=== PATIENT | female | born 1940 | race African-American/Black ===

== ENCOUNTER → 2016-08-20 | Outpatient (CLI) | payer MEDICARE, OTHER ==
--- NOTE | 2016-08-20 14:45 | BD ---
EXAMINATION TYPE: MG DEXA axial skeleton. DATE OF EXAM: 08/20/2016 2:41 PM CLINICAL HISTORY: Comparison: DEXA bone scan March 08, 2014. Height: 62 Weight: 225 FRAX RISK QUESTIONS: Alcohol (3 or more units per day): no Family History (Parent hip fracture): no Glucocorticoids (More than 3mos): no (Ex: prednisone, prednisolone, methylprednisolone, dexamethasone, and hydrocortisone). History of Fracture in Adulthood: no Secondary Osteoporosis: 1. Type 1 Diabetes: no 2. Hyperthyroidism: no 3. Menopause before 45: 46 4. Malnutrition: no 5. Chronic liver disease: no Rheumatoid Arthritis: no Current Tobacco Use: yes RISK FACTORS HISTORY OF: Family History of Osteoporosis: no Smoke tobacco: yes Drink Alcohol: no Active: somewhat Diet low in dairy products/other sources of calcium: at least one serving a day Postmenopausal woman: yes Take estrogen and/or progesterone medications: not now How long: over 5 years...unsure Lost more than 2 inches in height since high school: no Frequent falls: no Poor Health: slightly Hyperparathyroidism: no Adrenal Insufficiency: no MEDICATIONS: Prednisone or other steroids: no Thyroid Medications: no Osteoporosis Medications: no Additional Medications: O2 , metformin, blood pressure meds Additional History: borderline fibromyalgia, diabetes (non insulin dependant), bilateral knee replac ements EXAM MEASUREMENTS: Bone mineral densitometry was performed using the [employer] System. Bone mineral density as measured about the Lumbar spine is: ----- L1-L4(G/cm2): 1.137 T Score Values are as follows: ----- L2: -0.5 ----- L3: -0.3 ----- L4: 0.3 ----- L1-L4: -0.4 Bone mineral density has: Decreased -3.0% since study of: 03/08/2014 Bone mineral density about the R hip (g/cm2): 0.858 Bone mineral density about the L hip (g/cm2): 0.887 T Score values are as follows: -----R Neck: -1.3 -----L Neck: -1.1 -----R Intertrochanter: -0.7 -----L Intertrochanter: -1.6 Bone mineral density has: Decreased -4.8% since study of: 03/08/2014 IMPRESSION: Osteopenia (T Score between -2.5 and -1 as noted by T score values in the bilateral hips is now prese nt new from prior exam as the bone density is decreased from prior. There is slightly increased risk of fracture and the patient may be considered for treatment. Re-Screen 1-2 years. NOTE: T-SCORE=SD OF THE YOUNG ADULT MEAN.
--- NOTE | 2016-08-21 08:07 | MM ---
Reason for exam: screening (asymptomatic). Last mammogram was performed 2 years and 5 months ago. History: Patient is postmenopausal. Family history of breast cancer in sister at age 53. Took estrogen for 11 years beginning at age 58. Took progesterone for 11 years beginning at age 58. Physical Findings: A clinical breast exam by your physician is recommended on an annual basis and results should be correlated with mammographic findings. MG Screening Mammo w CAD Bilateral CC and MLO view(s) were taken. Prior study comparison: March 08, 2014, bilateral MG screening mammo w CAD. July 16, 2010, bilateral digital screening mammo w/CAD. The breast tissue is almost entirely fat. There is chronic nodularity in the left breast. No significant changes when compared with prior studies. ASSESSMENT: Benign, BI-RAD 2 RECOMMENDATION: Routine screening mammogram of both breasts in 1 year.
== END | disposition home or self-care (01) ==
LOC: RADMAMWWP 13:09
PROVIDERS: ATTEND Family Medicine
DX: Z12.31 Encounter for screening mammogram for malignant neoplasm of breast (principal); M85.851 Other specified disorders of bone density and structure, right thigh; M85.852 Other specified disorders of bone density and structure, left thigh
CPT/HCPCS: 77080; G0202

== ENCOUNTER → 2017-10-12 | Outpatient (CLI) | payer MEDICARE, OTHER ==
--- NOTE | 2017-10-13 13:44 | MM ---
Reason for exam: screening (asymptomatic). Last mammogram was performed 1 year and 2 months ago. History: Patient is postmenopausal. Family history of breast cancer in sister at age 53. Took estrogen for 11 years beginning at age 58. Took progesterone for 11 years beginning at age 58. Physical Findings: A clinical breast exam by your physician is recommended on an annual basis and results should be correlated with mammographic findings. MG Screening Mammo w CAD Bilateral CC and MLO view(s) were taken. Prior study comparison: August 20, 2016, bilateral MG screening mammo w CAD. March 08, 2014, bilateral MG screening mammo w CAD. The breast tissue is heterogeneously dense. This may lower the sensitivity of mammography. No suspicious abnormality. No significant changes when compared with prior studies. ASSESSMENT: Negative, BI-RAD 1 RECOMMENDATION: Routine screening mammogram of both breasts in 1 year.
== END | disposition home or self-care (01) ==
LOC: RADMAMWWP 09-10 15:24
PROVIDERS: ATTEND Internal Medicine
DX: Z12.31 Encounter for screening mammogram for malignant neoplasm of breast (principal)
CPT/HCPCS: 77067

== ENCOUNTER → 2019-06-01 | Outpatient (CLI) | payer MEDICARE, OTHER ==
[2019-06-01 16:43] LABS: African American GFR (CKD) >90 (>60 ml/min/1.73 sqM); Blood Urea Nitrogen 12 mg/dL (7-17); Non-African American GFR(CKD) 89 (>60 ml/min/1.73 sqM)
--- NOTE | 2019-06-01 21:52 | CT ---
EXAMINATION TYPE: CT chest w con DATE OF EXAM: 06/01/2019 COMPARISON: CTA chest March 03, 2015. Chest x-ray May 16, 2019 and older studies. HISTORY: COPD, recent abnormal x-ray. CT DLP: 408.7 mGycm. Automated Exposure Control for Dose Reduction was Utilized. TECHNIQUE: CT scan of the thorax is performed following with IV Contrast, patient injected with 100 mL of Isovue 300. FINDINGS: LUNGS: Background mild underlying emphysematous change is redemonstrated. No suspicious nodules or ma sses with particular attention to the right hilum and area of x-ray concern. No pleural effusion or p neumothorax. No suspicious focal consolidation. Tracheobronchial tree is patent. MEDIASTINUM: There are no greater than 1 cm hilar or mediastinal lymph nodes. No pericardial effusi on is seen. Heart size upper limits of normal. Enlarged main pulmonary artery is seen, CT finding co nsistent with underlying pulmonary artery hypertension. Prominent right pulmonary artery at hilum lik sima corresponds to the area of x-ray suspicion. OTHER: Numerous surgical clips at gastroesophageal junction are redemonstrated. Spine is straightened . IMPRESSION: No suspicious mass or adenopathy. Mild emphysematous change without suspicious acute pulm onary process.
== END | disposition home or self-care (01) ==
LOC: RADCTMAIN 16:06
PROVIDERS: ATTEND Internal Medicine
DX: J43.9 Emphysema, unspecified (principal); Z88.8 Allergy status to other drugs, medicaments and biological substances
CPT/HCPCS: 82565; 84520; 71260; 36415; Q9967

== ENCOUNTER → 2019-06-02 | Outpatient (CLI) | payer MEDICARE, OTHER ==
--- NOTE | 2019-06-03 14:17 | MM ---
Reason for exam: screening (asymptomatic). Last mammogram was performed 1 year and 8 months ago. History: Patient is postmenopausal. Family history of breast cancer in sister at age 53. Took estrogen for 11 years beginning at age 58. Took progesterone for 11 years beginning at age 58. Physical Findings: A clinical breast exam by your physician is recommended on an annual basis and results should be correlated with mammographic findings. MG 3D Screening Mammo W/Cad Bilateral CC and MLO view(s) were taken. Prior study comparison: October 12, 2017, bilateral MG screening mammo w CAD. August 20, 2016, bilateral MG screening mammo w CAD. There are scattered fibroglandular densities. There is chronic nodularity bilaterally. There is no discrete abnormality. ASSESSMENT: Benign, BI-RAD 2 RECOMMENDATION: Routine screening mammogram of both breasts in 1 year.
== END | disposition home or self-care (01) ==
LOC: RADMAMWWP 13:34
PROVIDERS: ATTEND Internal Medicine
DX: Z12.31 Encounter for screening mammogram for malignant neoplasm of breast (principal)
CPT/HCPCS: 77063; 77067

== ENCOUNTER 2019-07-06 05:12 | Inpatient (IN) | payer MEDICARE, OTHER ==
[2019-07-06] MEDS ORDERED: methylPREDNISolone SOD SUCCI 125 MG/2 ML VIAL IV STA (06:10)
[2019-07-06] MEDS ORDERED: IPRATROPIUM-ALBUTEROL 3 ML NEB INHALATION STA (06:10)
[2019-07-06] MEDS ORDERED: SODIUM CHLORIDE 0.9% 500 ML 500 ML IV STA (06:10)
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
[2019-07-06 06:46] LABS: HCT 41.9 % (34.0-46.0); HGB 12.6 gm/dL (11.4-16.0); Hypochromasia Moderate; MCH 22.9 pg (25.0-35.0); MCHC 30.1 g/dL (31.0-37.0); Mean Platelet Volume 7.4; Microcytosis Slight; Platelet Count 221 k/uL (150-450); RBC 5.51 m/uL (3.80-5.40); RDW 15.8 % (11.5-15.5); WBC 4.8 k/uL (3.8-10.6)
[2019-07-06 06:56] LABS: ALT 44 U/L (4-34); AST 83 U/L (14-36); African American GFR (CKD) >90 (>60 ml/min/1.73 sqM); Albumin 3.8 g/dL (3.5-5.0); Alkaline Phosphatase 91 U/L (38-126); Anion Gap 4 mmol/L; Blood Urea Nitrogen 12 mg/dL (7-17); Calcium 8.7 mg/dL (8.4-10.2); Carbon Dioxide 31 mmol/L (22-30); Chloride 104 mmol/L (98-107); Glucose 90 mg/dL (74-99); Non-African American GFR(CKD) 88 (>60 ml/min/1.73 sqM); Potassium 4.1 mmol/L (3.5-5.1); Sodium 139 mmol/L (137-145); Total Bilirubin 0.4 mg/dL (0.2-1.3); Total Protein 7.3 g/dL (6.3-8.2)
--- NOTE | 2019-07-06 06:57 | XR ---
EXAMINATION TYPE: XR chest 2V DATE OF EXAM: 07/06/2019 COMPARISON: Chest x-ray April 01, 2015. CT chest June 01, 2019 HISTORY: Difficulty in breathing. TECHNIQUE: Frontal and lateral views of the chest are obtained. FINDINGS: Improved inspiration on current study. There is no new suspicious focal airspace opacity, pleural effusion, or pneumothorax seen bilaterally. Cardiac silhouette size is stable and enlarged wi th atherosclerotic and ectatic thoracic aorta. Numerous surgical clips epigastric region along with c holecystectomy clips are redemonstrated. Spine is straightened on lateral view. IMPRESSION: Cardiomegaly without new acute pulmonary process.
[2019-07-06 07:16] LABS: Partial Thromboplastin Time 22.9 sec (22.0-30.0); Prothrombin Time 10.5 sec (9.0-12.0)
[2019-07-06 08:25] LABS: Band Neutrophils % 1 %; Eosinophils # (M) 0.05 k/uL (0-0.7); Lymphocytes # (M) 0.67 k/uL (1.0-4.8); Monocytes # (M) 0.43 k/uL (0-1.0); Neutrophils % (M) 75 %; Nucleated Red Blood Cells 0 /100 WBC (0-0); Total Cells Counted 100
[2019-07-06 08:27] LABS: Target Cells Present
[2019-07-06] MEDS ORDERED: AZITHROMYCIN 500 MG in SODIUM CHLORIDE 0.9% 250 ML IVPB STA (08:50)
[2019-07-06] MEDS: IPRATROPIUM-ALBUTEROL 3 ML NEB INHALATION SCH ×4 (11:59→20:18)
[2019-07-06] MEDS ORDERED: methylPREDNISolone SOD SUCCI 125 MG/2 ML VIAL IV SCH (12:00)
[2019-07-06] MEDS: INSULIN ASPART (NovoLOG) 100 UNIT/ML VIAL SQ SCH ×3 (13:16→22:32)
[2019-07-06 13:18] LABS: Glucose,Whole Blood 189 mg/dL (75-99)
[2019-07-06] MEDS ORDERED: AZITHROMYCIN 500 MG TAB PO SCH (14:00)
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
[2019-07-06] MEDS: LOSARTAN 50 MG TAB PO SCH ×2 (14:16→22:32)
[2019-07-06] MEDS: FERROUS SULFATE 325 MG TAB PO SCH (14:16)
[2019-07-06] MEDS: GABAPENTIN 300 MG CAP PO SCH ×2 (14:17→22:32)
[2019-07-06] MEDS: FUROSEMIDE 40 MG TAB PO SCH ×2 (14:17→22:32)
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
[2019-07-06] MEDS: COLCHICINE 0.6 MG EACH PO SCH (15:51)
[2019-07-06] MEDS: DULoxetine HCL 20 MG CAPSULE.DR PO SCH ×2 (15:52→22:22)
[2019-07-06] MEDS: oxyCODONE-APAP 10-325MG 1 EACH TAB PO PRN (16:02)
[2019-07-06] MEDS: HEPARIN SODIUM,PORCINE 5,000 UNIT/ML 1 ML VIAL SQ SCH ×2 (19:02→23:21)
[2019-07-06 19:03] LABS: Glucose,Whole Blood 313 mg/dL (75-99)
[2019-07-06] MEDS ORDERED: IPRATROPIUM-ALBUTEROL 3 ML NEB INHALATION PRN (20:23)
[2019-07-06] MEDS ORDERED: HEPARIN SODIUM,PORCINE 5,000 UNIT/ML 1 ML VIAL SQ SCH (21:00)
[2019-07-06] MEDS: FAMOTIDINE 20 MG TAB PO SCH (21:22)
[2019-07-06] MEDS: methylPREDNISolone SOD SUCCI 40 MG/ML 1 ML VIAL IV SCH (21:23)
[2019-07-06 22:26] LABS: Glucose,Whole Blood 191 mg/dL (75-99)
[2019-07-06] MEDS: POTASSIUM CHLORIDE ER 10 MEQ TAB.ER.PRT PO SCH (22:32)
[2019-07-07] MEDS: oxyCODONE-APAP 10-325MG 1 EACH TAB PO PRN ×3 (02:00→19:07)
[2019-07-07 06:58] LABS: Glucose,Whole Blood 130 mg/dL (75-99)
[2019-07-07] MEDS: IPRATROPIUM-ALBUTEROL 3 ML NEB INHALATION SCH ×4 (07:24→20:14)
[2019-07-07] MEDS: INSULIN ASPART (NovoLOG) 100 UNIT/ML VIAL SQ SCH ×4 (08:29→21:02)
[2019-07-07] MEDS: ASPIRIN 81 MG PO SCH (08:30)
[2019-07-07] MEDS: LOSARTAN 50 MG TAB PO SCH ×2 (08:30→21:01)
[2019-07-07] MEDS: POTASSIUM CHLORIDE ER 10 MEQ TAB.ER.PRT PO SCH ×2 (08:30→21:01)
[2019-07-07] MEDS: MONTELUKAST 10 MG TAB PO SCH (08:30)
[2019-07-07] MEDS: AZITHROMYCIN 500 MG TAB PO SCH (08:30)
[2019-07-07] MEDS: FERROUS SULFATE 325 MG TAB PO SCH (08:30)
[2019-07-07] MEDS: FAMOTIDINE 20 MG TAB PO SCH (08:30)
[2019-07-07] MEDS: GABAPENTIN 300 MG CAP PO SCH ×2 (08:30→21:01)
[2019-07-07] MEDS: metFORMIN 500 MG TAB PO SCH (08:30)
[2019-07-07] MEDS: FUROSEMIDE 40 MG TAB PO SCH ×2 (08:30→21:01)
[2019-07-07] MEDS: PANTOPRAZOLE 40 MG TABLET PO SCH (08:30)
[2019-07-07] MEDS: methylPREDNISolone SOD SUCCI 40 MG/ML 1 ML VIAL IV SCH ×2 (08:30→21:33)
[2019-07-07] MEDS: COLCHICINE 0.6 MG EACH PO SCH (08:31)
[2019-07-07] MEDS: MELOXICAM 7.5 MG TAB PO SCH (08:31)
[2019-07-07] MEDS: DULoxetine HCL 20 MG CAPSULE.DR PO SCH ×2 (08:31→08:43)
[2019-07-07] MEDS: HEPARIN SODIUM,PORCINE 5,000 UNIT/ML 1 ML VIAL SQ SCH ×3 (08:32→23:29)
[2019-07-07] MEDS: guaiFENesin SYRUP 100MG/5ML 200 MG/10 ML CUP PO PRN ×2 (09:36→23:32)
[2019-07-07 11:44] LABS: Glucose,Whole Blood 127 mg/dL (75-99)
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
--- NOTE | 2019-07-07 14:58 | P.PN ---
Subjective Patient is admitted for COPD exacerbation patient wheezing did improve significantly. Probably will be discharged tomorrow. Patient chest pain is s econdary to bronchospasm which resolved at this time. Constitutional: Denied any fatigue denied any fever. Cardio vascular: denied any chest pain, palpitations Gastrointestinal denied any nausea vomiting Pulmonary: Short of breath improved significantly Neurologic denied any new focal deficits All inpatient medications were reviewed and appropriate changes in these medications as dictated in the interval history and assessment and plan. Objective - Vital Signs Vital signs: Vital Signs Temp 97.5 F L 07/07/19 11:49 Pulse 86 07/07/19 11:49 Resp 16 07/07/19 11:49 BP 134/79 07/07/19 11:49 Pulse Ox 98 07/07/19 11:49 Intake & Output 07/06/19 07/07/19 07/07/19 18:59 06:59 18:59 Intake Total 800 590 Balance 800 590 Weight 102.512 kg Intake: Intake, IV Titration 800 Amount Azithromycin 500 mg In 250 Sodium Chloride 0.9% 250 ml @ 250 mls/hr IVPB ONCE STA Rx#:[id number] Sodium Chloride 0.9% 500 500 ml 500 ml @ 999 mls/hr IV .Q31M STA Rx#:[id number] cefTRIAXone 1 gm In 50 Sodium Chloride 0.9% 50 ml @ 100 mls/hr IVPB ONCE STA Rx#:[id number] Oral 590 Other: Voiding Method Toilet Toilet # Voids 3 1 - Exam PHYSICAL EXAMINATION: GENERAL: The patient is alert and oriented x3, not in any acute distress. Well developed, well nourished. HEENT: Pupils are round and equally reacting to light. EOMI. No scleral icterus. No conjunctival pallor. Normocephalic, atraumatic. No pharyngeal erythema. No thyromegaly. CARDIOVASCULAR: S1 and S2 present. No murmurs, rubs, or gallops. PULMONARY: Mildly diminished air entry into bilateral lung maurice and the wheezing improved significantly ABDOMEN: Soft, nontender, nondistended, normoactive bowel sounds. No palpable organomegaly. MUSCULOSKELETAL: No joint swelling or deformity. EXTREMITIES: No cyanosis, clubbing, or pedal edema. NEUROLOGICAL: Gross neurological examination did not reveal any focal deficits. SKIN: No rashes. - Labs CBC & Chem 7: 07/06/19 06:31 07/06/19 06:31 Labs: Abnormal Lab Results - Last 24 Hours (Table) 07/06/19 07/06/19 07/07/19 Range/Units 19:01 22:14 06:53 POC Glucose (mg/dL) 313 H 191 H 130 H (75-99) mg/dL 07/07/19 Range/Units 11:41 POC Glucose (mg/dL) 127 H (75-99) mg/dL Assessment and Plan Plan: Acute on chronic hypercapnic respiratory failure secondary to COPD exacerbation: Nicotine cessation counseling was provided patient was started on systemic steroids inhalational treatments and patient was started on azithromycin by pulmonary which will be continued -Type 2 diabetes mellitus: Blood sugars fairly well-controlled in spite of systemic steroids patient will continue on present regimen -Fibromyalgia -Osteoarthritis with chronic neck and back pain. 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 -DVT prophylaxis with subcutaneous heparin and GI prophylaxis with Pepcid
[2019-07-07 17:12] LABS: Glucose,Whole Blood 193 mg/dL (75-99)
[2019-07-07 19:00] LABS: Hemoglobin A1C 6.7 % (4.0-6.0)
[2019-07-07 20:36] LABS: Glucose,Whole Blood 259 mg/dL (75-99)
[2019-07-08 05:13] VITALS: BP 128/72; RESP 16; TEMP 97.7
[2019-07-08 07:13] LABS: Glucose,Whole Blood 136 mg/dL (75-99)
[2019-07-08] MEDS: IPRATROPIUM-ALBUTEROL 3 ML NEB INHALATION SCH (07:56)
[2019-07-08] MEDS: FUROSEMIDE 40 MG TAB PO SCH (08:02)
[2019-07-08] MEDS: metFORMIN 500 MG TAB PO SCH (08:02)
[2019-07-08] MEDS: POTASSIUM CHLORIDE ER 10 MEQ TAB.ER.PRT PO SCH (08:02)
[2019-07-08] MEDS: MONTELUKAST 10 MG TAB PO SCH (08:02)
[2019-07-08] MEDS: HEPARIN SODIUM,PORCINE 5,000 UNIT/ML 1 ML VIAL SQ SCH (08:03)
[2019-07-08] MEDS: PANTOPRAZOLE 40 MG TABLET PO SCH (08:03)
[2019-07-08] MEDS: DULoxetine HCL 20 MG CAPSULE.DR PO SCH ×2 (08:03→08:19)
[2019-07-08] MEDS: LOSARTAN 50 MG TAB PO SCH (08:03)
[2019-07-08] MEDS: COLCHICINE 0.6 MG EACH PO SCH (08:03)
[2019-07-08] MEDS: GABAPENTIN 300 MG CAP PO SCH (08:03)
[2019-07-08] MEDS: FERROUS SULFATE 325 MG TAB PO SCH (08:03)
[2019-07-08] MEDS: ASPIRIN 81 MG PO SCH (08:03)
[2019-07-08] MEDS: AZITHROMYCIN 500 MG TAB PO SCH (08:03)
[2019-07-08] MEDS: MELOXICAM 7.5 MG TAB PO SCH (08:04)
[2019-07-08] MEDS: methylPREDNISolone SOD SUCCI 40 MG/ML 1 ML VIAL IV SCH (08:04)
[2019-07-08] MEDS: INSULIN ASPART (NovoLOG) 100 UNIT/ML VIAL SQ SCH (08:13)
[2019-07-08] MEDS: oxyCODONE-APAP 10-325MG 1 EACH TAB PO PRN (08:38)
[2019-07-08 10:27] VITALS: PULSE 63
--- NOTE | 2019-07-08 14:35 | P.DS ---
Providers Date of admission: 07/08/19 08:12 Attending physician: Elle Sanchez Consults: 07/06/19 08:49 Consult Physician Routine Consulting Provider: Elvia Holman Consult Reason/Comments: COPD Do you want consulting provider notified?: Yes Primary care physician: Kiki García Hospital Course: Patient is admitted for COPD exacerbation patient wheezing did improve significantly. Probably will be discharged tomorrow. Patient chest pain is secondary to bronchospasm which resolved at this time. 07/08/2019 Patient is clinically doing well is will be discharged today on weaning dose of prednisone and GI prophylaxis.. PHYSICAL EXAMINATION: GENERAL: The patient is alert and oriented x3, not in any acute distress. Well developed, well nourished. HEENT: Pupils are round and equally reacting to light. EOMI. No scleral icterus. No conjunctival pallor. Normocephalic, atraumatic. No pharyngeal erythema. No thyromegaly. CARDIOVASCULAR: S1 and S2 present. No murmurs, rubs, or gallops. PULMONARY: Mildly diminished air entry into bilateral lung maurice and the wheezing improved significantly ABDOMEN: Soft, nontender, nondistended, normoactive bowel sounds. No palpable organomegaly. MUSCULOSKELETAL: No joint swelling or deformity. EXTREMITIES: No cyanosis, clubbing, or pedal edema. NEUROLOGICAL: Gross neurological examination did not reveal any focal deficits. SKIN: No rashes. Assessment and Plan Plan: Acute on chronic hypercapnic respiratory failure secondary to COPD exacerbation: Nicotine cessation counseling was provided patient is being discharged on oral any dose of steroids -Type 2 diabetes mellitus: -Fibromyalgia -Osteoarthritis with chronic neck and back pain. 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 -Hypertension Patient Condition at Discharge: Fair Plan - Discharge Summary Discharge Rx Participant: No New Discharge Prescriptions: New predniSONE 10 mg PO DAILY #30 tab Fluticasone/Salmeterol [Advair 100-50 Diskus] 1 inhalation PO BID #1 inhaler Continue Fluticasone Nasal [place] [Flonase Nasal [place]] 2 spray EA NOSTRIL DAILY Omeprazole [PriLOSEC] 20 mg PO AC-BRKFST Potassium Chloride [Klor-Con 10] 10 meq PO BID #1 tablet.er Ferrous Sulfate [Feosol] 325 mg PO DAILY rOPINIRole HCL [Requip] 1 mg PO HS Umeclidinium [place] [Incruse Ellipta] 1 puff INHALATION RT-DAILY Gabapentin [Neurontin] 300 mg PO BID DULoxetine HCL [Cymbalta] 20 mg PO DAILY Montelukast [Singulair] 10 mg PO DAILY Colchicine 0.6 mg PO DAILY Aspirin EC [Ecotrin Low Dose] 81 mg PO DAILY Albuterol Nebulized [Ventolin Nebulized] 2.5 mg INHALATION RT-QID PRN PRN Reason: Shortness Of Breath oxyCODONE-APAP 10-325MG [Percocet 10-325 mg] 1 tab PO Q8H PRN PRN Reason: Pain Losartan Potassium 50 mg PO BID metFORMIN HCL 1,000 mg PO DIRECTED Meloxicam [Mobic] 15 mg PO DAILY Furosemide [Lasix] 40 mg PO BID Discontinued Azithromycin [Zithromax Z-pack] See Taper PO DAILY Discharge Medication List Fluticasone Nasal [place] [Flonase Nasal [place]] 2 spray EA NOSTRIL DAILY 03/04/15 [History] Omeprazole [PriLOSEC] 20 mg PO AC-BRKFST 03/04/15 [History] Potassium Chloride [Klor-Con 10] 10 meq PO BID #1 tablet.er 04/09/15 [Rx] Albuterol Nebulized [Ventolin Nebulized] 2.5 mg INHALATION RT-QID PRN 07/06/19 [History] Aspirin EC [Ecotrin Low Dose] 81 mg PO DAILY 07/06/19 [History] Colchicine 0.6 mg PO DAILY 07/06/19 [History] DULoxetine HCL [Cymbalta] 20 mg PO DAILY 07/06/19 [History] Ferrous Sulfate [Feosol] 325 mg PO DAILY 07/06/19 [History] Furosemide [Lasix] 40 mg PO BID 07/06/19 [History] Gabapentin [Neurontin] 300 mg PO BID 07/06/19 [History] Losartan Potassium 50 mg PO BID 07/06/19 [History] Meloxicam [Mobic] 15 mg PO DAILY 07/06/19 [History] Montelukast [Singulair] 10 mg PO DAILY 07/06/19 [History] Umeclidinium [place] [Incruse Ellipta] 1 puff INHALATION RT-DAILY 07/06/19 [History] metFORMIN HCL 1,000 mg PO DIRECTED 07/06/19 [History] oxyCODONE-APAP 10-325MG [Percocet 10-325 mg] 1 tab PO Q8H PRN 07/06/19 [History] rOPINIRole HCL [Requip] 1 mg PO HS 07/06/19 [History] Fluticasone/Salmeterol [Advair 100-50 Diskus] 1 inhalation PO BID #1 inhaler 07/07/19 [Rx] predniSONE 10 mg PO DAILY #30 tab 07/07/19 [Rx] Follow up Appointment(s)/Referral(s): Ricky Swanson MD [Primary Care Provider] - 07/14/19 1:40 pm Charlie Arriola DO [Doctor of Osteopathic Medicine] - 07/26/19 2:30 pm Patient Instructions/Handouts: Prednisone (By mouth), Fluticasone/Salmeterol (By breathing), COPD (Chronic Obstructive Pulmonary Disease) (DC), Dyspnea (DC), Hypoxia (ED) Discharge Disposition: HOME SELF-CARE
== END 2019-07-08 12:00 | disposition home or self-care (01) | DRG 190 ==
LOC: EC 05:12 → 5NMEDONC 09:14 → OBSVTOIN 07-08 08:12
PROVIDERS: ADMIT Hospitalist; ATTEND Hospitalist
DX: J44.1 Chronic obstructive pulmonary disease with (acute) exacerbation (principal); J96.21 Acute and chronic respiratory failure with hypoxia; J96.22 Acute and chronic respiratory failure with hypercapnia; F32.9 Major depressive disorder, single episode, unspecified; G89.29 Other chronic pain; F17.200 Nicotine dependence, unspecified, uncomplicated; E11.21 Type 2 diabetes mellitus with diabetic nephropathy; I11.9 Hypertensive heart disease without heart failure; M79.7 Fibromyalgia; Z79.1 Long term (current) use of non-steroidal anti-inflammatories (NSAID); Z79.4 Long term (current) use of insulin; Z79.51 Long term (current) use of inhaled steroids; Z79.82 Long term (current) use of aspirin; Z79.899 Other long term (current) drug therapy; Z82.49 Family history of ischemic heart disease and other diseases of the circulatory system; Z88.8 Allergy status to other drugs, medicaments and biological substances; Z90.49 Acquired absence of other specified parts of digestive tract; Z90.89 Acquired absence of other organs; Z98.890 Other specified postprocedural states
CPT/HCPCS: 36415; 71046; 80053; 83036; 83735; 83880; 84484; 85025; 85610; 85730; 93005; 94640; 94760; 96361; 96365; 96372; 96375; 96376; 99285

== ENCOUNTER 2019-07-22 01:26 | Emergency (ER) | payer MEDICARE, OTHER ==
[2019-07-22] MEDS ORDERED: DIAZEPAM 5 MG/ML 2 ML INJ IM ONE (01:55)
--- NOTE | 2019-07-22 02:00 | ED ---
Back Pain HPI - General Chief Complaint: Back Pain/Injury Stated Complaint: Back Pain Time Seen by Provider: 07/22/19 01:40 Source: patient Limitations: no limitations - History of Present Illness Initial Comments: Patient is a 78-year-old female presenting to emergency Department with complaints of muscle spasms as going from her toes up her back for most of tonight. Patient states she had a spinal device called vertiflex implanted in her lumbar region for chronic back pain, and Michael by physician in [place] (name unknown). She has had regular follow-up with him and has had recent lumbar x-rays which show no acute abnormalities. Patient does take Percocets at home for her chronic back pain. Patient states this is more of a cramping feeling and spasms running up and down the backside of her. She is not able to get comfortable. She denies fever, chills, bowel or bladder incontinence, numbness into her lower upper extremities. She has no other complaints at this time. Upon arrival to the ER, her vital signs are stable. - Related Data Home Medications Medication Instructions Recorded Confirmed Fluticasone Nasal [place] [Flonase 2 spray EA NOSTRIL DAILY 03/04/15 07/06/19 Nasal [place]] Omeprazole [PriLOSEC] 20 mg PO AC-BRKFST 03/04/15 07/06/19 Albuterol Nebulized [Ventolin 2.5 mg INHALATION RT-QID PRN 07/06/19 07/06/19 Nebulized] Aspirin EC [Ecotrin Low Dose] 81 mg PO DAILY 07/06/19 07/06/19 Colchicine 0.6 mg PO DAILY 07/06/19 07/06/19 DULoxetine HCL [Cymbalta] 20 mg PO DAILY 07/06/19 07/06/19 Ferrous Sulfate [Feosol] 325 mg PO DAILY 07/06/19 07/06/19 Furosemide [Lasix] 40 mg PO BID 07/06/19 07/06/19 Gabapentin [Neurontin] 300 mg PO BID 07/06/19 07/06/19 Losartan Potassium 50 mg PO BID 07/06/19 07/06/19 Meloxicam [Mobic] 15 mg PO DAILY 07/06/19 07/06/19 Montelukast [Singulair] 10 mg PO DAILY 07/06/19 07/06/19 Umeclidinium [place] [Incruse 1 puff INHALATION RT-DAILY 07/06/19 07/06/19 Ellipta] metFORMIN HCL 1,000 mg PO DIRECTED 07/06/19 07/06/19 oxyCODONE-APAP 10-325MG [Percocet 1 tab PO Q8H PRN 07/06/19 07/06/19 10-325 mg] rOPINIRole HCL [Requip] 1 mg PO HS 07/06/19 07/06/19 Previous Rx's Medication Instructions Recorded Potassium Chloride [Klor-Con 10] 10 meq PO BID #1 tablet.er 04/09/15 Fluticasone/Salmeterol [Advair 1 inhalation PO BID #1 inhaler 07/07/19 100-50 Diskus] predniSONE 10 mg PO DAILY #30 tab 07/07/19 Allergies Allergy/AdvReac Type Severity Reaction Status Date / Time Corticosteroids Allergy Itching Verified 07/22/19 01:37 (Glucocorticoids) propoxyphene napsylate Allergy Itching Verified 07/22/19 01:37 [From Darvocet-N 100] Review of Systems ROS Statement: Those systems with pertinent positive or pertinent negative responses have been documented in the HPI. ROS Other: All systems not noted in ROS Statement are negative. Past Medical History Past Medical History: COPD, Diabetes Mellitus, Fibromyalgia Additional Past Medical History / Comment(s): chronic neck and back pain 1996 affected rt knee & rt ankle, hypotension History of Any Multi-Drug Resistant Organisms: None Reported Past Surgical History: Appendectomy, Cholecystectomy, Orthopedic Surgery, Tonsillectomy Additional Past Surgical History / Comment(s): Total Bilateral Knee, Right Ankle. Lt Shoulder surgery. Egd/Colonoscopy 12/10/13. verticalflex in back, Past Anesthesia/Blood Transfusion Reactions: No Reported Reaction Additional Past Anesthesia/Blood Transfusion Reaction / Comment(s): pt states received 5-6 units blood @ [facility] recently Past Psychological History: No Psychological Hx Reported Smoking Status: Current every day smoker Past Alcohol Use History: None Reported Past Drug Use History: None Reported - Past Family History Mother History Unknown: Yes Family Medical History: Coronary Artery Disease (CAD) General Exam - General Exam Comments Initial Comments: GENERAL: Well-appearing, well-nourished and in no acute distress. HEAD: Atraumatic, normocephalic. EYES: Pupils equal round and reactive to light, extraocular movements intact, sclera anicteric, conjunctiva are normal. ENT: TMs normal, nares patent, oropharynx clear without exudates. Moist mucous membranes. NECK: Normal range of motion, supple without lymphadenopathy or JVD. LUNGS: Breath sounds clear to auscultation bilaterally and equal. No wheezes rales or rhonchi. HEART: Regular rate and rhythm without murmurs, rubs or gallops. ABDOMEN: Soft, nontender, normoactive bowel sounds. No guarding, no rebound. No masses appreciated. : Deferred EXTREMITIES: Patient does have some mild increased edema to her left lower extremity compared to right. She states this has been ongoing issue. She is 5 out of 5 strength in her lower extremities. Neurovascular intact. Patient is able to go from and will supine position to sitting position without much difficulty. NEUROLOGICAL: Normal speech, normal gait. PSYCH: Normal mood, normal affect. SKIN: Warm, Dry, normal turgor, no rashes or lesions noted. Limitations: no limitations Course Vital Signs 07/22/19 01:30 Temperature 98.1 F Pulse Rate 105 H Respiratory 23 Rate Blood Pressure 122/72 O2 Sat by Pulse 96 Oximetry Medical Decision Making - Medical Decision Making Patient is a 78-year-old female presenting with back spasms for the past few hours. She has chronic back pain and does see a specialist in [place]. She's had recent lumbar x-rays there that showed no acute abnormalities. Patien t's exam is unremarkable. She is able to go from a supine to sitting position without difficulty. She takes Percocets at home. Patient was given 5 mg of Valium. Upon recheck, patient is lying on her side resting comfortably. She reports improvement in her symptoms. She is stable for discharge at this time. She will follow-up with her surgeon in a couple weeks. Return parameters were discussed with the patient she verbalized understanding. Case discussed with Dr. Casarez. Disposition Clinical Impression: Chronic back pain, Back muscle spasm Disposition: HOME SELF-CARE Condition: Stable Instructions (If sedation given, give patient instructions): Chronic Back Pain (DC) Additional Instructions: Please return to the Emergency Department if symptoms worsen or any other concerns. Follow up with surgeon as discussed. Continue with heat to the area as needed. Is patient prescribed a controlled substance at d/c from ED?: No Referrals: Ricky Swanson MD [Primary Care Provider] - 1-2 days
[2019-07-22 03:46] VITALS: BP 120/70; PULSE 98; RESP 18; TEMP 98
== END 2019-07-22 03:46 | disposition home or self-care (01) ==
LOC: EC 01:26
DX: G89.29 Other chronic pain (principal); M54.9 Dorsalgia, unspecified; M62.830 Muscle spasm of back; J44.9 Chronic obstructive pulmonary disease, unspecified; E11.9 Type 2 diabetes mellitus without complications; M79.7 Fibromyalgia; F17.200 Nicotine dependence, unspecified, uncomplicated; Z79.51 Long term (current) use of inhaled steroids; Z79.82 Long term (current) use of aspirin; Z79.899 Other long term (current) drug therapy; Z79.1 Long term (current) use of non-steroidal anti-inflammatories (NSAID); Z88.5 Allergy status to narcotic agent; Z88.8 Allergy status to other drugs, medicaments and biological substances
CPT/HCPCS: 99283; 96372; J3360

== ENCOUNTER 2019-07-23 23:20 | Emergency (ER) | payer MEDICARE, OTHER ==
[2019-07-24] MEDS ORDERED: IPRATROPIUM-ALBUTEROL 3 ML NEB INHALATION STA (00:03)
[2019-07-24] MEDS ORDERED: DIAZEPAM 5 MG/ML 2 ML INJ IVP STA (00:03)
[2019-07-24 00:26] LABS: Anisocytosis Slight; Basophils # (A) 0.2 k/uL (0-0.2); Basophils % (A) 2 %; Eosinophils # (A) 0.2 k/uL (0-0.7); Eosinophils % (A) 2 %; HCT 40.4 % (34.0-46.0); HGB 12.1 gm/dL (11.4-16.0); Hypochromasia Moderate; Lymphocytes # (A) 1.8 k/uL (1.0-4.8); Lymphocytes % (A) 18 %; MCH 22.8 pg (25.0-35.0); MCV 75.8 fL (80.0-100.0); Mean Platelet Volume 6.8; Microcytosis Slight; Monocytes # (A) 0.4 k/uL (0-1.0); Monocytes % (A) 4 %; Neutrophils # (A) 6.9 k/uL (1.3-7.7); Neutrophils % (A) 71 %; Platelet Count 217 k/uL (150-450); RBC 5.33 m/uL (3.80-5.40); RDW 16.4 % (11.5-15.5); WBC 9.7 k/uL (3.8-10.6)
[2019-07-24 00:36] LABS: ALT 19 U/L (4-34); AST 21 U/L (14-36); African American GFR (CKD) >90 (>60 ml/min/1.73 sqM); Albumin 3.7 g/dL (3.5-5.0); Alkaline Phosphatase 93 U/L (38-126); Anion Gap 7 mmol/L; Blood Urea Nitrogen 17 mg/dL (7-17); Calcium 8.3 mg/dL (8.4-10.2); Carbon Dioxide 30 mmol/L (22-30); Chloride 104 mmol/L (98-107); Glucose 112 mg/dL (74-99); Magnesium 1.8 mg/dL (1.6-2.3); Non-African American GFR(CKD) 83 (>60 ml/min/1.73 sqM); Potassium 4.1 mmol/L (3.5-5.1); Sodium 141 mmol/L (137-145); Total Bilirubin 0.3 mg/dL (0.2-1.3)
--- NOTE | 2019-07-24 01:11 | ED ---
General Adult HPI - General Chief complaint: Back Pain/Injury Stated complaint: muscle spasm Time Seen by Provider: 07/23/19 23:37 Source: patient, family Mode of arrival: ambulatory Limitations: no limitations - History of Present Illness Initial comments: 78-year-old female patient presents to the emergency department today for evaluation of spasms. Patient states that for the last few days she has been having spasms ranging from her neck all the way down to her feet on her back. Patient states that this spasms started about an hour prior to arrival today. Patient states that on was made her fall to the ground. She denies any known injury. States she does have a Vertiflex implant in her back for spinal stenosis placed in May. Patient denies any problems after the procedure. She denies any loss of bowel or bladder control. Denies any saddle anesthesia. She denies fever or chills. Patient states she is currently taking Levaquin for respiratory infection. Patient denies any recent rash, shortness breath, chest pain, abdominal pain, nausea, vomiting, diarrhea, constipation, dizziness, weakness, hematuria, dysuria, urinary urgency, urinary frequency, headache, visual changes, or any other complaints. - Related Data Home Medications Medication Instructions Recorded Confirmed Fluticasone Nasal [place] [Flonase 2 spray EA NOSTRIL DAILY 03/04/15 07/06/19 Nasal [place]] Omeprazole [PriLOSEC] 20 mg PO AC-BRKFST 03/04/15 07/06/19 Albuterol Nebulized [Ventolin 2.5 mg INHALATION RT-QID PRN 07/06/19 07/06/19 Nebulized] Aspirin EC [Ecotrin Low Dose] 81 mg PO DAILY 07/06/19 07/06/19 Colchicine 0.6 mg PO DAILY 07/06/19 07/06/19 DULoxetine HCL [Cymbalta] 20 mg PO DAILY 07/06/19 07/06/19 Ferrous Sulfate [Feosol] 325 mg PO DAILY 07/06/19 07/06/19 Furosemide [Lasix] 40 mg PO BID 07/06/19 07/06/19 Gabapentin [Neurontin] 300 mg PO BID 07/06/19 07/06/19 Losartan Potassium 50 mg PO BID 07/06/19 07/06/19 Meloxicam [Mobic] 15 mg PO DAILY 07/06/19 07/06/19 Montelukast [Singulair] 10 mg PO DAILY 07/06/19 07/06/19 Umeclidinium [place] [Incruse 1 puff INHALATION RT-DAILY 07/06/19 07/06/19 Ellipta] metFORMIN HCL 1,000 mg PO DIRECTED 07/06/19 07/06/19 oxyCODONE-APAP 10-325MG [Percocet 1 tab PO Q8H PRN 07/06/19 07/06/19 10-325 mg] rOPINIRole HCL [Requip] 1 mg PO HS 07/06/19 07/06/19 Previous Rx's Medication Instructions Recorded Potassium Chloride [Klor-Con 10] 10 meq PO BID #1 tablet.er 04/09/15 Fluticasone/Salmeterol [Advair 1 inhalation PO BID #1 inhaler 07/07/19 100-50 Diskus] predniSONE 10 mg PO DAILY #30 tab 07/07/19 Diazepam [Valium] 5 mg PO TID PRN 3 Days #9 tab 07/24/19 Allergies Allergy/AdvReac Type Severity Reaction Status Date / Time Corticosteroids Allergy Itching Verified 07/23/19 23:21 (Glucocorticoids) propoxyphene napsylate Allergy Itching Verified 07/23/19 23:21 [From Darvocet-N 100] Review of Systems ROS Statement: Those systems with pertinent positive or pertinent negative responses have been documented in the HPI. ROS Other: All systems not noted in ROS Statement are negative. Past Medical History Past Medical History: COPD, Diabetes Mellitus, Fibromyalgia Additional Past Medical History / Comment(s): chronic neck and back pain 1996 affected rt knee & rt ankle, hypotension History of Any Multi-Drug Resistant Organisms: None Reported Past Surgical History: Appendectomy, Cholecystectomy, Orthopedic Surgery, Tonsillectomy Additional Past Surgical History / Comment(s): Total Bilateral Knee, Right Ankle. Lt Shoulder surgery. Egd/Colonoscopy 12/10/13. verticalflex in back, Past Anesthesia/Blood Transfusion Reactions: No Reported Reaction Additional Past Anesthesia/Blood Transfusion Reaction / Comment(s): pt states received 5-6 units blood @ [facility] recently Past Psychological History: No Psychological Hx Reported Smoking Status: Current every day smoker Past Alcohol Use History: None Reported Past Drug Use History: None Reported - Past Family History Mother History Unknown: Yes Family Medical History: Coronary Artery Disease (CAD) General Exam Limitations: no limitations General appearance: alert, in no apparent distress, other (Physical well- developed, well-nourished elderly female patient in no acute distress. Vital signs upon presentation are temperature 99.0F, pulse 125, respirations 20, blood pressure 115/63, pulse ox 94% on room air.) Eye exam: Present: normal appearance, PERRL, EOMI. Absent: scleral icterus, conjunctival injection, periorbital swelling ENT exam: Present: normal exam, normal oropharynx Respiratory exam: Present: wheezes (Faint expiratory wheezing in the posterior lung maurice). Absent: respiratory distress, rales, rhonchi, stridor Cardiovascular Exam: Present: regular rate, normal rhythm, normal heart sounds. Absent: systolic murmur, diastolic murmur, rubs, gallop, clicks GI/Abdominal exam: Present: soft, normal bowel sounds. Absent: distended, tenderness, guarding, rebound, rigid Extremities exam: Present: normal inspection, full ROM, normal capillary refill, other (Skin to the lower extremities is warm and dry. Cap refills less than 3 seconds. Post tibial pulses 2+.). Absent: tenderness, pedal edema, joint swelling, calf tenderness Back exam: Present: normal inspection. Absent: vertebral tenderness Neurological exam: Present: alert, oriented X3, CN II-XII intact, other (Strength in all 4 extremities is 5/5) Psychiatric exam: Present: normal affect, normal mood Skin exam: Present: warm, dry, intact, normal color. Absent: rash Course Vital Signs 07/23/19 07/24/19 07/24/19 23:21 00:33 00:34 Temperature 99 F Pulse Rate 125 H 100 103 H Respiratory 20 16 Rate Blood Pressure 115/63 129/78 O2 Sat by Pulse 94 L 94 L Oximetry 07/24/19 07/24/19 07/24/19 00:44 00:46 02:04 Temperature 98.3 F Pulse Rate 101 H 101 H 96 Respiratory 17 18 Rate Blood Pressure 119/75 113/74 O2 Sat by Pulse 97 97 Oximetry Medical Decision Making - Medical Decision Making 78-year-old female patient presents to the emergency department today for evaluation of back spasms. Physical examination is unremarkable. She does have some wheezing. She is currently being treated with Levaquin for respiratory infection. Labs reviewed and are unremarkable. She was given a dose of Valium here in the department. Did discuss signs or results with the patient. Upon reevaluation she is reporting improve symptoms. She'll be discharged home with a prescription for Valium by mouth she is instructed to follow-up with her primary care physician for recheck in 1-2 days. Return parameters were discussed in detail. She verbalizes understanding and agrees with this plan. - Lab Data Result diagrams: 07/24/19 00:17 07/24/19 00:17 Lab Results 07/24/19 07/24/19 Range/Units 00:17 00:17 WBC 9.7 (3.8-10.6) k/uL RBC 5.33 (3.80-5.40) m/uL Hgb 12.1 (11.4-16.0) gm/dL Hct 40.4 (34.0-46.0) % MCV 75.8 L (80.0-100.0) fL MCH 22.8 L (25.0-35.0) pg MCHC 30.0 L (31.0-37.0) g/dL RDW 16.4 H (11.5-15.5) % Plt Count 217 (150-450) k/uL Neutrophils % 71 % Lymphocytes % 18 % Monocytes % 4 % Eosinophils % 2 % Basophils % 2 % Neutrophils # 6.9 (1.3-7.7) k/uL Lymphocytes # 1.8 (1.0-4.8) k/uL Monocytes # 0.4 (0-1.0) k/uL Eosinophils # 0.2 (0-0.7) k/uL Basophils # 0.2 (0-0.2) k/uL Hypochromasia Moderate Anisocytosis Slight Microcytosis Slight Sodium 141 (137-145) mmol/L Potassium 4.1 (3.5-5.1) mmol/L Chloride 104 (98-107) mmol/L Carbon Dioxide 30 (22-30) mmol/L Anion Gap 7 mmol/L BUN 17 (7-17) mg/dL Creatinine 0.71 (0.52-1.04) mg/dL Est GFR (CKD-EPI)AfAm >90 (>60 ml/min/1.73 sqM) Est GFR (CKD-EPI)NonAf 83 (>60 ml/min/1.73 sqM) Glucose 112 H (74-99) mg/dL Calcium 8.3 L (8.4-10.2) mg/dL Magnesium 1.8 (1.6-2.3) mg/dL Total Bilirubin 0.3 (0.2-1.3) mg/dL AST 21 (14-36) U/L ALT 19 (4-34) U/L Alkaline Phosphatase 93 (38-126) U/L Total Protein 7.0 (6.3-8.2) g/dL Albumin 3.7 (3.5-5.0) g/dL Disposition Clinical Impression: Spasm of back muscles Disposition: HOME SELF-CARE Condition: Good Instructions (If sedation given, give patient instructions): Muscle Spasm (ED) Additional Instructions: Increase fluids. Rest. Take medication as directed. Follow up with your primary care physician for recheck in 1-2 days. Return to the emergency department immediately for any new, worsening, or concerning symptoms. Prescriptions: Diazepam [Valium] 5 mg PO TID PRN 3 Days #9 tab PRN Reason: Muscle Spasm Is patient prescribed a controlled substance at d/c from ED?: No Referrals: Ricky Swanson MD [Primary Care Provider] - 1-2 days Time of Disposition: 01:11
[2019-07-24 02:06] VITALS: BP 113/74; PULSE 96; RESP 18; TEMP 98.3
== END 2019-07-24 02:05 | disposition home or self-care (01) ==
LOC: EC 23:20
DX: M62.830 Muscle spasm of back (principal); J44.9 Chronic obstructive pulmonary disease, unspecified; E11.9 Type 2 diabetes mellitus without complications; F17.200 Nicotine dependence, unspecified, uncomplicated; Z79.82 Long term (current) use of aspirin; Z79.1 Long term (current) use of non-steroidal anti-inflammatories (NSAID); Z79.84 Long term (current) use of oral hypoglycemic drugs; Z79.51 Long term (current) use of inhaled steroids; Z79.899 Other long term (current) drug therapy; Z88.5 Allergy status to narcotic agent; Z88.8 Allergy status to other drugs, medicaments and biological substances
CPT/HCPCS: 36415; 94640; 80053; 83735; 85025; 99283; 96374; J3360

== ENCOUNTER 2019-11-30 14:01 | Emergency (ER) | payer MEDICARE, OTHER ==
[2019-11-30] MEDS ORDERED: SODIUM CHLORIDE 0.9% 1,000 ML IV STA ×2 (14:32)
[2019-11-30] MEDS ORDERED: MORPHINE SULFATE 4 MG/ML SYRINGE IVP STA (14:33)
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
[2019-11-30 15:30] LABS: Albumin 4.5 g/dL (3.5-5.0); Calcium 9.1 mg/dL (8.4-10.2); Magnesium 1.8 mg/dL (1.6-2.3); Potassium 3.3 mmol/L (3.5-5.1); Total Bilirubin 0.3 mg/dL (0.2-1.3); Total Protein 8.4 g/dL (6.3-8.2)
[2019-11-30 15:31] LABS: Anisocytosis Slight; Basophils % (A) 0 %; Eosinophils # (A) 0.1 k/uL (0-0.7); Eosinophils % (A) 1 %; HCT 43.8 % (34.0-46.0); Hypochromasia Marked; Lymphocytes # (A) 1.2 k/uL (1.0-4.8); Lymphocytes % (A) 20 %; MCH 21.6 pg (25.0-35.0); MCHC 29.7 g/dL (31.0-37.0); Mean Platelet Volume 7.5; Microcytosis Moderate; Monocytes # (A) 0.5 k/uL (0-1.0); Monocytes % (A) 8 %; Neutrophils # (A) 3.9 k/uL (1.3-7.7); Neutrophils % (A) 68 %; Platelet Count 259 k/uL (150-450); Poikilocytosis Slight; RDW 16.9 % (11.5-15.5); WBC 5.8 k/uL (3.8-10.6)
--- NOTE | 2019-11-30 15:40 | XR ---
EXAMINATION TYPE: XR KUB DATE OF EXAM: 11/30/2019 3:35 PM CLINICAL HISTORY: Diarrhea for 3 days. TECHNIQUE: Two Upright KUB images of the abdomen are obtained. COMPARISON: Acute abdominal series April 20, 2013. FINDINGS: Gas is seen in nondistended stomach. Gas is noted in prominent small and large bowel loops with multiple air-fluid levels throughout the abdomen and pelvis. Cholecystectomy clips are redemonst rated. Lung bases are clear. Osseous structures are intact. IMPRESSION: Gaseous prominent small and large bowel loops with several air-fluid levels overall nonsp ecific bowel gas pattern favoring ileus.
--- NOTE | 2019-11-30 16:44 | CT ---
EXAMINATION TYPE: CT abdomen pelvis w con DATE OF EXAM: 11/30/2019 COMPARISON: NONE HISTORY: 79 year old Ileus, nausea, vomiting, diarrhea. TECHNIQUE: Contiguous axial scanning of the abdomen and pelvis following administration of 100 ml Iso dulce 300 IV contrast. Delayed images through the kidneys and coronal/sagittal reconstructions perform ed. CT DLP: 1626.8 mGycm Automated exposure control for dose reduction was used. FINDINGS: Heart upper limits of normal in size without pericardial effusion. Breathing motion artifact in the l ower lungs without pleural effusion. Surgical clips at and just below the GE junction and additional cholecystectomy clips. No focal liver lesion or biliary ductal dilatation. 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 Portal venous system is patent. Adrenal glands, spleen, and pancreas appear within normal limits. Right kidney shows no gross abnormal body. 1.7 cm cortical cyst posterior lower pole left kidney There is liquid stool seen throughout the colon. No abnormal colonic wall thickening or pericolonic i nflammation. No dilated small bowel loops. Some prominent fluid filled small bowel loops are present in the lower abdomen and pelvis but the small bowel is largely collapsed. No mesenteric or retroperitoneal lymphadenopathy. Moderate atherosclerotic calcifications infrarenal abdominal aorta and iliac arteries with borderline ectasia up to 2.5 cm. Bladder incompletely distended. Uterus anteverted. Pelvic phlebolith. Small ovaries are visualized. No abnormal fluid collection in t he pelvis or pelvic lymphadenopathy. Bones: Facet arthropathy lower lumbar spine. Moderate degenerative disc disease L2-L3. Trace grade 1 retrolisthesis at this level as well. IMPRESSION: 1. LIQUID STOOL THROUGHOUT THE COLON AND SOME PROMINENT FLUID-FILLED SMALL BOWEL LOOPS IN THE LOWER A BDOMEN AND PELVIS. FINDINGS SUGGEST GENERALIZED ILEUS OR ENTERITIS. 2. NO EVIDENCE FOR BOWEL OBSTRUCTION.
[2019-11-30] MEDS ORDERED: DIPHENOX-ATROP STARTER PACK 8 TAB BTL PO STA (17:07)
[2019-11-30] MEDS ORDERED: ACETAMINOPHEN TAB 500 MG TAB PO STA (17:37)
[2019-11-30 18:19] LABS: Appearance,Urine Clear (Clear); Bilirubin,Urine Negative (Negative); Blood,Urine Small (Negative); Color,Urine Yellow; Glucose,Urine (UA) Negative (Negative); Hyaline Casts,Urine 1 /lpf (0-2); Ketones,Urine Negative (Negative); Leukocyte Esterase,Urine Trace (Negative); Mucus,Urine Rare /hpf; Nitrite,Urine Negative (Negative); Protein,Urine Trace (Negative); RBC,Urine 15 /hpf (0-5); Squamous Epithelial Cell,Urine 9 /hpf (0-4); Urobilinogen,Urine <2.0 mg/dL (<2.0); WBC,Urine 6 /hpf (0-5)
[2019-11-30 20:17] VITALS: BP 127/73; PULSE 81; RESP 16; TEMP 98
== END 2019-11-30 20:24 | disposition home or self-care (01) ==
LOC: EC 14:01
DX: R19.7 Diarrhea, unspecified (principal); R19.5 Other fecal abnormalities; R11.2 Nausea with vomiting, unspecified; R10.84 Generalized abdominal pain; R14.0 Abdominal distension (gaseous); J98.8 Other specified respiratory disorders; J44.9 Chronic obstructive pulmonary disease, unspecified; E11.9 Type 2 diabetes mellitus without complications; M79.7 Fibromyalgia; F17.200 Nicotine dependence, unspecified, uncomplicated; Z90.49 Acquired absence of other specified parts of digestive tract; Z79.82 Long term (current) use of aspirin; Z79.1 Long term (current) use of non-steroidal anti-inflammatories (NSAID); Z79.84 Long term (current) use of oral hypoglycemic drugs; Z79.899 Other long term (current) drug therapy; Z88.8 Allergy status to other drugs, medicaments and biological substances; Z88.5 Allergy status to narcotic agent
CPT/HCPCS: 36415; 80053; 82150; 83690; 83735; 85025; 82272; 81001; 87324; 87045; 87046; 74018; 74177; 99285; 96374; 96361 ×3; J2270; Q9967; 87077; 87186

== ENCOUNTER 2020-01-08 10:40 | Observation (INO) | payer MEDICARE, OTHER ==
[2020-01-08] MEDS ORDERED: IPRATROPIUM 0.5 MG/2.5 ML NEBU INHALATION STA (10:56)
[2020-01-08] MEDS ORDERED: ALBUTEROL NEBULIZED 2.5 MG/3 ML INHALATION STA (10:56)
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
[2020-01-08 11:17] LABS: Anisocytosis Slight; Basophils % (A) 0 %; Eosinophils # (A) 0.3 k/uL (0-0.7); Eosinophils % (A) 5 %; HCT 38.1 % (34.0-46.0); HGB 11.2 gm/dL (11.4-16.0); Hypochromasia Marked; Lymphocytes # (A) 2.5 k/uL (1.0-4.8); Lymphocytes % (A) 39 %; MCHC 29.4 g/dL (31.0-37.0); MCV 71.4 fL (80.0-100.0); Mean Platelet Volume 7.3; Microcytosis Moderate; Monocytes # (A) 0.5 k/uL (0-1.0); Monocytes % (A) 8 %; Neutrophils # (A) 2.8 k/uL (1.3-7.7); Neutrophils % (A) 45 %; Platelet Count 313 k/uL (150-450); Poikilocytosis Slight; RBC 5.33 m/uL (3.80-5.40); RDW 17.8 % (11.5-15.5); WBC 6.3 k/uL (3.8-10.6)
[2020-01-08 11:19] LABS: ALT 20 U/L (4-34); AST 36 U/L (14-36); African American GFR (CKD) >90 (>60 ml/min/1.73 sqM); Albumin 4.1 g/dL (3.5-5.0); Alkaline Phosphatase 61 U/L (38-126); Anion Gap 10 mmol/L; Blood Urea Nitrogen 5 mg/dL (7-17); Calcium 8.8 mg/dL (8.4-10.2); Carbon Dioxide 24 mmol/L (22-30); Chloride 106 mmol/L (98-107); Glucose 117 mg/dL (74-99); Magnesium 1.9 mg/dL (1.6-2.3); Non-African American GFR(CKD) >90 (>60 ml/min/1.73 sqM); Potassium 4.5 mmol/L (3.5-5.1); Sodium 140 mmol/L (137-145); Total Bilirubin 0.4 mg/dL (0.2-1.3); Total Protein 7.5 g/dL (6.3-8.2)
[2020-01-08 11:27] LABS: Partial Thromboplastin Time 23.2 sec (22.0-30.0); Prothrombin Time 10.2 sec (9.0-12.0)
[2020-01-08] MEDS ORDERED: SODIUM CHLORIDE 0.9% 500 ML 500 ML IV ONE (12:17)
--- NOTE | 2020-01-08 12:21 | XR ---
EXAMINATION TYPE: XR chest 2V DATE OF EXAM: 01/08/2020 COMPARISON: Prior chest x-ray 07/06/2019, CT 06/01/2019 HISTORY: Difficulty breathing, shortness of breath TECHNIQUE: Frontal and lateral views of the chest are obtained. FINDINGS: Patient is rotated. There are overlying cardiac leads, artifacts. There is no focal air spa ce opacity, pleural effusion, or pneumothorax seen. The cardiac silhouette size is stable, aorta is dense. Prominent pulmonary artery consistent with underlying pulmonary hypertension. Surgical clips present in the upper. The osseous structures are intact. IMPRESSION: No acute cardiopulmonary process. Additional findings above.
[2020-01-08] MEDS ORDERED: predniSONE 50 MG TAB PO STA (12:24)
[2020-01-08] MEDS ORDERED: IPRATROPIUM-ALBUTEROL 3 ML NEB INHALATION PRN (12:27)
[2020-01-08] MEDS ORDERED: AZITHROMYCIN 500 MG in SODIUM CHLORIDE 0.9% 250 ML IVPB STA (12:28)
[2020-01-08] MEDS ORDERED: cefTRIAXone IN SWFI 1,000 MG/10 ML SYRINGE IVP STA (12:28)
[2020-01-08] MEDS ORDERED: tiZANidine 4 MG TAB PO PRN (13:40)
[2020-01-08] MEDS ORDERED: COLCHICINE 0.6 MG EACH PO PRN (13:40)
[2020-01-08] MEDS ORDERED: DIPHENOX-ATROP 2.5-0.025 MG 1 EACH TAB PO PRN (13:40)
[2020-01-08] MEDS: oxyCODONE-APAP 10-325MG 1 EACH TAB PO PRN ×2 (14:49→21:38)
[2020-01-08] MEDS: HEPARIN SODIUM,PORCINE 5,000 UNIT/ML 1 ML VIAL SQ SCH (15:14)
[2020-01-08] MEDS: IPRATROPIUM-ALBUTEROL 3 ML NEB INHALATION SCH ×2 (15:35→19:24)
[2020-01-08 16:46] LABS: Glucose,Whole Blood 156 mg/dL (75-99)
[2020-01-08] MEDS: SYMBICORT 80-4.5 MCG INHALER INHALATION SCH (19:24)
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
[2020-01-08] MEDS ORDERED: MELOXICAM 7.5 MG TAB PO SCH (21:00)
[2020-01-08 21:31] LABS: Glucose,Whole Blood 212 mg/dL (75-99)
[2020-01-08] MEDS: FUROSEMIDE 40 MG TAB PO SCH (21:31)
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
[2020-01-09] MEDS: HEPARIN SODIUM,PORCINE 5,000 UNIT/ML 1 ML VIAL SQ SCH ×2 (02:55→10:07)
[2020-01-09 03:01] VITALS: RESP 20; TEMP 98.2
[2020-01-09] MEDS: oxyCODONE-APAP 10-325MG 1 EACH TAB PO PRN (06:19)
[2020-01-09 06:22] LABS: Glucose,Whole Blood 133 mg/dL (75-99)
[2020-01-09] MEDS ORDERED: PANTOPRAZOLE 40 MG TABLET PO SCH (07:30)
[2020-01-09] MEDS: IPRATROPIUM-ALBUTEROL 3 ML NEB INHALATION SCH ×2 (07:45→12:11)
[2020-01-09] MEDS: SYMBICORT 80-4.5 MCG INHALER INHALATION SCH (07:45)
[2020-01-09] MEDS ORDERED: metFORMIN 500 MG TAB PO SCH (09:00)
[2020-01-09] MEDS ORDERED: MEMANTINE 5 MG TAB PO SCH (09:00)
[2020-01-09] MEDS ORDERED: FLUTICASONE 50MCG/SPRAY NASAL 16GM EA NOSTRIL SCH (09:00)
[2020-01-09] MEDS ORDERED: ASPIRIN 81 MG PO SCH (09:00)
[2020-01-09] MEDS ORDERED: AZITHROMYCIN 500 MG TAB PO SCH (09:00)
[2020-01-09] MEDS ORDERED: LORATADINE 10 MG TAB PO SCH (09:00)
[2020-01-09] MEDS ORDERED: VALSARTAN 80 MG TAB PO SCH (09:00)
[2020-01-09] MEDS ORDERED: predniSONE 20 MG TAB PO SCH (09:00)
[2020-01-09] MEDS: FUROSEMIDE 40 MG TAB PO SCH (10:06)
[2020-01-09 10:38] VITALS: BP 167/75
--- NOTE | 2020-01-09 12:00 | P.PN ---
Subjective Progress Note Date: 01/09/20 On today's evaluation the patient is being seen for a follow-up. The patient was Hospital for an acute COPD exacerbation purulent tracheal bronchitis. There was no evidence of any pneumonia. The patient is known to have COPD and she is a chronic smoker. She has also various comorbidities including diabetes mellitus, fibromyalgia and hypertension. She has a component of dementia. She has gout and acid reflux. Overall, feeling better and she feels that she is back to her baseline. Sputum is clear. No hemoptysis. No pleurisy. No chest pain. She is on room air oxygen for now. No other significant events overnight. She has missed a smoke cigarettes and she is not interested in smoking cessation for now. Objective - Vital Signs Vital signs: Vital Signs Temp 98.2 F 01/09/20 08:00 Pulse 99 01/09/20 08:00 Resp 20 01/09/20 08:00 BP 167/75 01/09/20 08:00 Pulse Ox 93 L 01/09/20 08:00 Intake & Output 01/08/20 01/09/20 01/09/20 18:59 06:59 18:59 Intake Total 400 Balance 400 Weight 103.419 kg Intake: Oral 400 Other: Voiding Method Toilet Toilet Toilet Diaper Diaper # Voids 2 1 - Exam The patient appeared well nourished and normally developed. Vital signs as documented. Head exam is unremarkable. No scleral icterus or corneal arcus noted. Neck is without jugular venous distension, thyromegaly, or carotid bruits. Carotid upstrokes are brisk bilaterally. Lungs are diminished breath sounds bilaterally along with some few scattered expiratory wheezes without the lung maurice. Cardiac exam reveals the PMI to be normally sized and situated. Rhythm is regular. First and second heart sounds normal. No murmurs, rubs or gallops. Abdominal exam reveals normal bowel sounds, no masses, no organomegaly and no aortic enlargement. Extremities are nonedematous and both femoral and pedal pulses are normal.Examination of the skin revealed no evidence of significant rashes, suspicious appearing nevi or other concerning lesions. Neurologically is awake and alert and is no focal neurological deficit. - Labs CBC & Chem 7: 01/08/20 10:57 01/08/20 10:57 Labs: Abnormal Lab Results - Last 24 Hours (Table) 01/08/20 01/08/20 01/09/20 Range/Units 16:44 21:29 06:21 POC Glucose (mg/dL) 156 H 212 H 133 H (75-99) mg/dL Assessment and Plan Plan: 1 COPD exacerbation, improving 2 chronic smoker 3 diabetes mellitus 4 fibromyalgia 5 chronic back and neck pain 5 hypertension 6 dementia 7 gout 8. Acid Reflux Plan Clinically improved The patient is unable to take IV steroids and the patient was given oral steroids with prednisone 40 mg of any part of a burst taper May discharge home this patient today on a course of Zithromax and a prednisone burst taper The patient has Symbicort or Wixela Inhub regarding her COPD May need to add an anticholinergic agent specially she continues to have recurrent exacerbations such as Spiriva or Incruse Outpatient follow-up with pulmonary regarding further adjustments of her respiratory medications. She has a home nebulizer. She also has Ventolin that she continues on an as-needed basis. Resume rest of the medications. May possibly go home today.
[2020-01-09 12:25] VITALS: PULSE 80
[2020-01-09 12:25] LABS: % Iron Saturation 2.87 (12.00-45.00)
== END 2020-01-09 12:47 | disposition home or self-care (01) ==
LOC: EC 10:40 → 1SOBS 12:27
PROVIDERS: ADMIT Internal Medicine; ATTEND Internal Medicine
DX: J44.0 Chronic obstructive pulmonary disease with (acute) lower respiratory infection (principal); J44.1 Chronic obstructive pulmonary disease with (acute) exacerbation; J20.9 Acute bronchitis, unspecified; E11.9 Type 2 diabetes mellitus without complications; E66.01 Morbid (severe) obesity due to excess calories; Z68.41 Body mass index [BMI] 40.0-44.9, adult; F03.90 Unspecified dementia, unspecified severity, without behavioral disturbance, psychotic disturbance, mood disturbance, and anxiety; F17.210 Nicotine dependence, cigarettes, uncomplicated; G89.29 Other chronic pain; I10 Essential (primary) hypertension; J30.9 Allergic rhinitis, unspecified; I27.20 Pulmonary hypertension, unspecified; K21.9 Gastro-esophageal reflux disease without esophagitis; K52.9 Noninfective gastroenteritis and colitis, unspecified; M1A.9XX0 Chronic gout, unspecified, without tophus (tophi); M79.7 Fibromyalgia; Z79.82 Long term (current) use of aspirin; Z79.84 Long term (current) use of oral hypoglycemic drugs; Z79.899 Other long term (current) drug therapy; Z82.49 Family history of ischemic heart disease and other diseases of the circulatory system; Z90.49 Acquired absence of other specified parts of digestive tract; Z96.653 Presence of artificial knee joint, bilateral; Z03.818 Encounter for observation for suspected exposure to other biological agents ruled out; Z79.891 Long term (current) use of opiate analgesic; Z88.5 Allergy status to narcotic agent; Z88.8 Allergy status to other drugs, medicaments and biological substances
CPT/HCPCS: 96372; 96365; 96375; 99285; 36415; 94640 ×4; 93005; 83880; 80053; 83540; 83550; 83605; 83735; 84484; 85025; 85610; 85730; 71046; G0378 ×2; U0003; J1644; J0456; J0696; J7512 ×2

== ENCOUNTER → 2020-01-10 | Outpatient (CLI) | payer MEDICARE, OTHER ==
--- NOTE | 2020-01-10 15:24 | XR ---
EXAMINATION TYPE: XR lumbar spine with bend/flex DATE OF EXAM: 01/10/2020 COMPARISON: 01/09/2011 HISTORY: Spinal stenosis, spondylosis TECHNIQUE: Five-view lumbar spine supplemented with flexion and FINDINGS: There 5 lumbar-type vertebral bodies. Facet degenerative changes are at the L3-4 through L5 -S1 level. The pacer L5-S1 level. Degenerative changes present L5-S1. No significant orientation dania nge between flexion and extension views. IMPRESSION: 1. Degenerative changes L5-S1
== END | disposition home or self-care (01) ==
LOC: RADXRMAIN 12:42
PROVIDERS: ATTEND Nurse Practitioner Gerontology
DX: M51.37 Other intervertebral disc degeneration, lumbosacral region (principal)
CPT/HCPCS: 72114

== ENCOUNTER 2020-02-18 08:34 | Emergency (ER) | payer MEDICARE, OTHER ==
[2020-02-18 08:40] VITALS: RESP 18
[2020-02-18] MEDS ORDERED: ORPHENADRINE 30 MG/ML 2 ML VIAL IM STA (08:54)
[2020-02-18] MEDS ORDERED: MORPHINE SULFATE 4 MG/ML SYRINGE IM STA (08:54)
[2020-02-18] MEDS ORDERED: IPRATROPIUM-ALBUTEROL 3 ML NEB INHALATION STA (08:54)
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
--- NOTE | 2020-02-18 09:37 | XR ---
EXAMINATION TYPE: XR chest 2V DATE OF EXAM: 02/18/2020 COMPARISON: 01/08/2020 HISTORY: Shortness of breath TECHNIQUE: Frontal and lateral views of the chest are obtained. FINDINGS: Scattered senescent parenchymal changes noted. Hyperinflation compatible with COPD. No evidence for infiltrate. No evidence for atelectasis. Heart size is stable. Mediastinal structures are stable and grossly unremarkable. No evidence for hilar prominence. Degenerative changes dorsal spine. IMPRESSION: 1. No evidence for acute pulmonary disease.
--- NOTE | 2020-02-18 09:41 | XR ---
EXAMINATION TYPE: XR shoulder complete RT DATE OF EXAM: 02/18/2020 CLINICAL HISTORY: pain TECHNIQUE: Three views of the right shoulder are obtained. COMPARISON: None FINDINGS: There is no acute fracture/dislocation evident. Severe narrowing glenohumeral joint spaces with subchondral sclerosis. Moderate Spur formation noted. The visualized ribs are intact and unrema rkable. IMPRESSION: 1. Severe degenerative change right glenohumeral joint space. No definite acute fracture appreciated. ICD 10 NO FRACTURE, INITIAL EVALUATION
[2020-02-18 09:51] VITALS: BP 138/71; PULSE 77; TEMP 98
== END 2020-02-18 10:24 | disposition home or self-care (01) ==
LOC: EC 08:34
DX: M19.011 Primary osteoarthritis, right shoulder (principal); J40 Bronchitis, not specified as acute or chronic; J32.9 Chronic sinusitis, unspecified; F17.200 Nicotine dependence, unspecified, uncomplicated; J44.9 Chronic obstructive pulmonary disease, unspecified; E11.9 Type 2 diabetes mellitus without complications; M79.7 Fibromyalgia; G89.29 Other chronic pain; M54.2 Cervicalgia; Z79.51 Long term (current) use of inhaled steroids; Z79.1 Long term (current) use of non-steroidal anti-inflammatories (NSAID); Z79.899 Other long term (current) drug therapy; Z79.82 Long term (current) use of aspirin; Z79.84 Long term (current) use of oral hypoglycemic drugs; Z88.8 Allergy status to other drugs, medicaments and biological substances
CPT/HCPCS: 94640; 73030; 71046; 99284; 96372 ×2; J2270; J2360

== ENCOUNTER → 2020-07-06 | Outpatient (CLI) | payer MEDICARE, OTHER ==
--- NOTE | 2020-07-06 19:00 | XR ---
EXAM TYPE: LUMBAR SPINE X RAY SERIES COMPARISON: 01/10/2020 HISTORY: Pain TECHNIQUE: 7 views are submitted. FINDINGS: There is a vacuum disc and severe degenerative disc disease with anterior spurring L2-3. There appear s to be slight anterolisthesis of L5 on S1 with postsurgical changes noted at this level which appear similar to the prior exam in appearance. Marked facet arthropathy involving levels L3-S1. Slight retrolisthesis of L2 on L3. Upon flexion and extension the degree of anterolisthesis slightly increases at L5-S1 on the flexion i mage. The degree of retrolisthesis at L2-L3 appears stable. Surgical clips in the right upper quadrant noted. Slight curvature of the spine. Atherosclerotic vaz ge of the aorta. Maximal AP dimension is 2.7 cm compatible with ectasia. IMPRESSION: 1. There are stable postsurgical change at the L5 level noted posteriorly. There remains a grade 1 an terolisthesis of L5 on S1 with degenerative disc disease. There is slight increase in the degree of a nterolisthesis on flexion views. 2. Severe degenerative disc disease with vacuum disc L2-L3 and slight retrolisthesis measuring approx imately 2 mm. Stable on flexion and extension..
== END | disposition home or self-care (01) ==
LOC: RAD 15:56
PROVIDERS: ATTEND Nurse Practitioner Gerontology
DX: M43.17 Spondylolisthesis, lumbosacral region (principal); M43.16 Spondylolisthesis, lumbar region; M51.36 Other intervertebral disc degeneration, lumbar region; Z98.890 Other specified postprocedural states
CPT/HCPCS: 72114

== ENCOUNTER 2020-07-30 18:50 | Emergency (ER) | payer MEDICARE, OTHER ==
[2020-07-30 18:55] VITALS: BP 171/87; PULSE 85; RESP 17; TEMP 97.8
--- NOTE | 2020-07-30 19:39 | XR ---
EXAMINATION TYPE: XR shoulder complete LT DATE OF EXAM: 07/30/2020 COMPARISON: NONE HISTORY: Shoulder pain TECHNIQUE: 3 views FINDINGS: There is severe narrowing of the shoulder joint space. There is extensive spurring and scle rosis on both sides of the shoulder joint. The AC joint is intact. There is no evidence of a fracture . 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 No fracture seen.
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
== END 2020-07-30 20:20 | disposition home or self-care (01) ==
LOC: EC 18:50
DX: M25.512 Pain in left shoulder (principal); M62.838 Other muscle spasm; J44.9 Chronic obstructive pulmonary disease, unspecified; E11.9 Type 2 diabetes mellitus without complications; F17.200 Nicotine dependence, unspecified, uncomplicated; Z79.51 Long term (current) use of inhaled steroids; Z79.899 Other long term (current) drug therapy; Z79.82 Long term (current) use of aspirin; Z79.84 Long term (current) use of oral hypoglycemic drugs; Z88.8 Allergy status to other drugs, medicaments and biological substances
CPT/HCPCS: 99283

== ENCOUNTER 2020-08-13 13:33 | Emergency (ER) | payer MEDICARE, OTHER ==
[2020-08-13 13:39] VITALS: TEMP 98.3
[2020-08-13] MEDS ORDERED: MORPHINE SULFATE 4 MG/ML SYRINGE IM PRN (14:12)
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
[2020-08-13 15:02] VITALS: BP 158/89; PULSE 78; RESP 18
== END 2020-08-13 15:02 | disposition home or self-care (01) ==
LOC: EC 13:33
DX: M54.2 Cervicalgia (principal); J44.9 Chronic obstructive pulmonary disease, unspecified; E11.9 Type 2 diabetes mellitus without complications; M79.7 Fibromyalgia; F17.200 Nicotine dependence, unspecified, uncomplicated; Z79.51 Long term (current) use of inhaled steroids; Z79.82 Long term (current) use of aspirin; Z79.84 Long term (current) use of oral hypoglycemic drugs; Z88.8 Allergy status to other drugs, medicaments and biological substances; Z90.49 Acquired absence of other specified parts of digestive tract
CPT/HCPCS: 99283; 96372; J2270

== ENCOUNTER → 2020-10-01 | Outpatient (CLI) | payer MEDICARE ==
[2020-10-01 23:10] LABS: Hemoglobin A1C 6.4 % (4.0-6.0)
[2020-10-02 01:24] LABS: African American GFR (CKD) 95.5 (60.0-200.0); Anion Gap 10.5 mmol/L (4.00-12.00); BUN/Creat Ratio 12.86 Ratio (12.00-20.00); Calcium 8.7 mg/dL (8.7-10.3); Carbon Dioxide 24.5 mmol/L (21.6-31.8); Non-African American GFR(CKD) 82.4 (60.0-200.0); Potassium 4.3 mmol/L (3.5-5.5)
== END | disposition home or self-care (01) ==
LOC: LABWHC1 13:21
PROVIDERS: ATTEND Internal Medicine
DX: I10 Essential (primary) hypertension (principal)
CPT/HCPCS: 36415; 80048; 83036

== ENCOUNTER 2020-11-13 22:58 | Emergency (ER) | payer MEDICARE, OTHER ==
[2020-11-13 23:18] VITALS: BP 120/61; PULSE 55; RESP 20; TEMP 98.6
[2020-11-13] MEDS ORDERED: KETOROLAC 15 MG/ML 1 ML VIAL IM STA (23:58)
[2020-11-13] MEDS ORDERED: ACET/COD 300 MG/30 MG STARTER PACK 6 TAB BTL PO STA (23:58)
[2020-11-13] MEDS ORDERED: CYCLOBENZAPRINE 10MG STARTER 3 TAB BTL PO STA (23:58)
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
== END 2020-11-14 00:15 | disposition home or self-care (01) ==
LOC: EC 22:58
DX: M62.838 Other muscle spasm (principal); F17.200 Nicotine dependence, unspecified, uncomplicated; E11.9 Type 2 diabetes mellitus without complications; J44.9 Chronic obstructive pulmonary disease, unspecified; M79.7 Fibromyalgia; Z79.1 Long term (current) use of non-steroidal anti-inflammatories (NSAID); Z79.51 Long term (current) use of inhaled steroids; Z79.82 Long term (current) use of aspirin; Z79.84 Long term (current) use of oral hypoglycemic drugs; Z79.899 Other long term (current) drug therapy; Z82.49 Family history of ischemic heart disease and other diseases of the circulatory system
CPT/HCPCS: 99282; 96372; J1885

== ENCOUNTER → 2021-01-21 | Outpatient (CLI) | payer MEDICARE, OTHER | END | disposition home or self-care (01) | LOC: RADMRIMAIN 19:14 | PROVIDERS: ATTEND Neurological Surgery | DX: Z53.9 Procedure and treatment not carried out, unspecified reason (principal) ==

== ENCOUNTER 2021-01-24 17:51 | Emergency (ER) | payer MEDICARE, OTHER ==
[2021-01-24 18:16] VITALS: BP 117/67; PULSE 99; RESP 17; TEMP 98.9
--- NOTE | 2021-01-24 19:18 | XR ---
EXAMINATION TYPE: XR chest 2V DATE OF EXAM: 01/24/2021 COMPARISON: 02/18/2020 HISTORY: Cough TECHNIQUE: Frontal and lateral views of the chest are obtained. FINDINGS: There are bilateral diffuse mild to moderate opacities. No pleural effusion, or pneumothor ax seen. The cardiac silhouette size is within normal limits. The osseous structures are intact. U pper abdominal postsurgical changes again seen. IMPRESSION: Bilateral infiltrates in the appropriate clinical setting.
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
== END 2021-01-24 19:55 | disposition home or self-care (01) ==
LOC: EC 17:51
DX: J44.1 Chronic obstructive pulmonary disease with (acute) exacerbation (principal); J06.9 Acute upper respiratory infection, unspecified; E11.9 Type 2 diabetes mellitus without complications; M79.7 Fibromyalgia; F17.200 Nicotine dependence, unspecified, uncomplicated; Z79.84 Long term (current) use of oral hypoglycemic drugs; Z79.82 Long term (current) use of aspirin; Z79.51 Long term (current) use of inhaled steroids; Z79.52 Long term (current) use of systemic steroids; Z79.1 Long term (current) use of non-steroidal anti-inflammatories (NSAID); Z79.899 Other long term (current) drug therapy
CPT/HCPCS: 71046; 99283

== ENCOUNTER 2021-02-05 17:18 | Emergency (ER) | payer MEDICARE, OTHER ==
[2021-02-05 17:42] VITALS: BP 96/64; PULSE 80; RESP 19; TEMP 98.2
[2021-02-05] MEDS ORDERED: KETOROLAC 15 MG/ML 1 ML VIAL IM STA (17:57)
--- NOTE | 2021-02-05 18:47 | XR ---
Result: History: Chronic neck pain. Comparison: None available. Technique: 4 views of the cervical spine. Findings: The bone mineralization is age appropriate. The cervical spine is visualized from the craniocervical junction to the cervicothoracic junction. There is no evidence of an acute fracture or subluxation. The vertebral body heights are preserved t hroughout the imaged cervical spine. The vertebral elements are in anatomic alignment. There is nor mal alignment of C1 on C2 as seen on the open mouth odontoid view. There is moderate disc space narr owing at C3-C4 and mild to moderate at C4-C6. Associated uncovertebral degenerative changes. The pre vertebral soft tissues are within normal limits. Impression: Degenerative changes most notable at C3-C4. No acute osseous abnormality.
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
== END 2021-02-05 19:40 | disposition home or self-care (01) ==
LOC: EC 17:18
DX: G89.29 Other chronic pain (principal); M54.2 Cervicalgia; E66.9 Obesity, unspecified; E11.9 Type 2 diabetes mellitus without complications; J44.9 Chronic obstructive pulmonary disease, unspecified; M79.7 Fibromyalgia; F17.200 Nicotine dependence, unspecified, uncomplicated; Z79.1 Long term (current) use of non-steroidal anti-inflammatories (NSAID); Z79.51 Long term (current) use of inhaled steroids; Z79.52 Long term (current) use of systemic steroids; Z79.82 Long term (current) use of aspirin; Z79.84 Long term (current) use of oral hypoglycemic drugs; Z79.899 Other long term (current) drug therapy; Z68.42 Body mass index [BMI] 45.0-49.9, adult
CPT/HCPCS: 72040; 96372; 99283; J1885

== ENCOUNTER 2021-04-12 12:03 | Emergency (ER) | payer MEDICARE, OTHER ==
[2021-04-12 12:10] VITALS: RESP 18
[2021-04-12] MEDS ORDERED: KETOROLAC 15 MG/ML 1 ML VIAL IM STA (13:49)
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
[2021-04-12 15:02] VITALS: BP 128/78; PULSE 99; TEMP 98.3
== END 2021-04-12 14:20 | disposition home or self-care (01) ==
LOC: EC 12:03
DX: S16.1XXA Strain of muscle, fascia and tendon at neck level, initial encounter (principal); J44.9 Chronic obstructive pulmonary disease, unspecified; E11.9 Type 2 diabetes mellitus without complications; F17.200 Nicotine dependence, unspecified, uncomplicated; Z79.51 Long term (current) use of inhaled steroids; Z79.84 Long term (current) use of oral hypoglycemic drugs
CPT/HCPCS: 99283 ×2; 96372 ×2; J1885

== ENCOUNTER 2021-04-17 15:14 | Emergency (ER) | payer MEDICARE, OTHER ==
[2021-04-17 15:30] VITALS: TEMP 98.2
[2021-04-17] MEDS ORDERED: KETOROLAC 15 MG/ML 1 ML VIAL IVP STA (16:08)
[2021-04-17] MEDS ORDERED: GABAPENTIN 300 MG CAP PO STA (16:08)
[2021-04-17] MEDS ORDERED: KETOROLAC 15 MG/ML 1 ML VIAL IM STA (16:24)
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
[2021-04-17 16:39] VITALS: BP 94/70; PULSE 92; RESP 16
== END 2021-04-17 16:39 | disposition home or self-care (01) ==
LOC: EC 15:14
DX: G89.29 Other chronic pain (principal); M25.512 Pain in left shoulder; M54.2 Cervicalgia; M54.10 Radiculopathy, site unspecified; E11.9 Type 2 diabetes mellitus without complications; J44.9 Chronic obstructive pulmonary disease, unspecified; M79.7 Fibromyalgia; F17.200 Nicotine dependence, unspecified, uncomplicated; Z79.1 Long term (current) use of non-steroidal anti-inflammatories (NSAID); Z79.51 Long term (current) use of inhaled steroids; Z79.52 Long term (current) use of systemic steroids; Z79.82 Long term (current) use of aspirin; Z79.84 Long term (current) use of oral hypoglycemic drugs; Z79.899 Other long term (current) drug therapy; Z90.49 Acquired absence of other specified parts of digestive tract; Z82.49 Family history of ischemic heart disease and other diseases of the circulatory system
CPT/HCPCS: 96372; 99283; J1885

== ENCOUNTER 2021-04-30 22:23 | Emergency (ER) | payer MEDICARE, OTHER ==
[2021-04-30 22:40] VITALS: BP 126/77; PULSE 93; RESP 20; TEMP 98.7
[2021-05-01] MEDS ORDERED: HYDROmorphone 1 MG/ML 1 ML SYRINGE IM STA (00:09)
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
== END 2021-05-01 00:34 | disposition home or self-care (01) ==
LOC: EC 22:23
DX: M25.512 Pain in left shoulder (principal); E11.9 Type 2 diabetes mellitus without complications; J44.9 Chronic obstructive pulmonary disease, unspecified; M79.7 Fibromyalgia; F17.200 Nicotine dependence, unspecified, uncomplicated; Z79.1 Long term (current) use of non-steroidal anti-inflammatories (NSAID); Z79.51 Long term (current) use of inhaled steroids; Z79.52 Long term (current) use of systemic steroids; Z79.82 Long term (current) use of aspirin; Z79.84 Long term (current) use of oral hypoglycemic drugs; Z79.899 Other long term (current) drug therapy; Z90.49 Acquired absence of other specified parts of digestive tract; Z82.49 Family history of ischemic heart disease and other diseases of the circulatory system
CPT/HCPCS: 99283; 96372; J1170

== ENCOUNTER 2021-06-09 02:52 | Emergency (ER) | payer MEDICARE, OTHER ==
[2021-06-09 04:11] LABS: Anisocytosis Slight; Basophils # (A) 0.1 k/uL (0-0.2); Basophils % (A) 1 %; Eosinophils # (A) 0.2 k/uL (0-0.7); Eosinophils % (A) 2 %; HGB 12.9 gm/dL (11.4-16.0); Hypochromasia Slight; Lymphocytes # (A) 2.8 k/uL (1.0-4.8); Lymphocytes % (A) 33 %; MCH 23.4 pg (25.0-35.0); MCHC 30.8 g/dL (31.0-37.0); MCV 75.9 fL (80.0-100.0); Mean Platelet Volume 6.9; Microcytosis Slight; Monocytes # (A) 0.6 k/uL (0-1.0); Monocytes % (A) 7 %; Neutrophils # (A) 4.7 k/uL (1.3-7.7); Neutrophils % (A) 55 %; Platelet Count 363 k/uL (150-450); RBC 5.53 m/uL (3.80-5.40); WBC 8.4 k/uL (3.8-10.6)
[2021-06-09 04:15] VITALS: RESP 18
[2021-06-09 04:22] LABS: African American GFR (CKD) >90 (>60 ml/min/1.73 sqM); Anion Gap 5 mmol/L; Blood Urea Nitrogen 18 mg/dL (7-17); Calcium 8.7 mg/dL (8.4-10.2); Carbon Dioxide 36 mmol/L (22-30); Chloride 94 mmol/L (98-107); Glucose 100 mg/dL (74-99); Non-African American GFR(CKD) 84 (>60 ml/min/1.73 sqM); Sodium 135 mmol/L (137-145)
[2021-06-09 04:31] LABS: Potassium 3.3 mmol/L (3.5-5.1)
--- NOTE | 2021-06-09 05:05 | CT ---
EXAMINATION TYPE: CT soft tissue neck w con DATE OF EXAM: 06/09/2021 COMPARISON: None HISTORY: R submandibular tenderness CT DLP: 184.9 mGycm Automated exposure control for dose reduction was used. CONTRAST: Performed with IV Contrast, patient injected with 100 mL of Isovue 300. Images obtained from the aortic arch to the orbits with IV contrast. There is normal branching pattern of the great vessels on the aortic arch. Thyroid gland is symmetric . There is arterial flow in the common internal and external carotid arteries. There is arterial flow in both vertebral arteries. There is opacification of both jugular veins. Submandibular salivary gla nds are symmetric. The parotid glands are symmetric. Subglottic trachea appears normal. Epiglottis is normal. The tonsils and adenoids appear normal. There is no evidence of pharyngeal mass. Tongue appe ars normal. Mandibular ring is intact. Maxilla is intact. Zygomatic arches appear normal. The temporo mandibular joints appear intact. IMPRESSION: Negative CT scan of the soft tissues of the neck. I do not see a cause for submandibular pain.
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
[2021-06-09] MEDS ORDERED: HYDROcodone/APAP 5-325MG 1 EACH TAB PO STA (05:34)
[2021-06-09 05:56] VITALS: BP 139/89; PULSE 84; TEMP 98.7
== END 2021-06-09 06:00 | disposition home or self-care (01) ==
LOC: EC 02:52
DX: K11.20 Sialoadenitis, unspecified (principal); J44.9 Chronic obstructive pulmonary disease, unspecified; E11.9 Type 2 diabetes mellitus without complications; F17.200 Nicotine dependence, unspecified, uncomplicated; Z79.84 Long term (current) use of oral hypoglycemic drugs; Z79.51 Long term (current) use of inhaled steroids
CPT/HCPCS: 36415; 80048; 85025; 87635; 70491; 99283; Q9967

== ENCOUNTER 2021-06-28 23:28 | Emergency (ER) | payer MEDICARE, OTHER ==
--- NOTE | 2021-06-28 23:48 | ED ---
General Adult HPI - General Stated complaint: ear pain, swollen throat Time Seen by Provider: 06/28/21 23:47 Source: patient, RN notes reviewed Mode of arrival: ambulatory Limitations: no limitations - History of Present Illness Initial comments: This a 80-year-old female presents emergency Department chief complaint of ongoing jaw mandibular issues. Patient states that she was seen here did have full workup including lab CT. Patient was placed on Augmentin at that time she did follow-up was placed on clindamycin. Patient states she continues to have some intermittent discomfort. She never followed up with ENT. No shortness of breath no fevers chills no other complaints. - Related Data Home Medications Medication Instructions Recorded Confirmed Omeprazole [PriLOSEC] 20 mg PO AC-BRKFST 03/04/15 07/30/20 Aspirin EC [Ecotrin Low Dose] 81 mg PO DAILY 07/06/19 07/30/20 Colchicine 0.6 mg PO DAILY PRN 07/06/19 07/30/20 metFORMIN HCL [Glucophage] 1,000 mg PO DAILY 07/06/19 07/30/20 oxyCODONE-APAP 10-325MG [Percocet 1 tab PO Q6H PRN 07/06/19 07/30/20 10-325 mg] Memantine HCl [Memantine HCl ER] 7 mg PO DAILY 11/30/19 07/30/20 Albuterol Inhaler [Ventolin Hfa 2 puff INHALATION RT-QID PRN 01/08/20 07/30/20 Inhaler] Albuterol Nebulized [Ventolin 2.5 mg INHALATION RT-QID 01/08/20 07/30/20 Nebulized] Fluticasone Propion/Salmeterol 1 puff INHALATION RT-BID 01/08/20 07/30/20 [Wixela 100-50 Inhub] Chlorhexidine Gluconate [Peridex] 15 ml PO BID 07/30/20 07/30/20 Ferrous Sulfate [Feosol] 325 mg PO DAILY 07/30/20 07/30/20 Ibuprofen [Motrin] 800 mg PO BID 07/30/20 07/30/20 Losartan-Hctz 50-12.5 mg [Hyzaar 1 tab PO DAILY 07/30/20 07/30/20 50-12.5] Methocarbamol [Robaxin-750] 750 mg PO BID 07/30/20 07/30/20 Montelukast [Singulair] 10 mg PO DAILY 07/30/20 07/30/20 Promethazine 6.25MG/5Ml [Phenergan 5 - 10 ml PO QID PRN 07/30/20 07/30/20 Syrup] Tiotropium [place] [Spiriva 1 spray INHALATION RT-DAILY 07/30/20 07/30/20 Respimat] Valsartan [Diovan] 160 mg PO DAILY 07/30/20 07/30/20 tiZANidine [Zanaflex] 4 mg PO TID PRN 07/30/20 07/30/20 Previous Rx's Medication Instructions Recorded Potassium Chloride [Klor-Con 10 ER] 10 meq PO BID #1 tablet.er 04/09/15 Ibuprofen [Motrin] 600 mg PO Q8HR PRN #30 tab 11/13/20 Azithromycin [Zithromax Z-pack (6 0 mg PO DIRECTED #1 pack 01/24/21 tabs)] methylPREDNISolone [Medrol Dose 4 mg PO DIRECTED #1 pack 01/24/21 Pack] Ibuprofen [Motrin] 800 mg PO Q6HR #30 tab 02/05/21 Cyclobenzaprine [Flexeril] 10 mg PO TID #15 tab 04/12/21 Ibuprofen [Motrin] 600 mg PO Q8HR PRN 7 Days #21 tab 04/17/21 Amoxicillin/Potassium Clav 1 tab PO Q12HR 1 Days #14 tab 06/09/21 [Augmentin 875-125 Tablet] Allergies Allergy/AdvReac Type Severity Reaction Status Date / Time Corticosteroids Allergy Itching Verified 06/09/21 02:58 (Glucocorticoids) propoxyphene napsylate Allergy Itching Verified 06/09/21 02:58 [From Darvocet-N 100] Review of Systems ROS Statement: Those systems with pertinent positive or pertinent negative responses have been documented in the HPI. ROS Other: All systems not noted in ROS Statement are negative. Past Medical History Past Medical History: COPD, Diabetes Mellitus, Fibromyalgia Additional Past Medical History / Comment(s): chronic neck and back pain 1996 affected rt knee & rt ankle, hypotension History of Any Multi-Drug Resistant Organisms: None Reported Past Surgical History: Appendectomy, Cholecystectomy, Orthopedic Surgery, Tonsillectomy Additional Past Surgical History / Comment(s): Total Bilateral Knee, Right Ankle. Lt Shoulder surgery. Egd/Colonoscopy 12/10/13. verticalflex in back, Past Anesthesia/Blood Transfusion Reactions: No Reported Reaction Additional Past Anesthesia/Blood Transfusion Reaction / Comment(s): pt states received 5-6 units blood @ [facility] recently Past Psychological History: No Psychological Hx Reported Smoking Status: Current every day smoker Past Alcohol Use History: None Reported Past Drug Use History: None Reported - Past Family History Mother History Unknown: Yes Family Medical History: Coronary Artery Disease (CAD) General Exam General appearance: alert, in no apparent distress Head exam: Present: atraumatic, normocephalic, normal inspection Eye exam: Present: normal appearance, PERRL, EOMI. Absent: scleral icterus, conjunctival injection, periorbital swelling ENT exam: Present: normal exam, normal oropharynx, mucous membranes moist Neck exam: Present: normal inspection, full ROM. Absent: tenderness, meningismus, lymphadenopathy Respiratory exam: Present: normal lung sounds bilaterally. Absent: respiratory distress, wheezes, rales, rhonchi, stridor Cardiovascular Exam: Present: regular rate, normal rhythm, normal heart sounds. Absent: systolic murmur, diastolic murmur, rubs, gallop, clicks Course Vital Signs 06/28/21 23:44 Temperature 98.7 F Pulse Rate 55 L Respiratory 18 Rate Blood Pressure 107/62 O2 Sat by Pulse 95 Oximetry Medical Decision Making - Medical Decision Making prior records were evaluated there is no significant findings on CT. Patient will continue antibiotics she will follow-up with ENT as directed and return for any worsening change in symptoms. Disposition Clinical Impression: Jaw pain Disposition: HOME SELF-CARE Condition: Stable Instructions (If sedation given, give patient instructions): Sialoadenitis (ED) Additional Instructions: Please return to the Emergency Department if symptoms worsen or any other concerns. Is patient prescribed a controlled substance at d/c from ED?: No Referrals: Ricky Swanson MD [Primary Care Provider] - 1-2 days Dereck Contreras MD [STAFF PHYSICIAN] - 1-2 days Time of Disposition: 23:48
[2021-06-28 23:49] VITALS: BP 107/62; PULSE 55; RESP 18; TEMP 98.7
== END 2021-06-28 23:53 | disposition home or self-care (01) ==
LOC: EC 23:28
DX: R68.84 Jaw pain (principal); E11.9 Type 2 diabetes mellitus without complications; J44.9 Chronic obstructive pulmonary disease, unspecified; M79.7 Fibromyalgia; F17.200 Nicotine dependence, unspecified, uncomplicated; Z79.82 Long term (current) use of aspirin; Z79.84 Long term (current) use of oral hypoglycemic drugs; Z79.51 Long term (current) use of inhaled steroids; Z79.1 Long term (current) use of non-steroidal anti-inflammatories (NSAID); Z79.899 Other long term (current) drug therapy
CPT/HCPCS: 99283

== ENCOUNTER → 2021-08-02 | Outpatient (CLI) | payer MEDICARE, OTHER ==
--- NOTE | 2021-08-03 03:09 | MR ---
EXAMINATION TYPE: MR tmj wo con DATE OF EXAM: 08/02/2021 COMPARISON: None HISTORY: Right side facial weakness and numbess that travels down her face into her chin area x1 to 2 years Multiplanar multiecho imaging of the temporomandibular joints without contrast in the open and closed mouth position. Mandibular condyles appear intact. I see no focal bone destruction. The menisci appear in normal posi tion on the closed mouth views. On the open-mouth views the left side meniscus is in normal position. Right-sided meniscus also appea rs in normal position. There is no pathologic anterior subluxation of the menisci. There is normal mo vement of the mandibular condyles on the open-mouth views. IMPRESSION: Normal exam. No evidence of meniscal tear of the temporomandibular joints. Normal joint spaces. No fr acture.
== END | disposition home or self-care (01) ==
LOC: RADMRIMAIN 12:29
PROVIDERS: ATTEND Otolaryngology
DX: H92.01 Otalgia, right ear (principal); M26.621 Arthralgia of right temporomandibular joint
CPT/HCPCS: 70336

== ENCOUNTER 2021-10-27 23:49 | Emergency (ER) | payer MEDICARE, OTHER ==
[2021-10-28 01:23] VITALS: TEMP 98.1
[2021-10-28] MEDS ORDERED: DIAZEPAM 5 MG/ML 2 ML INJ IM ONE (02:15)
--- NOTE | 2021-10-28 02:23 | ED ---
Neck Injury/Pain HPI - General Chief Complaint: Neck Pain/Injury Stated Complaint: Neck/Shoulder Pain Time Seen by Provider: 10/28/21 01:59 Source: RN notes reviewed Mode of arrival: wheelchair - History of Present Illness Initial Comments: This is a pleasant 81-year-old female who is on pain management for chronic neck pain. Patient states that whenever it rains or gets damp outside she gets exacerbation of her neck and shoulder pain. Patient states that pain is sharp, exacerbated by any movement of the shoulders and neck. Exacerbated by palpation. She denies any chest pain or shortness of breath. She denies any fall or injury. No paresthesias. No fever or chills. No headache, no fever or chills, no changes in vision or hearing, no sore throat or difficulty with speech, no neck pain, no chest pain or shortness of breath, no abdominal pain, no nausea or vomiting, no changes in urination or bowel movements, no numbness or tingling, no skin rashes or lesions. MD Complaint: neck pain - Related Data Home Medications Medication Instructions Recorded Confirmed Omeprazole [PriLOSEC] 20 mg PO AC-BRKFST 03/04/15 07/30/20 Aspirin EC [Ecotrin Low Dose] 81 mg PO DAILY 07/06/19 07/30/20 Colchicine 0.6 mg PO DAILY PRN 07/06/19 07/30/20 metFORMIN HCL [Glucophage] 1,000 mg PO DAILY 07/06/19 07/30/20 oxyCODONE-APAP 10-325MG [Percocet 1 tab PO Q6H PRN 07/06/19 07/30/20 10-325 mg] Memantine HCl [Memantine HCl ER] 7 mg PO DAILY 11/30/19 07/30/20 Albuterol Inhaler [Ventolin Hfa 2 puff INHALATION RT-QID PRN 01/08/20 07/30/20 Inhaler] Albuterol Nebulized [Ventolin 2.5 mg INHALATION RT-QID 01/08/20 07/30/20 Nebulized] Fluticasone Propion/Salmeterol 1 puff INHALATION RT-BID 01/08/20 07/30/20 [Wixela 100-50 Inhub] Chlorhexidine Gluconate [Peridex] 15 ml PO BID 07/30/20 07/30/20 Ferrous Sulfate [Feosol] 325 mg PO DAILY 07/30/20 07/30/20 Ibuprofen [Motrin] 800 mg PO BID 07/30/20 07/30/20 Losartan-Hctz 50-12.5 mg [Hyzaar 1 tab PO DAILY 07/30/20 07/30/20 50-12.5] Methocarbamol [Robaxin-750] 750 mg PO BID 07/30/20 07/30/20 Montelukast [Singulair] 10 mg PO DAILY 07/30/20 07/30/20 Promethazine 6.25MG/5Ml [Phenergan 5 - 10 ml PO QID PRN 07/30/20 07/30/20 Syrup] Tiotropium [place] [Spiriva 1 spray INHALATION RT-DAILY 07/30/20 07/30/20 Respimat] Valsartan [Diovan] 160 mg PO DAILY 07/30/20 07/30/20 tiZANidine [Zanaflex] 4 mg PO TID PRN 07/30/20 07/30/20 Previous Rx's Medication Instructions Recorded Potassium Chloride [Klor-Con 10 ER] 10 meq PO BID #1 tablet.er 04/09/15 Ibuprofen [Motrin] 600 mg PO Q8HR PRN #30 tab 11/13/20 Azithromycin [Zithromax Z-pack (6 0 mg PO DIRECTED #1 pack 01/24/21 tabs)] methylPREDNISolone [Medrol Dose 4 mg PO DIRECTED #1 pack 01/24/21 Pack] Ibuprofen [Motrin] 800 mg PO Q6HR #30 tab 02/05/21 Cyclobenzaprine [Flexeril] 10 mg PO TID #15 tab 04/12/21 Ibuprofen [Motrin] 600 mg PO Q8HR PRN 7 Days #21 tab 04/17/21 Amoxicillin/Potassium Clav 1 tab PO Q12HR 1 Days #14 tab 06/09/21 [Augmentin 875-125 Tablet] Cyclobenzaprine [Flexeril] 5 mg PO TID PRN #15 tablet 09/15/21 Allergies Allergy/AdvReac Type Severity Reaction Status Date / Time Corticosteroids Allergy Itching Verified 10/28/21 01:23 (Glucocorticoids) propoxyphene napsylate Allergy Itching Verified 10/28/21 01:23 [From Darvocet-N 100] Review of Systems ROS Statement: Those systems with pertinent positive or pertinent negative responses have been documented in the HPI. ROS Other: All systems not noted in ROS Statement are negative. Past Medical History Past Medical History: COPD, Diabetes Mellitus, Fibromyalgia Additional Past Medical History / Comment(s): chronic neck and back pain 1996 affected rt knee & rt ankle, hypotension History of Any Multi-Drug Resistant Organisms: None Reported Past Surgical History: Appendectomy, Cholecystectomy, Orthopedic Surgery, Tonsillectomy Additional Past Surgical History / Comment(s): Total Bilateral Knee, Right Ankle. Lt Shoulder surgery. Egd/Colonoscopy 12/10/13. verticalflex in back, Past Anesthesia/Blood Transfusion Reactions: No Reported Reaction Additional Past Anesthesia/Blood Transfusion Reaction / Comment(s): pt states received 5-6 units blood @ [facility] recently Past Psychological History: No Psychological Hx Reported Smoking Status: Current every day smoker Past Alcohol Use History: None Reported Past Drug Use History: None Reported - Past Family History Mother History Unknown: Yes Family Medical History: Coronary Artery Disease (CAD) General Exam - General Exam Comments Initial Comments: Mild distress, patient does not appear to be ill or toxic General appearance: alert, in distress Head exam: Present: atraumatic, normocephalic, normal inspection Eye exam: Present: normal appearance, PERRL, EOMI. Absent: scleral icterus, conjunctival injection, periorbital swelling ENT exam: Present: normal exam, mucous membranes moist Neck exam: Present: normal inspection, tenderness, other (Tender to the bilateral cervical paraspinals.). Absent: meningismus, full ROM, lymphadenopathy Respiratory exam: Present: normal lung sounds bilaterally. Absent: respiratory distress, wheezes, rales, rhonchi, stridor Cardiovascular Exam: Present: regular rate, normal rhythm, normal heart sounds. Absent: systolic murmur, diastolic murmur, rubs, gallop, clicks GI/Abdominal exam: Present: soft, normal bowel sounds. Absent: distended, tenderness, guarding, rebound, rigid Extremities exam: Present: normal inspection, tenderness, normal capillary refill, other (patient has exquisite tenderness to the cervical paraspinals, bilateral trapezius area. Exacerbated by any movement.). Absent: full ROM, pedal edema, joint swelling, calf tenderness Back exam: Present: normal inspection Neurological exam: Present: alert, oriented X3, CN II-XII intact Psychiatric exam: Present: normal affect, normal mood Skin exam: Present: warm, dry, intact, normal color. Absent: rash Course Vital Signs 10/28/21 01:17 Temperature 98.1 F Pulse Rate 93 Respiratory 19 Rate Blood Pressure 144/78 O2 Sat by Pulse 98 Oximetry Medical Decision Making - Medical Decision Making Reproducible neck and shoulder pain. His aspirin by palpation and movement. Patient has no chest pain or shortness of breath. Patient states this is been a recurrent. Patient is on Percocet for pain management through a physician, Dr. Hayes in [facility]. Patient does have an orthopedic physician here in [facility], Dr. Calvo. Patient was told to return to the ER for any signs or symptoms worsen. Told to return immediately if any other problems arise. All questions answered. Treatment plan discussed. Patient in agreement Every effort has been made to ensure accuracy of this dictation. However, due to the limitations of electronic medical records and dictation devices, errors in charting still occur. The case was discussed in detail with ED attending physician. Presentation, findings, treatment plan discussed in detail. Present physician is Dr. Casarez Patient is to follow-up with her pain management physician. Disposition Clinical Impression: Chronic neck pain with normal neurological examination, Chronic pain of both shoulders Disposition: HOME SELF-CARE Condition: Stable Instructions (If sedation given, give patient instructions): Chronic Pain (ED) Additional Instructions: Call in the morning to schedule a recheck with your pain management physician. Follow-up with your regular physician as directed. Return to the ER immediately if any symptoms worsen, new symptoms arise, or any other problems develop. Is patient prescribed a controlled substance at d/c from ED?: No Referrals: Ricky Swanson MD [Primary Care Provider] - 1-2 days Time of Disposition: 03:11
[2021-10-28 03:38] VITALS: BP 141/84; PULSE 91; RESP 18
== END 2021-10-28 03:37 | disposition home or self-care (01) ==
LOC: EC 23:49
DX: M54.2 Cervicalgia (principal); G89.29 Other chronic pain; M25.511 Pain in right shoulder; M25.512 Pain in left shoulder; J44.9 Chronic obstructive pulmonary disease, unspecified; E11.9 Type 2 diabetes mellitus without complications; F17.200 Nicotine dependence, unspecified, uncomplicated; Z88.8 Allergy status to other drugs, medicaments and biological substances; Z88.5 Allergy status to narcotic agent
CPT/HCPCS: 99283; 96372; J3360

== ENCOUNTER 2022-01-08 17:15 | Emergency (ER) | payer MEDICARE, OTHER ==
[2022-01-08 17:32] VITALS: BP 99/63; PULSE 89; RESP 18; TEMP 98.3
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
[2022-01-08 19:26] LABS: Anisocytosis Slight; Basophils # (A) 0.1 k/uL (0-0.2); Basophils % (A) 1 %; Eosinophils # (A) 0.2 k/uL (0-0.7); Eosinophils % (A) 2 %; HCT 41.9 % (34.0-46.0); HGB 12.4 gm/dL (11.4-16.0); Hypochromasia Marked; Lymphocytes # (A) 2.9 k/uL (1.0-4.8); Lymphocytes % (A) 34 %; MCH 22.6 pg (25.0-35.0); MCHC 29.7 g/dL (31.0-37.0); MCV 75.9 fL (80.0-100.0); Mean Platelet Volume 7.5; Microcytosis Slight; Monocytes # (A) 0.6 k/uL (0-1.0); Monocytes % (A) 7 %; Neutrophils # (A) 4.6 k/uL (1.3-7.7); Neutrophils % (A) 54 %; Platelet Count 336 k/uL (150-450); RBC 5.52 m/uL (3.80-5.40); RDW 16.9 % (11.5-15.5); WBC 8.5 k/uL (3.8-10.6)
[2022-01-08 19:35] LABS: Albumin 4.1 g/dL (3.5-5.0); Calcium 9.2 mg/dL (8.4-10.2); Potassium 3.8 mmol/L (3.5-5.1); Total Bilirubin 0.2 mg/dL (0.2-1.3); Total Protein 7.5 g/dL (6.3-8.2)
[2022-01-08 19:36] LABS: Appearance,Urine Clear (Clear); Bilirubin,Urine Negative (Negative); Blood,Urine Negative (Negative); Color,Urine Light Yellow; Glucose,Urine (UA) Negative (Negative); Hyaline Casts,Urine 8 /lpf (0-2); Ketones,Urine Negative (Negative); Leukocyte Esterase,Urine Small (Negative); Mucus,Urine Rare /hpf; Nitrite,Urine Negative (Negative); PH, Urine 5.5 (5.0-8.0); Protein,Urine Negative (Negative); RBC,Urine 9 /hpf (0-5); Specific Gravity,Urine 1.011 (1.001-1.035); Squamous Epithelial Cell,Urine 1 /hpf (0-4); Urobilinogen,Urine <2.0 mg/dL (<2.0); WBC,Urine 10 /hpf (0-5)
--- NOTE | 2022-01-08 20:22 | XR ---
EXAMINATION TYPE: XR chest 2V DATE OF EXAM: 01/08/2022 7:50 PM COMPARISON: Chest radiographs from 01/24/2021 TECHNIQUE: XR chest 2V Frontal and lateral views of the chest. CLINICAL INDICATION:Female, 81 years old with history of Edema; FINDINGS: Lungs/Pleura: There is no evidence of pleural effusion, focal consolidation, or pneumothorax. Pulmonary vascularity: Unremarkable. Heart/mediastinum: Cardiomediastinal silhouette is enlarged and stable. Atherosclerotic calcificatio ns are seen in the aorta. Musculoskeletal: No acute osseous pathology. Other: Surgical clips in the gastroesophageal junction. IMPRESSION: No acute cardiopulmonary disease/process.
== END 2022-01-08 20:49 | disposition home or self-care (01) ==
LOC: EC 17:15
DX: R60.0 Localized edema (principal); M54.2 Cervicalgia; F17.200 Nicotine dependence, unspecified, uncomplicated; J44.9 Chronic obstructive pulmonary disease, unspecified; E11.9 Type 2 diabetes mellitus without complications; M79.7 Fibromyalgia; Z88.8 Allergy status to other drugs, medicaments and biological substances; Z79.899 Other long term (current) drug therapy; Z79.51 Long term (current) use of inhaled steroids; Z79.84 Long term (current) use of oral hypoglycemic drugs; Z79.82 Long term (current) use of aspirin
CPT/HCPCS: 36415; 71046; 80053; 81001; 83735; 83880; 84484; 85025; 93005; 99285

== ENCOUNTER 2022-01-26 00:49 | Inpatient (IN) | payer MEDICARE, OTHER ==
[2022-01-26] MEDS ORDERED: SODIUM CHLORIDE 0.9% 1,000 ML IV STA (01:07)
[2022-01-26] MEDS ORDERED: ONDANSETRON 4 MG/2 ML VIAL IVP STA (01:07)
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
--- NOTE | 2022-01-26 01:22 | XR ---
EXAMINATION TYPE: XR chest 1V portable DATE OF EXAM: 01/26/2022 COMPARISON: 01/08/2022 HISTORY: Nausea and vomiting TECHNIQUE: FINDINGS: There is no heart failure nor confluent pneumonic infiltrate. Costophrenic angles are clear . There are no hilar masses. There are surgical clips in the upper abdomen. Thoracic aorta is atherom atous. Moderate arthritic change in the shoulder joints. IMPRESSION: No active cardiopulmonary disease. No change.
--- NOTE | 2022-01-26 01:27 | XR ---
EXAMINATION TYPE: XR KUB portable DATE OF EXAM: 01/26/2022 COMPARISON: NONE HISTORY: 11/30/2019 TECHNIQUE: 2 views upright FINDINGS: There is no evidence of intestinal obstruction or pneumoperitoneum. There are few intestina l fluid levels which are improved compared to old exam. Large bowel fluid levels seen down to the sig moid colon. IMPRESSION: There is evidence for some large bowel fluid levels that could relate to diarrhea and are improved compared to old exam
[2022-01-26 01:40] LABS: Anisocytosis Slight; Basophils # (A) 0.1 k/uL (0-0.2); Basophils % (A) 1 %; Eosinophils # (A) 0.1 k/uL (0-0.7); Eosinophils % (A) 1 %; HCT 41.7 % (34.0-46.0); HGB 12.9 gm/dL (11.4-16.0); Hypochromasia Moderate; Lymphocytes # (A) 3.1 k/uL (1.0-4.8); Lymphocytes % (A) 42 %; MCH 22.6 pg (25.0-35.0); MCHC 30.8 g/dL (31.0-37.0); MCV 73.4 fL (80.0-100.0); Mean Platelet Volume 7.8; Microcytosis Moderate; Monocytes # (A) 0.5 k/uL (0-1.0); Monocytes % (A) 7 %; Neutrophils # (A) 3.4 k/uL (1.3-7.7); Neutrophils % (A) 46 %; Platelet Count 358 k/uL (150-450); RBC 5.69 m/uL (3.80-5.40); RDW 16.8 % (11.5-15.5); WBC 7.4 k/uL (3.8-10.6)
[2022-01-26 01:45] LABS: Albumin 4.4 g/dL (3.5-5.0); Calcium 9.4 mg/dL (8.4-10.2); Magnesium 1.5 mg/dL (1.6-2.3); Potassium 3.7 mmol/L (3.5-5.1); Total Bilirubin 0.3 mg/dL (0.2-1.3); Total Protein 7.8 g/dL (6.3-8.2)
[2022-01-26 01:53] LABS: Partial Thromboplastin Time 24.2 sec (22.0-30.0); Prothrombin Time 10.7 sec (9.0-12.0)
[2022-01-26 02:40] LABS: Appearance,Urine Cloudy (Clear); Bacteria,Urine Rare /hpf; Bilirubin,Urine Negative (Negative); Blood,Urine Negative (Negative); Color,Urine Light Yellow; Glucose,Urine (UA) Negative (Negative); Hyaline Casts,Urine 22 /lpf (0-2); Ketones,Urine Negative (Negative); Leukocyte Esterase,Urine Moderate (Negative); Mucus,Urine Rare /hpf; Nitrite,Urine Negative (Negative); PH, Urine 5.5 (5.0-8.0); Protein,Urine Negative (Negative); RBC,Urine 2 /hpf (0-5); Specific Gravity,Urine 1.013 (1.001-1.035); Squamous Epithelial Cell,Urine 12 /hpf (0-4); Urobilinogen,Urine <2.0 mg/dL (<2.0); WBC,Urine 39 /hpf (0-5)
[2022-01-26] MEDS ORDERED: NALOXONE 0.4 MG/ML 1 ML VIAL IV PRN (02:46)
[2022-01-26] MEDS ORDERED: ONDANSETRON 4 MG/2 ML VIAL IVP PRN (02:46)
[2022-01-26] MEDS ORDERED: MORPHINE SULFATE 4 MG/ML SYRINGE IV PRN (02:46)
[2022-01-26] MEDS ORDERED: IPRATROPIUM-ALBUTEROL 3 ML NEB INHALATION PRN (02:46)
[2022-01-26] MEDS ORDERED: MAGNESIUM OXIDE 400 MG TAB PO STA (02:48)
[2022-01-26] MEDS: SODIUM CHLORIDE 0.9% 1,000 ML IV SCH ×3 (04:15→22:58)
[2022-01-26] MEDS: MAGNESIUM OXIDE 400 MG TAB PO SCH ×2 (08:26→20:01)
[2022-01-26] MEDS ORDERED: PANTOPRAZOLE 40 MG/10 ML VIAL IV SCH (09:00)
[2022-01-26] MEDS ORDERED: BACLOFEN 10 MG TAB PO PRN (13:29)
[2022-01-26] MEDS ORDERED: MECLIZINE 12.5 MG TAB PO PRN (13:29)
[2022-01-26] MEDS ORDERED: ALBUTEROL NEBULIZED 2.5 MG/3 ML INHALATION PRN (13:29)
[2022-01-26] MEDS ORDERED: [UNRECOGNIZED DRUG - OTHER] INHALATION SCH (13:30)
[2022-01-26] MEDS ORDERED: DULoxetine HCL 20 MG CAPSULE.DR PO SCH (14:00)
[2022-01-26] MEDS ORDERED: VENLAFAXINE HCL ER 37.5 MG CAP PO SCH (14:00)
--- NOTE | 2022-01-26 14:58 | HP ---
HISTORY AND PHYSICAL DATE OF SERVICE: 01/26/2022 CHIEF COMPLAINTS: Nausea and vomiting. HISTORY OF PRESENT ILLNESS: This 81-year-old woman with a past medical history of diabetes mellitus, fibromyalgia, COPD, being followed by Dr. Swanson in the outpatient setting, was complaining of nausea, vomiting, abdominal discomfort. The patient came to [facility] and was found to have UTI. Patient was started on IV antibiotics. There is no history of any fever, rigor or chills at this time. PAST MEDICAL HISTORY: COPD, diabetes mellitus. Reviewed. HOME MEDICATIONS: Home medications are also reviewed and include Antivert. Doses and the rest of the medications are reviewed. ALLERGIES: GLUCOCORTICOIDS. FAMILY HISTORY: History of CAD. SOCIAL HISTORY: History of smoking. REVIEW OF SYSTEMS: Fourteen-point review of systems negative except as mentioned earlier. PHYSICAL EXAMINATION: Pulse is 89, blood pressure 107/72, respirations 16. HEENT: Conjunctivae normal. NECK: No jugular venous distention. CARDIOVASCULAR: S1, S2 muffled. RESPIRATION: Breath sounds diminished at the bases. No rhonchi. No crackles. ABDOMEN: Soft. Mild diffuse discomfort. No guarding. No rigidity. No mass palpable. LEGS: No edema. No swelling. NERVOUS SYSTEM: No focal deficit. SKIN: No ulcer, rash, bleeding. JOINTS: No active deforming arthropathy. LABS: WBC 7., hemoglobin 12.9. Other labs are noted. ASSESSMENT: 1. Nausea and vomiting; possible acute gastritis. 2. Acute urinary tract infection, present on admission. 3. Diabetes mellitus, type 2. 4. Chronic obstructive pulmonary disease. RECOMMENDATIONS AND DISCUSSION: In this 81-year-old woman who presented with multiple complex medical issues, we will monitor the patient closely. Symptomatic treatment will be provided. Otherwise I would recommend empiric antibiotics and cut down the IV fluids. Repeat labs in the morning. Dr. Christiansen will follow. MMODL / IJN: [id number] / MTDD
[2022-01-26] MEDS: MONTELUKAST 10 MG TAB PO SCH (16:12)
[2022-01-26] MEDS: oxyCODONE-APAP 10-325MG 1 EACH TAB PO PRN ×2 (16:13→22:57)
[2022-01-26] MEDS: metFORMIN 500 MG TAB PO SCH (17:17)
[2022-01-26] MEDS: CYCLOBENZAPRINE 10 MG TAB PO PRN (19:41)
[2022-01-26] MEDS: POTASSIUM CHLORIDE ER 10 MEQ TAB.ER.PRT PO SCH (20:01)
[2022-01-26] MEDS ORDERED: CHLORHEXIDINE GLUCONATE 15 ML CUP MUCOUS MEM SCH (21:00)
[2022-01-26] MEDS ORDERED: NON FORMULARY DRUG (Milnacipran Hcl [Savella] 50 MG Tablet) PO SCH (21:00)
[2022-01-27] MEDS: COLCHICINE 0.6 MG EACH PO SCH (07:24)
[2022-01-27] MEDS: MEMANTINE 5 MG TAB PO SCH (07:25)
[2022-01-27] MEDS: POTASSIUM CHLORIDE ER 10 MEQ TAB.ER.PRT PO SCH ×2 (07:25→20:38)
[2022-01-27] MEDS: LOSARTAN-HCTZ 50-12.5 MG 1 EACH TAB PO SCH (07:25)
[2022-01-27] MEDS: amLODIPine 5 MG TAB PO SCH (07:25)
[2022-01-27] MEDS: metFORMIN 500 MG TAB PO SCH ×2 (07:25→17:48)
[2022-01-27] MEDS: MAGNESIUM OXIDE 400 MG TAB PO SCH ×2 (07:26→20:37)
[2022-01-27] MEDS: oxyCODONE-APAP 10-325MG 1 EACH TAB PO PRN ×3 (07:26→20:37)
[2022-01-27] MEDS: MELOXICAM 7.5 MG TAB PO SCH (07:26)
[2022-01-27] MEDS: MONTELUKAST 10 MG TAB PO SCH (07:27)
[2022-01-27] MEDS: PANTOPRAZOLE 40 MG TABLET PO SCH (07:33)
[2022-01-27 09:16] LABS: HCT 35.9 % (37.2-46.3); HGB 10.6 g/dL (12.0-15.0); MCH 21.4 pg (27.0-32.0); MCHC 29.5 g/dL (32.0-37.0); MCV 72.5 fL (80.0-97.0); Mean Platelet Volume 10.8 fL (9.5-12.2); NRBC Per 100 WBC 0 /100 WBCS (0.0-0.0); Platelet Count 292 X 10*3/uL (140-440); RBC 4.95 X 10*6/uL (4.10-5.20); RDW 18.3 % (11.5-14.5); WBC 5.37 X 10*3/uL (4.50-10.00)
[2022-01-27 10:13] LABS: ALT 15 U/L (8-44); AST 26 U/L (13-35); African American GFR (CKD) 99.8 (60.0-200.0); Albumin 3.4 g/dL (3.8-4.9); Albumin/Globulin Ratio 1.31 (1.60-3.17); Alkaline Phosphatase 44 U/L (41-126); Blood Urea Nitrogen 4.5 mg/dL (9.0-27.0); Calcium 8.1 mg/dL (8.7-10.3); Carbon Dioxide 23.5 mmol/L (20.0-27.5); Chloride 102 mmol/L (96-109); Globulin 2.6 g/dL (1.6-3.3); Glucose 78 mg/dL (70-110); Magnesium 1.7 mg/dL (1.5-2.4); Non-African American GFR(CKD) 86.1 (60.0-200.0); Phosphorus 2.7 mg/dL (2.4-5.1); Potassium 3.7 mmol/L (3.5-5.5); Sodium 137 mmol/L (135-145); Total Bilirubin <0.15 mg/dL (0.30-1.20)
[2022-01-27 11:41] LABS: Basophils # (A) 0.03 X 10*3/uL (0.00-0.10); Basophils % (A) 0.6 %; Eosinophils # (A) 0.17 X 10*3/uL (0.04-0.35); Eosinophils % (A) 3.2 %; Immature Grans, Automated 0.2 %; Lymphocytes # (A) 2.18 X 10*3/uL (0.90-5.00); Lymphocytes % (A) 40.6 %; Microcytosis (M) 2+; Monocytes % (A) 11.2 %; Neutrophils # (A) 2.38 X 10*3/uL (1.80-7.70); Neutrophils % (A) 44.2 %
[2022-01-27] MEDS: CYCLOBENZAPRINE 10 MG TAB PO PRN (17:48)
[2022-01-27] MEDS: SODIUM CHLORIDE 0.9% 1,000 ML IV SCH ×2 (18:02→20:41)
--- NOTE | 2022-01-28 05:50 | PN ---
PROGRESS NOTE HISTORY OF PRESENT ILLNESS: This is an 81-year-old woman who is admitted with nausea, vomiting, also had features of UTI. The patient is on IV antibiotics. No chest pain. No palpitations. No fever. PHYSICAL EXAMINATION: Pulse 82, blood pressure ntd, respirations 16. HEENT: Conjunctivae normal. CARDIOVASCULAR: S1, S2 muffled. RESPIRATION: Breath sounds diminished at the bases. No rhonchi. No crackles. ABDOMEN: Soft. No guarding. No rigidity. No mass palpable. LABS: Reviewed. WBC 5.37. Cultures are negative so far. ASSESSMENT: 1. Nausea, vomiting, possible acute gastritis. 2. Acute urinary tract infection, present on admission. 3. Diabetes mellitus, type 2. 4. Chronic obstructive pulmonary disease. RECOMMENDATIONS AND DISCUSSION: Recommend to continue current medications, symptomatic treatment. Advance diet. Otherwise, continue the IV antibiotics. Follow the cultures. Guarded prognosis. Further recommendation to follow. JAYDON / ANAN: [id number] / MTDD
[2022-01-28] MEDS: MONTELUKAST 10 MG TAB PO SCH (08:37)
[2022-01-28] MEDS: MEMANTINE 5 MG TAB PO SCH (08:37)
[2022-01-28] MEDS: LOSARTAN-HCTZ 50-12.5 MG 1 EACH TAB PO SCH (08:37)
[2022-01-28] MEDS: POTASSIUM CHLORIDE ER 10 MEQ TAB.ER.PRT PO SCH ×2 (08:37→20:12)
[2022-01-28] MEDS: MAGNESIUM OXIDE 400 MG TAB PO SCH ×2 (08:37→20:12)
[2022-01-28] MEDS: metFORMIN 500 MG TAB PO SCH ×2 (08:38→18:05)
[2022-01-28] MEDS: COLCHICINE 0.6 MG EACH PO SCH (08:38)
[2022-01-28] MEDS: MELOXICAM 7.5 MG TAB PO SCH (08:38)
[2022-01-28] MEDS: amLODIPine 5 MG TAB PO SCH (08:38)
[2022-01-28] MEDS: PANTOPRAZOLE 40 MG TABLET PO SCH (08:38)
[2022-01-28] MEDS: oxyCODONE-APAP 10-325MG 1 EACH TAB PO PRN (20:11)
[2022-01-28] MEDS: SODIUM CHLORIDE 0.9% 1,000 ML IV SCH (21:49)
[2022-01-29] MEDS: oxyCODONE-APAP 10-325MG 1 EACH TAB PO PRN ×4 (01:44→22:27)
--- NOTE | 2022-01-29 05:49 | PN ---
PROGRESS NOTE This 81-year-old woman was admitted with acute UTI. She is on IV antibiotics. Urine culture is growing gram-negative bacilli. No chest pain. No palpitations. PHYSICAL EXAMINATION: VITAL SIGNS: pulse 80, blood pressure ntd respirations 16. CHEST: Clear to auscultation. ABDOMEN: Soft. Minimal discomfort in the lower part. NERVOUS SYSTEM: No focal deficits. LABS: Hemoglobin 10.6. ASSESSMENT: 1. Nausea, vomiting, possible acute gastritis. 2. Acute urinary tract infection, present on admission with gram-negative bacilli. 3. Diabetes mellitus, type 2. 4. Chronic obstructive pulmonary disease. RECOMMENDATIONS AND DISCUSSION: Recommend to continue current medications, symptomatic treatment. Otherwise continue with IV antibiotics. Repeat labs in the morning and await final ID. Discussed with the patient's family. Further recommendations to follow. MMODL / IJN: [id number] / MTDD
[2022-01-29] MEDS: SODIUM CHLORIDE 0.9% 1,000 ML IV SCH ×2 (07:57→17:57)
[2022-01-29] MEDS: metFORMIN 500 MG TAB PO SCH ×2 (08:44→16:38)
[2022-01-29] MEDS: MEMANTINE 5 MG TAB PO SCH (08:44)
[2022-01-29] MEDS: PANTOPRAZOLE 40 MG TABLET PO SCH (08:44)
[2022-01-29] MEDS: MELOXICAM 7.5 MG TAB PO SCH (08:44)
[2022-01-29] MEDS: LOSARTAN-HCTZ 50-12.5 MG 1 EACH TAB PO SCH (08:44)
[2022-01-29] MEDS: COLCHICINE 0.6 MG EACH PO SCH (08:44)
[2022-01-29] MEDS: POTASSIUM CHLORIDE ER 10 MEQ TAB.ER.PRT PO SCH ×2 (08:44→21:38)
[2022-01-29] MEDS: MONTELUKAST 10 MG TAB PO SCH (08:44)
[2022-01-29] MEDS: MAGNESIUM OXIDE 400 MG TAB PO SCH ×2 (08:44→21:39)
[2022-01-29] MEDS: amLODIPine 5 MG TAB PO SCH (08:45)
[2022-01-29 09:15] LABS: Basophils # (A) 0.03 X 10*3/uL (0.00-0.10); Basophils % (A) 0.5 %; Eosinophils # (A) 0.21 X 10*3/uL (0.04-0.35); Eosinophils % (A) 3.3 %; HCT 35.9 % (37.2-46.3); HGB 10.8 g/dL (12.0-15.0); Immature Grans, Automated 0.3 %; Lymphocytes # (A) 2.77 X 10*3/uL (0.90-5.00); Lymphocytes % (A) 44.1 %; MCH 21.5 pg (27.0-32.0); MCHC 30.1 g/dL (32.0-37.0); MCV 71.4 fL (80.0-97.0); Mean Platelet Volume 10.4 fL (9.5-12.2); Monocytes # (A) 0.68 X 10*3/uL (0.20-1.00); Monocytes % (A) 10.8 %; NRBC Per 100 WBC 0 /100 WBCS (0.0-0.0); Neutrophils # (A) 2.57 X 10*3/uL (1.80-7.70); Platelet Count 327 X 10*3/uL (140-440); RBC 5.03 X 10*6/uL (4.10-5.20); RDW 18.6 % (11.5-14.5); WBC 6.28 X 10*3/uL (4.50-10.00)
[2022-01-29 12:28] LABS: African American GFR (CKD) 100.7 (60.0-200.0); Anion Gap 11.9 mmol/L (10.00-18.00); BUN/Creat Ratio 8.87 Ratio (12.00-20.00); Blood Urea Nitrogen 5.2 mg/dL (9.0-27.0); Calcium 8.2 mg/dL (8.7-10.3); Carbon Dioxide 23.9 mmol/L (20.0-27.5); Non-African American GFR(CKD) 86.9 (60.0-200.0); Potassium 3.6 mmol/L (3.5-5.5)
[2022-01-30] MEDS: metFORMIN 500 MG TAB PO SCH (07:49)
[2022-01-30] MEDS: LOSARTAN-HCTZ 50-12.5 MG 1 EACH TAB PO SCH (07:49)
[2022-01-30] MEDS: MAGNESIUM OXIDE 400 MG TAB PO SCH (07:49)
[2022-01-30] MEDS: PANTOPRAZOLE 40 MG TABLET PO SCH (07:49)
[2022-01-30] MEDS: POTASSIUM CHLORIDE ER 10 MEQ TAB.ER.PRT PO SCH (07:49)
[2022-01-30] MEDS: MONTELUKAST 10 MG TAB PO SCH (07:49)
[2022-01-30] MEDS: MEMANTINE 5 MG TAB PO SCH (07:49)
[2022-01-30] MEDS: amLODIPine 5 MG TAB PO SCH (07:49)
[2022-01-30] MEDS: COLCHICINE 0.6 MG EACH PO SCH (07:50)
[2022-01-30] MEDS: MELOXICAM 7.5 MG TAB PO SCH (07:50)
[2022-01-30] MEDS: SODIUM CHLORIDE 0.9% 1,000 ML IV SCH (07:53)
--- NOTE | 2022-01-30 08:12 | PN ---
PROGRESS NOTE SUBJECTIVE: This 81-year-old woman was admitted with UTI, is being closely IV antibiotics. Final ID is pending. No chest pain, no palpitation. PHYSICAL EXAMINATION: VITAL SIGNS: Pulse is 83, blood pressure NTD, respirations 18. HEENT: Conjunctivae normal. CARDIOVASCULAR: S1, S2. RESPIRATIONS: Clear to auscultation. ABDOMEN: Soft, nontender. NERVOUS SYSTEM: No focal deficits. LABS: Reviewed. ASSESSMENT: 1. Acute urinary tract infection, present on admission with gram-negative bacilli, final ID pending. 2. Nausea, vomiting, possible acute gastritis, present on admission. 3. Diabetes mellitus, type 2. 4. Chronic obstructive pulmonary disease. 5. I recommend to continue current medications and continue the antibiotics. Await final ID of the organism. Prognosis guarded. Further recommendations to follow. MMODL / IJN: [id number] / MTDD
[2022-01-30] MEDS: oxyCODONE-APAP 10-325MG 1 EACH TAB PO PRN (08:34)
[2022-01-30 13:02] VITALS: BP 135/86; PULSE 94; RESP 18; TEMP 98
--- NOTE | 2022-01-31 02:45 | DS ---
DISCHARGE SUMMARY FINAL DIAGNOSES: 1. Acute urinary tract infection, present on admission with Escherichia coli. 2. Nausea, vomiting, possible acute gastritis. 3. Diabetes mellitus, type 2. 4. Chronic obstructive pulmonary disease. 5. Multiple medical issues. DISCHARGE DISPOSITION: The patient will be discharged in stable condition. Guarded prognosis. HISTORY OF PRESENT ILLNESS: This 81-year-old woman with a past medical history of multiple problems was admitted with UTI and gastritis, treated symptomatically. The patient improved significantly. PHYSICAL EXAMINATION: VITAL SIGNS: Stable. CARDIOVASCULAR: S1 and S2 muffled. ABDOMEN: Soft. NERVOUS SYSTEM: No focal deficits. DISCHARGE RECOMMENDATIONS: I recommend the patient to do a course of Ceftin and Diflucan, outpatient followup, and to continue the rest of the medications. Follow up with Dr. Swanson. Please refer to the medication reconciliation for list of medications. MMODL / IJN: [id number] /
== END 2022-01-30 13:05 | disposition home or self-care (01) | DRG 690 ==
LOC: EC 00:49 → 5NMEDONC 02:46
PROVIDERS: ADMIT Hospitalist; ATTEND Hospitalist
DX: N39.0 Urinary tract infection, site not specified (principal); B96.20 Unspecified Escherichia coli [E. coli] as the cause of diseases classified elsewhere; E11.9 Type 2 diabetes mellitus without complications; F17.210 Nicotine dependence, cigarettes, uncomplicated; K29.00 Acute gastritis without bleeding; J44.9 Chronic obstructive pulmonary disease, unspecified; M79.7 Fibromyalgia; Z79.82 Long term (current) use of aspirin; Z82.49 Family history of ischemic heart disease and other diseases of the circulatory system; Z20.822 Contact with and (suspected) exposure to COVID-19; Z28.21 Immunization not carried out because of patient refusal; Z79.84 Long term (current) use of oral hypoglycemic drugs; Z79.899 Other long term (current) drug therapy
CPT/HCPCS: 36415; 71045; 74018; 80048; 80053; 81001; 83605; 83690; 83735; 83880; 84100; 84484; 85025; 85610; 85730; 87040; 87077; 87086; 87186; 87635; 93005; 96361; 96365; 96375; 99285

== ENCOUNTER 2022-02-24 14:48 | Emergency (ER) | payer MEDICARE, OTHER ==
[2022-02-24 14:56] VITALS: BP 101/62; PULSE 78; RESP 18; TEMP 98.2
[2022-02-24] MEDS ORDERED: KETOROLAC 15 MG/ML 1 ML VIAL IM STA (15:11)
--- NOTE | 2022-02-24 15:12 | ED ---
Extremity Problem HPI - General Chief complaint: Extremity Problem,Nontraumatic Stated complaint: right shoulder lump Time Seen by Provider: 02/24/22 15:04 Source: patient, RN notes reviewed Mode of arrival: ambulatory Limitations: no limitations - History of Present Illness Initial comments: Patient is a 81-year-old -Gabones[place] female presents the emergency room with complaints of pain in her right shoulder and limited range of motion secondary to pain ongoing for approximately 2 days. She denies any trauma to the joint. She does ambulate with a walker and is pushing her walker often. She denies any swelling, redness or warmth to the joint. She does complain of a "bump over the anterior AC joint. She is taking [id number] Tylenol and i buprofen to help with pain without any response. She denies any convincing finding of the pain however she is not improving either. She has a past medical history significant for COPD, diabetes, fibromyalgia and chronic pain to her back and neck. She denies any other complaints or concerns at this time. - Related Data Home Medications Medication Instructions Recorded Confirmed Omeprazole [PriLOSEC] 20 mg PO AC-BRKFST 03/04/15 01/26/22 oxyCODONE-APAP 10-325MG [Percocet 1 tab PO Q6H PRN 07/06/19 01/26/22 10-325 mg] Memantine HCl [Memantine HCl ER] 7 mg PO DAILY 11/30/19 01/26/22 Albuterol Inhaler [Ventolin Hfa 2 puff INHALATION RT-QID PRN 01/08/20 01/26/22 Inhaler] Losartan-Hctz 50-12.5 mg [Hyzaar 1 tab PO DAILY 07/30/20 01/26/22 50-12.5] Montelukast [Singulair] 10 mg PO DAILY 07/30/20 01/26/22 Colchicine [Mitigare] 0.6 mg PO DAILY 01/26/22 01/26/22 Ferrous Sulfate [Feosol] 325 mg PO DAILY 01/26/22 01/26/22 Furosemide [Lasix] 40 mg PO DAILY 01/26/22 01/26/22 Milnacipran HCl [Savella] 50 mg PO BID 01/26/22 01/26/22 Yuperli 175mcg/3ml Solution 1 dose INHALATION Q7D 01/26/22 01/26/22 amLODIPine [Norvasc] 5 mg PO DAILY 01/26/22 01/26/22 metFORMIN HCL [Glucophage] 500 mg PO BID-W/MEALS 01/26/22 01/26/22 Previous Rx's Medication Instructions Recorded Potassium Chloride [Klor-Con 10 ER] 10 meq PO BID #1 tablet.er 04/09/15 Fluconazole [Diflucan] 100 mg PO DAILY #7 tab 01/30/22 cefUROXime axetiL [Ceftin] 500 mg PO BID 3 Days #6 tab 01/30/22 Allergies Allergy/AdvReac Type Severity Reaction Status Date / Time Corticosteroids Allergy Itching Verified 02/24/22 14:56 (Glucocorticoids) propoxyphene napsylate Allergy Itching Verified 02/24/22 14:56 [From Darcet-N 100] Review of Systems ROS Statement: Those systems with pertinent positive or pertinent negative responses have been documented in the HPI. ROS Other: All systems not noted in ROS Statement are negative. Past Medical History Past Medical History: COPD, Diabetes Mellitus, Fibromyalgia Additional Past Medical History / Comment(s): chronic neck and back pain 1996 affected rt knee & rt ankle, hypotension History of Any Multi-Drug Resistant Organisms: None Reported Past Surgical History: Appendectomy, Cholecystectomy, Orthopedic Surgery, Tonsillectomy Additional Past Surgical History / Comment(s): Total Bilateral Knee, Right Ankle. Lt Shoulder surgery. Egd/Colonoscopy 12/10/13. verticalflex in back, Past Anesthesia/Blood Transfusion Reactions: No Reported Reaction Additional Past Anesthesia/Blood Transfusion Reaction / Comment(s): pt states received 5-6 units blood @ [facility] recently Past Psychological History: No Psychological Hx Reported Smoking Status: Current every day smoker Past Alcohol Use History: None Reported Past Drug Use History: None Reported - Past Family History Mother History Unknown: Yes Family Medical History: Coronary Artery Disease (CAD) General Exam Limitations: no limitations General appearance: alert, in no apparent distress Head exam: Present: atraumatic, normocephalic, normal inspection Eye exam: Present: normal appearance, PERRL, EOMI. Absent: scleral icterus, conjunctival injection, periorbital swelling ENT exam: Present: normal exam, mucous membranes moist Neck exam: Present: normal inspection. Absent: tenderness, meningismus, lymphadenopathy Respiratory exam: Absent: respiratory distress, accessory muscle use Cardiovascular Exam: Absent: clicks Right Shoulder Exam: Present: normal inspection, tenderness, tenderness over AC joint. Absent: full ROM, swelling, laceration, ecchymosis, deformity, crepitus, di slocation Vascular: Absent: vascular compromise Back exam: Present: normal inspection Neurological exam: Present: alert, oriented X3, CN II-XII intact Psychiatric exam: Present: normal affect, normal mood Skin exam: Present: warm, dry, intact, normal color. Absent: rash Course Vital Signs 02/24/22 14:53 Temperature 98.2 F Pulse Rate 78 Respiratory 18 Rate Blood Pressure 101/62 O2 Sat by Pulse 98 Oximetry Medical Decision Making - Medical Decision Making 81-year-old -[place]ones[place] female presents to the emergency room with right shoulder pain and limited range of motion ongoing for 2 days without trauma. Will check x-ray of the right shoulder. Will give Toradol IM for pain and monitor response. No indication for laboratory studies. Continues to have mild pain after Toradol with pain medication already prescribed to her at home. Discussed x-ray findings with patient and treatment for arthritis. Encouraged range of motion and activity as tolerated. Will discharge home with follow-up with her PCP. Case discussed with Dr. Musa. - Radiology Data Radiology results: report reviewed, image reviewed X-ray right shoulder shows severe osteoarthrosis; no significant change since 02/16/2020. Disposition Clinical Impression: Right shoulder pain, Polyarthritis Disposition: HOME SELF-CARE Condition: Stable Instructions (If sedation given, give patient instructions): Shoulder Pain (ED ), Osteoarthritis (ED) Additional Instructions: Utilize your pain medication as prescribed by her primary care provider for your arthritic pain. Range of motion as tolerated encouraged. Please follow-up with your primary care provider. Please return to the Emergency Department if symptoms worsen or any other concerns. Is patient prescribed a controlled substance at d/c from ED?: No Referrals: Ricky Swanson MD [Primary Care Provider] - 1-2 days Time of Disposition: 16:01
--- NOTE | 2022-02-24 15:35 | XR ---
EXAMINATION TYPE: XR shoulder complete RT DATE OF EXAM: 02/24/2022 3:27 PM INDICATION: Patient age:Female; 81 years old; Reason for study: pain; COMPARISON: 02/18/2020 TECHNIQUE: The right shoulder was examined in AP, internally rotated and scapular Y projections. . FINDINGS: Is [id number] articulation of the glenoid and humerus with deformity of the adjoining structures. N o evidence of acute fracture. The visualized portions of the chest are unremarkable. 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 No significantly changed from 02/15.
[2022-02-24] MEDS ORDERED: ONDANSETRON ODT 8 MG TAB.RAPDIS PO STA (16:06)
== END 2022-02-24 16:00 | disposition home or self-care (01) ==
LOC: EC 14:48
DX: M25.511 Pain in right shoulder (principal); M13.0 Polyarthritis, unspecified; J44.9 Chronic obstructive pulmonary disease, unspecified; E78.5 Hyperlipidemia, unspecified; F17.200 Nicotine dependence, unspecified, uncomplicated; Z88.8 Allergy status to other drugs, medicaments and biological substances; Z88.6 Allergy status to analgesic agent
CPT/HCPCS: 73030; 99283; 96372; J1885

== ENCOUNTER 2022-03-02 14:27 | Emergency (ER) | payer MEDICARE, OTHER ==
[2022-03-02 15:17] VITALS: BP 127/53; PULSE 90; RESP 18; TEMP 98
--- NOTE | 2022-03-02 15:56 | XR ---
EXAMINATION TYPE: XR knee complete RT DATE OF EXAM: 03/02/2022 COMPARISON: NONE HISTORY: Pain TECHNIQUE: 3 views FINDINGS: There is right knee prosthesis. There is soft tissue swelling anteriorly. I see no fracture nor dislocation. No sign of a joint effusion. IMPRESSION: Anterior mild soft tissue swelling. No fracture seen.
--- NOTE | 2022-03-02 16:25 | XR ---
EXAMINATION TYPE: XR shoulder complete BILAT DATE OF EXAM: 03/02/2022 COMPARISON: NONE HISTORY: Pain TECHNIQUE: 6 views FINDINGS: There is severe narrowing of the shoulder joint spaces. There is spurring osteosclerosis. N o fracture seen. The AC joint spaces are normal. IMPRESSION: Advanced osteoarthritis in the shoulder joints. No fracture seen.
--- NOTE | 2022-03-02 18:25 | CT ---
EXAMINATION TYPE: CT brain maame garrett con DATE OF EXAM: 03/02/2022 COMPARISON: 04/03/2015 CT brain HISTORY: fall CT DLP: 1446.1 mGycm Automated exposure control for dose reduction was used. There is mild cerebral atrophy. There is no mass effect normal Shift. No sign of intracranial hemorrhage. The calvarium is intact. There is normal aeration of the m astoid sinuses. Skull base is intact. Cervical vertebra show some mild straightening. There is disc space narrowing at C3-4. There is mild spurring of the endplates in the mid and lower cervical spine. No compression fracture. Facet joints are intact. There is multilevel mild cervical facet arthropathy. IMPRESSION: Mild cerebral atrophy. No acute intracranial abnormality. No change compared to old exam. Minor cervical spondylotic changes. No fracture.
--- NOTE | 2022-03-02 18:39 | ED ---
Fall HPI - General Chief Complaint: Fall Stated Complaint: Fall-R knee injury,R sided pain Time Seen by Provider: 03/02/22 17:32 Source: patient Mode of arrival: wheelchair - History of Present Illness Initial Comments: Patient is an 81-year-old female presenting with chief complaint of right-sided knee and shoulder pain. Patient states that she fell yesterday, denies any loss of consciousness or use of blood thinners. Patient states she does not clearly remember how she fell, she suspects that she tripped on a rug at home and landed on her knee and outstretched hand. She does not think that she hit her head. She denies any chest pain, shortness of breath, fever, chills, nausea, vomiting, headache, neck pain, dizziness, vision or hearing changes, abdominal pain, numb ness, tingling, weakness, palpitations. - Related Data Home Medications Medication Instructions Recorded Confirmed Omeprazole [PriLOSEC] 20 mg PO AC-BRKFST 03/04/15 01/26/22 oxyCODONE-APAP 10-325MG [Percocet 1 tab PO Q6H PRN 07/06/19 01/26/22 10-325 mg] Memantine HCl [Memantine HCl ER] 7 mg PO DAILY 11/30/19 01/26/22 Albuterol Inhaler [Ventolin Hfa 2 puff INHALATION RT-QID PRN 01/08/20 01/26/22 Inhaler] Losartan-Hctz 50-12.5 mg [Hyzaar 1 tab PO DAILY 07/30/20 01/26/22 50-12.5] Montelukast [Singulair] 10 mg PO DAILY 07/30/20 01/26/22 Colchicine [Mitigare] 0.6 mg PO DAILY 01/26/22 01/26/22 Ferrous Sulfate [Feosol] 325 mg PO DAILY 01/26/22 01/26/22 Furosemide [Lasix] 40 mg PO DAILY 01/26/22 01/26/22 Milnacipran HCl [Savella] 50 mg PO BID 01/26/22 01/26/22 Yuperli 175mcg/3ml Solution 1 dose INHALATION Q7D 01/26/22 01/26/22 amLODIPine [Norvasc] 5 mg PO DAILY 01/26/22 01/26/22 metFORMIN HCL [Glucophage] 500 mg PO BID-W/MEALS 01/26/22 01/26/22 Previous Rx's Medication Instructions Recorded Potassium Chloride [Klor-Con 10 ER] 10 meq PO BID #1 tablet.er 04/09/15 Fluconazole [Diflucan] 100 mg PO DAILY #7 tab 01/30/22 cefUROXime axetiL [Ceftin] 500 mg PO BID 3 Days #6 tab 01/30/22 Allergies Allergy/AdvReac Type Severity Reaction Status Date / Time Corticosteroids Allergy Itching Verified 03/02/22 15:17 (Glucocorticoids) propoxyphene napsylate Allergy Itching Verified 03/02/22 15:17 [From Darvocet-N 100] Review of Systems ROS Statement: Those systems with pertinent positive or pertinent negative responses have been documented in the HPI. ROS Other: All systems not noted in ROS Statement are negative. Past Medical History Past Medical History: COPD, Diabetes Mellitus, Fibromyalgia Additional Past Medical History / Comment(s): chronic neck and back pain 1996 affected rt knee & rt ankle, hypotension History of Any Multi-Drug Resistant Organisms: None Reported Past Surgical History: Appendectomy, Cholecystectomy, Orthopedic Surgery, Tonsillectomy Additional Past Surgical History / Comment(s): Total Bilateral Knee, Right Ankle. Lt Shoulder surgery. Egd/Colonoscopy 12/10/13. verticalflex in back, Past Anesthesia/Blood Transfusion Reactions: No Reported Reaction Additional Past Anesthesia/Blood Transfusion Reaction / Comment(s): pt states received 5-6 units blood @ [facility] recently Past Psychological History: No Psychological Hx Reported Smoking Status: Current every day smoker Past Alcohol Use History: None Reported Past Drug Use History: None Reported - Past Family History Mother History Unknown: Yes Family Medical History: Coronary Artery Disease (CAD) General Exam Limitations: no limitations General appearance: alert, in no apparent distress Head exam: Present: atraumatic, normocephalic, normal inspection Eye exam: Present: normal appearance, EOMI. Absent: scleral icterus, periorbital swelling, periorbital tenderness Neck exam: Present: normal inspection, full ROM. Absent: tenderness Respiratory exam: Present: normal lung sounds bilaterally. Absent: respiratory distress, wheezes, rales, rhonchi, stridor Cardiovascular Exam: Present: regular rate, normal rhythm, normal heart sounds. Absent: systolic murmur, diastolic murmur, rubs, gallop, clicks Extremities exam: Present: normal inspection, full ROM Neurological exam: Present: alert, oriented X3, CN II-XII intact Expanded Patient oriented to: Present: person, place, time Speech: Present: fluid speech Cranial nerves: EOM's Intact: Normal Eye Response: (4) open spontaneously Motor Response: (6) obeys commands Verbal Response: (5) oriented [place] Total: 15 Psychiatric exam: Present: normal affect, normal mood Skin exam: Present: warm, dry, intact, normal color. Absent: rash Course Vital Signs 03/02/22 15:15 Temperature 98 F Pulse Rate 90 Respiratory 18 Rate Blood Pressure 127/53 O2 Sat by Pulse 95 Oximetry Medical Decision Making - Medical Decision Making Patient is an 81-year-old female presenting with chief complaint of right-sided knee and shoulder pain after a fall that occurred yesterday. She denies any loss of consciousness or use of blood thinners. On examination there are no focal neurological deficits, GCS 15. Patient has some pain on palpation of the knee and shoulder, she has full range of motion. X-rays showed no acute fracture or dislocation. CT of the brain and cervical spine without contrast shows no fracture of the cervical spine are acute intracranial process. Educated on supportive treatment. Follow-up with PCP. Report back to ER with any new or worsening symptoms. Discussed return parameters and answered all questions. Patient conveyed verbal understanding and agreed to the plan. I discussed this case in detail with my attending Dr. Dejesus Disposition Clinical Impression: Knee pain, Shoulder pain, Fall Disposition: HOME SELF-CARE Condition: Good Instructions (If sedation given, give patient instructions): Fall Prevention for Older Adults (ED), Knee Pain (ED), Shoulder Pain (ED) Additional Instructions: Follow-up with PCP. Report back to ER with any new or worsening symptoms. Take Motrin and Tylenol as needed for pain control. Rest, ice, compress, elevate the affected joints as needed. Is patient prescribed a controlled substance at d/c from ED?: No Referrals: Ricky Swanson MD [Primary Care Provider] - 1-2 days Time of Disposition: 18:39
[2022-03-02] MEDS ORDERED: Acetaminophen-Codeine 300-30mg TAB PO STA (18:40)
== END 2022-03-02 20:10 | disposition home or self-care (01) ==
LOC: EC 14:27
DX: M25.561 Pain in right knee (principal); M25.511 Pain in right shoulder; F17.200 Nicotine dependence, unspecified, uncomplicated; J44.9 Chronic obstructive pulmonary disease, unspecified; E11.9 Type 2 diabetes mellitus without complications; M79.7 Fibromyalgia; Z88.8 Allergy status to other drugs, medicaments and biological substances; Z79.899 Other long term (current) drug therapy; Z79.84 Long term (current) use of oral hypoglycemic drugs; W19.XXXA Unspecified fall, initial encounter
CPT/HCPCS: 70450; 72125; 99284

== ENCOUNTER → 2022-05-08 | Outpatient (CLI) | payer MEDICARE, OTHER ==
--- NOTE | 2022-05-09 08:10 | XR ---
EXAMINATION TYPE: XR lumbar spine with bend/flex DATE OF EXAM: 05/08/2022 CLINICAL HISTORY: pain COMPARISON: NONE TECHNIQUE: Frontal, lateral, and oblique images of the lumbar spine are obtained. Flexion and extensi on views are also submitted. FINDINGS: There is vacuum disc noted at L2-3 as well as a moderate narrowing at L4-5 and L5-S1. Posto perative changes of lumbar laminectomy at L5-S1 with posterior stabilizing device. Facet joint arthro ernestina seen. There is a mild grade 1 anterolisthesis L5 on S1 measuring 3 mm which remain stable at ne utral, flexion and extension. IMPRESSION: Stable postoperative appearance of the lumbar spine and alignment. Stable degenerative ch anges noted.
== END | disposition home or self-care (01) ==
LOC: RADXRMAIN 15:59
PROVIDERS: ATTEND Physical Medicine & Rehabilitation
DX: M47.817 Spondylosis without myelopathy or radiculopathy, lumbosacral region (principal); Z98.890 Other specified postprocedural states
CPT/HCPCS: 72114

== ENCOUNTER 2022-06-28 17:11 | Emergency (ER) | payer MEDICARE, OTHER ==
[2022-06-28] MEDS ORDERED: ACETAMINOPHEN TAB 325 MG TAB PO STA (18:36)
[2022-06-28] MEDS ORDERED: KETOROLAC 15 MG/ML 1 ML VIAL IM STA (18:36)
--- NOTE | 2022-06-28 18:36 | ED ---
ENT HPI - General Chief complaint: ENT Stated complaint: Ear pain, sinus infection Time Seen by Provider: 06/28/22 18:14 Source: patient, RN notes reviewed, old records reviewed Mode of arrival: ambulatory Limitations: no limitations - History of Present Illness Initial comments: 81-year-old female that presents with complaints of right ear and right-sided facial pain for the past 2 days. States it is the most severe pain she's ever felt. Denies any fevers. No drainage from the ear. Denies any cough congestion. She has a history of fibromyalgia, COPD and diabetes. MD complaint: ear pain (right ear and right sided facial pain) -: days(s) (2) Location: R ear Severity scale (1-10): 8 Quality: sharp, constant Consistency: constant Improves with: none - Related Data Home Medications Medication Instructions Recorded Confirmed Omeprazole [PriLOSEC] 20 mg PO AC-BRKFST 03/04/15 01/26/22 oxyCODONE-APAP 10-325MG [Percocet 1 tab PO Q6H PRN 07/06/19 01/26/22 10-325 mg] Memantine HCl [Memantine HCl ER] 7 mg PO DAILY 11/30/19 01/26/22 Albuterol Inhaler [Ventolin Hfa 2 puff INHALATION RT-QID PRN 01/08/20 01/26/22 Inhaler] Losartan-Hctz 50-12.5 mg [Hyzaar 1 tab PO DAILY 07/30/20 01/26/22 50-12.5] Montelukast [Singulair] 10 mg PO DAILY 07/30/20 01/26/22 Colchicine [Mitigare] 0.6 mg PO DAILY 01/26/22 01/26/22 Ferrous Sulfate [Feosol] 325 mg PO DAILY 01/26/22 01/26/22 Furosemide [Lasix] 40 mg PO DAILY 01/26/22 01/26/22 Milnacipran HCl [Savella] 50 mg PO BID 01/26/22 01/26/22 Yuperli 175mcg/3ml Solution 1 dose INHALATION Q7D 01/26/22 01/26/22 amLODIPine [Norvasc] 5 mg PO DAILY 01/26/22 01/26/22 metFORMIN HCL [Glucophage] 500 mg PO BID-W/MEALS 01/26/22 01/26/22 Previous Rx's Medication Instructions Recorded Potassium Chloride [Klor-Con 10 ER] 10 meq PO BID #1 tablet.er 04/09/15 Fluconazole [Diflucan] 100 mg PO DAILY #7 tab 01/30/22 cefUROXime axetiL [Ceftin] 500 mg PO BID 3 Days #6 tab 01/30/22 Ibuprofen [Motrin] 600 mg PO Q8HR PRN #20 tab 06/28/22 Allergies Allergy/AdvReac Type Severity Reaction Status Date / Time Corticosteroids Allergy Itching Verified 06/28/22 17:56 (Glucocorticoids) propoxyphene napsylate Allergy Itching Verified 06/28/22 17:56 [From Darcecicet-N 100] Review of Systems ROS Statement: Those systems with pertinent positive or pertinent negative responses have been documented in the HPI. ROS Other: All systems not noted in ROS Statement are negative. Past Medical History Past Medical History: COPD, Diabetes Mellitus, Fibromyalgia Additional Past Medical History / Comment(s): chronic neck and back pain 1996 affected rt knee & rt ankle, hypotension History of Any Multi-Drug Resistant Organisms: None Reported Past Surgical History: Appendectomy, Cholecystectomy, Orthopedic Surgery, Tonsillectomy Additional Past Surgical History / Comment(s): Total Bilateral Knee, Right Ankle. Lt Shoulder surgery. Egd/Colonoscopy 12/10/13. verticalflex in back, Past Anesthesia/Blood Transfusion Reactions: No Reported Reaction Additional Past Anesthesia/Blood Transfusion Reaction / Comment(s): pt states received 5-6 units blood @ [facility] recently Past Psychological History: No Psychological Hx Reported Smoking Status: Current every day smoker Past Alcohol Use History: None Reported Past Drug Use History: None Reported - Past Family History Mother History Unknown: Yes Family Medical History: Coronary Artery Disease (CAD) General Exam Limitations: no limitations General appearance: alert, in no apparent distress Head exam: Present: atraumatic Eye exam: Absent: scleral icterus, conjunctival injection, periorbital swelling ENT exam: Present: mucous membranes moist Expanded TM/Canal exam: Canal Tenderness: Right TM Neck exam: Present: normal inspection, tenderness (right side). Absent: meningismus, lymphadenopathy, thyromegaly Respiratory exam: Absent: respiratory distress, accessory muscle use Cardiovascular Exam: Present: regular rate Neurological exam: Present: alert, oriented X3, normal gait (with walker) Psychiatric exam: Present: normal affect, normal mood Skin exam: Present: warm, dry. Absent: cyanosis, diaphoretic, petechiae, pallor Course Vital Signs 06/28/22 06/28/22 17:53 19:48 Temperature 98.4 F 98.1 F Pulse Rate 77 70 Respiratory 18 16 Rate Blood Pressure 112/73 116/74 O2 Sat by Pulse 95 97 Oximetry Medical Decision Making - Medical Decision Making CT sinuses performed due to patient's extreme ear and maxillary sinus pain with no evidence of ear infection, no lymphadenopathy. CT shows normal aeration of the paranasal sinuses. Previous osteotomy of the medial wall of the maxillary sinuses. Negative computed tomography scan of the sinuses. I did consider prednisone however patient has an ALLERGY. She was directed to take Tylenol and Motrin for pain and inflammation. Follow-up with her primary care doctor next week. She is agreeable to this plan of care. Case discussed with Dr. 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 Follow-up with your primary care doctor next week. Return to the emergency room with a concerning symptoms including fever. Prescriptions: Ibuprofen [Motrin] 600 mg PO Q8HR PRN #20 tab PRN Reason: Pain Is patient prescribed a controlled substance at d/c from ED?: No Referrals: Ricky Swanson MD [Primary Care Provider] - 1-2 days Time of Disposition: 19:36
--- NOTE | 2022-06-28 19:30 | CT ---
EXAMINATION TYPE: CT sinus wo con DATE OF EXAM: 06/28/2022 COMPARISON: 03/02/2022 HISTORY: Rt ear and maxillary sinus pain CT DLP: 307.3 mGycm Automated exposure control for dose reduction was used. Images obtained from the top of the frontal sinuses to the bottom of the maxilla without contrast. The maxilla is intact. There is fairly normal aeration of the paranasal sinuses. There is apparent pr evious osteotomy on the medial wall of the maxillary sinuses. There is nasal turbinate atrophy. No fo tammie bone destruction. Orbital margins are intact. No evidence of retro-orbital mass. There is normal aeration of the mastoid sinuses. The external auditory canals appear normal. IMPRESSION: Previous surgery. Negative CT scan of the sinuses. No change compared to old exam.
[2022-06-28 19:50] VITALS: BP 116/74; PULSE 70; RESP 16; TEMP 98.1
== END 2022-06-28 19:48 | disposition home or self-care (01) ==
LOC: EC 17:11
DX: H92.01 Otalgia, right ear (principal); G51.9 Disorder of facial nerve, unspecified; J44.9 Chronic obstructive pulmonary disease, unspecified; E11.9 Type 2 diabetes mellitus without complications; I10 Essential (primary) hypertension; F17.200 Nicotine dependence, unspecified, uncomplicated; Z79.84 Long term (current) use of oral hypoglycemic drugs; Z79.899 Other long term (current) drug therapy; Z88.8 Allergy status to other drugs, medicaments and biological substances
CPT/HCPCS: 70486; 99283; 96372; J1885

== ENCOUNTER 2022-07-19 09:38 | Emergency (ER) | payer MEDICARE, OTHER ==
[2022-07-19 09:51] VITALS: BP 102/69; PULSE 76; RESP 18; TEMP 98
[2022-07-19] MEDS ORDERED: HYDROmorphone 1 MG/ML 1 ML SYRINGE IM STA (10:04)
[2022-07-19] MEDS ORDERED: ORPHENADRINE 30 MG/ML 2 ML VIAL IM STA (10:04)
--- NOTE | 2022-07-19 10:09 | ED ---
General Adult HPI - General Chief complaint: Recheck/Abnormal Lab/Rx Stated complaint: Neck pain Time Seen by Provider: 07/19/22 09:52 Source: patient, RN notes reviewed Mode of arrival: ambulatory Limitations: no limitations - History of Present Illness Initial comments: Patient is a pleasant 81-year-old female presenting to the emergency department with concern for right neck pain. Patient does have chronic neck problems. Patient states symptoms have been worse since February when she had a fall. Patient did have an injection done last week in symptoms seem slightly worse. Discomfort is right side of the neck from the upper neck to the shoulder region. Discomfort is greatly increased with movement. No weakness. - Related Data Home Medications Medication Instructions Recorded Confirmed Omeprazole [PriLOSEC] 20 mg PO AC-BRKFST 03/04/15 01/26/22 oxyCODONE-APAP 10-325MG [Percocet 1 tab PO Q6H PRN 07/06/19 01/26/22 10-325 mg] Memantine HCl [Memantine HCl ER] 7 mg PO DAILY 11/30/19 01/26/22 Albuterol Inhaler [Ventolin Hfa 2 puff INHALATION RT-QID PRN 01/08/20 01/26/22 Inhaler] Losartan-Hctz 50-12.5 mg [Hyzaar 1 tab PO DAILY 07/30/20 01/26/22 50-12.5] Montelukast [Singulair] 10 mg PO DAILY 07/30/20 01/26/22 Colchicine [Mitigare] 0.6 mg PO DAILY 01/26/22 01/26/22 Ferrous Sulfate [Feosol] 325 mg PO DAILY 01/26/22 01/26/22 Furosemide [Lasix] 40 mg PO DAILY 01/26/22 01/26/22 Milnacipran HCl [Savella] 50 mg PO BID 01/26/22 01/26/22 Yuperli 175mcg/3ml Solution 1 dose INHALATION Q7D 01/26/22 01/26/22 amLODIPine [Norvasc] 5 mg PO DAILY 01/26/22 01/26/22 metFORMIN HCL [Glucophage] 500 mg PO BID-W/MEALS 01/26/22 01/26/22 Previous Rx's Medication Instructions Recorded Potassium Chloride [Klor-Con 10 ER] 10 meq PO BID #1 tablet.er 10/12/15 Fluconazole [Diflucan] 100 mg PO DAILY #7 tab 01/30/22 cefUROXime axetiL [Ceftin] 500 mg PO BID 3 Days #6 tab 01/30/22 Ibuprofen [Motrin] 600 mg PO Q8HR PRN #20 tab 06/28/22 Allergies Allergy/AdvReac Type Severity Reaction Status Date / Time Corticosteroids Allergy Itching Verified 07/19/22 09:51 (Glucocorticoids) propoxyphene napsylate Allergy Itching Verified 07/19/22 09:51 [From Darvocet-N 100] Review of Systems ROS Statement: Those systems with pertinent positive or pertinent negative responses have been documented in the HPI. ROS Other: All systems not noted in ROS Statement are negative. Constitutional: Denies: fever Eyes: Denies: eye pain ENT: Denies: ear pain Respiratory: Denies: cough Cardiovascular: Denies: chest pain Endocrine: Denies: fatigue Gastrointestinal: Denies: abdominal pain Genitourinary: Denies: dysuria Musculoskeletal: Reports: as per HPI Skin: Denies: rash Neurological: Denies: weakness Past Medical History Past Medical History: COPD, Diabetes Mellitus, Fibromyalgia Additional Past Medical History / Comment(s): chronic neck and back pain 1996 affected rt knee & rt ankle, hypotension History of Any Multi-Drug Resistant Organisms: None Reported Past Surgical History: Appendectomy, Cholecystectomy, Orthopedic Surgery, Tonsillectomy Additional Past Surgical History / Comment(s): Total Bilateral Knee, Right Ankle. Lt Shoulder surgery. Egd/Colonoscopy 12/10/13. verticalflex in back, Past Anesthesia/Blood Transfusion Reactions: No Reported Reaction Additional Past Anesthesia/Blood Transfusion Reaction / Comment(s): pt states received 5-6 units blood @ [facility] recently Past Psychological History: No Psychological Hx Reported Smoking Status: Current every day smoker Past Alcohol Use History: None Reported Past Drug Use History: None Reported - Past Family History Mother History Unknown: Yes Family Medical History: Coronary Artery Disease (CAD) General Exam Limitations: no limitations General appearance: alert, in no apparent distress Head exam: Present: normocephalic Eye exam: Present: normal appearance Neck exam: Present: tenderness (Right lateral and trapezius) Respiratory exam: Present: normal lung sounds bilaterally Cardiovascular Exam: Present: regular rate, normal rhythm Expanded Peripheral pulses: 2+: Radial (R) GI/Abdominal exam: Present: soft. Absent: tenderness Extremities exam: Present: normal inspection Back exam: Present: tenderness (Right upper trapezius between the neck and shoulder) Neurological exam: Present: alert. Absent: motor sensory deficit Psychiatric exam: Present: normal affect, normal mood Skin exam: Present: normal color Course Vital Signs 07/19/22 09:48 Temperature 98 F Pulse Rate 76 Respiratory 18 Rate Blood Pressure 102/69 O2 Sat by Pulse 98 Oximetry Medical Decision Making - Medical Decision Making Was pt. sent in by a medical professional or institution (, [place], INTERSTATE PLANNER, urgent care, hospital, or senior care...) When possible be specific @ -No Did you speak to anyone other than the patient for history (EMS, parent, family, police, friend...)? What history was obtained from this source @ -Family is present and helps provide history including onset of symptoms Did you review nursing and triage notes (agree or disagree)? Why? @ -I reviewed and agree with nursing and triage notes Were old charts reviewed (outside hosp., previous admission, EMS record, old EKG, old radiological studies, urgent care reports/EKG's, senior care records)? Report findings @ -No old charts were reviewed Differential Diagnosis (chest pain, altered mental status, abdominal pain women, abdominal pain men, vaginal bleeding, weakness, fever, dyspnea, syncope, headache, dizziness, GI bleed, back pain, seizure, CVA, palpatations, mental health)? @ -Differential Weakness: Hypoglycemia, shock, sepsis, hyponatremia, anemia, infection, [place], ETOH, adverse medicine reaction, overdose, stroke, this is not meant to be an all-inclusive list. EKG interpreted by me (3pts min.). @ -As above X-rays interpreted by me (1pt min.). @ -None done CT interpreted by me (1pt min.). @ -None done U/S interpreted by me (1pt. min.). @ -None done What testing was considered but not performed or refused? (CT, X-rays, U/S, labs)? Why? @ -Considered imaging however this is a chronic problem What meds were considered but not given or refused? Why? @ -None Did you discuss the management of the patient with other professionals (professionals i.e. , RADHA, INTERSTATE PLANNER, lab, RT, psych nurse, psychiatric social worker supervisor, textile conservator, teacher, community liaison officer, lining caser)? Give summary @ -No Was smoking cessation discussed for >3mins.? @ -No Was critical care preformed (if so, how long)? @ -No Were there social determinants of health that impacted care today? How? (Homelessness, low income, unemployed, alcoholism, drug addiction, transportation, low edu. Level, literacy, decrease access to med. care, correction, rehab)? @ -No Was there de-escalation of care discussed even if they declined (Discuss DNR or withdrawal of care, Hospice)? DNR status @ -No What co-morbidities impacted this encounter? (DM, HTN, Smoking, COPD, CAD, Cancer, CVA, ARF, Chemo, Hep., AIDS, mental health diagnosis, sleep apnea, morbid obesity)? @ -None Was patient admitted / discharged? Hospital course, mention meds given and route, prescriptions, significant lab abnormalities, going to OR and other pertinent info. @ -Patient receptive to pain medications. Patient updated on need for follow- up. Undiagnosed new problem with uncertain prognosis? @ -No Drug Therapy requiring intensive monitoring for toxicity (Heparin, Nitro, Insulin, Cardizem)? @ -No Were any procedures done? @ -No Diagnosis/symptom? @ -Neck pain Acute, or Chronic, or Acute on Chronic? @ -Acute on chronic Uncomplicated (without systemic symptoms) or Complicated (systemic symptoms)? @ -Uncomplicated Side effects of treatment? @ -No Exacerbation, Progression, or Severe Exacerbation? @ -Exacerbation Poses a threat to life or bodily function? How? (Chest pain, [place], [place], pneumonia, PE, COPD, DKA, ARF, appy, cholecystitis, CVA, Diverticulitis, Homicidal, Suicidal, threat to staff... and all critical care pts) @ -No Disposition Clinical Impression: Neck pain Disposition: HOME SELF-CARE Condition: Stable Instructions (If sedation given, give patient instructions): Neck Pain (ED) Additional Instructions: Please do follow-up to primary care physician in the next couple days for recheck. Return for weakness, fever, loss of sensation, worsening or change in symptoms or any other concerns. Please also follow-up with your neck doctor. Is patient prescribed a controlled substance at d/c from ED?: No Referrals: Ricky Swanson MD [Primary Care Provider] - 1-2 days Time of Disposition: 10:08
== END 2022-07-19 10:10 | disposition home or self-care (01) ==
LOC: EC 09:38
DX: M54.2 Cervicalgia (principal); J44.9 Chronic obstructive pulmonary disease, unspecified; E11.9 Type 2 diabetes mellitus without complications; F17.200 Nicotine dependence, unspecified, uncomplicated; Z88.8 Allergy status to other drugs, medicaments and biological substances; Z88.5 Allergy status to narcotic agent; Z79.899 Other long term (current) drug therapy; Z79.84 Long term (current) use of oral hypoglycemic drugs
CPT/HCPCS: 99283; 96372 ×2; J2360; J1170

== ENCOUNTER 2022-07-26 07:43 | Emergency (ER) | payer MEDICARE, OTHER ==
[2022-07-26 08:00] VITALS: TEMP 96.1
[2022-07-26] MEDS ORDERED: HYDROmorphone 1 MG/ML 1 ML SYRINGE IM STA ×2 (08:11→10:17)
--- NOTE | 2022-07-26 08:33 | ED ---
Extremity Problem HPI - General Chief complaint: Extremity Problem,Nontraumatic Stated complaint: rt arm edema Time Seen by Provider: 07/26/22 08:02 Source: patient, RN notes reviewed Mode of arrival: ambulatory Limitations: no limitations - History of Present Illness Initial comments: This is an 81-year-old female who presents to the emergency department for pain and swelling to the right arm and neck. States that she had a rhizotomy to the right neck at the pain clinic approximately one week ago. States that she has had this procedure before, however shortly after the procedure this time, she started to develop pain and swelling to the right side of the neck, the right shoulder, and right upper arm. She does take oxycodone on a regular basis, and states that this is not helping her symptoms. She saw a provider 2 days ago and was started on prednisone, which she states has also not offered any relief to her symptoms. She's been unable to sleep due to her pain. She is not taking any blood thinners. Denies any history of blood clots. Denies any fevers, chills, sore throat, cough, dyspnea, chest pain, palpitations, abdominal pain, nausea, vomiting, diarrhea, back pain, or headaches. MD Complaint: extremity pain, extremity swelling Onset/Timin -: week(s) Location: right, upper extremity History of Same: No - Related Data Home Medications Medication Instructions Recorded Confirmed Omeprazole [PriLOSEC] 20 mg PO AC-BRKFST 03/04/15 01/26/22 oxyCODONE-APAP 10-325MG [Percocet 1 tab PO Q6H PRN 07/06/19 01/26/22 10-325 mg] Memantine HCl [Memantine HCl ER] 7 mg PO DAILY 11/30/19 01/26/22 Albuterol Inhaler [Ventolin Hfa 2 puff INHALATION RT-QID PRN 01/08/20 01/26/22 Inhaler] Losartan-Hctz 50-12.5 mg [Hyzaar 1 tab PO DAILY 07/30/20 01/26/22 50-12.5] Montelukast [Singulair] 10 mg PO DAILY 07/30/20 01/26/22 Colchicine [Mitigare] 0.6 mg PO DAILY 01/26/22 01/26/22 Ferrous Sulfate [Feosol] 325 mg PO DAILY 01/26/22 01/26/22 Furosemide [Lasix] 40 mg PO DAILY 01/26/22 01/26/22 Milnacipran HCl [Savella] 50 mg PO BID 01/26/22 01/26/22 Yuperli 175mcg/3ml Solution 1 dose INHALATION Q7D 01/26/22 01/26/22 amLODIPine [Norvasc] 5 mg PO DAILY 01/26/22 01/26/22 metFORMIN HCL [Glucophage] 500 mg PO BID-W/MEALS 01/26/22 01/26/22 Previous Rx's Medication Instructions Recorded Potassium Chloride [Klor-Con 10 ER] 10 meq PO BID #1 tablet.er 04/09/15 Fluconazole [Diflucan] 100 mg PO DAILY #7 tab 01/30/22 cefUROXime axetiL [Ceftin] 500 mg PO BID 3 Days #6 tab 01/30/22 Ibuprofen [Motrin] 600 mg PO Q8HR PRN #20 tab 06/28/22 Metaxalone [Skelaxin] 800 mg PO BID PRN #10 tablet 07/26/22 Allergies Allergy/AdvReac Type Severity Reaction Status Date / Time Corticosteroids Allergy Itching Verified 07/26/22 08:00 (Glucocorticoids) propoxyphene napsylate Allergy Itching Verified 07/26/22 08:00 [From Maria Isabel-N 100] Review of Systems ROS Statement: Those systems with pertinent positive or pertinent negative responses have been documented in the HPI. ROS Other: All systems not noted in ROS Statement are negative. Past Medical History Past Medical History: COPD, Diabetes Mellitus, Fibromyalgia Additional Past Medical History / Comment(s): chronic neck and back pain 1996 affected rt knee & rt ankle, hypotension History of Any Multi-Drug Resistant Organisms: None Reported Past Surgical History: Appendectomy, Cholecystectomy, Orthopedic Surgery, Tonsillectomy Additional Past Surgical History / Comment(s): Total Bilateral Knee, Right Ankle. Lt Shoulder surgery. Egd/Colonoscopy 12/10/13. verticalflex in back, Past Anesthesia/Blood Transfusion Reactions: No Reported Reaction Additional Past Anesthesia/Blood Transfusion Reaction / Comment(s): pt states received 5-6 units blood @ [facility] recently Past Psychological History: No Psychological Hx Reported Smoking Status: Current every day smoker Past Alcohol Use History: None Reported Past Drug Use History: None Reported - Past Family History Mother History Unknown: Yes Family Medical History: Coronary Artery Disease (CAD) General Exam Limitations: no limitations General appearance: alert, in no apparent distress Head exam: Present: atraumatic, normocephalic, normal inspection Respiratory exam: Present: normal lung sounds bilaterally. Absent: respiratory distress, wheezes, rales, rhonchi, stridor Cardiovascular Exam: Present: regular rate, normal rhythm, normal heart sounds. Absent: systolic murmur, diastolic murmur, rubs, gallop, clicks Extremities exam: Present: other (There is no obvious swelling to the right neck or right upper extremity, however evaluation is limited by adipose tissue. No erythema, increased heat, or ecchymosis. 2+ radial pulses. Tender to palpation with very light touch.) Neurological exam: Present: alert, oriented X3, CN II-XII intact Psychiatric exam: Present: normal affect, normal mood Skin exam: Present: warm, dry, intact, normal color. Absent: rash Course Vital Signs 07/26/22 07/26/22 07:57 11:04 Temperature 96.1 F L Pulse Rate 77 69 Respiratory 20 18 Rate Blood Pressure 128/76 122/80 O2 Sat by Pulse 96 97 Oximetry Medical Decision Making - Medical Decision Making This is an 81-year-old female who presents to the emergency department for right arm pain and swelling. Was pt. sent in by a medical professional or institution? @ -No Did you speak to anyone other than the patient for history? @ -No Did you review nursing and triage notes? @ -I disagree with the part about symptoms being present for 2 days, patient states that they started about a week ago. Were old charts reviewed? @ -No Differential Diagnosis? @ -Differential Arm Pain and Swelling: DVT, lymphadema, neuropathy, fracture, dislocation, cervical radiculopathy, osteoarthritis, this is not meant to be an all-inclusive list. X-rays interpreted by me (1pt min.)? @ -X-ray of the cervical spine, right shoulder, and right humerus obtained. My interpretation of the imaging reveals no acute fractures or dislocations. However, the x-ray of the right shoulder does reveal severe osteoarthritis. What testing was considered but not performed? (CT, X-rays, U/S, labs)? Why? @ -None What meds were considered but not given? Why? @ -None Did you discuss the management of the patient with other professionals? @ -No Did you reconcile home meds? @ -No Was smoking cessation discussed for >3mins.? @ -No Was critical care preformed (if so, how long)? @ -No Were there social determinants of health that impacted care today? How? (Homelessness, low income, unemployed, alcoholism, drug addiction, transportation, low edu. Level, literacy, decrease access to med. care, halfway, rehab)? @ -No Was there de-escalation of care discussed even if they declined? (Discuss DNR or withdrawal of care, Hospice)? @ -No What co-morbidities impacted this encounter? (DM, HTN, Smoking, COPD, CAD, Cancer, CVA, Hep., AIDS, mental health diagnosis, sleep apnea, morbid obesity)? @ -Fibromyalgia Was patient admitted / discharged? @ -Discharged. X-rays of the right upper extremity obtained revealing no acute changes and is consistent with severe osteoarthritis. Duplex ultrasound of the right upper extremity obtained and no evidence of a DVT was identified. She was given a shot of Dilaudid with significant improvement in symptoms. Prescription for Skelaxin provided. States that she has taken this before and it has worked very well. Advised that this may be sedating and she should take it at night until she knows how it effects her. She is also advised to avoid driving or operating machinery when taking this. Instructed her to continue taking her oxycodone and prednisone as prescribed. She has a follow-up appointment schedul ed with Dr. Calvo, orthopedics, in approximately 2 weeks with an MRI prior. She is also instructed to follow through with this as scheduled. Undiagnosed new problem with uncertain prognosis? @ -None Drug Therapy requiring intensive monitoring for toxicity (Heparin, Nitro, Insulin, Cardizem)? @ -None Were any procedures done? @ -None Diagnosis/symptom? @ -Right arm pain Acute, or Chronic, or Acute on Chronic? @ -Acute Uncomplicated (without systemic symptoms) or Complicated (systemic symptoms)? @ -Uncomplicated Side effects of treatment? @ -None Exacerbation, Progression, or Severe Exacerbation] @ -Not applicable Poses a threat to life or bodily function? @ -Yes, the pain is making it difficult to function. Return precautions reviewed in depth, the patient is instructed to return to the emergency department with any new, worsening, or concerning symptoms. Patient verbalized understanding. This case was discussed in detail with the attending ED physician, Dr. Soto. Presentation, findings, and treatment plan discussed in detail as well. - Radiology Data Radiology results: report reviewed, image reviewed Disposition Clinical Impression: Right arm pain, Osteoarthritis Disposition: HOME SELF-CARE Instructions (If sedation given, give patient instructions): Osteoarthritis (ED), Arm Pain (ED) Additional Instructions: Return to the emergency department with any new, worsening, or concerning symptoms. Continue to take your pain medication and the prednisone. You can use the muscle relaxant twice daily, however be aware that this may make you sleepy and you should avoid driving or operating machinery when taking this. Follow up with your primary care provider in 1-[address] Calvo as scheduled. Prescriptions: Metaxalone [Skelaxin] 800 mg PO BID PRN #10 tablet PRN Reason: Pain Is patient prescribed a controlled substance at d/c from ED?: No Referrals: Ricky Swanson MD [Primary Care Provider] - 1-2 days
--- NOTE | 2022-07-26 08:44 | XR ---
EXAMINATION TYPE: XR cervical spine comp DATE OF EXAM: 07/26/2022 8:35 AM INDICATION: Patient age:Female; 81 years old; Reason for study: Right upper arm and shoulder pain and swelling; COMPARISON: 02/05/2021 TECHNIQUE: The cervical spine was imaged in frontal, lateral, odontoid and bilateral oblique. FINDINGS: The osseous structures show normal alignment without evidence of an acute fracture. There are osteoph ytes noted throughout the cervical spine on the anterior and lateral aspects of the vertebral bodies. The intervertebral disk spaces are preserved. Pedicles are intact. Soft tissues are within normal limits. The odontoid appears intact. Scattered neural foraminal stenosis worse involving the left C2- C3. IMPRESSION: 1. No fracture or dislocation. 2. 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
--- NOTE | 2022-07-26 08:46 | XR ---
EXAMINATION TYPE: XR shoulder complete RT, XR humerus RT DATE OF EXAM: 07/26/2022 8:35 AM INDICATION: Patient age:Female; 81 years old; Reason for study: Right upper arm and shoulder pain and swelling; COMPARISON: 03/02/2022 TECHNIQUE: The right shoulder was examined in AP, internally rotated and scapular Y projections. Frontal and lateral views of the right humerus. FINDINGS: End-stage degeneration changes with [id number] articulation of the glenohumeral joint, osteophytes and sclerosis present. No evidence of acute osseous pathology, joint dislocation, or soft tissue swel ling. The remaining portions of the visualized chest are unremarkable. IMPRESSION: 1. No acute osseous pathology. 2. End-stage right osteoarthrosis.
--- NOTE | 2022-07-26 09:46 | US ---
EXAMINATION TYPE: US venous doppler duplex UE RT DATE OF EXAM: 07/26/2022 COMPARISON: NONE CLINICAL HISTORY: Right upper arm and shoulder pain and swelling. SIDE PERFORMED: Right Right Arm: Negative for DVT, Grayscale, color doppler, spectral doppler imaging performed of the deep veins of the upper extremities. There is normal flow, compressibility and vascular waveforms. IJV, subclavian, axilla, brachial, basilic, cephalic, radial, and ulnar veins interrogated. IMPRESSION: No evidence for deep vein thrombosis of the right upper extremity.
[2022-07-26 11:05] VITALS: BP 122/80; PULSE 69; RESP 18
== END 2022-07-26 11:05 | disposition home or self-care (01) ==
LOC: EC 07:43
DX: M19.011 Primary osteoarthritis, right shoulder (principal); E11.9 Type 2 diabetes mellitus without complications; J44.9 Chronic obstructive pulmonary disease, unspecified; F17.200 Nicotine dependence, unspecified, uncomplicated; Z79.1 Long term (current) use of non-steroidal anti-inflammatories (NSAID); Z79.84 Long term (current) use of oral hypoglycemic drugs; Z79.899 Other long term (current) drug therapy
CPT/HCPCS: 72050; 73030; 73060; 93971; 99284; 96372 ×2; J1170

== ENCOUNTER 2022-09-13 06:18 | Inpatient (IN) | payer MEDICARE, OTHER ==
[2022-09-13] MEDS ORDERED: ONDANSETRON 4 MG/2 ML VIAL IVP STA (06:38)
[2022-09-13] MEDS ORDERED: SODIUM CHLORIDE 0.9% 1,000 ML IV STA ×2 (06:38→09:44)
[2022-09-13] MEDS ORDERED: KETOROLAC 15 MG/ML 1 ML VIAL IVP STA (06:39)
--- NOTE | 2022-09-13 06:42 | ED ---
Nausea/Vomiting/Diarrhea HPI - General Chief complaint: Nausea/Vomiting/Diarrhea Stated complaint: poss med overdose Time Seen by Provider: 09/13/22 06:35 Source: patient, RN notes reviewed Mode of arrival: ambulatory Limitations: no limitations - History of Present Illness Initial comments: This is an 82-year-old female who presents to the emergency department for concerns of a medication reaction. States that she woke up this morning with a headache and took her Percocet and Excedrin Migraine. Approximately 30 minutes afterwards, she started shaking and had nausea and vomiting. She has taken these medications together before without any problems. Denies any abdominal pain or changes in bowel habits. Denies any fevers, chills, sore throat, cough, dyspnea, chest pain, palpitations, abdominal pain, diarrhea, back pain, or headaches. MD complaint: nausea, vomiting Associated Abdominal Pain: No - Related Data Home Medications Medication Instructions Recorded Confirmed Omeprazole [PriLOSEC] 20 mg PO AC-BRKFST 03/04/15 01/26/22 oxyCODONE-APAP 10-325MG [Percocet 1 tab PO Q6H PRN 07/06/19 01/26/22 10-325 mg] Memantine HCl [Memantine HCl ER] 7 mg PO DAILY 11/30/19 01/26/22 Albuterol Inhaler [Ventolin Hfa 2 puff INHALATION RT-QID PRN 01/08/20 01/26/22 Inhaler] Losartan-Hctz 50-12.5 mg [Hyzaar 1 tab PO DAILY 07/30/20 01/26/22 50-12.5] Montelukast [Singulair] 10 mg PO DAILY 07/30/20 01/26/22 Colchicine [Mitigare] 0.6 mg PO DAILY 01/26/22 01/26/22 Ferrous Sulfate [Feosol] 325 mg PO DAILY 01/26/22 01/26/22 Furosemide [Lasix] 40 mg PO DAILY 01/26/22 01/26/22 Milnacipran HCl [Savella] 50 mg PO BID 01/26/22 01/26/22 Yuperli 175mcg/3ml Solution 1 dose INHALATION Q7D 01/26/22 01/26/22 amLODIPine [Norvasc] 5 mg PO DAILY 01/26/22 01/26/22 metFORMIN HCL [Glucophage] 500 mg PO BID-W/MEALS 01/26/22 01/26/22 Previous Rx's Medication Instructions Recorded Potassium Chloride [Klor-Con 10 ER] 10 meq PO BID #1 tablet.er 04/09/15 Fluconazole [Diflucan] 100 mg PO DAILY #7 tab 01/30/22 cefUROXime axetiL [Ceftin] 500 mg PO BID 3 Days #6 tab 01/30/22 Ibuprofen [Motrin] 600 mg PO Q8HR PRN #20 tab 06/28/22 Metaxalone [Skelaxin] 800 mg PO BID PRN #10 tablet 07/26/22 Cephalexin [Keflex] 500 mg PO Q12HR 7 Days #14 cap 07/30/22 Ciprofloxacin HCl [Cipro] 250 mg PO BID 3 Days #6 tab 08/02/22 Allergies Allergy/AdvReac Type Severity Reaction Status Date / Time Corticosteroids Allergy Itching Verified 09/13/22 06:27 (Glucocorticoids) propoxyphene napsylate Allergy Itching Verified 09/13/22 06:27 [From [facility]-N 100] Review of Systems ROS Statement: Those systems with pertinent positive or pertinent negative responses have been documented in the HPI. ROS Other: All systems not noted in ROS Statement are negative. Past Medical History Past Medical History: COPD, Diabetes Mellitus, Fibromyalgia Additional Past Medical History / Comment(s): chronic neck and back pain 1996 affected rt knee & rt ankle, hypotension History of Any Multi-Drug Resistant Organisms: None Reported Past Surgical History: Appendectomy, Cholecystectomy, Orthopedic Surgery, Tonsillectomy Additional Past Surgical History / Comment(s): Total Bilateral Knee, Right Ankle. Lt Shoulder surgery. Egd/Colonoscopy 12/10/13. verticalflex in back, Past Anesthesia/Blood Transfusion Reactions: No Reported Reaction Additional Past Anesthesia/Blood Transfusion Reaction / Comment(s): pt states received 5-6 units blood @ [facility] recently Past Psychological History: No Psychological Hx Reported Smoking Status: Current every day smoker Past Alcohol Use History: None Reported Past Drug Use History: None Reported - Past Family History Mother History Unknown: Yes Family Medical History: Coronary Artery Disease (CAD) General Exam Limitations: no limitations General appearance: alert, in no apparent distress Head exam: Present: atraumatic, normocephalic, normal inspection Respiratory exam: Present: normal lung sounds bilaterally. Absent: respiratory distress, wheezes, rales, rhonchi, stridor Cardiovascular Exam: Present: regular rate, normal rhythm, normal heart sounds. Absent: systolic murmur, diastolic murmur, rubs, gallop, clicks GI/Abdominal exam: Present: soft, normal bowel sounds. Absent: distended, te nderness, guarding, rebound, rigid Neurological exam: Present: alert, oriented X3, CN II-XII intact Psychiatric exam: Present: normal affect, normal mood Skin exam: Present: warm, dry, intact, normal color. Absent: rash Course Vital Signs 09/13/22 06:28 Temperature 96 F L Pulse Rate 80 Respiratory 18 Rate Blood Pressure 104/65 O2 Sat by Pulse 98 Oximetry Medical Decision Making - Medical Decision Making This is an 82-year-old female who presents to the emergency department for nausea and vomiting. Was pt. sent in by a medical professional or institution? @ -No Did you speak to anyone other than the patient for history? @ -No Did you review nursing and triage notes? @ -Yes, and I agree, it is accurate with regards to the patient's symptoms. Were old charts reviewed? @ -No Differential Diagnosis? @ -Differential Nausea and Vomiting: Gastroenteritis, cholecystitis, appendicitis, pancreatitis, migraine, benign positional vertigo, food borne illness, pyelonephritis, irritable bowel syndrome, influenza, Covid, GERD, incarcerated hernia, intestinal obstruction, this is not meant to be an all-inclusive list. What testing was considered but not performed? (CT, X-rays, U/S, labs)? Why? @ -None What meds were considered but not given? Why? @ -None Did you discuss the management of the patient with other professionals? @ -Yes, Dr. Valadez with [facility], who accepts the patient for admission. Did you reconcile home meds? @ -No Was smoking cessation discussed for >3mins.? @ -No Was critical care preformed (if so, how long)? @ -No Were there social determinants of health that impacted care today? How? (Homelessness, low income, unemployed, alcoholism, drug addiction, transportation, low edu. Level, literacy, decrease access to med. care, snf, rehab)? @ -No Was there de-escalation of care discussed even if they declined? (Discuss DNR or withdrawal of care, Hospice)? @ -No What co-morbidities impacted this encounter? (DM, HTN, Smoking, COPD, CAD, Cancer, CVA, Hep., AIDS, mental health diagnosis, sleep apnea, morbid obesity)? @ -DM, fibromyalgia Was patient admitted / discharged? @ -Discharged. Lab work obtained and consistent with dehydration. This is evidenced by hyponatremia and acute kidney injury. Urinalysis consistent with contamination. Patient given IV fluids, toradol, and zofran. Patient continued to feel nauseous and we subsequently tried giving her Reglan and Pepcid. Nausea was somewhat improved, however she still felt shaky. Patient admitted to medicine for hyponatremia and CLAIRE. Undiagnosed new problem with uncertain prognosis? @ -None Drug Therapy requiring intensive monitoring for toxicity (Heparin, Nitro, Insuli n, Cardizem)? @ -None Were any procedures done? @ -None Diagnosis/symptom? @ -Hyponatremia, CLAIRE Acute, or Chronic, or Acute on Chronic? @ -Acute Uncomplicated (without systemic symptoms) or Complicated (systemic symptoms)? @ -Complicated Side effects of treatment? @ -None Exacerbation, Progression, or Severe Exacerbation] @ -Not applicable Poses a threat to life or bodily function? @ -Yes This case was discussed in detail with the attending ED physician, Dr. Best. Presentation, findings, and treatment plan discussed in detail as well. - Lab Data Result diagrams: 09/13/22 07:08 09/13/22 08:09 Lab Results 09/13/22 09/13/22 09/13/22 Range/Units 07:08 08:09 08:09 WBC 8.0 (3.8-10.6) k/uL RBC 5.19 (3.80-5.40) m/uL Hgb 11.8 (11.4-16.0) gm/dL Hct 38.2 (34.0-46.0) % MCV 73.5 L (80.0-100.0) fL MCH 22.7 L (25.0-35.0) pg MCHC 30.9 L (31.0-37.0) g/dL RDW 17.8 H (11.5-15.5) % Plt Count 328 (150-450) k/uL MPV 9.2 Neutrophils % 55 % Lymphocytes % 28 % Monocytes % 11 % Eosinophils % 2 % Basophils % 1 % Neutrophils # 4.4 (1.3-7.7) k/uL Lymphocytes # 2.3 (1.0-4.8) k/uL Monocytes # 0.9 (0-1.0) k/uL Eosinophils # 0.2 (0-0.7) k/uL Basophils # 0.0 (0-0.2) k/uL Hypochromasia Moderate Anisocytosis Slight Microcytosis Moderate Sodium 128 L (137-145) mmol/L Potassium 4.4 (3.5-5.1) mmol/L Chloride 97 L (98-107) mmol/L Carbon Dioxide 22 (22-30) mmol/L Anion Gap 9 mmol/L BUN 12 (7-17) mg/dL Creatinine 1.39 H (0.52-1.04) mg/dL Est GFR (CKD-EPI)AfAm 41 (>60 ml/min/1.73 sqM) Est GFR (CKD-EPI)NonAf 36 (>60 ml/min/1.73 sqM) Glucose 88 (74-99) mg/dL Calcium 8.1 L (8.4-10.2) mg/dL Total Bilirubin 0.3 (0.2-1.3) mg/dL AST 28 (14-36) U/L ALT 18 (4-34) U/L Alkaline Phosphatase 60 (38-126) U/L Troponin I <0.012 (0.000-0.034) ng/mL Total Protein 6.8 (6.3-8.2) g/dL Albumin 3.8 (3.5-5.0) g/dL Amylase 57 (30-110) U/L Lipase 54 (23-300) U/L Urine Color Urine Appearance (Clear) Urine pH (5.0-8.0) Ur Specific Ramona (1.001-1.035) Urine Protein (Negative) Urine Glucose (UA) (Negative) Urine Ketones (Negative) Urine Blood (Negative) Urine Nitrite (Negative) Urine Bilirubin (Negative) Urine Urobilinogen (<2.0) mg/dL Ur Leukocyte Esterase (Negative) Urine RBC (0-5) /hpf Urine WBC (0-5) /hpf Ur Squamous Epith Cells (0-4) /hpf Urine Bacteria (None) /hpf Hyaline Casts (0-2) /lpf Urine Mucus (None) /hpf Urine Opiates Screen (NotDetected) Ur Oxycodone Screen (NotDetected) Urine Methadone Screen (NotDetected) Ur Propoxyphene Screen (NotDetected) Ur Barbiturates Screen (NotDetected) U Tricyclic Antidepress (NotDetected) Ur Phencyclidine Scrn (NotDetected) Ur Amphetamines Screen (NotDetected) U Methamphetamines Scrn (NotDetected) U Benzodiazepines Scrn (NotDetected) Urine Cocaine Screen (NotDetected) U Marijuana (THC) Screen (NotDetected) 09/13/22 09/13/22 Range/Units 09:14 09:14 WBC (3.8-10.6) k/uL RBC (3.80-5.40) m/uL Hgb (11.4-16.0) gm/dL Hct (34.0-46.0) % MCV (80.0-100.0) fL MCH (25.0-35.0) pg MCHC (31.0-37.0) g/dL RDW (11.5-15.5) % Plt Count (150-450) k/uL MPV Neutrophils % % Lymphocytes % % Monocytes % % Eosinophils % % Basophils % % Neutrophils # (1.3-7.7) k/uL Lymphocytes # (1.0-4.8) k/uL Monocytes # (0-1.0) k/uL Eosinophils # (0-0.7) k/uL Basophils # (0-0.2) k/uL Hypochromasia Anisocytosis Microcytosis Sodium (137-145) mmol/L Potassium (3.5-5.1) mmol/L Chloride (98-107) mmol/L Carbon Dioxide (22-30) mmol/L Anion Gap mmol/L BUN (7-17) mg/dL Creatinine (0.52-1.04) mg/dL Est GFR (CKD-EPI)AfAm (>60 ml/min/1.73 sqM) Est GFR (CKD-EPI)NonAf (>60 ml/min/1.73 sqM) Glucose (74-99) mg/dL Calcium (8.4-10.2) mg/dL Total Bilirubin (0.2-1.3) mg/dL AST (14-36) U/L ALT (4-34) U/L Alkaline Phosphatase (38-126) U/L Troponin I (0.000-0.034) ng/mL Total Protein (6.3-8.2) g/dL Albumin (3.5-5.0) g/dL Amylase (30-110) U/L Lipase (23-300) U/L Urine Color Yellow Urine Appearance Cloudy H (Clear) Urine pH 5.0 (5.0-8.0) Ur Specific Ramona 1.015 (1.001-1.035) Urine Protein Trace H (Negative) Urine Glucose (UA) Negative (Negative) Urine Ketones Negative (Negative) Urine Blood Negative (Negative) Urine Nitrite Negative (Negative) Urine Bilirubin Negative (Negative) Urine Urobilinogen <2.0 (<2.0) mg/dL Ur Leukocyte Esterase Large H (Negative) Urine RBC 2 (0-5) /hpf Urine WBC 21 H (0-5) /hpf Ur Squamous Epith Cells 16 H (0-4) /hpf Urine Bacteria Rare H (None) /hpf Hyaline Casts 60 H (0-2) /lpf Urine Mucus Occasional H (None) /hpf Urine Opiates Screen Detected H (NotDetected) Ur Oxycodone Screen Detected H (NotDetected) Urine Methadone Screen Not Detected (NotDetected) Ur Propoxyphene Screen Not Detected (NotDetected) Ur Barbiturates Screen Not Detected (NotDetected) U Tricyclic Antidepress Not Detected (NotDetected) Ur Phencyclidine Scrn Not Detected (NotDetected) Ur Amphetamines Screen Not Detected (NotDetected) U Methamphetamines Scrn Not Detected (NotDetected) U Benzodiazepines Scrn Detected H (NotDetected) Urine Cocaine Screen Not Detected (NotDetected) U Marijuana (THC) Screen Not Detected (NotDetected) Disposition Clinical Impression: Hyponatremia, CLAIRE (acute kidney injury) Disposition: ADMITTED IP TO THIS HOSP
[2022-09-13] MEDS ORDERED: FAMOTIDINE 20 MG/2 ML VIAL IV STA (07:44)
[2022-09-13] MEDS ORDERED: METOCLOPRAMIDE 5 MG/ML 2 ML VIAL IVP STA (07:44)
[2022-09-13 07:49] LABS: Anisocytosis Slight; Basophils % (A) 1 %; Eosinophils # (A) 0.2 k/uL (0-0.7); Eosinophils % (A) 2 %; HCT 38.2 % (34.0-46.0); HGB 11.8 gm/dL (11.4-16.0); Hypochromasia Moderate; Lymphocytes # (A) 2.3 k/uL (1.0-4.8); Lymphocytes % (A) 28 %; MCH 22.7 pg (25.0-35.0); MCHC 30.9 g/dL (31.0-37.0); MCV 73.5 fL (80.0-100.0); Mean Platelet Volume 9.2; Microcytosis Moderate; Monocytes # (A) 0.9 k/uL (0-1.0); Monocytes % (A) 11 %; Neutrophils # (A) 4.4 k/uL (1.3-7.7); Neutrophils % (A) 55 %; Platelet Count 328 k/uL (150-450); RBC 5.19 m/uL (3.80-5.40); RDW 17.8 % (11.5-15.5)
[2022-09-13 08:38] LABS: Albumin 3.8 g/dL (3.5-5.0); Calcium 8.1 mg/dL (8.4-10.2); Total Bilirubin 0.3 mg/dL (0.2-1.3); Total Protein 6.8 g/dL (6.3-8.2)
[2022-09-13 08:42] LABS: Potassium 4.4 mmol/L (3.5-5.1)
[2022-09-13 10:14] LABS: Appearance,Urine Cloudy (Clear); Bacteria,Urine Rare /hpf; Bilirubin,Urine Negative (Negative); Blood,Urine Negative (Negative); Color,Urine Yellow; Glucose,Urine (UA) Negative (Negative); Hyaline Casts,Urine 60 /lpf (0-2); Ketones,Urine Negative (Negative); Leukocyte Esterase,Urine Large (Negative); Mucus,Urine Occasional /hpf; Nitrite,Urine Negative (Negative); Protein,Urine Trace (Negative); RBC,Urine 2 /hpf (0-5); Specific Gravity,Urine 1.015 (1.001-1.035); Squamous Epithelial Cell,Urine 16 /hpf (0-4); Urobilinogen,Urine <2.0 mg/dL (<2.0); WBC,Urine 21 /hpf (0-5)
[2022-09-13 10:18] LABS: Amphetamine Screen,Urine Not Detected (NotDetected); Barbiturate Screen,Urine Not Detected (NotDetected); Benzodiazepines Screen,Urine Detected (NotDetected); Cocaine Screen,Urine Not Detected (NotDetected); Methadone Screen, Urine Not Detected (NotDetected); Opiate Screen,Urine Detected (NotDetected); Oxycodone Screen, Urine Detected (NotDetected); Phencyclidine Screen,Urine Not Detected (NotDetected); Tricyclic Antidepressant,Urine Not Detected (NotDetected); Urn Cannabinoid Scrn Not Detected (NotDetected)
[2022-09-13] MEDS ORDERED: ACETAMINOPHEN TAB 325 MG TAB PO PRN (10:29)
[2022-09-13] MEDS ORDERED: NALOXONE 0.4 MG/ML 1 ML VIAL IV PRN (10:29)
[2022-09-13] MEDS ORDERED: ONDANSETRON 4 MG/2 ML VIAL IVP PRN (10:29)
[2022-09-13] MEDS: SODIUM CHLORIDE 0.9% 1,000 ML IV SCH (11:18)
[2022-09-14] MEDS: SODIUM CHLORIDE 0.9% 1,000 ML IV SCH ×2 (05:57→11:37)
--- NOTE | 2022-09-14 08:48 | P.HPIM ---
History of Present Illness H&P Date: 09/13/22 Chief Complaint: Nausea/vomiting/diarrhea 82-year-old female who presents to the emergency department for concerns of a medication reaction. States that she woke up this morning with a headache and took her Percocet and Excedrin Migraine. Approximately 30 minutes afterwards, she started shaking and had nausea and vomiting. She has taken these medications together before without any problems. Denies any abdominal pain or changes in bowel habits. Denies any fevers, chills, sore throat, cough, dyspnea, chest pain, palpitations, abdominal pain, diarrhea, back pain, or headaches. Blood work completed in ED reveals a sodium of 128, potassium 4.4, BUN/creatinine of 12/1.39, the UVC 8.0, hemoglobin 11.8 and platelet count of 328, UA is positive for bacteria, WBCs and leukocyte esterase; urine drug screen is positive for opiates and benzodiazepines Patient given IV fluids, toradol, and zofran. Patient continued to feel nauseous and we subsequently tried giving her Reglan and Pepcid. Nausea was somewhat improved, however she still felt shaky. Patient admitted to medicine for hyponatremia and CLAIRE. Review of Systems REVIEW OF SYSTEMS: CONSTITUTIONAL: No fever, no malaise, no fatigue. HEENT: No recent visual problems or hearing problems. Denied any sore throat. CARDIOVASCULAR: No chest pain, orthopnea, PND, no palpitations, no syncope. PULMONARY: No shortness of breath, no cough, no hemoptysis. GASTROINTESTINAL: No diarrhea, no nausea, no vomiting, no abdominal pain. NEUROLOGICAL: No headaches, no weakness, no numbness. HEMATOLOGICAL: Denies any bleeding or petechiae. GENITOURINARY: Denies any burning micturition, frequency, or urgency. MUSCULOSKELETAL/RHEUMATOLOGICAL: Denies any joint pain, swelling, or any muscle pain. ENDOCRINE: Denies any polyuria or polydipsia. The rest of the 14-point review of systems is negative. Past Medical History Past Medical History: COPD, Diabetes Mellitus, Fibromyalgia Additional Past Medical History / Comment(s): chronic neck and back pain 1996 affected rt knee & rt ankle, hypotension, multiple falls History of Any Multi-Drug Resistant Organisms: None Reported Past Surgical History: Appendectomy, Cholecystectomy, Orthopedic Surgery, Tonsillectomy Additional Past Surgical History / Comment(s): Total Bilateral Knee, Right Ankle. Lt Shoulder surgery. Egd/Colonoscopy 12/10/13. verticalflex in back, Past Anesthesia/Blood Transfusion Reactions: No Reported Reaction Additional Past Anesthesia/Blood Transfusion Reaction / Comment(s): pt states received 5-6 units blood @ [facility] recently Past Psychological History: No Psychological Hx Reported Smoking Status: Current every day smoker Past Alcohol Use History: None Reported Past Drug Use History: None Reported - Past Family History Mother History Unknown: Yes Family Medical History: Coronary Artery Disease (CAD) Medications and Allergies Home Medications Medication Instructions Recorded Confirmed Type Omeprazole [PriLOSEC] 20 mg PO DAILY 03/04/15 09/13/22 History Potassium Chloride [Klor-Con 10 ER] 10 meq PO BID #1 tablet.er 04/09/15 09/13/22 Rx oxyCODONE-APAP 10-325MG [Percocet 1 tab PO 5XD 07/06/19 09/13/22 History 10-325 mg] Memantine HCl [Memantine HCl ER] 7 mg PO DAILY 11/30/19 09/13/22 History Albuterol Inhaler [Ventolin Hfa 2 puff INHALATION RT-QID PRN 01/08/20 09/13/22 History Inhaler] Losartan-Hctz 50-12.5 mg [Hyzaar 1 tab PO DAILY 07/30/20 09/13/22 History 50-12.5] Montelukast [Singulair] 10 mg PO HS 07/30/20 09/13/22 History Colchicine [Mitigare] 0.6 mg PO DAILY 01/26/22 09/13/22 History Ferrous Sulfate [Feosol] 325 mg PO DAILY 01/26/22 09/13/22 History Furosemide [Lasix] 40 mg PO DAILY 01/26/22 09/13/22 History Yuperli 175mcg/3ml Solution 175 mcg INHALATION RT-DAILY 01/26/22 09/13/22 Hi story amLODIPine [Norvasc] 5 mg PO DAILY 01/26/22 09/13/22 History Baclofen 10 mg PO BID PRN 09/13/22 09/13/22 History Fluticasone Propion/Salmeterol 1 puff INHALATION RT-BID 09/13/22 09/13/22 H istory [Wixela 100-50 Inhub] Sulfamethox-Tmp 800-160Mg [Bactrim 1 tab PO DIRECTED 09/13/22 09/13/22 History DS 800-160 mg] metFORMIN HCL 1,000 mg PO DAILY 09/13/22 09/13/22 History predniSONE 10 mg PO DIRECTED 09/13/22 09/13/22 History Allergies Allergy/AdvReac Type Severity Reaction Status Date / Time Corticosteroids Allergy Itching Verified 09/13/22 11:08 (Glucocorticoids) propoxyphene napsylate Allergy Itching Verified 09/13/22 11:08 [From [facility]-N 100] Physical Exam Vitals: Vital Signs Temp Pulse Pulse Resp BP BP Pulse Ox 09/13/22 13:00 98.1 F 76 18 96/57 93 L 09/13/22 11:21 20 112/71 09/13/22 06:28 96 F L 80 18 104/65 98 Intake and Output 09/13/22 09/13/22 09/13/22 06:59 14:59 22:59 Other: Weight 79.379 kg 79.379 kg General appearance: alert, in no apparent distress Head exam: Present: atraumatic, normocephalic, normal inspection Respiratory exam: Present: normal lung sounds bilaterally. Absent: respiratory distress, wheezes, rales, rhonchi, stridor Cardiovascular Exam: Present: regular rate, normal rhythm, normal heart sounds. Absent: systolic murmur, diastolic murmur, rubs, gallop, clicks GI/Abdominal exam: Present: soft, normal bowel sounds. Absent: distended, tenderness, guarding, rebound, rigid Neurological exam: Present: alert, oriented X3, CN II-XII intact Psychiatric exam: Present: normal affect, normal mood Skin exam: Present: warm, dry, intact, normal color. Absent: rash Results CBC & Chem 7: 09/13/22 07:08 09/13/22 08:09 Labs: Abnormal Lab Results - Last 24 Hours (Table) 09/13/22 09/13/22 09/13/22 Range/Units 07:08 08:09 09:14 MCV 73.5 L (80.0-100.0) fL MCH 22.7 L (25.0-35.0) pg MCHC 30.9 L (31.0-37.0) g/dL RDW 17.8 H (11.5-15.5) % Sodium 128 L (137-145) mmol/L Chloride 97 L (98-107) mmol/L Creatinine 1.39 H (0.52-1.04) mg/dL Calcium 8.1 L (8.4-10.2) mg/dL Urine Appearance Cloudy H (Clear) Urine Protein Trace H (Negative) Ur Leukocyte Esterase Large H (Negative) Urine WBC 21 H (0-5) /hpf Ur Squamous Epith Cells 16 H (0-4) /hpf Urine Bacteria Rare H (None) /hpf Hyaline Casts 60 H (0-2) /lpf Urine Mucus Occasional H (None) /hpf Urine Opiates Screen (NotDetected) Ur Oxycodone Screen (NotDetected) U Benzodiazepines Scrn (NotDetected) 09/13/22 Range/Units 09:14 MCV (80.0-100.0) fL MCH (25.0-35.0) pg MCHC (31.0-37.0) g/dL RDW (11.5-15.5) % Sodium (137-145) mmol/L Chloride (98-107) mmol/L Creatinine (0.52-1.04) mg/dL Calcium (8.4-10.2) mg/dL Urine Appearance (Clear) Urine Protein (Negative) Ur Leukocyte Esterase (Negative) Urine WBC (0-5) /hpf Ur Squamous Epith Cells (0-4) /hpf Urine Bacteria (None) /hpf Hyaline Casts (0-2) /lpf Urine Mucus (None) /hpf Urine Opiates Screen Detected H (NotDetected) Ur Oxycodone Screen Detected H (NotDetected) U Benzodiazepines Scrn Detected H (NotDetected) Thrombosis Risk Factor Assmnt - Choose All That Apply Each Factor Represents 1 point: Abnormal pulmonary function (COPD), Obesity (BMI >25) Each Risk Factor Represents 3 Points: Age 75 years or older Thrombosis Risk Factor Assessment Total Risk Factor Score: 5 Thrombosis Risk Factor Assessment Level: High Risk Assessment and Plan Assessment: 1. Nausea, vomiting and diarrhea; likely acute gastroenteritis - Patient has been placed on IV fluids in form of normal saline at a rate of 75 mL an hour; we will start patient on a low potassium diet with plans to deep clear liquids if patient is unable to tolerate - We will monitor renal function and electrolytes closely 2. Acute renal injury; likely related to acute onset vomiting and diarrhea; patient is placed on IV fluid hydration; we will monitor renal function and electrolytes, strict TAJ's and daily weights, avoid nephrotoxins and hypotension 3. Hyponatremia; sodium is down to 128 likely related to vomiting and diarrhea; has been placed on normal saline supplement at rate of 75 mL an hour; we will monitor electrolytes closely and make further recommendations as needed 4. Diabetes mellitus 2; metformin 500 mg twice a day; monitor Accu-Cheks every before meals and at bedtime with insulin sliding scale 5. Hypertension; patient takes amlodipine 5 mg daily along with losartan and Lasix; we will plan to hold losartan and Lasix till patient is adequately hydrat ed; we can use IV hydralazine as needed if blood pressure stays elevated 6. Chronic pain/fibromyalgia; patient is currently on oxycodone 10 mg every 6 hours when necessary DVT prophylaxis; SCDs CODE STATUS; full code
[2022-09-14] MEDS: PANTOPRAZOLE 40 MG TABLET PO SCH (08:55)
[2022-09-14] MEDS: FERROUS SULFATE 325 MG TAB PO SCH (08:55)
[2022-09-14] MEDS: amLODIPine 5 MG TAB PO SCH (08:55)
[2022-09-14] MEDS: MEMANTINE 5 MG TAB PO SCH (08:55)
[2022-09-14] MEDS: metFORMIN 500 MG TAB PO SCH (08:55)
[2022-09-14] MEDS: oxyCODONE-APAP 10-325MG 1 EACH TAB PO SCH ×3 (11:35→20:44)
[2022-09-14 12:07] LABS: Anisocytosis Slight; Basophils % (A) 1 %; Eosinophils # (A) 0.2 k/uL (0-0.7); Eosinophils % (A) 3 %; HCT 36.7 % (34.0-46.0); HGB 11.2 gm/dL (11.4-16.0); Hypochromasia Moderate; Lymphocytes # (A) 1.7 k/uL (1.0-4.8); Lymphocytes % (A) 30 %; MCH 22.4 pg (25.0-35.0); MCHC 30.4 g/dL (31.0-37.0); MCV 73.6 fL (80.0-100.0); Mean Platelet Volume 7.4; Microcytosis Moderate; Monocytes # (A) 0.5 k/uL (0-1.0); Monocytes % (A) 9 %; Neutrophils # (A) 3.1 k/uL (1.3-7.7); Neutrophils % (A) 54 %; Platelet Count 289 k/uL (150-450); RBC 4.98 m/uL (3.80-5.40); WBC 5.7 k/uL (3.8-10.6)
[2022-09-14 12:14] LABS: African American GFR (CKD) >90 (>60 ml/min/1.73 sqM); Anion Gap 7 mmol/L; Blood Urea Nitrogen 6 mg/dL (7-17); Calcium 8.2 mg/dL (8.4-10.2); Carbon Dioxide 25 mmol/L (22-30); Chloride 104 mmol/L (98-107); Glucose 92 mg/dL (74-99); Non-African American GFR(CKD) 83 (>60 ml/min/1.73 sqM); Potassium 4.3 mmol/L (3.5-5.1); Sodium 136 mmol/L (137-145)
[2022-09-14] MEDS: SYMBICORT 80-4.5 MCG INHALER INHALATION SCH (20:17)
[2022-09-14] MEDS ORDERED: MONTELUKAST 10 MG TAB PO SCH (21:00)
[2022-09-15] MEDS: oxyCODONE-APAP 10-325MG 1 EACH TAB PO SCH ×3 (00:11→12:03)
[2022-09-15] MEDS: SODIUM CHLORIDE 0.9% 1,000 ML IV SCH (05:54)
[2022-09-15] MEDS: SYMBICORT 80-4.5 MCG INHALER INHALATION SCH (09:34)
[2022-09-15] MEDS: amLODIPine 5 MG TAB PO SCH (09:52)
[2022-09-15] MEDS: metFORMIN 500 MG TAB PO SCH (09:52)
[2022-09-15] MEDS: FERROUS SULFATE 325 MG TAB PO SCH (09:52)
[2022-09-15] MEDS: MEMANTINE 5 MG TAB PO SCH (09:52)
[2022-09-15] MEDS: PANTOPRAZOLE 40 MG TABLET PO SCH (09:52)
[2022-09-15 14:20] VITALS: RESP 18; TEMP 97.4
[2022-09-15 15:37] VITALS: BP 120/67; PULSE 81
[2022-09-15 16:03] LABS: African American GFR (CKD) 99.1 (60.0-200.0); Anion Gap 11.6 mmol/L (10.00-18.00); Blood Urea Nitrogen 4.2 mg/dL (9.0-27.0); Calcium 8.7 mg/dL (8.7-10.3); Carbon Dioxide 21.4 mmol/L (20.0-27.5); Non-African American GFR(CKD) 85.5 (60.0-200.0)
--- NOTE | 2022-09-15 22:03 | P.DS ---
Providers Date of admission: 09/13/22 10:47 Attending physician: Karsten Valadez MD Primary care physician: Stated None Hospital Course: Dehydration, secondary to nausea vomiting and over medication, improved Nausea vomiting and mild headache, no specific completely resolved Fall at home twice, last time was 3 weeks ago Right shoulder injury, subacute. Follow-up outpatient Acute kidney injury present on admission resolved Hypovolemic hyponatremia, present on admission resolved Hypertension Polypharmacy, medication were cut down type 2 diabetes mellitus Chronic pain syndrome on Percocet and follow-up with pain physician Hospital course: This is a pleasant 82 years old female with multiple medical problems including hypertension. The fall at home. Patient presents because of nausea vomiting and headache present on admission, she was hypotensive dehydrated with evidence with acute kidney injury and hypovolemic hyponatremia. Patient was treated with IV hydration normal saline at 100 mL per hour with holding her blood pressure medication. Patient showed interval improvement and she is back to baseline today. Patient's since morning states that she feels fine and she wants to go home. When I went to see the patient she was fully awake and oriented to time place person, she has insight to her illness and surrounding and she follows commands. Mentation is at baseline and looks normal. As per patient she fell twice, last time about 3 weeks ago and she injured her right shoulder, she went to her PCP Dr. Reynolds who referred her to orthopedic Dr. Calvo but he decided not to do surgery as per patient, she follows also with her pain physician and she is on Percocet 10 mg 5 times a day which she takes for back pain and he decided to continue on this medication. Prior to admission she developed nausea vomiting and headache so she decided to come to emergency room, on admission she was hypotensive and sodium 128 and she was dehydrated so she was treated with IV fluids and this morning she is back to her baseline 09/15/2022 patient was on multiple medical medication including to diuretics Lasix 40 mg daily as well as combination of losartan-hydrochlorothiazide 50-12.5 mg as well as colchicine, Norvasc 5 mg on the top of that she was taken Percocet [id number]-[id number] 5 times daily, I believe caused her to be dehydrated and fell at home, patient was informed and consult and she agrees to cut down on her medication. We discontinued hydrochlorothiazide and Norvasc, lower the dose of losartan down to 25 mg and Lasix to 20 mg daily, patient informed and she agrees. Blood pressure remains stable today upon discharge was 120/67. Heart rate 81 and she was afebrile and she was saturating well on room air. Also I advised her to cut down of the frequency of Percocet and she agrees to cut down to 3 times a day as needed to sit up as scheduled, also I counseled her to taper down to a lower dose of 7.5 or 5 mg follow-up with her PCP. I offered to do x-ray and call orthopedic physician for her right shoulder pain, patient declined she states she already is on orthopedic and she is going to follow-up with Dr. Calvo as an outpatient. Risks benefits and alternatives are explained. Patient has capacity to make medical decision. Patient on this right arm above her head with some pain and tenderness and limitation. She has stroke in the group. No loss of sensation and pulses is normal. Other than that patient denies chest pain dyspnea, no change in urine or bowel habits. No fever. She wants to go home. Problems and management plan were discussed with the patient and he verbalized understanding and acceptance Patient was found stable and can be discharged home in guarded prognosis however he needs follow-up as an outpatient. Patient was instructed to follow up with PCP Dr. Reynolds within one week and patient agrees to see him in 1-2 days to check her blood pressure with him. Physical exam Gen: patient is a AAOx3, no distress CVS: S1-S2, RRR, no murmur Lungs: B/L CTA, no wheezing Abdomen: soft, no distention, no tenderness, positive bowel sounds -Extremity: no leg edema or induration. Mild tenderness in the right shoulder with mild limitation of movement due to pain, however no weakness and she can raise her right arm above her head. Neuro: Cranial nerves are intact. Motor 5/5 in all extremity and sensation is intact. Meningeal signs are absent. -Get up and go test: Normal Time spent more than 35 minutes Plan - Discharge Summary Discharge Rx Participant: Yes New Discharge Prescriptions: New Losartan [Cozaar] 25 mg PO DAILY #30 tab Furosemide [Lasix] 20 mg PO DAILY #30 tab Continue Omeprazole [PriLOSEC] 20 mg PO DAILY Memantine HCl [Memantine HCl ER] 7 mg PO DAILY Albuterol Inhaler [Ventolin Hfa Inhaler] 2 puff INHALATION RT-QID PRN PRN Reason: Shortness Of Breath Montelukast [Singulair] 10 mg PO HS Fluticasone Propion/Salmeterol [Wixela 100-50 Inhub] 1 puff INHALATION RT-BID Ferrous Sulfate [Feosol] 325 mg PO DAILY Baclofen 10 mg PO BID PRN PRN Reason: Muscle Pain metFORMIN HCL 1,000 mg PO DAILY Changed oxyCODONE-APAP 10-325MG [Percocet 10-325 mg] 1 tab PO TID PRN #0 PRN Reason: Severe Pain (Scale 7 To 10) Discontinued Potassium Chloride [Klor-Con 10 ER] 10 meq PO BID #1 tablet.er Losartan-Hctz 50-12.5 mg [Hyzaar 50-12.5] 1 tab PO DAILY Colchicine [Mitigare] 0.6 mg PO DAILY predniSONE 10 mg PO DIRECTED Sulfamethox-Tmp 800-160Mg [Bactrim DS 800-160 mg] 1 tab PO DIRECTED Yuperli 175mcg/3ml Solution 175 mcg INHALATION RT-DAILY amLODIPine [Norvasc] 5 mg PO DAILY Furosemide [Lasix] 40 mg PO DAILY Discharge Medication List Omeprazole [PriLOSEC] 20 mg PO DAILY 03/04/15 [History] Memantine HCl [Memantine HCl ER] 7 mg PO DAILY 11/30/19 [History] Albuterol Inhaler [Ventolin Hfa Inhaler] 2 puff INHALATION RT-QID PRN 01/08/20 [History] Montelukast [Singulair] 10 mg PO HS 07/30/20 [History] Ferrous Sulfate [Feosol] 325 mg PO DAILY 01/26/22 [History] Baclofen 10 mg PO BID PRN 09/13/22 [History] Fluticasone Propion/Salmeterol [Wixela 100-50 Inhub] 1 puff INHALATION RT-BID 09/13/22 [History] metFORMIN HCL 1,000 mg PO DAILY 09/13/22 [History] Furosemide [Lasix] 20 mg PO DAILY #30 tab 09/15/22 [Rx] Losartan [Cozaar] 25 mg PO DAILY #30 tab 09/15/22 [Rx] oxyCODONE-APAP 10-325MG [Percocet 10-325 mg] 1 tab PO TID PRN #0 09/15/22 [Rx] Follow up Appointment(s)/Referral(s): Ricky Swanson MD [REFERRING] - 1-2 days Erasmo Calvo MD [STAFF PHYSICIAN] - 1 Week Activity/Diet/Wound Care/Special Instructions: heart healthy diet , low carbohydrate 1600 k tammie per day activity is restricted till you see your doctor we recommend to recheck your blood pressure with your doctor in 1-2 days please we recommend to lower the dose of your percocet to 5-325 mg or 7.5-325 mg instead of your current dose of 10-325 mg Discharge Disposition: HOME WITH HOME HEALTH SERVICES
== END 2022-09-15 16:43 | disposition home health service (06) | DRG 392 ==
LOC: EC 06:18 → 4SSUR 10:47
PROVIDERS: ADMIT Internal Medicine; ATTEND Internal Medicine
DX: K52.9 Noninfective gastroenteritis and colitis, unspecified (principal); N17.9 Acute kidney failure, unspecified; E87.1 Hypo-osmolality and hyponatremia; M79.7 Fibromyalgia; G43.909 Migraine, unspecified, not intractable, without status migrainosus; S49.91XA Unspecified injury of right shoulder and upper arm, initial encounter; E11.9 Type 2 diabetes mellitus without complications; E86.0 Dehydration; E86.1 Hypovolemia; G89.4 Chronic pain syndrome; J44.9 Chronic obstructive pulmonary disease, unspecified; R29.6 Repeated falls; Z91.81 History of falling; W19.XXXA Unspecified fall, initial encounter; Y92.009 Unspecified place in unspecified non-institutional (private) residence as the place of occurrence of the external cause; Z79.891 Long term (current) use of opiate analgesic; Z79.84 Long term (current) use of oral hypoglycemic drugs; Z79.899 Other long term (current) drug therapy; Z20.822 Contact with and (suspected) exposure to COVID-19; Z88.8 Allergy status to other drugs, medicaments and biological substances
CPT/HCPCS: 36415; 80048; 80053; 80306; 81001; 82150; 83690; 84484; 85025; 87086; 87636; 94640; 94760; 96361; 96374; 96375; 99284

== ENCOUNTER → 2022-10-01 | Outpatient (CLI) | payer MEDICARE, OTHER ==
[2022-10-01 15:53] LABS: Appearance,BF Hazy; RBC, Body Fluid 153 /uL
[2022-10-01 15:54] LABS: Nucleated Cells, Body Fluid 201 /uL
[2022-10-01 15:57] LABS: Mononuclear WBC,Body Fluid 93 %; Polynuclear WBC,Body Fluid 7 %; Total Cells Counted,Body Fluid 100
[2022-10-01 20:05] LABS: Synovial Fld Crystals None Seen (None Seen)
== END | disposition home or self-care (01) ==
LOC: LABWHC1 10:44
PROVIDERS: ATTEND Orthopaedic Surgery
DX: M25.562 Pain in left knee (principal); M25.462 Effusion, left knee; Z96.652 Presence of left artificial knee joint; T84.84XA Pain due to internal orthopedic prosthetic devices, implants and grafts, initial encounter
CPT/HCPCS: 36415; 85379; 85652; 86140; 87070; 87075; 87205; 89050; 89060

== ENCOUNTER 2022-10-14 17:58 | Emergency (ER) | payer OTHER, MEDICARE ==
[2022-10-14 18:24] VITALS: BP 111/67; PULSE 74; RESP 20; TEMP 98.1
[2022-10-14] MEDS ORDERED: ACETAMINOPHEN TAB 325 MG TAB PO STA (19:06)
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
== END 2022-10-14 20:12 | disposition home or self-care (01) ==
LOC: EC 17:58
DX: S09.90XA Unspecified injury of head, initial encounter (principal); M25.511 Pain in right shoulder; E11.9 Type 2 diabetes mellitus without complications; J44.9 Chronic obstructive pulmonary disease, unspecified; M79.7 Fibromyalgia; F17.200 Nicotine dependence, unspecified, uncomplicated; Z79.84 Long term (current) use of oral hypoglycemic drugs; Z79.51 Long term (current) use of inhaled steroids; Z79.899 Other long term (current) drug therapy; Z88.8 Allergy status to other drugs, medicaments and biological substances; V89.2XXA Person injured in unspecified motor-vehicle accident, traffic, initial encounter; Y92.410 Unspecified street and highway as the place of occurrence of the external cause
CPT/HCPCS: 70450; 72125; 99285

== ENCOUNTER 2022-10-21 15:26 | Emergency (ER) | payer MEDICARE, OTHER ==
[2022-10-21] MEDS ORDERED: DIPH,PERTUS(ACELL)TETVAC-LF 0.5 ML VIAL IM ONE (15:56)
[2022-10-21] MEDS ORDERED: LIDOCAINE 1% INJ 10MG/ML (30 ML VIAL-PF) SQ ONE (15:57)
--- NOTE | 2022-10-21 16:35 | XR ---
EXAMINATION TYPE: XR knee complete 3 views LT DATE OF EXAM: 10/21/2022 COMPARISON: 08/23/2022 HISTORY: 82-year-old female with fall and knee pain FINDINGS: Similar fragmentation of the lower pole of the patella and similar anterior infrapatellar soft tissue swelling. No sizable joint effusion seen. The patient's left total knee arthroplasty appears to be w ell seated without periprosthetic fracture or loosening. Alignment grossly anatomic. IMPRESSION: Some chronic fragmentation at the lower pole of the patella is unchanged from 08/23/2022. Some anterio r infrapatellar soft tissue swelling also appears unchanged. The underlying left total knee arthropla sty appears intact.
--- NOTE | 2022-10-21 16:38 | XR ---
EXAMINATION TYPE: XR shoulder complete 3 views LT DATE OF EXAM: 10/21/2022 Comparison: None Clinical History: 82-year-old female pain after fall Findings: AC joint appears congruent and intact. There is end-stage [id number] left glenoid humeral joint OA with remodeling of the humeral head and bulky marginal spurring. No acute fracture, subluxation, or d islocation is seen. Impression: End-stage, [id number], left glenohumeral joint OA. No acute osseous abnormality seen.
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
[2022-10-21 17:33] VITALS: BP 112/79; PULSE 87; RESP 16; TEMP 97.8
== END 2022-10-21 17:33 | disposition home or self-care (01) ==
LOC: EC 15:26
DX: S01.01XA Laceration without foreign body of scalp, initial encounter (principal); S80.212A Abrasion, left knee, initial encounter; M25.512 Pain in left shoulder; E11.9 Type 2 diabetes mellitus without complications; J44.9 Chronic obstructive pulmonary disease, unspecified; F17.200 Nicotine dependence, unspecified, uncomplicated; Z23 Encounter for immunization; Z79.84 Long term (current) use of oral hypoglycemic drugs; Z79.51 Long term (current) use of inhaled steroids; Z79.899 Other long term (current) drug therapy; Z88.8 Allergy status to other drugs, medicaments and biological substances; W01.0XXA Fall on same level from slipping, tripping and stumbling without subsequent striking against object, initial encounter; Y92.481 Parking lot as the place of occurrence of the external cause; Y93.01 Activity, walking, marching and hiking
CPT/HCPCS: 73030; 73562; 72125; 70450; 90715; 12001; 99284; 90471; J2001

== ENCOUNTER 2022-11-07 19:31 | Emergency (ER) | payer OTHER, MEDICARE ==
[2022-11-07] MEDS ORDERED: KETOROLAC 15 MG/ML 1 ML VIAL IM STA (19:52)
[2022-11-07] MEDS ORDERED: LIDOCAINE 5% PATCH TOPICAL STA (19:52)
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
--- NOTE | 2022-11-07 20:52 | XR ---
EXAMINATION TYPE: XR lumbosacral spine min 4V DATE OF EXAM: 11/07/2022 8:21 PM INDICATION: Patient age:Female; 82 years old; Reason for study: pain; COMPARISON: None TECHNIQUE: Frontal, lateral , bilateral oblique and coned in L5-S1 lateral views of the spine. FINDINGS: Postsurgical change at L4-L5 posterior elements. There is multilevel disc degeneration vaz ges with osteophyte formation. Scattered disc space narrowing. Mild scoliosis apex left L3. Surgical clips are seen in the upper abdomen. Vertebral body height is grossly maintained. Facet joint arthrop athy with at least mild neural foraminal stenosis. This course of the arterial vasculature. IMPRESSION: 1. No acute fracture. 2. Postsurgical change of mild to moderate multilevel disc degeneration.
[2022-11-07 21:36] VITALS: BP 134/70; PULSE 85; RESP 20; TEMP 98.1
== END 2022-11-07 21:36 | disposition home or self-care (01) ==
LOC: EC 19:31
DX: G89.29 Other chronic pain (principal); M54.50 Low back pain, unspecified; E11.9 Type 2 diabetes mellitus without complications; J44.9 Chronic obstructive pulmonary disease, unspecified; F17.200 Nicotine dependence, unspecified, uncomplicated; Z79.51 Long term (current) use of inhaled steroids; Z79.84 Long term (current) use of oral hypoglycemic drugs; Z79.899 Other long term (current) drug therapy; Z88.8 Allergy status to other drugs, medicaments and biological substances
CPT/HCPCS: 72110; 99283; 96372; J1885

== ENCOUNTER 2022-11-20 21:36 | Emergency (ER) | payer OTHER, MEDICARE ==
[2022-11-20 21:42] VITALS: BP 110/72; PULSE 95; RESP 20; TEMP 98.1
[2022-11-20] MEDS ORDERED: KETOROLAC 15 MG/ML 1 ML VIAL IM STA (21:50)
[2022-11-20] MEDS ORDERED: LIDOCAINE 5% PATCH TOPICAL SCH (22:00)
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
== END 2022-11-20 23:05 | disposition home or self-care (01) ==
LOC: EC 21:36
DX: G89.29 Other chronic pain (principal); J44.9 Chronic obstructive pulmonary disease, unspecified; E11.9 Type 2 diabetes mellitus without complications; F17.200 Nicotine dependence, unspecified, uncomplicated; Z79.84 Long term (current) use of oral hypoglycemic drugs; Z79.899 Other long term (current) drug therapy; Z79.51 Long term (current) use of inhaled steroids; Z88.8 Allergy status to other drugs, medicaments and biological substances
CPT/HCPCS: 99284; 96372; J1885

== ENCOUNTER 2022-11-23 04:21 | Emergency (ER) | payer MEDICARE, OTHER ==
[2022-11-23 04:29] VITALS: RESP 18
[2022-11-23] MEDS ORDERED: SODIUM CHLORIDE 0.9% 1,000 ML IV STA (04:45)
[2022-11-23] MEDS ORDERED: PANTOPRAZOLE 40 MG/10 ML VIAL IVP STA (04:45)
[2022-11-23] MEDS ORDERED: KETOROLAC 15 MG/ML 1 ML VIAL IVP STA (04:45)
[2022-11-23] MEDS ORDERED: ONDANSETRON 4 MG/2 ML VIAL IVP STA (04:45)
[2022-11-23] MEDS ORDERED: MAG HYDROX/AL HYDROX/SIMETH 30 ML, HYOSCYAMINE ELIXIR 10 ML, LIDOCAINE 2% GLYDO JELLY 1... PO STA ×3 (04:46)
[2022-11-23 05:14] LABS: Anisocytosis Slight; Basophils % (A) 0 %; Eosinophils # (A) 0.4 k/uL (0-0.7); Eosinophils % (A) 5 %; HCT 40.9 % (34.0-46.0); HGB 12.2 gm/dL (11.4-16.0); Hypochromasia Moderate; Lymphocytes # (A) 2.2 k/uL (1.0-4.8); Lymphocytes % (A) 33 %; MCHC 29.9 g/dL (31.0-37.0); MCV 73.7 fL (80.0-100.0); Mean Platelet Volume 7.1; Microcytosis Moderate; Monocytes # (A) 0.5 k/uL (0-1.0); Monocytes % (A) 7 %; Neutrophils # (A) 3.4 k/uL (1.3-7.7); Neutrophils % (A) 51 %; Platelet Count 242 k/uL (150-450); RBC 5.55 m/uL (3.80-5.40); RDW 19.1 % (11.5-15.5); WBC 6.7 k/uL (3.8-10.6)
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
[2022-11-23 05:23] LABS: Partial Thromboplastin Time 23.5 sec (22.0-30.0); Prothrombin Time 10.4 sec (9.0-12.0)
[2022-11-23 05:24] LABS: Calcium 8.9 mg/dL (8.4-10.2); Potassium 4.2 mmol/L (3.5-5.1); Total Bilirubin 0.3 mg/dL (0.2-1.3); Total Protein 7.3 g/dL (6.3-8.2)
--- NOTE | 2022-11-23 07:09 | XR ---
EXAMINATION TYPE: XR chest 2V DATE OF EXAM: 11/23/2022 6:08 AM COMPARISON: Chest radiographs from 01/26/2022 TECHNIQUE: XR chest 2V Frontal and lateral views of the chest. CLINICAL INDICATION:Female, 82 years old with history of cough; FINDINGS: Lungs/Pleura: There is no evidence of pleural effusion, focal consolidation, or pneumothorax. Pulmonary vascularity: Pulmonary vascular congestion. Heart/mediastinum: Cardiomediastinal silhouette is enlarged and stable. Musculoskeletal: No acute osseous pathology. IMPRESSION: Cardiomegaly and mild pulmonary vascular congestion. Correlate with BNP for congestive heart failure.
--- NOTE | 2022-11-23 07:24 | CT ---
EXAMINATION TYPE: CT abdomen pelvis wo con CT DLP: 1014.4 mGycm, Automated exposure control for dose reduction was used. DATE OF EXAM: 11/23/2022 7:04 AM COMPARISON: CT abdomen pelvis most recent from 12/27/2019 CLINICAL INDICATION:Female, 82 years old with history of epigastric abd pain; epigastric pain TECHNIQUE: Axial CT of the abdomen and pelvis. Sagittal and coronal reformats were created on a [employer] workstation. Contrast used: None Oral contrast used: without Oral Contrast FINDINGS: LOWER CHEST: The heart is mildly enlarged for size. 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 ABDOMEN LIVER: Unremarkable GALLBLADDER AND BILE DUCTS: Cholecystectomy clips. PANCREAS: Unremarkable. SPLEEN: Unremarkable. ADRENAL GLANDS: Unremarkable. KIDNEYS AND URETERS: No evidence of hydronephrosis or renal calculus. The ureters are unremarkable. PELVIS BLADDER: Unremarkable REPRODUCTIVE: Unremarkable. ABDOMEN & PELVIS STOMACH AND BOWEL: No evidence of bowel obstruction. Postsurgical changes to the gastroesophageal mike ction. The appendix is normal. PERITONEUM/RETROPERITONEUM: No evidence of pneumoperitoneum or free fluid. VASCULATURE: Mild atherosclerotic calcifications are present throughout the abdominal aorta and its b ranches. No evidence of aortic aneurysm. 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 MUSCULOSKELETAL: No acute osseous abnormalities. Mild disc degeneration changes are present throughou t the thoracolumbar spine. There is postsurgical changes at L4-L5 spinous processes. Hardware appears in appropriate position. LYMPH NODES: No gross evidence for lymphadenopathy. SOFT TISSUE/ABDOMINAL WALL: Unremarkable IMPRESSION: 1. Postsurgical changes of the gastroesophageal junction. There is no evidence for pneumoperitoneum. There is no significant fat stranding changes in the upper abdomen. The gallbladder is surgically ab sent no free fluid in the in the abdomen or pelvis. No definitive finding to correlate patient's pain . 2. 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
[2022-11-23 08:19] LABS: Appearance,Urine Cloudy (Clear); Bacteria,Urine Few /hpf; Bilirubin,Urine Negative (Negative); Blood,Urine Trace (Negative); Color,Urine Yellow; Glucose,Urine (UA) Negative (Negative); Hyaline Casts,Urine 6 /lpf (0-2); Ketones,Urine Negative (Negative); Leukocyte Esterase,Urine Large (Negative); Mucus,Urine Occasional /hpf; Nitrite,Urine Positive (Negative); Protein,Urine Trace (Negative); RBC,Urine 12 /hpf (0-5); Specific Gravity,Urine 1.013 (1.001-1.035); Squamous Epithelial Cell,Urine 28 /hpf (0-4); Urobilinogen,Urine <2.0 mg/dL (<2.0); WBC,Urine 46 /hpf (0-5)
[2022-11-23 08:53] VITALS: BP 97/61; PULSE 85; TEMP 98.2
[2022-11-23] MEDS ORDERED: cefTRIAXone IN SWFI 1,000 MG/10 ML SYRINGE IVP STA (09:27)
== END 2022-11-23 09:45 | disposition home or self-care (01) ==
LOC: EC 04:21
DX: N39.0 Urinary tract infection, site not specified (principal); E11.9 Type 2 diabetes mellitus without complications; J44.9 Chronic obstructive pulmonary disease, unspecified; F17.200 Nicotine dependence, unspecified, uncomplicated; Z79.84 Long term (current) use of oral hypoglycemic drugs; Z79.51 Long term (current) use of inhaled steroids; Z79.899 Other long term (current) drug therapy; Z90.49 Acquired absence of other specified parts of digestive tract
CPT/HCPCS: 36415; 93005; 80053; 82150; 83690; 84484; 85025; 85610; 85730; 81001; 71046; 74176; 99285; 96374; 96375 ×3; 96361; J2405; J0696; J1885; C9113

== ENCOUNTER 2023-01-01 00:13 | Emergency (ER) | payer MEDICARE, OTHER ==
[2023-01-01] MEDS ORDERED: IBUPROFEN 600 MG TAB PO STA (02:06)
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
[2023-01-01 02:13] VITALS: BP 116/74; PULSE 84; RESP 14; TEMP 98.3
== END 2023-01-01 02:21 | disposition home or self-care (01) ==
LOC: EC 00:13
DX: H65.91 Unspecified nonsuppurative otitis media, right ear (principal); E11.9 Type 2 diabetes mellitus without complications; J44.9 Chronic obstructive pulmonary disease, unspecified; F17.200 Nicotine dependence, unspecified, uncomplicated; Z79.51 Long term (current) use of inhaled steroids; Z79.84 Long term (current) use of oral hypoglycemic drugs; Z79.899 Other long term (current) drug therapy; Z88.8 Allergy status to other drugs, medicaments and biological substances
CPT/HCPCS: 99282

== ENCOUNTER 2023-02-01 14:59 | Emergency (ER) | payer OTHER, MEDICARE ==
[2023-02-01 15:04] VITALS: RESP 18; TEMP 98.6
[2023-02-01] MEDS ORDERED: KETOROLAC 15 MG/ML 1 ML VIAL IVP STA (15:21)
[2023-02-01] MEDS ORDERED: MORPHINE SULFATE 4 MG/ML SYRINGE IVP STA ×2 (15:21→17:14)
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
--- NOTE | 2023-02-01 16:37 | XR ---
EXAMINATION TYPE: XR wrist complete LT DATE OF EXAM: 02/01/2023 COMPARISON: None HISTORY: Pain after fall TECHNIQUE: 4 view left wrist FINDINGS: No acute fracture is evident. Soft tissues appear normal. No acute fractures are evident. The trapezium appears to be absent. Follow-up study can be performed 7-10 days from acute trauma for continued pain IMPRESSION: 1. No acute osseous abnormality.
--- NOTE | 2023-02-01 16:40 | XR ---
EXAMINATION TYPE: XR forearm LT DATE OF EXAM: 02/01/2023 COMPARISON: None HISTORY: Pain after fall TECHNIQUE: 2 view left forearm FINDINGS: No acute fractures evident. Soft tissues appear normal. Follow up exams can be performed 7- 10 days from acute trauma for continued pain. IMPRESSION: 1. No acute osseous abnormality left forearm
--- NOTE | 2023-02-01 16:43 | XR ---
EXAMINATION TYPE: XR shoulder complete LT DATE OF EXAM: 02/01/2023 COMPARISON: NONE HISTORY: Pain TECHNIQUE: Shoulder examined in 3 projections. FINDINGS: The humeral head articulates with the glenoid. There is loss of the glenohumeral joint space. There i s some deformity evident at this level. On the AP projection there may be some slight depression of the acromion in relation to the distal cl avicle. The joint space is increased to 1.0 cm. Previously this was closer approximation. Clinical co rrelation recommended for acromioclavicular joint separation. No acute fractures are evident. A follow up study can be performed 7-10 days from acute trauma for continued pain. MRI can be perfor med if soft tissue evaluation would be of benefit. IMPRESSION: 1. There appears to be some interval change at the acromioclavicular junction. There is clinical susp icion for acromioclavicular joint separation, without with weight study could be performed. 2. 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
--- NOTE | 2023-02-01 16:46 | US ---
EXAMINATION TYPE: US venous doppler duplex UE LT DATE OF EXAM: 02/01/2023 COMPARISON: NONE CLINICAL INDICATION: Female, 82 years old with history of Left arm pain and swelling; Pt states falli ng 4 months ago- having increased pain to left arm SIDE PERFORMED: Left Left Arm: Negative for DVT IMPRESSION: 1. Left upper extremity ultrasound negative for deep venous thrombosis.
[2023-02-01 17:25] VITALS: BP 107/73; PULSE 86
== END 2023-02-01 17:37 | disposition home or self-care (01) ==
LOC: EC 14:59
DX: S43.102A Unspecified dislocation of left acromioclavicular joint, initial encounter (principal); E11.9 Type 2 diabetes mellitus without complications; J44.9 Chronic obstructive pulmonary disease, unspecified; F17.200 Nicotine dependence, unspecified, uncomplicated; Z88.8 Allergy status to other drugs, medicaments and biological substances; Z79.84 Long term (current) use of oral hypoglycemic drugs; Z79.51 Long term (current) use of inhaled steroids; Z79.899 Other long term (current) drug therapy; W18.30XA Fall on same level, unspecified, initial encounter
CPT/HCPCS: 73030; 73090; 73110; 93971; 99284; 96374; 96375; J2270; J1885

== ENCOUNTER 2023-04-07 22:06 | Emergency (ER) | payer MEDICARE, OTHER ==
[2023-04-07 22:21] VITALS: BP 125/82; PULSE 80; TEMP 98.2
--- NOTE | 2023-04-07 22:55 | ED ---
ENT HPI - General Chief complaint: ENT Stated complaint: Ear ache, yeast infection Time Seen by Provider: 04/07/23 22:23 Source: patient, RN notes reviewed Mode of arrival: ambulatory Limitations: no limitations - History of Present Illness Initial comments: 82-year-old female presents emergency department to complaint of possible foreign body right ear. Patient states she struck Q-tip and toilet paper right ear states never sought flush out. Patient states that she feels like she has fluid in her right ear. Patient also states that she needs some Diflucan for her vaginal yeast infection. - Related Data Home Medications Medication Instructions Recorded Confirmed Omeprazole [PriLOSEC] 20 mg PO DAILY 03/04/15 10/14/22 Memantine HCl [Memantine HCl ER] 7 mg PO DAILY 11/30/19 10/14/22 Albuterol Inhaler [Ventolin Hfa 2 puff INHALATION RT-QID PRN 01/08/20 10/14/22 Inhaler] Montelukast [Singulair] 10 mg PO HS 07/30/20 10/14/22 Ferrous Sulfate [Feosol] 325 mg PO DAILY 01/26/22 10/14/22 Baclofen 10 mg PO BID PRN 09/13/22 10/14/22 Fluticasone Propion/Salmeterol 1 puff INHALATION RT-BID 09/13/22 10/14/22 [Wixela 100-50 Inhub] metFORMIN HCL 1,000 mg PO DAILY 09/13/22 10/14/22 Previous Rx's Medication Instructions Recorded Furosemide [Lasix] 20 mg PO DAILY #30 tab 09/15/22 Losartan [Cozaar] 25 mg PO DAILY #30 tab 09/15/22 oxyCODONE-APAP 10-325MG [Percocet 1 tab PO TID PRN #0 09/15/22 10-325 mg] Lidocaine 5% Patch [Lidoderm 5% 1 patch TOPICAL DAILY PRN #7 patch 11/07/22 Patch] Ibuprofen [Motrin] 400 mg PO Q6HR PRN #20 tab 11/20/22 Lidocaine 5% Patch [Lidoderm 5% 1 patch TOPICAL DAILY PRN #30 patch 11/20/22 Patch] Cephalexin [Keflex] 500 mg PO Q12HR 7 Days #14 cap 11/23/22 Loratadine 10 mg PO DAILY #20 tablet 01/01/23 Ketorolac [Toradol] 10 mg PO Q6HR PRN #15 tab 02/01/23 methocarbamoL [Robaxin-750] 1,500 mg PO QID PRN #30 tab 02/01/23 Fluconazole [Diflucan] 150 mg PO ONCE #4 tab 04/07/23 Allergies Allergy/AdvReac Type Severity Reaction Status Date / Time Corticosteroids Allergy Itching Verified 04/07/23 22:16 (Glucocorticoids) propoxyphene napsylate Allergy Itching Verified 04/07/23 22:16 [From Darvocet-N 100] Review of Systems ROS Statement: Those systems with pertinent positive or pertinent negative responses have been documented in the HPI. ROS Other: All systems not noted in ROS Statement are negative. Past Medical History Past Medical History: COPD, Diabetes Mellitus, Fibromyalgia Additional Past Medical History / Comment(s): chronic neck and back pain 1996 affected rt knee & rt ankle, hypotension, multiple falls History of Any Multi-Drug Resistant Organisms: None Reported Past Surgical History: Appendectomy, Cholecystectomy, Orthopedic Surgery, Tonsillectomy Additional Past Surgical History / Comment(s): Total Bilateral Knee, Right Ankle. Lt Shoulder surgery. Egd/Colonoscopy 12/10/13. verticalflex in back, Past Anesthesia/Blood Transfusion Reactions: No Reported Reaction Additional Past Anesthesia/Blood Transfusion Reaction / Comment(s): pt states received 5-6 units blood @ [facility] [place] recently Past Psychological History: No Psychological Hx Reported Smoking Status: Current every day smoker Past Alcohol Use History: None Reported Past Drug Use History: None Reported - Past Family History Mother History Unknown: Yes Family Medical History: Coronary Artery Disease (CAD) General Exam Limitations: no limitations General appearance: alert, in no apparent distress Head exam: Present: atraumatic, normocephalic, normal inspection Eye exam: Present: normal appearance, PERRL, EOMI. Absent: scleral icterus, conjunctival injection, periorbital swelling ENT exam: Present: normal exam, normal oropharynx, mucous membranes moist, TM's normal bilaterally, normal external ear exam Neck exam: Present: normal inspection. Absent: tenderness, meningismus, lymphadenopathy Respiratory exam: Present: normal lung sounds bilaterally. Absent: respiratory distress, wheezes, rales, rhonchi, stridor Cardiovascular Exam: Present: regular rate, normal rhythm, normal heart sounds. Absent: systolic murmur, diastolic murmur, rubs, gallop, clicks GI/Abdominal exam: Present: soft, normal bowel sounds. Absent: distended, tenderness, guarding, rebound, rigid Course Vital Signs 04/07/23 04/07/23 22:13 23:03 Temperature 98.2 F Pulse Rate 80 Respiratory 20 18 Rate Blood Pressure 125/82 O2 Sat by Pulse 96 Oximetry Medical Decision Making - Medical Decision Making Was pt. sent in by a medical professional or institution (RADHA Caal, HAND CLIPPER, urgent care, hospital, or half-way...) When possible be specific @ -No Did you speak to anyone other than the patient for history (EMS, parent, family, police, friend...)? What history was obtained from this source @ -No Did you review nursing and triage notes (agree or disagree)? Why? @ -I reviewed and agree with nursing and triage notes Were old charts reviewed (outside hosp., previous admission, EMS record, old EKG, old radiological studies, urgent care reports/EKG's, half-way records)? Report findings @ -No old charts were reviewed Differential Diagnosis (chest pain, altered mental status, abdominal pain women, abdominal pain men, vaginal bleeding, weakness, fever, dyspnea, syncope, headache, dizziness, GI bleed, back pain, seizure, CVA, palpatations, mental health, musculoskeletal)? @ -Eustachian tube dysfunction, ear foreign body, otitis media EKG interpreted by me (3pts min.). @ -[None X-rays interpreted by me (1pt min.). @ -None done CT interpreted by me (1pt min.). @ -None done U/S interpreted by me (1pt. min.). @ -None done What testing was considered but not performed or refused? (CT, X-rays, U/S, labs)? Why? @ -None What meds were considered but not given or refused? Why? @ -None Did you discuss the management of the patient with other professionals (professionals i.e. RADHA Caal, HAND CLIPPER, lab, RT, psych nurse, social service coordinator, inventory planner, teacher, strike operations officer, behavioral health case manager)? Give summary @ -No Was smoking cessation discussed for >3mins.? @ -No Was critical care preformed (if so, how long)? @ -No Were there social determinants of health that impacted care today? How? (Homelessness, low income, unemployed, alcoholism, drug addiction, transportation, low edu. Level, literacy, decrease access to med. care, usp, rehab)? @ -No Was there de-escalation of care discussed even if they declined (Discuss DNR or withdrawal of care, Hospice)? DNR status @ -No What co-morbidities impacted this encounter? (DM, HTN, Smoking, COPD, CAD, Cancer, CVA, ARF, Chemo, Hep., AIDS, mental health diagnosis, sleep apnea, morbid obesity)? @ -None Was patient admitted / discharged? Hospital course, mention meds given and route, prescriptions, significant lab abnormalities, going to OR and other pertinent info. @ -[Discharge is no evidence of foreign body patient has mild fluid noted, there is no signs of infection. Patient is requesting Diflucan. Patient is discharged in stable condition. Undiagnosed new problem with uncertain prognosis? @ -No Drug Therapy requiring intensive monitoring for toxicity (Heparin, Nitro, Insulin, Cardizem)? @ -No Were any procedures done? @ -No Diagnosis/symptom? @ -Otalgia, vaginal candidiasis Acute, or Chronic, or Acute on Chronic? @ -Acute Uncomplicated (without systemic symptoms) or Complicated (systemic symptoms)? @ -Uncomplicated Side effects of treatment? @ -No Exacerbation, Progression, or Severe Exacerbation? @ -No Poses a threat to life or bodily function? How? (Chest pain, USA, MD, pneumonia, PE, COPD, DKA, ARF, appy, cholecystitis, CVA, Diverticulitis, Homicidal, Suicidal, threat to staff... and all critical care pts) @ -No Disposition Clinical Impression: Otalgia of right ear, Vaginal candidiasis Disposition: HOME SELF-CARE Condition: Stable Instructions (If sedation given, give patient instructions): Earache (ED) Additional Instructions: Please return to the Emergency Department if symptoms worsen or any other concerns. Prescriptions: Fluconazole [Diflucan] 150 mg PO ONCE #4 tab Is patient prescribed a controlled substance at d/c from ED?: No Referrals: Ricky Swanson MD [Primary Care Provider] - 1-2 days Time of Disposition: 22:55
[2023-04-07 23:29] VITALS: RESP 18
== END 2023-04-07 23:23 | disposition home or self-care (01) ==
LOC: EC 22:06
DX: T16.1XXA Foreign body in right ear, initial encounter (principal); H66.91 Otitis media, unspecified, right ear; B37.31 Acute candidiasis of vulva and vagina; J44.9 Chronic obstructive pulmonary disease, unspecified; E11.9 Type 2 diabetes mellitus without complications; F17.200 Nicotine dependence, unspecified, uncomplicated; Z79.51 Long term (current) use of inhaled steroids; Z79.84 Long term (current) use of oral hypoglycemic drugs; Z79.899 Other long term (current) drug therapy; Z88.8 Allergy status to other drugs, medicaments and biological substances
CPT/HCPCS: 99282

== ENCOUNTER 2023-05-18 18:48 | Emergency (ER) | payer MEDICARE, OTHER ==
[2023-05-18] MEDS ORDERED: ORPHENADRINE 30 MG/ML 2 ML VIAL IM STA (19:06)
[2023-05-18] MEDS ORDERED: KETOROLAC 15 MG/ML 1 ML VIAL IM STA (19:06)
[2023-05-18 19:12] VITALS: TEMP 98
--- NOTE | 2023-05-18 19:19 | ED ---
Neck Injury/Pain HPI - General Chief Complaint: Neck Pain/Injury Stated Complaint: neck pain Time Seen by Provider: 05/18/23 19:02 Source: patient, RN notes reviewed Mode of arrival: ambulatory Limitations: no limitations - History of Present Illness Initial Comments: This is an 82 year old female who presents to the emergency department for neck pain. Reports a hx of chronic neck pain that has been worsening over the last 2- 3 days. States that flareups typically occur with weather changes. Denies any new injuries. She is taking her Percocet without any relief in symptoms. She used to take the muscle relaxant skelaxin, but has been out of this. MD Complaint: neck pain - Related Data Home Medications Medication Instructions Recorded Confirmed Omeprazole [PriLOSEC] 20 mg PO DAILY 03/04/15 10/14/22 Memantine HCl [Memantine HCl ER] 7 mg PO DAILY 11/30/19 10/14/22 Albuterol Inhaler [Ventolin Hfa 2 puff INHALATION RT-QID PRN 01/08/20 10/14/22 Inhaler] Montelukast [Singulair] 10 mg PO HS 07/30/20 10/14/22 Ferrous Sulfate [Feosol] 325 mg PO DAILY 01/26/22 10/14/22 Baclofen 10 mg PO BID PRN 09/13/22 10/14/22 Fluticasone Propion/Salmeterol 1 puff INHALATION RT-BID 09/13/22 10/14/22 [Wixela 100-50 Inhub] metFORMIN HCL 1,000 mg PO DAILY 09/13/22 10/14/22 Previous Rx's Medication Instructions Recorded Furosemide [Lasix] 20 mg PO DAILY #30 tab 09/15/22 Losartan [Cozaar] 25 mg PO DAILY #30 tab 09/15/22 oxyCODONE-APAP 10-325MG [Percocet 1 tab PO TID PRN #0 09/15/22 10-325 mg] Lidocaine 5% Patch [Lidoderm 5% 1 patch TOPICAL DAILY PRN #7 patch 11/07/22 Patch] Ibuprofen [Motrin] 400 mg PO Q6HR PRN #20 tab 11/20/22 Lidocaine 5% Patch [Lidoderm 5% 1 patch TOPICAL DAILY PRN #30 patch 11/20/22 Patch] Cephalexin [Keflex] 500 mg PO Q12HR 7 Days #14 cap 11/23/22 Loratadine 10 mg PO DAILY #20 tablet 01/01/23 Ketorolac [Toradol] 10 mg PO Q6HR PRN #15 tab 02/01/23 methocarbamoL [Robaxin-750] 1,500 mg PO QID PRN #30 tab 02/01/23 Fluconazole [Diflucan] 150 mg PO ONCE #4 tab 04/07/23 Metaxalone [Skelaxin] 800 mg PO Q6HR PRN #30 tablet 05/18/23 Allergies Allergy/AdvReac Type Severity Reaction Status Date / Time Corticosteroids Allergy Itching Verified 05/18/23 18:57 (Glucocorticoids) propoxyphene napsylate Allergy Itching Verified 05/18/23 18:57 [From Edgarcet-N 100] Review of Systems ROS Statement: Those systems with pertinent positive or pertinent negative responses have been documented in the HPI. ROS Other: All systems not noted in ROS Statement are negative. Past Medical History Past Medical History: COPD, Diabetes Mellitus, Fibromyalgia Additional Past Medical History / Comment(s): chronic neck and back pain 1996 affected rt knee & rt ankle, hypotension, multiple falls History of Any Multi-Drug Resistant Organisms: None Reported Past Surgical History: Appendectomy, Cholecystectomy, Orthopedic Surgery, Tonsillectomy Additional Past Surgical History / Comment(s): Total Bilateral Knee, Right Ankle. Lt Shoulder surgery. Egd/Colonoscopy 12/10/13. verticalflex in back, Past Anesthesia/Blood Transfusion Reactions: No Reported Reaction Additional Past Anesthesia/Blood Transfusion Reaction / Comment(s): pt states received 5-6 units blood @ [facility] recently Past Psychological History: No Psychological Hx Reported Smoking Status: Current every day smoker Past Alcohol Use History: None Reported Past Drug Use History: None Reported - Past Family History Mother History Unknown: Yes Family Medical History: Coronary Artery Disease (CAD) General Exam Limitations: no limitations General appearance: alert, in no apparent distress Head exam: Present: atraumatic, normocephalic, normal inspection Neck exam: Present: tenderness (diffuse), full ROM Respiratory exam: Present: normal lung sounds bilaterally. Absent: respiratory distress, wheezes, rales, rhonchi, stridor Cardiovascular Exam: Present: regular rate, normal rhythm, normal heart sounds. Absent: systolic murmur, diastolic murmur, rubs, gallop, clicks Neurological exam: Present: alert, oriented X3, CN II-XII intact Psychiatric exam: Present: normal affect, normal mood Skin exam: Present: warm, dry, intact, normal color. Absent: rash Course Vital Signs 05/18/23 05/18/23 18:54 20:56 Temperature 98 F Pulse Rate 108 H 75 Respiratory 18 16 Rate Blood Pressure 130/80 108/74 O2 Sat by Pulse 98 94 L Oximetry Medical Decision Making - Medical Decision Making This is an 82 year old female who presents to the emergency department for neck pain. Was pt. sent in by a medical professional or institution? @ -No Did you speak to anyone other than the patient for history? @ -No Did you review nursing and triage notes? @ -Yes, and I agree, it is accurate with regards to the patient's symptoms. Were old charts reviewed? @ -No Differential Diagnosis? @ -Differential Neck Pain: Fracture, dislocation, contusion, strain, DDD, disc herniation, this is not meant to be an all-inclusive list. EKG interpreted by me (3pts min.)? @ -Not obtained X-rays interpreted by me (1pt min.)? @ -Not obtained CT interpreted by me (1pt min.)? @ -Not obtained U/S interpreted by me (1pt. min.)? @ -Not obtained What testing was considered but not performed? (CT, X-rays, U/S, labs)? Why? @ -None What meds were considered but not given? Why? @ -None Did you discuss the management of the patient with other professionals? @ -No Did you reconcile home meds? @ -No Was smoking cessation discussed for >3mins.? @ -No Was critical care preformed (if so, how long)? @ -No Were there social determinants of health that impacted care today? How? (Homelessness, low income, unemployed, alcoholism, drug addiction, transportation, low edu. Level, literacy, decrease access to med. care, long term, rehab)? @ -No Was there de-escalation of care discussed even if they declined? (Discuss DNR or withdrawal of care, Hospice)? @ -No What co-morbidities impacted this encounter? (DM, HTN, Smoking, COPD, CAD, Cancer, CVA, Hep., AIDS, mental health diagnosis, sleep apnea, morbid obesity)? @ -Fibromyalgia, chronic neck pain Was patient admitted / discharged? @ -Discharged. Her pain was well controlled in the emergency department. She was given a prescription for a refill on her Skelaxin. Otherwise advised follow-up with her primary care provider and continuing to take her other pain medication as prescribed. Patient discharged home in stable condition. Undiagnosed new problem with uncertain prognosis? @ -None Drug Therapy requiring intensive monitoring for toxicity (Heparin, Nitro, Insulin, Cardizem)? @ -None Were any procedures done? @ -None Diagnosis/symptom? @ -Neck pain Acute, or Chronic, or Acute on Chronic? @ -Chronic Uncomplicated (without systemic symptoms) or Complicated (systemic symptoms)? @ -Uncomplicated Side effects of treatment? @ -None Exacerbation, Progression, or Severe Exacerbation] @ -Exacerbation Poses a threat to life or bodily function? @ -No Return precautions reviewed in depth, the patient is instructed to return to the emergency department with any new, worsening, or concerning symptoms. Patient verbalized understanding. This case was discussed in detail with the attending ED physician, Dr. Cali. Presentation, findings, and treatment plan discussed in detail as well. Disposition Clinical Impression: Chronic neck pain Disposition: HOME SELF-CARE Instructions (If sedation given, give patient instructions): Chronic Neck Pain (DC) Additional Instructions: Return to the emergency department with any new, worsening, or concerning symptoms. You can take the muscle relaxant every 6-8 hours as needed. Follow up with your primary care provider in 1-2 days. Prescriptions: Metaxalone [Skelaxin] 800 mg PO Q6HR PRN #30 tablet PRN Reason: Pain Is patient prescribed a controlled substance at d/c from ED?: No Referrals: Ricky Swanson MD [Primary Care Provider] - 1-2 days
[2023-05-18] MEDS ORDERED: HYDROmorphone 1 MG/ML 1 ML SYRINGE IM STA (20:00)
[2023-05-18 21:20] VITALS: BP 108/74; PULSE 75; RESP 16
== END 2023-05-18 20:57 | disposition home or self-care (01) ==
LOC: EC 18:48
DX: G89.29 Other chronic pain (principal); M54.2 Cervicalgia; E11.9 Type 2 diabetes mellitus without complications; J44.9 Chronic obstructive pulmonary disease, unspecified; F17.200 Nicotine dependence, unspecified, uncomplicated; Z79.84 Long term (current) use of oral hypoglycemic drugs; Z79.899 Other long term (current) drug therapy; Z90.49 Acquired absence of other specified parts of digestive tract; Z88.8 Allergy status to other drugs, medicaments and biological substances
CPT/HCPCS: 99283; 96372 ×3; J2360; J1170; J1885

== ENCOUNTER 2023-08-17 01:56 | Emergency (ER) | payer MEDICARE, OTHER ==
--- NOTE | 2023-08-17 02:34 | ED ---
General Adult HPI - General Source: patient Mode of arrival: ambulatory Limitations: no limitations <Rocky Ortiz - Last Filed: 08/17/23 03:27> <Miguel Musa - Last Filed: 08/17/23 05:33> - General Chief complaint: Shortness of Breath Stated complaint: SOB- allergic reation Time Seen by Provider: 08/17/23 02:10 - History of Present Illness Initial comments: 82-year-old female with a past medical history significant for COPD presenting to the ED with a chief complaint of shortness of breath. Patient reports prior to arrival was using a bug bomb. States immediately after opening it, became short of breath and inhaled some of the fumes prior to exiting her house. Reports ongoing shortness of breath thus prompting presentation to the ED for further evaluation. No chest pain. No other complaints at this time. (Rocky Ortiz) - Related Data Home Medications Medication Instructions Recorded Confirmed Omeprazole [PriLOSEC] 20 mg PO DAILY 03/04/15 10/14/22 Memantine HCl [Memantine HCl ER] 7 mg PO DAILY 11/30/19 10/14/22 Albuterol Inhaler [Ventolin Hfa 2 puff INHALATION RT-QID PRN 01/08/20 10/14/22 Inhaler] Montelukast [Singulair] 10 mg PO HS 07/30/20 10/14/22 Ferrous Sulfate [Feosol] 325 mg PO DAILY 01/26/22 10/14/22 Baclofen 10 mg PO BID PRN 09/13/22 10/14/22 Fluticasone Propion/Salmeterol 1 puff INHALATION RT-BID 09/13/22 10/14/22 [Wixela 100-50 Inhub] metFORMIN HCL 1,000 mg PO DAILY 09/13/22 10/14/22 Previous Rx's Medication Instructions Recorded Furosemide [Lasix] 20 mg PO DAILY #30 tab 09/15/22 Losartan [Cozaar] 25 mg PO DAILY #30 tab 09/15/22 oxyCODONE-APAP 10-325MG [Percocet 1 tab PO TID PRN #0 09/15/22 10-325 mg] Lidocaine 5% Patch [Lidoderm 5% 1 patch TOPICAL DAILY PRN #7 patch 11/07/22 Patch] Ibuprofen [Motrin] 400 mg PO Q6HR PRN #20 tab 11/20/22 Lidocaine 5% Patch [Lidoderm 5% 1 patch TOPICAL DAILY PRN #30 patch 11/20/22 Patch] Cephalexin [Keflex] 500 mg PO Q12HR 7 Days #14 cap 11/23/22 Loratadine 10 mg PO DAILY #20 tablet 01/01/23 Ketorolac [Toradol] 10 mg PO Q6HR PRN #15 tab 02/01/23 methocarbamoL [Robaxin-750] 1,500 mg PO QID PRN #30 tab 02/01/23 Fluconazole [Diflucan] 150 mg PO ONCE #4 tab 04/07/23 Metaxalone [Skelaxin] 800 mg PO Q6HR PRN #30 tablet 05/18/23 Allergies Allergy/AdvReac Type Severity Reaction Status Date / Time Corticosteroids Allergy Itching Verified 08/17/23 02:04 (Glucocorticoids) propoxyphene napsylate Allergy Itching Verified 08/17/23 02:04 [From [place]-N 100] Review of Systems ROS Other: All systems not noted in ROS Statement are negative. <Rocky Ortiz - Last Filed: 08/17/23 03:27> ROS Other: All systems not noted in ROS Statement are negative. <Miguel Musa - Last Filed: 08/17/23 05:33> ROS Statement: Those systems with pertinent positive or pertinent negative responses have been documented in the HPI. Past Medical History Past Medical History: COPD, Diabetes Mellitus, Fibromyalgia Additional Past Medical History / Comment(s): chronic neck and back pain 1996 affected rt knee & rt ankle, hypotension, multiple falls History of Any Multi-Drug Resistant Organisms: None Reported Past Surgical History: Appendectomy, Cholecystectomy, Orthopedic Surgery, Tonsillectomy Additional Past Surgical History / Comment(s): Total Bilateral Knee, Right Ankle. Lt Shoulder surgery. Egd/Colonoscopy 12/10/13. verticalflex in back, Past Anesthesia/Blood Transfusion Reactions: No Reported Reaction Additional Past Anesthesia/Blood Transfusion Reaction / Comment(s): pt states received 5-6 units blood @ [facility] recently Past Psychological History: No Psychological Hx Reported Smoking Status: Current every day smoker Past Alcohol Use History: None Reported Past Drug Use History: None Reported - Past Family History Mother History Unknown: Yes Family Medical History: Coronary Artery Disease (CAD) <Rocky Ortiz - Last Filed: 08/17/23 03:27> General Exam Limitations: no limitations General appearance: alert, in no apparent distress Eye exam: Present: normal appearance Neck exam: Present: normal inspection Respiratory exam: Present: wheezes (Bilateral lung maurice. No tachypnea.) GI/Abdominal exam: Present: soft Neurological exam: Present: alert, oriented X3 Skin exam: Present: warm, dry <Rocky Ortiz - Last Filed: 08/17/23 03:27> Course Vital Signs 08/17/23 08/17/23 08/17/23 02:02 03:02 03:15 Temperature 98.2 F Pulse Rate 90 101 H 104 H Respiratory 18 Rate Blood Pressure 102/65 O2 Sat by Pulse 100 Oximetry 08/17/23 08/17/23 08/17/23 03:38 04:07 05:09 Temperature Pulse Rate 90 93 Respiratory 20 18 Rate Blood Pressure 107/65 107/69 O2 Sat by Pulse 95 94 L 96 Oximetry Medical Decision Making <Rocky Ortiz - Last Filed: 08/17/23 03:27> <Miguel Musa - Last Filed: 08/17/23 05:33> - Medical Decision Making Was pt. sent in by a medical professional or institution (RADHA Caal, [employer], urgent care, hospital, or care home...) When possible be specific @ -No Did you speak to anyone other than the patient for history (EMS, parent, family, police, friend...)? What history was obtained from this source @ -No Did you review nursing and triage notes (agree or disagree)? Why? @ -I reviewed and agree with nursing and triage notes Were old charts reviewed (outside hosp., previous admission, EMS record, old EKG, old radiological studies, urgent care reports/EKG's, care home records)? Report findings @ -No old charts were reviewed Differential Diagnosis (chest pain, altered mental status, abdominal pain women, abdominal pain men, vaginal bleeding, weakness, fever, dyspnea, syncope, headache, dizziness, GI bleed, back pain, seizure, CVA, palpatations, mental health, musculoskeletal)? @ -Differential Dyspnea: Coronary syndrome, arrhythmia, tamponade, asthma, COPD, pulmonary embolism, pneumonia, pneumothorax, pulmonary effusion, anaphylaxis, diabetic ketoacidosis, flailed chest, pulmonary contusion, diaphragmatic rupture, anemia, neuromuscular, this is not meant to be an all-inclusive list. EKG interpreted by me (3pts min.). @ -As above X-rays interpreted by me (1pt min.). @ -Chest x-ray interpreted by me showing evidence of bronchitis with pneumonitis CT interpreted by me (1pt min.). @ -None done U/S interpreted by me (1pt. min.). @ -None done What testing was considered but not performed or refused? (CT, X-rays, U/S, labs)? Why? @ -None What meds were considered but not given or refused? Why? @ -None Did you discuss the management of the patient with other professionals (professionals i.e. , PA, SYRUP BLENDER, lab, RT, psych nurse, high school social science teacher, sock drier, teacher, fare enforcement officer, rn field case manager)? Give summary @ -Spoke to poison control. At this time recommends supportive measures breathing treatment as needed and obtaining a chest x-ray. Advised to monitor for a few hours and if patient remains at baseline may safely be discharged home. Was smoking cessation discussed for >3mins.? @ -No Was critical care preformed (if so, how long)? @ -No Were there social determinants of health that impacted care today? How? (Homelessness, low income, unemployed, alcoholism, drug addiction, transportation, low edu. Level, literacy, decrease access to med. care, skilled nursing, rehab)? @ -No Was there de-escalation of care discussed even if they declined (Discuss DNR or withdrawal of care, Hospice)? DNR status @ -No What co-morbidities impacted this encounter? (DM, HTN, Smoking, COPD, CAD, Cancer, CVA, ARF, Chemo, Hep., AIDS, mental health diagnosis, sleep apnea, morbid obesity)? @ -COPD Was patient admitted / discharged? Hospital course, mention meds given and route, prescriptions, significant lab abnormalities, going to OR and other pertinent info. @ -Pending 82-year-old female presenting to the ED past medical history significant for COPD presenting shortly after using a bedbug and flea fogger. States that shortly after using this aerosol product became short of breath prompting presentation to the ED for further evaluation. Poison control recommends supportive measures and chest x-ray and monitoring for a few hours. Patient was provided a breathing treatment here and reports significant improvement of her symptoms. Case signed out to my attending physician Dr. Musa for further disposition. (Rocky Ortiz) Patient care signed out to me by previous shift physician sales assistant displays, Rocky Ortiz. Briefly, patient is 82-year-old female presents emergency department with dyspnea after using a bug bomb in her house. Prescription was contacted. Recommendation was to monitor patient for 1 to 2 hours. Patient reevaluated at 5:30 AM found to be stable medical admission. She is resting comfortably in no acute distress. Lung auscultation reveals clear lung sounds bilaterally. Patient will be discharged. (Miguel Musa) Disposition <Rocky Ortiz - Last Filed: 08/17/23 03:27> Is patient prescribed a controlled substance at d/c from ED?: No Time of Disposition: 05:33 <Miguel Musa - Last Filed: 08/17/23 05:33> Clinical Impression: Dyspnea Disposition: HOME SELF-CARE Condition: Good Instructions (If sedation given, give patient instructions): Dyspnea (ED) Referrals: Placido Holder DO [Primary Care Provider] - 1-2 days
[2023-08-17] MEDS: IPRATROPIUM-ALBUTEROL 3 ML NEB INHALATION STA (03:02)
--- NOTE | 2023-08-17 03:08 | XR ---
EXAM: XR Chest, 2 Views CLINICAL HISTORY: ITS.REASON XR Reason: dyspnea TECHNIQUE: Frontal and lateral views of the chest. COMPARISON: No relevant prior studies available. FINDINGS: Lungs: Moderate peribronchial thickening of the central lower lobe bronchi with increased interstitial opacities in the lower lobes. No consolidation. Pleural space: Unremarkable. No pneumothorax. Heart: Unremarkable. No cardiomegaly. Mediastinum: Unremarkable. Normal mediastinal contour. Bones/joints: Advanced right and moderate left glenohumeral joint degenerative arthropathy. No acute fracture. IMPRESSION: Findings concerned for bronchitis with pneumonitis, which may be of infectious or inflammatory etiologies. No consolidation or pleural effusion.
[2023-08-17] MEDS: ACETAMINOPHEN TAB 500 MG TAB PO STA (03:22)
[2023-08-17 04:30] VITALS: RESP 18
[2023-08-17 05:58] VITALS: BP 108/64; PULSE 88; TEMP 98
== END 2023-08-17 05:44 | disposition home or self-care (01) ==
LOC: EC 01:56
DX: J98.4 Other disorders of lung (principal); J40 Bronchitis, not specified as acute or chronic; J44.9 Chronic obstructive pulmonary disease, unspecified; E11.9 Type 2 diabetes mellitus without complications; F17.200 Nicotine dependence, unspecified, uncomplicated; Z79.84 Long term (current) use of oral hypoglycemic drugs; Z90.49 Acquired absence of other specified parts of digestive tract; Z79.51 Long term (current) use of inhaled steroids; Z88.8 Allergy status to other drugs, medicaments and biological substances
CPT/HCPCS: 71046; 94640; 99285

== ENCOUNTER 2023-09-25 17:44 | Emergency (ER) | payer MEDICARE, OTHER ==
[2023-09-25] MEDS: HYDROmorphone 1 MG/ML 1 ML SYRINGE IM STA (18:10)
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
[2023-09-25] MEDS: KETOROLAC 15 MG/ML 1 ML VIAL IM STA (19:16)
[2023-09-25] MEDS: ORPHENADRINE 30 MG/ML 2 ML VIAL IM STA (19:17)
[2023-09-25 19:46] VITALS: BP 112/70; PULSE 80; RESP 18; TEMP 98
== END 2023-09-25 19:28 | disposition home or self-care (01) ==
LOC: EC 17:44
DX: G89.29 Other chronic pain (principal); M54.2 Cervicalgia; F17.200 Nicotine dependence, unspecified, uncomplicated; Z88.8 Allergy status to other drugs, medicaments and biological substances
CPT/HCPCS: 99283; 96372 ×3; J2360; J1170; J1885

== ENCOUNTER → 2023-10-26 | Outpatient (CLI) | payer MEDICARE, OTHER ==
--- NOTE | 2023-10-26 18:18 | XR ---
EXAMINATION TYPE: XR chest 2V DATE OF EXAM: 10/26/2023 5:05 PM CLINICAL INDICATION:Female, 83 years old with history of R91.8,OTHER NONSPECIFIC ABNORMAL FINDING OF LUNG F; COMPARISON: Chest radiographs from 08/17/2023. TECHNIQUE: XR chest 2V Frontal and lateral views of the chest. FINDINGS: Lungs/Pleura: There is no evidence of pleural effusion, focal consolidation, or pneumothorax. Pulmonary vascularity: Pulmonary vascular congestion. Heart/mediastinum: Cardiomediastinal silhouette is enlarged and stable. Musculoskeletal: No acute osseous pathology. Other findings: None IMPRESSION: Cardiomegaly and mild pulmonary vascular congestion. Correlate with BNP for congestive heart failure.
== END | disposition home or self-care (01) ==
LOC: RADXRMAIN 16:37
PROVIDERS: ATTEND Family Medicine
DX: R09.89 Other specified symptoms and signs involving the circulatory and respiratory systems (principal); R91.8 Other nonspecific abnormal finding of lung field; I51.7 Cardiomegaly
CPT/HCPCS: 71046

== ENCOUNTER 2023-11-13 21:42 | Emergency (ER) | payer MEDICARE ==
[2023-11-13 23:15] VITALS: TEMP 97.4
--- NOTE | 2023-11-13 23:22 | ED ---
General Adult HPI - General Chief complaint: Neck Pain/Injury Stated complaint: Chronic Pain Time Seen by Provider: 11/13/23 22:09 Source: patient Mode of arrival: ambulatory Limitations: no limitations - History of Present Illness Initial comments: 83-year-old female presented to the ED with complaints of neck and shoulder pain. Patient reports that this pain is chronic in nature. Notes no new injury or trauma. Reports that she has run out of her pain medications and is not due to get a refill until tomorrow. Reports that she would like to have pain medication sent home. No fever or chills. No chest pain shortness of. No other complaints at this time. States that she follows with pain management and has an appointment with orthopedics this following Thursday. Review of maps shows patient is prescribed oxycodone-acetaminophen 03/31/2025 for quantity of 850 on a monthly basis. Her last prescription was written on 09/01/2023 and filled on 10/15/2023. - Related Data Home Medications Medication Instructions Recorded Confirmed Omeprazole [PriLOSEC] 20 mg PO DAILY 03/04/15 10/14/22 Memantine HCl [Memantine HCl ER] 7 mg PO DAILY 11/30/19 10/14/22 Albuterol Inhaler [Ventolin Hfa 2 puff INHALATION RT-QID PRN 01/08/20 10/14/22 Inhaler] Montelukast [Singulair] 10 mg PO HS 07/30/20 10/14/22 Ferrous Sulfate [Feosol] 325 mg PO DAILY 01/26/22 10/14/22 Baclofen 10 mg PO BID PRN 09/13/22 10/14/22 Fluticasone Propion/Salmeterol 1 puff INHALATION RT-BID 09/13/22 10/14/22 [Wixela 100-50 Inhub] metFORMIN HCL 1,000 mg PO DAILY 09/13/22 10/14/22 Previous Rx's Medication Instructions Recorded Furosemide [Lasix] 20 mg PO DAILY #30 tab 09/15/22 Losartan [Cozaar] 25 mg PO DAILY #30 tab 09/15/22 oxyCODONE-APAP 10-325MG [Percocet 1 tab PO TID PRN #0 09/15/22 10-325 mg] Lidocaine 5% Patch [Lidoderm 5% 1 patch TOPICAL DAILY PRN #7 patch 11/07/22 Patch] Ibuprofen [Motrin] 400 mg PO Q6HR PRN #20 tab 11/20/22 Lidocaine 5% Patch [Lidoderm 5% 1 patch TOPICAL DAILY PRN #30 patch 11/20/22 Patch] Cephalexin [Keflex] 500 mg PO Q12HR 7 Days #14 cap 11/23/22 Loratadine 10 mg PO DAILY #20 tablet 01/01/23 Ketorolac [Toradol] 10 mg PO Q6HR PRN #15 tab 02/01/23 methocarbamoL [Robaxin-750] 1,500 mg PO QID PRN #30 tab 02/01/23 Fluconazole [Diflucan] 150 mg PO ONCE #4 tab 04/07/23 Metaxalone [Skelaxin] 800 mg PO Q6HR PRN #30 tablet 05/18/23 Allergies Allergy/AdvReac Type Severity Reaction Status Date / Time Corticosteroids Allergy Itching Verified 11/13/23 21:53 (Glucocorticoids) propoxyphene napsylate Allergy Itching Verified 11/13/23 21:53 [From Darvocet-N 100] Review of Systems ROS Statement: Those systems with pertinent positive or pertinent negative responses have been documented in the HPI. ROS Other: All systems not noted in ROS Statement are negative. Past Medical History Past Medical History: COPD, Diabetes Mellitus, Fibromyalgia Additional Past Medical History / Comment(s): chronic neck and back pain 1996 affected rt knee & rt ankle, hypotension, multiple falls History of Any Multi-Drug Resistant Organisms: None Reported Past Surgical History: Appendectomy, Cholecystectomy, Orthopedic Surgery, Tonsillectomy Additional Past Surgical History / Comment(s): Total Bilateral Knee, Right Ankle. Lt Shoulder surgery. Egd/Colonoscopy 12/10/13. verticalflex in back, Past Anesthesia/Blood Transfusion Reactions: No Reported Reaction Additional Past Anesthesia/Blood Transfusion Reaction / Comment(s): pt states received 5-6 units blood @ [facility] recently Past Psychological History: No Psychological Hx Reported Smoking Status: Current every day smoker Past Alcohol Use History: None Reported Past Drug Use History: None Reported - Past Family History Mother History Unknown: Yes Family Medical History: Coronary Artery Disease (CAD) General Exam Limitations: no limitations General appearance: alert, in no apparent distress Eye exam: Present: normal appearance Neck exam: Present: normal inspection Respiratory exam: Present: normal lung sounds bilaterally Cardiovascular Exam: Present: regular rate GI/Abdominal exam: Present: soft Extremities exam: Present: normal inspection, other (Tenderness to palpation over bilateral shoulders.) Back exam: Present: normal inspection, other (Does have some midline spinal tenderness to palpation.) Neurological exam: Present: alert, oriented X3 Skin exam: Present: warm, dry Course Vital Signs 11/13/23 21:48 Temperature 97.4 F L Pulse Rate 95 Respiratory 18 Rate Blood Pressure 127/74 O2 Sat by Pulse 98 Oximetry Medical Decision Making - Medical Decision Making Was pt. sent in by a medical professional or institution (, PA, CONTINUITY MANAGER, urgent care, hospital, or assisted...) When possible be specific @ -No Did you speak to anyone other than the patient for history (EMS, parent, family, police, friend...)? What history was obtained from this source @ -No Did you review nursing and triage notes (agree or disagree)? Why? @ -I reviewed and agree with nursing and triage notes Were old charts reviewed (outside hosp., previous admission, EMS record, old EKG, old radiological studies, urgent care reports/EKG's, assisted records)? Report findings @ -Reviewed MAPs. For further details please HPI. Differential Diagnosis (chest pain, altered mental status, abdominal pain women, abdominal pain men, vaginal bleeding, weakness, fever, dyspnea, syncope, headache, dizziness, GI bleed, back pain, seizure, CVA, palpatations, mental health, musculoskeletal)? @ -Differential Musculoskeletal Muscular strain, contusion, ligament sprain, fracture, arthritis, septic arthritis, bursitis, cellulitis, muscle spasm, nerve compression, DVT, arterial occlusion, herpes zoster, electrolyte abnormality, tumor.... This is not meant to be in all inclusive list EKG interpreted by me (3pts min.). @ -None X-rays interpreted by me (1pt min.). @ -None done CT interpreted by me (1pt min.). @ -None done U/S interpreted by me (1pt. min.). @ -None done What testing was considered but not performed or refused? (CT, X-rays, U/S, labs)? Why? @ -None What meds were considered but not given or refused? Why? @ -None Did you discuss the management of the patient with other professionals (professionals i.e. , PA, CONTINUITY MANAGER, lab, RT, psych nurse, social service worker, grey tender, teacher, school services officer, binder caser)? Give summary @ -No Was smoking cessation discussed for >3mins.? @ -No Was critical care preformed (if so, how long)? @ -No Were there social determinants of health that impacted care today? How? (H omelessness, low income, unemployed, alcoholism, drug addiction, transportation, low edu. Level, literacy, decrease access to med. care, group home, rehab)? @ -No Was there de-escalation of care discussed even if they declined (Discuss DNR or withdrawal of care, Hospice)? DNR status @ -No What co-morbidities impacted this encounter? (DM, HTN, Smoking, COPD, CAD, Cancer, CVA, ARF, Chemo, Hep., AIDS, mental health diagnosis, sleep apnea, morbid obesity)? @ -None Was patient admitted / discharged? Hospital course, mention meds given and route, prescriptions, significant lab abnormalities, going to OR and other pertinent info. @ -Discharge 83-year-old female presented to the ED with complaints of neck and shoulder pain which is chronic in nature. Denies any recent trauma or injury. States that she has run out of her pain medications and is due to fill out a new 1 tomorrow. Review of maps shows patient is prescribed oxycodone acetaminophen 03/31/2025 on a monthly basis for quantity of 150. Her last prescription was filled on 10/15/2023. Patient provided analgesia here in the ED and discharged home in stable condition with instructions to follow-up with pain management and orthopedics as scheduled. Undiagnosed new problem with uncertain prognosis? @ -No Drug Therapy requiring intensive monitoring for toxicity (Heparin, Nitro, Insulin, Cardizem)? @ -No Were any procedures done? @ -No Diagnosis/symptom? @ -Neck pain/shoulder pain, chronic Acute, or Chronic, or Acute on Chronic? @ -Acute on chronic Uncomplicated (without systemic symptoms) or Complicated (systemic symptoms)? @ -Uncomplicated Side effects of treatment? @ -No Exacerbation, Progression, or Severe Exacerbation? @ -No Poses a threat to life or bodily function? How? (Chest pain, [place], [place], pneumonia, PE, COPD, DKA, ARF, appy, cholecystitis, CVA, Diverticulitis, Homicidal, Suicidal, threat to staff... and all critical care pts) @ -No Disposition Clinical Impression: Neck pain, Shoulder pain Disposition: HOME SELF-CARE Condition: Good Additional Instructions: Please return to the Emergency Department if symptoms worsen or any other concerns. Please follow-up with pain management and orthopedics as scheduled. Is patient prescribed a controlled substance at d/c from ED?: No Referrals: Jasper Holder MD [Primary Care Provider] - 1-2 days Time of Disposition: 23:26
[2023-11-13] MEDS: HYDROmorphone 1 MG/ML 1 ML SYRINGE IM STA (23:43)
[2023-11-13] MEDS: KETOROLAC 15 MG/ML 1 ML VIAL IM STA (23:44)
[2023-11-14 00:08] VITALS: BP 146/81; PULSE 84; RESP 16
== END 2023-11-14 00:08 | disposition home or self-care (01) ==
LOC: EC 21:42
DX: G89.29 Other chronic pain (principal); M54.2 Cervicalgia; M25.511 Pain in right shoulder; M25.512 Pain in left shoulder; F17.200 Nicotine dependence, unspecified, uncomplicated; Z88.5 Allergy status to narcotic agent; Z88.8 Allergy status to other drugs, medicaments and biological substances
CPT/HCPCS: 99283; 96372 ×2; J1170; J1885

== ENCOUNTER 2023-12-07 18:50 | Emergency (ER) | payer MEDICARE ==
--- NOTE | 2023-12-07 19:33 | ED ---
General Adult HPI - General Stated complaint: Fall/Neck Pain Time Seen by Provider: 12/07/23 19:25 - History of Present Illness Initial comments: 83-year-old female presents to the ED with a chief complaint of fall. Patient states that she was mopping when she lost her balance and fell onto her right side. Denies head injury at this time. Denies blood thinner use. Now notes pain of her neck, right shoulder, hip, knee and lower leg. No preceding chest pain, shortness of breath, dizziness prior to the fall. No other complaints. - Related Data Home Medications Medication Instructions Recorded Confirmed Omeprazole [PriLOSEC] 20 mg PO DAILY 03/04/15 10/14/22 Memantine HCl [Memantine HCl ER] 7 mg PO DAILY 11/30/19 10/14/22 Albuterol Inhaler [Ventolin Hfa 2 puff INHALATION RT-QID PRN 01/08/20 10/14/22 Inhaler] Montelukast [Singulair] 10 mg PO HS 07/30/20 10/14/22 Ferrous Sulfate [Feosol] 325 mg PO DAILY 01/26/22 10/14/22 Baclofen 10 mg PO BID PRN 09/13/22 10/14/22 Fluticasone Propion/Salmeterol 1 puff INHALATION RT-BID 09/13/22 10/14/22 [Wixela 100-50 Inhub] metFORMIN HCL 1,000 mg PO DAILY 09/13/22 10/14/22 Previous Rx's Medication Instructions Recorded Furosemide [Lasix] 20 mg PO DAILY #30 tab 09/15/22 Losartan [Cozaar] 25 mg PO DAILY #30 tab 09/15/22 oxyCODONE-APAP 10-325MG [Percocet 1 tab PO TID PRN #0 09/15/22 10-325 mg] Lidocaine 5% Patch [Lidoderm 5% 1 patch TOPICAL DAILY PRN #7 patch 11/07/22 Patch] Ibuprofen [Motrin] 400 mg PO Q6HR PRN #20 tab 11/20/22 Lidocaine 5% Patch [Lidoderm 5% 1 patch TOPICAL DAILY PRN #30 patch 11/20/22 Patch] Cephalexin [Keflex] 500 mg PO Q12HR 7 Days #14 cap 11/23/22 Loratadine 10 mg PO DAILY #20 tablet 01/01/23 Ketorolac [Toradol] 10 mg PO Q6HR PRN #15 tab 02/01/23 methocarbamoL [Robaxin-750] 1,500 mg PO QID PRN #30 tab 02/01/23 Fluconazole [Diflucan] 150 mg PO ONCE #4 tab 04/07/23 Metaxalone [Skelaxin] 800 mg PO Q6HR PRN #30 tablet 05/18/23 Allergies Allergy/AdvReac Type Severity Reaction Status Date / Time Corticosteroids Allergy Itching Verified 12/07/23 19:43 (Glucocorticoids) propoxyphene napsylate Allergy Itching Verified 12/07/23 19:43 [From Darvocet-N 100] Review of Systems ROS Statement: Those systems with pertinent positive or pertinent negative responses have been documented in the HPI. ROS Other: All systems not noted in ROS Statement are negative. Past Medical History Past Medical History: COPD, Diabetes Mellitus, Fibromyalgia Additional Past Medical History / Comment(s): chronic neck and back pain 1996 affected rt knee & rt ankle, hypotension, multiple falls History of Any Multi-Drug Resistant Organisms: None Reported Past Surgical History: Appendectomy, Cholecystectomy, Orthopedic Surgery, Tonsi llectomy Additional Past Surgical History / Comment(s): Total Bilateral Knee, Right Ankle. Lt Shoulder surgery. Egd/Colonoscopy 12/10/13. verticalflex in back, Past Anesthesia/Blood Transfusion Reactions: No Reported Reaction Additional Past Anesthesia/Blood Transfusion Reaction / Comment(s): pt states received 5-6 units blood @ [facility] recently Past Psychological History: No Psychological Hx Reported Smoking Status: Current every day smoker Past Alcohol Use History: None Reported Past Drug Use History: None Reported - Past Family History Mother History Unknown: Yes Family Medical History: Coronary Artery Disease (CAD) General Exam - General Exam Comments Initial Comments: Visual Physical Exam Vital signs reviewed General: Well-appearing, nontoxic, no acute distress. Head: Normocephalic, atraumatic Eyes: PERRLA, EOMI ENT: Airway patent Chest: Nonlabored breathing Skin: No visual rash, normal skin tone Neuro: Alert and oriented 3 Musculoskeletal: No gross abnormalities General appearance: alert, in no apparent distress Head exam: Present: atraumatic, normocephalic, other (No menard signs or raccoon's eyes) Eye exam: Present: normal appearance, PERRL, EOMI Neck exam: Present: normal inspection Respiratory exam: Present: normal lung sounds bilaterally GI/Abdominal exam: Present: soft, normal bowel sounds. Absent: distended, tenderness, guarding, rebound, rigid Extremities exam: Present: other (Right pelvis and right proximal tib-fib tenderness to palpation. Upon palpation of bilateral upper lower extremities there is no crepitus, step-off, obvious deformity. Full passive range of motion. Radial pulses, DP/PT pulses intact bilaterally.) Back exam: Present: other (No significant midline spinal tenderness to palpation.) Neurological exam: Present: alert, oriented X3 Skin exam: Present: warm, dry Course Vital Signs 12/07/23 19:32 Temperature 98.2 F Pulse Rate 80 Respiratory 22 Rate Blood Pressure 136/68 O2 Sat by Pulse 97 Oximetry Medical Decision Making - Medical Decision Making Was pt. sent in by a medical professional or institution (, PA, PREPLEATER, urgent care, hospital, or [facility]...) When possible be specific @ -No Did you speak to anyone other than the patient for history (EMS, parent, family, police, friend...)? What history was obtained from this source @ -No Did you review nursing and triage notes (agree or disagree)? Why? @ -I reviewed and agree with nursing and triage notes Were old charts reviewed (outside hosp., previous admission, EMS record, old EKG, old radiological studies, urgent care reports/EKG's, [facility] records)? Report findings @ -No old charts were reviewed Differential Diagnosis (chest pain, altered mental status, abdominal pain women, abdominal pain men, vaginal bleeding, weakness, fever, dyspnea, syncope, headache, dizziness, GI bleed, back pain, seizure, CVA, palpatations, mental health, musculoskeletal)? @ -Differential Musculoskeletal Muscular strain, contusion, ligament sprain, fracture, arthritis, septic arthritis, bursitis, cellulitis, muscle spasm, nerve compression, DVT, arterial occlusion, herpes zoster, electrolyte abnormality, tumor.... This is not meant to be in all inclusive list EKG interpreted by me (3pts min.). @ -As above X-rays interpreted by me (1pt min.). @ -X-ray of the right ankle, tib-fib, knee, pelvis, chest x-ray, cervical x- ray, shoulder x-ray interpreted by me revealing no evidence of acute finding. CT interpreted by me (1pt min.). @ -None done U/S interpreted by me (1pt. min.). @ -None done What testing was considered but not performed or refused? (CT, X-rays, U/S, labs)? Why? @ -None What meds were considered but not given or refused? Why? @ -None Did you discuss the management of the patient with other professionals (professionals i.e. , PA, PREPLEATER, lab, RT, psych nurse, social service assistant, furnace door tender, teacher, privacy officer, case folder)? Give summary @ -No Was smoking cessation discussed for >3mins.? @ -No Was critical care preformed (if so, how long)? @ -No Were there social determinants of health that impacted care today? How? (Homelessness, low income, unemployed, alcoholism, drug addiction, transportation, low edu. Level, literacy, decrease access to med. care, fdc, rehab)? @ -No Was there de-escalation of care discussed even if they declined (Discuss DNR or withdrawal of care, Hospice)? DNR status @ -No What co-morbidities impacted this encounter? (DM, HTN, Smoking, COPD, CAD, Canc er, CVA, ARF, Chemo, Hep., AIDS, mental health diagnosis, sleep apnea, morbid obesity)? @ -None Was patient admitted / discharged? Hospital course, mention meds given and route, prescriptions, significant lab abnormalities, going to OR and other pertinent info. @ -Discharge 83-year-old female presenting to the ED with complaints of fall onto her right side after slipping while mopping. Imaging studies were performed and reviewed. Images of the right shoulder, right ankle, right tib-fib, right knee, pelvis, chest, and cervical spine revealed no evidence of acute finding. Discharged home in stable condition. Advise close follow-up with her PCP. Discussed return precautions with patient who verbalized agreement. Undiagnosed new problem with uncertain prognosis? @ -No Drug Therapy requiring intensive monitoring for toxicity (Heparin, Nitro, Insulin, Cardizem)? @ -No Were any procedures done? @ -No Diagnosis/symptom? @ -Status post fall Acute, or Chronic, or Acute on Chronic? @ -Acute Uncomplicated (without systemic symptoms) or Complicated (systemic symptoms)? @ -Uncomplicated Side effects of treatment? @ -No Exacerbation, Progression, or Severe Exacerbation? @ -No Poses a threat to life or bodily function? How? (Chest pain, [place], [place], pneumonia, PE, COPD, DKA, ARF, appy, cholecystitis, CVA, Diverticulitis, Homicidal, Suicidal, threat to staff... and all critical care pts) @ -No Disposition Clinical Impression: Fall Disposition: HOME SELF-CARE Condition: Good Instructions (If sedation given, give patient instructions): Fall Prevention for Older Adults (ED) Additional Instructions: Please return to the Emergency Department if symptoms worsen or any other concerns. Please follow-up with your primary care provider. Is patient prescribed a controlled substance at d/c from ED?: No Referrals: Placido Holder DO [Primary Care Provider] - 1-2 days Time of Disposition: 20:59
[2023-12-07 19:43] VITALS: TEMP 98.2
--- NOTE | 2023-12-07 20:09 | XR ---
EXAMINATION TYPE: XR chest 2V DATE OF EXAM: 12/07/2023 COMPARISON: 10/26/2023 HISTORY: Fall TECHNIQUE: Frontal and lateral views of the chest are obtained. FINDINGS: There is no focal air space opacity, pleural effusion, or pneumothorax seen. The cardiac silhouette size is within normal limits. The osseous structures are intact. IMPRESSION: No acute cardiopulmonary process.
--- NOTE | 2023-12-07 20:30 | XR ---
Right shoulder. HISTORY: Pain following fall. COMPARISON: 10/14/2022. TECHNIQUE: 3 views of the right shoulder were obtained. FINDINGS: There is marked joint space narrowing, subchondral sclerosis and deformity of the glenoid consistent with marked osteoarthritis. There is been moderate interval progression compared to the prior study. There is no acute fracture or dislocation. IMPRESSION: 1. No acute trauma. 2. 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
--- NOTE | 2023-12-07 20:32 | XR ---
Cervical spine HISTORY: Trauma. COMPARISON: 07/26/2022. TECHNIQUE: 6 views of the cervical spine were obtained. FINDINGS: The craniovertebral junction relationships and prevertebral soft tissues are normal. The cervical vertebral segments are normal in height and alignment and there is no fracture or sublux ation. There is mild disc space narrowing throughout the cervical region. There is advanced degeneration of the uncovertebral joints and facet joints resulting in moderate bon y neuroforaminal encroachment at the C2-3, C3-4 and C4-5 levels on the left but no significant encroa chment on the right. IMPRESSION: 1. Advanced degenerative changes in cervical spine. 2. No acute trauma
--- NOTE | 2023-12-07 20:33 | XR ---
Pelvis. HISTORY: Pain following fall. COMPARISON: None. TECHNIQUE: AP view the pelvis is obtained. FINDINGS: There is no fracture or focal intraosseous abnormality of the pelvis. The SI joints pubic symphysis are unremarkable. There is mild degeneration of the hips bilaterally but no hip fracture or dislocation. IMPRESSION: No evidence of acute pelvic trauma
--- NOTE | 2023-12-07 20:35 | XR ---
Right knee. HISTORY: Pain following fall. COMPARISON: 03/02/2022. TECHNIQUE: 4 views of the right knee were obtained. There is a right knee prosthesis in anatomic alignment. There is no acute fracture or dislocation. Th ere is no joint effusion. There is no osteolysis. IMPRESSION: 1. Total right knee prosthesis. 2. No acute trauma
--- NOTE | 2023-12-07 20:36 | XR ---
Right tibia and fibula. HISTORY: Trauma. COMPARISON: 03/27/2015 TECHNIQUE: 2 views of the right tibia and fibula were obtained. FINDINGS: There is a right knee prosthesis in anatomic alignment. There is no acute fracture or focal intraosse ous abnormality of the right tibia and fibula. IMPRESSION: No significant abnormality of the right tibia and fibula.
--- NOTE | 2023-12-07 20:38 | XR ---
Right ankle HISTORY: Fall. COMPARISON: 04/06/2015. TECHNIQUE: 3 views of right ankle were obtained. FINDINGS: There is mild osteopenia. There is no acute fracture or dislocation. There are moderate osteoarthritic changes of the talotibial navicular joint and mild osteoarthritic c hanges of the tibiotalar joint. There is a small plantar calcaneal spur.. IMPRESSION: 1. No acute trauma. 2. Degenerative changes as described above.
[2023-12-07] MEDS: KETOROLAC 15 MG/ML 1 ML VIAL IM STA (20:48)
[2023-12-07] MEDS: HYDROmorphone 1 MG/ML 1 ML SYRINGE IM STA (20:50)
[2023-12-07] MEDS: ACETAMINOPHEN TAB 500 MG TAB PO STA (20:51)
[2023-12-07 21:43] VITALS: BP 117/67; PULSE 84; RESP 16
== END 2023-12-07 22:20 | disposition home or self-care (01) ==
LOC: EC 18:50
DX: M47.812 Spondylosis without myelopathy or radiculopathy, cervical region (principal); F17.200 Nicotine dependence, unspecified, uncomplicated; Z88.8 Allergy status to other drugs, medicaments and biological substances; W18.30XA Fall on same level, unspecified, initial encounter
CPT/HCPCS: 72050; 72170; 73030; 73590; 73564; 73610; 71046; 99284; 96372 ×2; J1170; J1885

== ENCOUNTER 2024-01-02 13:59 | Emergency (ER) | payer MEDICARE ==
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
[2024-01-02 17:26] LABS: Anisocytosis Slight; Basophils % (A) 0 %; Eosinophils # (A) 0.1 k/uL (0-0.7); Eosinophils % (A) 1 %; HGB 12.2 gm/dL (11.4-16.0); Hypochromasia Moderate; Lymphocytes # (A) 1.4 k/uL (1.0-4.8); Lymphocytes % (A) 14 %; MCH 23.5 pg (25.0-35.0); MCHC 29.8 g/dL (31.0-37.0); Mean Platelet Volume 7.2; Microcytosis Slight; Monocytes # (A) 0.6 k/uL (0-1.0); Monocytes % (A) 6 %; Neutrophils # (A) 7.6 k/uL (1.3-7.7); Neutrophils % (A) 77 %; Platelet Count 270 k/uL (150-450); RBC 5.19 m/uL (3.80-5.40); WBC 9.8 k/uL (3.8-10.6)
[2024-01-02 17:34] LABS: INR 0.9 (<1.2); Partial Thromboplastin Time 22.2 sec (22.0-30.0); Prothrombin Time 9.8 sec (10.0-12.5)
[2024-01-02 17:37] LABS: Appearance,Urine Clear (Clear); Bilirubin,Urine Negative (Negative); Blood,Urine Moderate (Negative); Color,Urine Colorless; Glucose,Urine (UA) Negative (Negative); Hyaline Casts,Urine 4 /lpf (0-2); Ketones,Urine Negative (Negative); Leukocyte Esterase,Urine Small (Negative); Mucus,Urine Rare /hpf; Nitrite,Urine Negative (Negative); Protein,Urine Negative (Negative); RBC,Urine 32 /hpf (0-5); Squamous Epithelial Cell,Urine 8 /hpf (0-4); Urobilinogen,Urine <2.0 mg/dL (<2.0); WBC,Urine 6 /hpf (0-5)
[2024-01-02 17:51] LABS: ALT 29 U/L (4-34); AST 38 U/L (14-36); African American GFR (CKD) >90 (>60 ml/min/1.73 sqM); Alkaline Phosphatase 57 U/L (38-126); Anion Gap 7 mmol/L; Blood Urea Nitrogen 24 mg/dL (7-17); Calcium 9.1 mg/dL (8.4-10.2); Carbon Dioxide 32 mmol/L (22-30); Chloride 105 mmol/L (98-107); Glucose 92 mg/dL (74-99); Non-African American GFR(CKD) 79 (>60 ml/min/1.73 sqM); Potassium 3.2 mmol/L (3.5-5.1); Sodium 144 mmol/L (137-145); Total Bilirubin 0.3 mg/dL (0.2-1.3); Total Protein 7.1 g/dL (6.3-8.2)
[2024-01-02 17:57] LABS: NT-Pro-B-Type Natriuretic Pept 337 pg/mL
--- NOTE | 2024-01-02 18:26 | XR ---
EXAMINATION TYPE: XR chest 2V DATE OF EXAM: 01/02/2024 6:04 PM CLINICAL INDICATION:Female, 83 years old with history of Weakness; [facility] COMPARISON: Chest radiographs from 12/07/2023 TECHNIQUE: XR chest 2V Frontal view of the chest. FINDINGS: Lungs/Pleura: There is no evidence of pleural effusion, focal consolidation, or pneumothorax. Pulmonary vascularity: Pulmonary vascular congestion. Heart/mediastinum: Cardiomediastinal silhouette is enlarged and stable. Atherosclerotic calcificatio ns are seen in the aorta. Musculoskeletal: No acute osseous pathology. IMPRESSION: Cardiomegaly and mild pulmonary vascular congestion. Correlate with BNP for congestive heart failure.
[2024-01-02 19:16] VITALS: BP 120/70; PULSE 70
[2024-01-02] MEDS: POTASSIUM CHLORIDE ER 20 MEQ TAB.ER PO STA (19:17)
[2024-01-02] MEDS: FUROSEMIDE 10 MG/ML 4 ML VIAL IV STA (19:17)
[2024-01-02 19:25] VITALS: TEMP 98.7
[2024-01-02 19:26] VITALS: RESP 20
== END 2024-01-02 19:31 | disposition home or self-care (01) ==
LOC: EC 13:59
DX: R60.0 Localized edema (principal); I49.1 Atrial premature depolarization; F17.200 Nicotine dependence, unspecified, uncomplicated
CPT/HCPCS: 99283 ×2; 96374 ×2; 36415; 93005; 83880; 80053; 83735; 84484; 85025; 85610; 85730; 81001; 71046; J1940

== ENCOUNTER 2024-02-01 13:40 | Emergency (ER) | payer MEDICARE ==
[2024-02-01] MEDS ORDERED: MORPHINE SULFATE 4 MG/ML SYRINGE ONE (15:53)
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
== END 2024-02-01 16:01 | disposition home or self-care (01) ==
LOC: EC 13:40
CPT/HCPCS: 96372; 99283

== ENCOUNTER 2024-03-15 19:56 | Emergency (ER) | payer MEDICARE ==
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
[2024-03-15 21:32] LABS: Appearance,Urine Cloudy (Clear); Bacteria,Urine Rare /hpf; Bilirubin,Urine Negative (Negative); Blood,Urine Small (Negative); Color,Urine Yellow; Glucose,Urine (UA) Negative (Negative); Ketones,Urine Negative (Negative); Leukocyte Esterase,Urine Large (Negative); Mucus,Urine Rare /hpf; Nitrite,Urine Negative (Negative); PH, Urine 6.5 (5.0-8.0); Protein,Urine Trace (Negative); RBC,Urine 17 /hpf (0-5); Specific Gravity,Urine 1.011 (1.001-1.035); Squamous Epithelial Cell,Urine 11 /hpf (0-4); Urobilinogen,Urine <2.0 mg/dL (<2.0); WBC,Urine 163 /hpf (0-5)
[2024-03-15] MEDS: cefTRIAXone 1,000 MG VIAL (IM USE) IM STA (22:16)
[2024-03-15 22:45] VITALS: BP 97/67; PULSE 90; RESP 16; TEMP 98.5
== END 2024-03-15 22:48 | disposition home or self-care (01) ==
LOC: EC 19:56
CPT/HCPCS: 51798; 81001; 87086; 96372; 99283

== ENCOUNTER 2024-03-25 20:02 | Emergency (ER) | payer MEDICARE ==
[2024-03-25 20:32] VITALS: BP 130/66; PULSE 105; RESP 20; TEMP 97.9
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
[2024-03-25] MEDS: KETOROLAC 15 MG/ML 1 ML VIAL IM STA (21:10)
[2024-03-25] MEDS: MORPHINE SULFATE 4 MG/ML SYRINGE IM STA (21:11)
== END 2024-03-25 22:01 | disposition home or self-care (01) ==
LOC: EC 20:02
CPT/HCPCS: 96372; 99283

== ENCOUNTER → 2024-04-13 | Outpatient (CLI) | payer MEDICARE ==
--- NOTE | 2024-04-13 18:29 | XR ---
EXAMINATION TYPE: XR lumbar spine 2 or 3V DATE OF EXAM: 04/13/2024 5:38 PM CLINICAL INDICATION: Female, 83 years old with history of SACRAL PAIN; [facility] COMPARISON: None 11/07/2022 TECHNIQUE: XR lumbar spine 2 or 3V - Frontal, lateral and coned in L5-S1 lateral views of the spine. FINDINGS: No evidence of any acute osseous pathology. No evidence of loss of vertebral body height i s seen. There is normal alignment of the lumbar vertebral bodies. Scattered disc space narrowing. Mul tilevel marginal osteophyte formation throughout the visualized spine. There is facet joint arthropat hy throughout the spine. Scattered at least mild neural foraminal stenosis. Fixation device at the sp inous process of L5 appears intact. Surgical clips throughout the upper abdomen. IMPRESSION: 1. No acute fracture. 2. Moderate multilevel disc degeneration. [facility], , 04/13/2024 6:27 PM
--- NOTE | 2024-04-13 18:34 | XR ---
EXAMINATION TYPE: XR sacroiliac joint comp BILAT DATE OF EXAM: 04/13/2024 5:38 PM CLINICAL INDICATION: Female, 83 years old with history of SACRAL PAIN M53.3; [facility] COMPARISON: None TECHNIQUE: The sacroiliac joints were examined in a frontal and lateral and oblique projections. FINDINGS: There is no evidence of fracture or dislocation. There is no soft tissue abnormality. No a bnormal calcifications are present. Multilevel degenerative changes of the lower spine. Fixation hard turner in the L5 spinous process region. Mild degeneration changes of the hips with osteophyte formatio n. IMPRESSION: No acute osseous pathology. [facility], , 04/13/2024 6:32 PM
== END | disposition home or self-care (01) ==
LOC: RADXRMAIN 16:48
PROVIDERS: ATTEND Internal Medicine
CPT/HCPCS: 72100; 72202

== ENCOUNTER → 2024-04-26 | Outpatient (CLI) | payer MEDICARE ==
--- NOTE | 2024-04-26 13:20 | US ---
EXAMINATION TYPE: US kidneys/renal and bladder DATE OF EXAM: 04/26/2024 COMPARISON: CT 2022, US 2015 CLINICAL INDICATION: Female, 83 years old with history of DYSURIA R300; TECHNIQUE: Grayscale and color Doppler imaging of the bilateral kidneys and urinary bladder: FINDINGS: EXAM MEASUREMENTS: Right Kidney: 10.3 x 4.6 x 5.3 cm Left Kidney: 10.7 x 3.9 x 5.2 cm Right Kidney: visualized portions wnl, inferior pole limited by overlying bowel gas Left Kidney: 1.6cm cyst lateral inferior pole Bladder: not fully distended There is no evidence for hydronephrosis at this point in time. Corticomedullary differentiation is m aintained bilaterally. No nephrolithiasis is seen. Simple left lateral inferior pole 1.6 cm cyst. No solid masses are identified. The urinary bladder is underdistended and anechoic. IMPRESSION: 1. No hydronephrosis or nephrolithiasis. 2. Simple left renal cyst. [facility], , 04/26/2024 1:17 PM
--- NOTE | 2024-04-26 17:41 | BD ---
EXAMINATION TYPE: Axial Bone Density DATE OF EXAM: 04/26/2024 CLINICAL HISTORY: 83 years old Female. ICD-10 CODE: Z78.0 ASYMP GRACY STATE , Z78.0 Height: Weight: FRAX RISK QUESTIONS: Alcohol (3 or more units per day): No Family History (Parent hip fracture): No Glucocorticoids (More than 3mos): No (Ex: prednisone, prednisolone, methylprednisolone, dexamethasone, and hydrocortisone). History of Fracture in Adulthood: No Secondary Osteoporosis: 1. Type 1 Diabetes: No 2. Hyperthyroidism: No 3. Menopause before 45: Unknown 4. Malnutrition: No 5. Chronic liver disease: No Rheumatoid Arthritis: No Current Tobacco Use: Yes RISK FACTORS HISTORY OF: Hip Fracture (Right/Left): No Spine Fracture: No Patient states no surgery on lumbar spine but there was an L4 artifact that was no t on her clothing, did not analyze her lumbar. Patient was poor historian about her health history. History of Wrist Fracture: No Surgery to Spine/Hip(right/left)/Wrist (right/left): No MEDICATIONS: Thyroid Medications: No Osteoporosis Medications: No EXAM MEASUREMENTS: Bone mineral densitometry was performed using the [employer] System. Bone mineral density as measured about the Lumbar spine is: Not submitting lumbar scan, there was an L4 artifact that was not on her clothing, did not analyze he r lumbar. Patient was poor historian about her health history. Bone mineral density about the R hip (g/cm2): 0.851 Bone mineral density about the L hip (g/cm2): 0.834 T Score values are as follows: -----R Neck: -2.0 -----L Neck: -2.4 -----R Total: -1.2 -----L Total: -1.4 Z Score values are as follows: -----R Neck: -1.0 -----L Neck: -1.4 -----R Total: -0.5 -----L Total: -0.7 Bone mineral density has: decreased -11.1% since study of: 08/20/2016 Bone mineral density about the L Wrist (g/cm2): 0.587 T Score values are as follows: -----Dist. R+U: -1.4 -----Prox. R+U: -1.6 -----Radius total: -1.4 Z Score values are as follows: -----Dist. R+U: 0.9 -----Prox. R+U: 0.7 -----Radius total: 0.7 Baseline Wrist @MPH FRAX%s: The graph provided illustrates a 8.6% chance for a major osteoporotic fx and a 4.1% chance fo r the hips probability for fx in 10 years time. IMPRESSION: Osteopenia (T Score between -2.5 and -1). There is slightly increased risk of fracture and the patient may be considered for treatment. Re-Screen 2-5 years. NOTE: T-SCORE=SD OF THE YOUNG ADULT MEAN. [facility], , 04/26/2024 5:39 PM
--- NOTE | 2024-04-27 12:44 | MM ---
Reason for Exam: Screening (asymptomatic). Last mammogram was performed 4 year(s) and 10 month(s) ago. Patient History: Menarche at age 10. First Full-Term at age 20. Postmenopausal. Estrogen, starting at age 58 for 11 years. Progesterone, starting at age 58 for 11 years. Sister had breast cancer, age 53. Risk Values: Michaela 5 year model risk: 3.2%. NCI Lifetime model risk: 4.3%. Prior Study Comparison: 08/20/2016 Bilateral Screening Mammogram, [facility]. 10/12/2017 Bilateral Screening Mammogram, [facility]. 06/02/2019 Bilateral Screening Mammogram, [facility]. Tissue Density: There are scattered areas of fibroglandular density. Findings: Analyzed By CAD. Chronic nodularity on both sides. There is no suspicious group of microcalcifications or new suspicious mass in either breast. Overall Assessment: Benign, BI-RAD 2 Management: Screening Mammogram of both breasts in 1 year. See note below in regards to patient's increased 5 year Michaela score. Patient should continue monthly self-breast exams. A clinical breast exam by your physician is recommended on an annual basis. This exam should not preclude additional follow-up of suspicious palpable abnormalities. Note on Michaela scores and lifetime risk: 1. A Michaela score greater than 3% is considered moderate risk. If this is the case, consider specialist referral to assess eligibility for a risk reducing agent. 2. If overall lifetime risk for the development of breast cancer is 20% or higher, the patient may qualify for future screening with alternating mammogram and breast MRI. [facility], , 04/27/2024 12:40 PM. Electronically signed and approved by: Gage Smith M.D. Radiologist
== END | disposition home or self-care (01) ==
LOC: RADUSWWP 12:42
PROVIDERS: ATTEND Internal Medicine
CPT/HCPCS: 76770; 77063; 77067; 77080

== ENCOUNTER → 2024-04-27 | Outpatient (CLI) | payer MEDICARE ==
--- NOTE | 2024-04-27 08:47 | US ---
EXAMINATION TYPE: US venous doppler duplex LE BI DATE OF EXAM: 04/27/2024 8:17 AM COMPARISON: NONE CLINICAL INDICATION: Female, 83 years old with history of R60.0 LOCALIZED EDEMA; edema, Pain, Swellin g TECHNIQUE: The lower extremity deep venous system is examined utilizing real time linear array sonog scott with graded compression, color doppler sonography, and spectral doppler. SIDE PERFORMED: bilateral FINDINGS: VESSELS IMAGED: Common Femoral Vein Deep Femoral Vein Greater Saphenous Vein * Femoral Vein Popliteal Vein Small Saphenous Vein * Proximal Calf Veins (* superficial vessels) Right Leg: No evidence for DVT Left Leg: No evidence for DVT IMPRESSION: No ultrasound evidence for deep venous thrombosis. [facility], , 04/27/2024 8:45 AM
== END | disposition home or self-care (01) ==
LOC: RADUSWWP 07:47
PROVIDERS: ATTEND Internal Medicine
DX: R60.0 Localized edema (principal)
CPT/HCPCS: 93970

== ENCOUNTER 2024-05-18 19:11 | Observation (INO) | payer MEDICARE ==
[2024-05-18 21:04] LABS: Anisocytosis Slight; Basophils % (A) 0 %; Eosinophils # (A) 0.1 k/uL (0-0.7); Eosinophils % (A) 1 %; HCT 39.8 % (34.0-46.0); HGB 12.2 gm/dL (11.4-16.0); Hypochromasia Marked; Lymphocytes # (A) 1.2 k/uL (1.0-4.8); Lymphocytes % (A) 11 %; MCH 23.4 pg (25.0-35.0); MCHC 30.6 g/dL (31.0-37.0); MCV 76.6 fL (80.0-100.0); Mean Platelet Volume 7.6; Microcytosis Slight; Monocytes # (A) 0.5 k/uL (0-1.0); Monocytes % (A) 4 %; Neutrophils # (A) 9.5 k/uL (1.3-7.7); Neutrophils % (A) 84 %; Platelet Count 308 k/uL (150-450); RDW 17.9 % (11.5-15.5); WBC 11.4 k/uL (3.8-10.6)
--- NOTE | 2024-05-18 21:15 | XR ---
EXAMINATION TYPE: XR chest 2V DATE OF EXAM: 05/18/2024 9:07 PM COMPARISON: Previous chest radiograph dated 01/02/2024. CLINICAL INDICATION: Female, 83 years old with history of difficulty breathing, cough; [facility] TECHNIQUE: XR chest 2V Frontal and lateral views of the chest. FINDINGS: Cardiomegaly and mild pulmonary vascular congestive changes bilaterally. No acute focal consolidation. No sizable pleural effusion. Impression no pneumothorax. No acute osseous abnormality. IMPRESSION: Cardiomegaly and pulmonary vascular congestive changes. [facility], , 05/18/2024 9:13 PM
[2024-05-18 21:26] LABS: ALT 157 U/L (4-34); African American GFR (CKD) >90 (>60 ml/min/1.73 sqM); Anion Gap 6 mmol/L; Blood Urea Nitrogen 26 mg/dL (7-17); Calcium 9.2 mg/dL (8.4-10.2); Carbon Dioxide 27 mmol/L (22-30); Chloride 102 mmol/L (98-107); Glucose 121 mg/dL (74-99); Non-African American GFR(CKD) 82 (>60 ml/min/1.73 sqM); Sodium 135 mmol/L (137-145); Total Bilirubin 0.7 mg/dL (0.2-1.3)
[2024-05-18 21:29] LABS: AST 139 U/L (14-36); Albumin 4.1 g/dL (3.5-5.0); Alkaline Phosphatase 45 U/L (38-126); Magnesium 2.2 mg/dL (1.6-2.3); Potassium 4.7 mmol/L (3.5-5.1); Total Protein 7.4 g/dL (6.3-8.2)
[2024-05-18 21:33] LABS: NT-Pro-B-Type Natriuretic Pept 255 pg/mL
--- NOTE | 2024-05-18 21:52 | US ---
EXAMINATION TYPE: US venous doppler duplex LE LT DATE OF EXAM: 05/18/2024 9:45 PM COMPARISON: 04/27/24 CLINICAL INDICATION: Female, 83 years old with history of LLE edema x 1 week; Left leg swelling 1 wee k. No hx DVT, TECHNIQUE: The lower extremity deep venous system is examined utilizing real time linear array sonog scott with graded compression, color doppler sonography, and spectral doppler. SIDE PERFORMED: Left FINDINGS: VESSELS IMAGED: Common Femoral Vein Deep Femoral Vein Femoral Vein Popliteal Vein Proximal Calf Veins Left Leg: Appears negative for DVT, Color Doppler imaging shows patency of the vessels. Spectral wav eforms are within normal limits. Unable to evaluate distal femoral vein with compression due to patie nt experiencing pain. IMPRESSION: No ultrasound evidence for deep venous thrombosis within the limitations described above. [facility], , 05/18/2024 9:49 PM
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
[2024-05-18 22:08] LABS: Prothrombin Time 10.6 sec (10.0-12.5)
[2024-05-18 22:11] LABS: Partial Thromboplastin Time 21.5 sec (22.0-30.0)
[2024-05-18] MEDS ORDERED: NALOXONE 0.4 MG/ML 1 ML VIAL IV PRN (22:59)
[2024-05-18] MEDS ORDERED: ALBUTEROL NEBULIZED 2.5 MG/3 ML INHALATION PRN (23:01)
[2024-05-18] MEDS: FUROSEMIDE 10 MG/ML 4 ML VIAL IV STA (23:15)
--- NOTE | 2024-05-19 01:21 | P.HPIM ---
History of Present Illness H&P Date: 05/18/24 History of present illness; 83-year-old female with PMH of COPD on home oxygen when going to bed (however patient is unsure of amount of oxygen), diabetes mellitus, osteoarthritis. Presents emergency department due to shortness of breath, cough and left lower extremity edema for the past 7 days. Patient states that her cough and shortness of breath been ongoing since Thursday, this started after she had first noticed her left lower extremity edema. Patient states that she had attempted to go to urgent care where she was given Augmentin, doxycycline and prednisone which did not resolve her symptoms. Patient denies the symptoms worsening when supine, denies hemoptysis, denies any chest pain. She denies fever, chills, dizziness, fatigue, abdominal pain, nausea/vomiting. She denies any history of blood clots. She states that she believes it is likely secondary to having recently been instructed by her PCP to cut her usual Lasix dose in half from 40 mg daily down to 20 mg daily. She states that she has previously had episodes in which the lower extremity edema was similar. When seen at bedside, the patient notes that the edema is already beginning to improve. She has no acute complaints at this time. Labratory review: -WBCs 11.4, hemoglobin 12.2, hematocrit 39.8, platelet 308; D-dimer noncontributory at 0.45; sodium 135, potassium 4.7, BUN 26, creatinine 0.68 -Lactic acid 3.3, AST 139, ALT 157 Imaging: -Chest x-ray done in the ER showed cardiomegaly and pulmonary vascular congestive changes -Venous Doppler ultrasound of the left lower extremity showed no evidence for deep venous thrombosis -EKG done in the ER showed heart rate of 70, sinus rhythm with biphasic P waves; QTc 396 Vitals: -Blood pressure 133/94, heart rate 90, respiratory rate 18, SpO2 98% on room air Patient admitted to internal medicine service REVIEW OF SYSTEMS: CONSTITUTIONAL: No fever, no malaise, no fatigue. HEENT: No recent visual problems or hearing problems. Denied any sore throat. CARDIOVASCULAR: No chest pain, orthopnea, PND, no palpitations, no syncope. PULMONARY:No cough, no hemoptysis. Slight shortness of breath and cough althoug h improving GASTROINTESTINAL: No diarrhea, no nausea, no vomiting, no abdominal pain. NEUROLOGICAL: No headaches, no weakness, no numbness. HEMATOLOGICAL: Denies any bleeding or petechiae. GENITOURINARY: Denies any burning micturition, frequency, or urgency. MUSCULOSKELETAL/RHEUMATOLOGICAL: Denies any joint pain, swelling, or any muscle pain. ENDOCRINE: Denies any polyuria or polydipsia. The rest of the 14-point review of systems is negative. PHYSICAL EXAMINATION: GENERAL: The patient is alert and oriented x3, not in any acute distress. Well developed, well nourished. HEENT: No scleral icterus. No conjunctival pallor. Normocephalic, atraumatic. CARDIOVASCULAR: S1 and S2 present. No murmurs, rubs, or gallops. PULMONARY: Some crackles noted in the lower lung field ABDOMEN: Soft, nontender, nondistended, normoactive bowel sounds. No palpable organomegaly. MUSCULOSKELETAL: No joint swelling or deformity. EXTREMITIES: No cyanosis, clubbing. 1+ pedal edema in the right lower extremity, 2+ pedal edema in the left lower extremity, both of which up to the knee NEUROLOGICAL: Gross neurological examination did not reveal any focal deficits. SKIN: No rashes. Assessment and plan 83-year-old female with PMH of COPD, diabetes mellitus and fibromyalgia. Presents to the emergency department due to worsening shortness of breath, cough and worsening left lower extremity edema for the past week. Discussed with ED patient has been admitted to the internal medicine service for further evaluation. # Fluid overload suspect new onset CHF -Chest x-ray done in the ER showed cardiomegaly and pulmonary vascular congestive changes -Troponin <0.012 -proBNP 255 -D-dimer 0.45 -Patient given 40 mg IV Lasix once. C/w Lasix 40 mg PO bid for now. -Echocardiogram ordered -Had been taking 40 mg Lasix daily at home, recently 20 mg daily -Cardiac monitoring -Supplemental oxygen as needed -Cardiology consulted #COPD on home oxygen while she sleeps (patient unsure of amount) -Resume home medication once verified by pharmacy #Lactic acidosis -Initial lactic acid 3.3 -Repeat lactic acid pending #Transaminitis -Initial AST 139, initial ALT 157 -Monitor CMP #Diabetes mellitus -Patient maintained at home on 1000 mg metformin daily; held while here -Accu-Cheks -Low dose NovoLog #Chronic right shoulder pain secondary to osteoarthritis -Patient's pain controlled at home on Percocet 25583 3 times daily as needed; c ontinue CODE STATUS: Full code GI prohylaxis: Protonix 20 mg daily (from home medication) DVT prophylaxis: Lovenox 40 mg SQ daily Dictation was produced using [employer] dictation software. please excuse any grammatical, word or spelling errors. Past Medical History Past Medical History: COPD, Diabetes Mellitus, Fibromyalgia Additional Past Medical History / Comment(s): chronic neck and back pain 1996 affected rt knee & rt ankle, hypotension, multiple falls History of Any Multi-Drug Resistant Organisms: None Reported Past Surgical History: Appendectomy, Cholecystectomy, Orthopedic Surgery, Tonsillectomy Additional Past Surgical History / Comment(s): Total Bilateral Knee, Right Ankle. Lt Shoulder surgery. Egd/Colonoscopy 12/10/13. verticalflex in back, Past Anesthesia/Blood Transfusion Reactions: No Reported Reaction Additional Past Anesthesia/Blood Transfusion Reaction / Comment(s): pt states received 5-6 units blood @ [facility] recently Past Psychological History: No Psychological Hx Reported Smoking Status: Current every day smoker Past Alcohol Use History: None Reported Past Drug Use History: None Reported - Past Family History Mother History Unknown: Yes Family Medical History: Coronary Artery Disease (CAD) Medications and Allergies Home Medications Medication Instructions Recorded Confirmed Type Omeprazole [PriLOSEC] 20 mg PO DAILY 03/04/15 10/14/22 History Memantine HCl [Memantine HCl ER] 7 mg PO DAILY 11/30/19 10/14/22 History Albuterol Inhaler [Ventolin Hfa 2 puff INHALATION RT-QID PRN 01/08/20 10/14/22 History Inhaler] Montelukast [Singulair] 10 mg PO HS 07/30/20 10/14/22 History Ferrous Sulfate [Feosol] 325 mg PO DAILY 01/26/22 10/14/22 History Baclofen 10 mg PO BID PRN 09/13/22 10/14/22 History Fluticasone Propion/Salmeterol 1 puff INHALATION RT-BID 09/13/22 10/14/22 History [Wixela 100-50 Inhub] metFORMIN HCL 1,000 mg PO DAILY 09/13/22 10/14/22 History Furosemide [Lasix] 20 mg PO DAILY #30 tab 09/15/22 10/14/22 Rx Losartan [Cozaar] 25 mg PO DAILY #30 tab 09/15/22 10/14/22 Rx oxyCODONE-APAP 10-325MG [Percocet 1 tab PO TID PRN #0 09/15/22 10/14/22 Rx 10-325 mg] Lidocaine 5% Patch [Lidoderm 5% 1 patch TOPICAL DAILY PRN #7 patch 11/07/22 Rx Patch] Ibuprofen [Motrin] 400 mg PO Q6HR PRN #20 tab 11/20/22 Rx Lidocaine 5% Patch [Lidoderm 5% 1 patch TOPICAL DAILY PRN #30 patch 11/20/22 Rx Patch] Cephalexin [Keflex] 500 mg PO Q12HR 7 Days #14 cap 11/23/22 Rx Loratadine 10 mg PO DAILY #20 tablet 01/01/23 Rx Ketorolac [Toradol] 10 mg PO Q6HR PRN #15 tab 02/01/23 Rx methocarbamoL [Robaxin-750] 1,500 mg PO QID PRN #30 tab 02/01/23 Rx Fluconazole [Diflucan] 150 mg PO ONCE #4 tab 04/07/23 Rx Metaxalone [Skelaxin] 800 mg PO Q6HR PRN #30 tablet 05/18/23 Rx Amoxic-Pot Clav 875-125Mg 1 tab PO Q12HR 7 Days #14 tab 01/02/24 Rx [Augmentin 875-125] Potassium Chloride ER [K-Dur 20] 20 meq PO DAILY #10 tab 01/02/24 Rx Cephalexin [Keflex] 500 mg PO Q6HR 1 Days #40 cap 03/15/24 Rx Allergies Allergy/AdvReac Type Severity Reaction Status Date / Time Corticosteroids Allergy Itching Verified 05/18/24 19:28 (Glucocorticoids) propoxyphene napsylate Allergy Itching Verified 05/18/24 19:28 [From Maria Isabel-N 100] Physical Exam Vitals: Vital Signs Temp Pulse Resp BP Pulse Ox 05/18/24 21:10 90 18 133/94 98 05/18/24 19:25 97.3 F L 88 18 133/83 97 Intake and Output 05/18/24 05/18/24 05/19/24 14:59 22:59 06:59 Other: Weight 85.275 kg Results CBC & Chem 7: 05/18/24 20:55 05/18/24 20:55 Labs: Abnormal Lab Results - Last 24 Hours (Table) 05/18/24 05/18/24 05/18/24 Range/Units 20:55 20:55 20:55 WBC 11.4 H (3.8-10.6) k/uL MCV 76.6 L (80.0-100.0) fL MCH 23.4 L (25.0-35.0) pg MCHC 30.6 L (31.0-37.0) g/dL RDW 17.9 H (11.5-15.5) % Neutrophils # 9.5 H (1.3-7.7) k/uL APTT 21.5 L (22.0-30.0) sec Sodium 135 L (137-145) mmol/L BUN 26 H (7-17) mg/dL Glucose 121 H (74-99) mg/dL Plasma Lactic Acid Darrell (0.7-2.0) mmol/L AST 139 H (14-36) U/L ALT 157 H (4-34) U/L 05/18/24 Range/Units 20:55 WBC (3.8-10.6) k/uL MCV (80.0-100.0) fL MCH (25.0-35.0) pg MCHC (31.0-37.0) g/dL RDW (11.5-15.5) % Neutrophils # (1.3-7.7) k/uL APTT (22.0-30.0) sec Sodium (137-145) mmol/L BUN (7-17) mg/dL Glucose (74-99) mg/dL Plasma Lactic Acid Darrell 3.3 H* (0.7-2.0) mmol/L AST (14-36) U/L ALT (4-34) U/L
[2024-05-19] MEDS: oxyCODONE-APAP 10-325MG 1 EACH TAB PO PRN ×2 (05:14→08:38)
--- NOTE | 2024-05-19 07:55 | XR ---
EXAMINATION TYPE: XR chest 1V portable DATE OF EXAM: 05/19/2024 CLINICAL HISTORY: Difficulty breathing progress study. TECHNIQUE: Single AP portable upright view of the chest is obtained. COMPARISON: Chest x-ray from one day earlier FINDINGS: Cardiomegaly with improving pulmonary venous congestion. No focal infiltrates seen. Hilar and mediastinal structures are within normal limits. Severe degenerative change of the shoulders. IMPRESSION: Cardiomegaly with improving pulmonary venous congestion. [facility], , 05/19/2024 7:52 AM
[2024-05-19 08:29] LABS: Glucose,Whole Blood 99 mg/dL (70-110)
[2024-05-19] MEDS: INSULIN ASPART (NovoLOG) 100 UNIT/ML VIAL SQ SCH (08:29)
[2024-05-19] MEDS: FUROSEMIDE 40 MG TAB PO SCH (08:31)
[2024-05-19] MEDS: PANTOPRAZOLE 40 MG TABLET PO SCH (08:31)
[2024-05-19] MEDS: POTASSIUM CHLORIDE ER 10 MEQ TAB.ER.PRT PO SCH (08:32)
[2024-05-19] MEDS: ENOXAPARIN 40 MG/0.4 ML SYRINGE SQ SCH (08:33)
[2024-05-19] MEDS: LOSARTAN 50 MG TAB PO SCH (08:38)
[2024-05-19] MEDS: hydroCHLOROthiazide 12.5 MG CAP PO SCH (08:38)
[2024-05-19] MEDS ORDERED: metFORMIN 500 MG TAB PO SCH (09:00)
--- NOTE | 2024-05-19 10:01 | CA ---
Transthoracic Echo Report Name: Larisa Clemons Age: 83 Gender: F : 1940 Exam Date: 05/19/2024 08:00 Exam Location: [facility] Ht (in): 61 Wt (lb): 188 Ordering Physician: Roman Hooks MD Attending/Referring Phys: Public School Teacher Leona Mckeon RDCS Procedure CPT: Indications: Possible CHF Cardiac Hx: Technical Quality: Fair Contrast 1: Total Dose (mL): Contrast 2: Total Dose (mL): MEASUREMENTS (Male / Female) Normal Values 2D ECHO LV Diastolic Diameter PLAX 4.8 cm 4.2 - 5.9 / 3.9 - 5.3 cm LV Systolic Diameter PLAX 3.6 cm IVS Diastolic Thickness 1.2 cm 0.6 - 1.0 / 0.6 - 0.9 cm LVPW Diastolic Thickness 1.3 cm 0.6 - 1.0 / 0.6 - 0.9 cm LV Relative Wall Thickness 0.5 RV Internal Dim ED PLAX 3.6 cm LA Systolic Diameter LX 4.0 cm 3.0 - 4.0 / 2.7 - 3.8 cm LV Diastolic Volume MOD 4C 61.1 cm??? LV Systolic Volume MOD 4C 30.2 cm??? LV Ejection Fraction MOD 4C 50.6 % LV Cardiac Index MOD 4C 1011.2 cm???/min???m??? LV Diastolic Length 4C 8.7 cm LV Systolic Length 4C 7.5 cm LV Diastolic Volume MOD 2C 54.4 cm??? LV Systolic Volume MOD 2C 29.8 cm??? LV Ejection Fraction MOD 2C 45.2 % LV Cardiac Index MOD 2C 805.1 cm???/min???m??? LV Diastolic Length 2C 8.4 cm LV Systolic Length 2C 7.4 cm M-MODE Aortic Root Diameter MM 3.9 cm LA Systolic Diameter MM 2.4 cm LA Ao Ratio MM 0.6 DOPPLER AV Peak Velocity 98.2 cm/s AV Peak Gradient 3.9 mmHg Mitral E Point Velocity 60.0 cm/s Mitral A Point Velocity 105.3 cm/s Mitral E to A Ratio 0.6 MV Deceleration Time 395.0 ms MV E' Velocity 4.5 cm/s Mitral E to MV E' Ratio 13.2 TR Peak Velocity 264.7 cm/s TR Peak Gradient 28.0 mmHg Right Ventricular Systolic Press 38.3 mmHg FINDINGS Left Ventricle Left ventricular ejection fraction is estimated at 50-55 %. Mildly increased septal wall thickness. Moderately increased posterior wall thickness. No obvious regional wall motion abnormalities. Right Ventricle Normal RV size and systolic function. Mild pulmonary hypertension. Right Atrium Normal right atrial size. No right atrial thrombus or mass seen. Left Atrium Mildly increased left atrial diameter. No left atrial thrombus or mass present. Mitral Valve Structurally normal mitral valve. No mitral stenosis, regurgitation or prolapse. Aortic Valve Trileaflet aortic valve. No aortic valve stenosis or regurgitation. Tricuspid Valve Structurally normal tricuspid valve. Mild tricuspid regurgitation. Pulmonic Valve Pulmonic valve not well visualized. Pericardium No pericardial or pleural effusion. Aorta Mild aortic dilatation at the level of the sinuses of valsalva 39 mm CONCLUSIONS Left ventricular ejection fraction is estimated at 50-55 %. No obvious regional wall motion abnormalities. Mild left atrial dilatation Mild tricuspid regurgitation Aortic root at upper limit of normal, sinus of Valsalva measuring at 3.9 cm. Previewed by: Dr Ray Calderon (Electronically Signed) Final Date: 19 May 2024 10:00
[2024-05-19 10:28] LABS: HCT 39.2 % (37.2-46.3); HGB 11.9 g/dL (12.0-15.0); MCH 22.5 pg (27.0-32.0); MCHC 30.4 g/dL (32.0-37.0); Mean Platelet Volume 9.9 FL (9.5-12.2); NRBC Per 100 WBC 0.02 X 10*3/uL (0.00-0.01); Platelet Count 310 X 10*3/uL (140-440); RDW 19.2 % (11.5-14.5); WBC 10.31 X 10*3/uL (4.50-10.00)
[2024-05-19] MEDS: FUROSEMIDE 10 MG/ML 4 ML VIAL IV SCH (10:39)
--- NOTE | 2024-05-19 11:32 | P.CRDCN ---
History of Present Illness History of present illness: HISTORY OF PRESENT ILLNESS: This is a 83-year-old female with a past medical history significant for CHF, COPD with home oxygen use at night, hypertension, and hyperlipidemia. Patient does not follow with a psychic reader. We have been asked to see the patient in consultation for congestive heart failure. Patient examined at the bedside in the emergency room. Patient states that she went to urgent care on Thursday as she was coughing a lot and thought she had bronchitis. She states that she was told that she had pneumonia and was given antibiotics and steroids. She was told to come back in 3 days for a recheck. She was seen yesterday at the urgent care and was directed to come to the emergency room for further evaluation. The patient currently denies chest pain or pressure. She denies shortness of breath. The patient reports chronic lower extremity edema that is not worse than her normal. She reports home oxygen use at night only. She is a current cigarette smoker and smokes half a pack per day. DIAGNOSTICS: - EKG reveals sinus mechanism with no signs of acute ischemia - Chest xray cardiomegaly and pulmonary vascular changes. - Left lower extremity Doppler: Negative for DVT - Laboratory data: WBC 10.3. Hemoglobin 11.9. Platelet count 310. D-dimer 0.45. Sodium 135. Potassium 4.7. BUN 26. Creatinine 0.68. Lactic acid 3.3. Repeat 2.0. AST 139. ALT 157. Troponin negative x 1. proBNP 255. - Current home cardiac medications include Lipitor 40 mg at night, Lasix 40 mg daily, and losartanhydrochlorothiazide 100-12.5 mg daily -Echocardiogram obtained this admission reveals ejection fraction 50 to 55%, mild pulm hypertension, no obvious regional wall motion abnormalities, mild TR - Cardiac catheterization history: Patient denies REVIEW OF SYSTEMS: At the time of my exam: CONSTITUTIONAL: Denies fever or chills. HEENT: Denies blurred vision, vision changes, or eye pain. Denies hemoptysis CARDIOVASCULAR: Denies chest pain. Denies orthopnea. Denies PND. Denies palpitations RESPIRATORY: Denies shortness of breath. GASTROINTESTINAL: Denies abdominal pain. Denies nausea or vomiting. HEMATOLOGIC: Denies bleeding disorders. GENITOURINARY: Denies any blood in urine. SKIN: Denies pruitis. Denies rash. PHYSICAL EXAM: VITAL SIGNS: Reviewed. GENERAL: Well-developed in no acute distress. HEENT: Head is normocephalic. Pupils are equal, round. Sclerae anicteric. Mucous membranes of the mouth are moist. Neck supple. No JVD or thyromegaly LUNGS: Respirations even and unlabored. Lungs with expiratory wheezing noted. HEART: Regular rate and rhythm. S1 and S2 heard. ABDOMEN: Soft. Nondistended. Nontender. EXTREMITIES: Normal range of motion. No clubbing or cyanosis. Peripheral pulses intact. Bilateral lower extremity edema, left worse than right. NEUROLOGIC: Awake and alert. Oriented x 3. ASSESSMENT: Recent outpatient diagnosis of pneumonia Mild acute on chronic heart failure with preserved EF, 50 to 55% COPD Chronic hypoxic respiratory failure on home oxygen at night Chronic lower extremity edema Hypertension Hyperlipidemia Diabetes Elevated lactic acid, resolved Nicotine dependence, patient smokes half a pack per day Obesity: BMI 35.5 PLAN: 2D echo obtained and reviewed Resume home cardiac medications Discontinue hydrochlorothiazide. Continue losartan 100 mg daily Begin IV Lasix 40 mg every 12 hours Daily weights, accurate intake and output, and monitoring of kidney function Check lipid panel hemoglobin A1c Smoking cessation recommended. Patient may be referred to [place] quit line upon discharge. Likely discharge home tomorrow morning if patient remains stable Nurse practitioner note has been reviewed by physician. Signing provider agrees with the documented findings, assessment, and plan of care documented by BOOSTER OPERATOR as a scribe. Past Medical History Past Medical History: COPD, Diabetes Mellitus, Fibromyalgia Additional Past Medical History / Comment(s): chronic neck and back pain 1996 affected rt knee & rt ankle, hypotension, multiple falls History of Any Multi-Drug Resistant Organisms: None Reported Past Surgical History: Appendectomy, Cholecystectomy, Orthopedic Surgery, Ton sillectomy Additional Past Surgical History / Comment(s): Total Bilateral Knee, Right Ankle. Lt Shoulder surgery. Egd/Colonoscopy 12/10/13. verticalflex in back, Past Anesthesia/Blood Transfusion Reactions: No Reported Reaction Additional Past Anesthesia/Blood Transfusion Reaction / Comment(s): pt states received 5-6 units blood @ [facility] recently Past Psychological History: No Psychological Hx Reported Smoking Status: Current every day smoker Past Alcohol Use History: None Reported Past Drug Use History: None Reported - Past Family History Mother History Unknown: Yes Family Medical History: Coronary Artery Disease (CAD) Medications and Allergies Home Medications Medication Instructions Recorded Confirmed Type Memantine HCl [Memantine HCl ER] 7 mg PO DAILY 11/30/19 05/19/24 History Albuterol Inhaler [Ventolin Hfa 2 puff INHALATION RT-QID PRN 01/08/20 05/19/24 History Inhaler] Ferrous Sulfate [Feosol] 325 mg PO DAILY 01/26/22 05/19/24 History metFORMIN HCL 1,000 mg PO DAILY 09/13/22 05/19/24 History Amoxic-Pot Clav 875-125Mg 1 tab PO Q12HR 7 Days #14 tab 01/02/24 05/19/24 Rx [Augmentin 875-125] Atorvastatin [Lipitor] 40 mg PO HS 05/19/24 05/19/24 History Colchicine [Colcrys] 0.6 mg PO DAILY 05/19/24 05/19/24 History Doxycycline Hyclate 100 mg PO BID 05/19/24 05/19/24 History Fluticasone Nasal [place] [Flonase 1 spray EA NOSTRIL BID 05/19/24 05/19/24 History Nasal [place]] Furosemide [Lasix] 40 mg PO DAILY 05/19/24 05/19/24 History Losartan/Hydrochlorothiazide 1 tab PO DAILY 05/19/24 05/19/24 History [Hyzaar 100-12.5 Tablet] Potassium Chloride [Klor-Con 10 ER] 10 meq PO DAILY 05/19/24 05/19/24 History oxyCODONE-APAP 10-325MG [Percocet 1 tab PO 5XD PRN 05/19/24 05/19/24 History 10-325 mg] Allergies Allergy/AdvReac Type Severity Reaction Status Date / Time Corticosteroids Allergy Itching Verified 05/19/24 08:03 (Glucocorticoids) propoxyphene napsylate Allergy Itching Verified 05/19/24 08:03 [From Gabbyt-N 100] Physical Exam Vitals: Vital Signs Temp Pulse Resp BP Pulse Ox 05/19/24 08:00 97.6 F 66 18 131/85 97 05/19/24 06:00 67 17 135/84 05/19/24 02:38 104 H 18 130/99 94 L 05/18/24 21:10 90 18 133/94 98 05/18/24 19:25 97.3 F L 88 18 133/83 97 Intake and Output 05/18/24 05/19/24 05/19/24 22:59 06:59 14:59 Other: Weight 85.275 kg Results 05/19/24 08:15 05/18/24 20:55 Cardiac Enzymes 05/18/24 05/18/24 Range/Units 20:55 20:55 AST 139 H (14-36) U/L Troponin I 0.012 (0.000-0.034) ng/mL Coagulation 05/18/24 Range/Units 20:55 PT 10.6 (10.0-12.5) sec APTT 21.5 L (22.0-30.0) sec CBC 05/18/24 Range/Units 20:55 WBC 11.4 H (3.8-10.6) k/uL RBC 5.20 (3.80-5.40) m/uL Hgb 12.2 (11.4-16.0) gm/dL Hct 39.8 (34.0-46.0) % Plt Count 308 (150-450) k/uL Comprehensive Metabolic Panel 05/18/24 Range/Units 20:55 Sodium 135 L (137-145) mmol/L Potassium 4.7 (3.5-5.1) mmol/L Chloride 102 (98-107) mmol/L Carbon Dioxide 27 (22-30) mmol/L BUN 26 H (7-17) mg/dL Creatinine 0.68 (0.52-1.04) mg/dL Glucose 121 H (74-99) mg/dL Calcium 9.2 (8.4-10.2) mg/dL AST 139 H (14-36) U/L ALT 157 H (4-34) U/L Alkaline Phosphatase 45 (38-126) U/L Total Protein 7.4 (6.3-8.2) g/dL Albumin 4.1 (3.5-5.0) g/dL Current Medications Generic Name Dose Route Start Last Admin Trade Name Freq PRN Reason Stop Dose Admin Albuterol Sulfate 2.5 mg 05/18/24 23:01 Albuterol Nebulized 2.5 Mg/3 Ml INHALATION RT-QID PRN Shortness Of Breath Enoxaparin Sodium 40 mg 05/19/24 09:00 05/19/24 08:33 Enoxaparin 40 Mg/0.4 Ml Syringe SQ Not Given DAILY FANTA Furosemide 40 mg 05/19/24 09:00 05/19/24 08:31 Furosemide 40 Mg Tab PO 40 mg BID@0900,1600 FANTA Administration Hydrochlorothiazide 12.5 mg 05/19/24 09:00 05/19/24 08:38 Hydrochlorothiazide 12.5 Mg Cap PO 12.5 mg DAILY FANTA Administration Insulin Aspart 0 unit 05/19/24 07:30 05/19/24 08:29 Insulin Aspart (Novolog) 100 Unit/Ml Vial SQ Not Given ACHS [facility] Protocol Losartan Potassium 100 mg 05/19/24 09:00 05/19/24 08:38 Losartan 50 Mg Tab PO 100 mg DAILY FANTA Administration Naloxone HCl 0.2 mg 05/18/24 22:59 Naloxone 0.4 Mg/Ml 1 Ml Vial IV Q2M PRN Opioid Reversal Oxycodone/Acetaminophen 1 each 05/19/24 08:18 05/19/24 08:38 Oxycodone-Apap 10-325mg 1 Each Tab PO 1 each 5XD PRN Administration Severe Pain (Scale 7 to 10) Pantoprazole Sodium 20 mg 05/19/24 09:00 05/19/24 08:31 Pantoprazole 40 Mg Tablet PO 20 mg DAILY FANTA Administration Potassium Chloride 10 meq 05/19/24 09:00 05/19/24 08:32 Potassium Chloride Er 10 Meq Tab.Er.Prt PO 10 meq DAILY FANTA Administration Intake and Output 05/18/24 05/19/24 05/19/24 22:59 06:59 14:59 Other: Weight 85.275 kg 05/18/24 20:55 05/18/24 20:55
--- NOTE | 2024-05-19 11:59 | P.PN ---
Subjective Progress Note Date: 05/19/24 83-year-old female with PMH of COPD on home oxygen when going to bed (however patient is unsure of amount of oxygen), diabetes mellitus, osteoarthritis. Presents emergency department due to shortness of breath, cough and left lower extremity edema for the past 7 days. Patient states that her cough and sh ortness of breath been ongoing since Thursday, this started after she had first noticed her left lower extremity edema. Patient states that she had attempted to go to urgent care where she was given Augmentin, doxycycline and prednisone which did not resolve her symptoms. Patient denies the symptoms worsening when supine, denies hemoptysis, denies any chest pain. She denies fever, chills, dizziness, fatigue, abdominal pain, nausea/vomiting. She denies any history of blood clots. She states that she believes it is likely secondary to having recently been instructed by her PCP to cut her usual Lasix dose in half from 40 mg daily down to 20 mg daily. She states that she has previously had episodes in which the lower extremity edema was similar. When seen at bedside, the patient notes that the edema is already beginning to improve. She has no acute complaints at this time. Labratory review: -WBCs 11.4, hemoglobin 12.2, hematocrit 39.8, platelet 308; D-dimer noncontributory at 0.45; sodium 135, potassium 4.7, BUN 26, creatinine 0.68 -Lactic acid 3.3, AST 139, ALT 157 Imaging: -Chest x-ray done in the ER showed cardiomegaly and pulmonary vascular congestive changes -Venous Doppler ultrasound of the left lower extremity showed no evidence for deep venous thrombosis -EKG done in the ER showed heart rate of 70, sinus rhythm with biphasic P waves; QTc 396 05/19/2024 patient seen and examined at bedside. patient reported to feel better and believes her leg swelling has improved. Chest x-ray shows congestion with some cephalization. Echocardiogram ejection fraction 50 to 55% with no obvious regional wall motion abnormality. WBC 10.31 hemoglobin 11.9 platelet count 310,000 Review of systems: Pertinent positives and negatives as discussed in HPI, a complete review of systems was performed and all other systems are negative. Pertinent imaging and labs reviewed. Physical examination: Vital signs reviewed General: non toxic, no distress Derm: no unusual rashes/lesions, warm Head: atraumatic, normocephalic, symmetric Eyes: EOMI, anicteric sclera, pupils equal round reactive to light ENT: Nose and ears atraumatic Neck: No cervical lymphadenopathy, trachea midline, supple Mouth: no lip lesion, mucus membranes moist Cardiovascular: S1S2 reg, no murmur Lungs: CTA bilateral, no rhonchi, no rales, no accessory muscle use Abdominal: soft, nontender to palpation, no guarding Ext: muscle strength 5 out of 5 in all 4 extremities grossly, no gross muscle atrophy, no contractures, positive dorsalis pedis pulse bilateral, +2 bilateral pitting edema worse on the left than right lower extremity Neuro: CN II-XI grossly intact, no gross focal neuro deficits Psych: Alert and oriented x3, appropriate affect and mood Assessment/Plan: # Fluid overload suspect new onset CHF #Transaminitis due to congestive hepatopathy -Chest x-ray done in the ER showed cardiomegaly and pulmonary vascular congestive changes -Troponin <0.012 -proBNP 255 -D-dimer 0.45 -Initial AST 139, initial ALT 157 -Monitor CMP and CBC -Lipid profile and A1c in the a.m. -Patient given 40 mg IV Lasix once. C/w Lasix 40 mg IV twice daily. Monitor electrolytes -Echocardiogram ejection fraction 50 to 55% with no obvious regional wall motion abnormality -Had been taking 40 mg Lasix daily at home, recently 20 mg daily -Cardiac monitoring -Monitor intake and output -Supplemental oxygen as needed -Cardiology following #COPD on home oxygen while she sleeps (patient unsure of amount) -Not on any maintenance therapy, continue albuterol as needed #Lactic acidosis, resolved -Initial lactic acid 3.3 -> 3.6. Now at 2 #Diabetes mellitus -Patient maintained at home on 1000 mg metformin daily; held while here -Accu-Cheks ACHS, monitor for hypoglycemia -Low dose NovoLog ACHS #Chronic right shoulder pain secondary to osteoarthritis -Patient's pain controlled at home on Percocet 95891 3 times daily as needed; continue #Dementia -Memantine 5 daily #Gout? -Continue colchicine 0.6 daily F: Oral intake E: None N: Heart healthy diet A: Can ambulate without assistance DVT prophylaxis: Lovenox 40 mg SQ daily GI prophylaxis: Protonix 20 mg SQ daily from home medication Annie Wolfe MD PGY-1/Incoming Freight Clerk Dictation was produced using [employer] dictation software. please excuse any grammatical, word or spelling errors. I have seen and evaluated the patient today. Discussed with the resident and agree with the residents finding and plan as documented in the resident's note. Changes highlighted in blue font. Objective - Vital Signs Vital signs: Vital Signs Temp 97.3 F L 05/18/24 19:25 Pulse 67 05/19/24 06:00 Resp 17 05/19/24 06:00 BP 135/84 05/19/24 06:00 Pulse Ox 94 L 05/19/24 02:38 FiO2 Intake & Output 05/18/24 05/19/24 05/19/24 18:59 06:59 18:59 Weight 85.275 kg - Labs CBC & Chem 7: 05/19/24 08:15 05/19/24 08:15 Labs: Abnormal Lab Results - Last 24 Hours (Table) 05/18/24 05/18/24 05/18/24 Range/Units 20:55 20:55 20:55 WBC 11.4 H (3.8-10.6) k/uL MCV 76.6 L (80.0-100.0) fL MCH 23.4 L (25.0-35.0) pg MCHC 30.6 L (31.0-37.0) g/dL RDW 17.9 H (11.5-15.5) % Neutrophils # 9.5 H (1.3-7.7) k/uL APTT 21.5 L (22.0-30.0) sec Sodium 135 L (137-145) mmol/L BUN 26 H (7-17) mg/dL Glucose 121 H (74-99) mg/dL Plasma Lactic Acid Darrell (0.7-2.0) mmol/L AST 139 H (14-36) U/L ALT 157 H (4-34) U/L 05/18/24 05/19/24 Range/Units 20:55 00:27 WBC (3.8-10.6) k/uL MCV (80.0-100.0) fL MCH (25.0-35.0) pg MCHC (31.0-37.0) g/dL RDW (11.5-15.5) % Neutrophils # (1.3-7.7) k/uL APTT (22.0-30.0) sec Sodium (137-145) mmol/L BUN (7-17) mg/dL Glucose (74-99) mg/dL Plasma Lactic Acid Darrell 3.3 H* 3.6 H* (0.7-2.0) mmol/L AST (14-36) U/L ALT (4-34) U/L
[2024-05-19 14:08] LABS: Basophils # (A) 0.02 X 10*3/uL (0.00-0.10); Basophils % (A) 0.2 %; Eosinophils # (A) 0 X 10*3/uL (0.04-0.35); Eosinophils % (A) 0 %; Lymphocytes # (A) 2.96 X 10*3/uL (0.90-5.00); Lymphocytes % (A) 28.7 %; Microcytosis (M) 2+; Monocytes # (A) 0.97 X 10*3/uL (0.20-1.00); Monocytes % (A) 9.4 %; Neutrophils # (A) 6.21 X 10*3/uL (1.80-7.70); Neutrophils % (A) 60.2 %
[2024-05-19 16:01] LABS: ALT 177 U/L (8-44); AST 108 U/L (13-35); Albumin 3.7 g/dL (3.8-4.9); Albumin/Globulin Ratio 1.42 Ratio (1.60-3.17); Alkaline Phosphatase 57 U/L (41-126); Calcium 8.9 mg/dL (8.7-10.3); Carbon Dioxide 31.1 mmol/L (21.6-31.8); Chloride 100 mmol/L (96-109); Globulin 2.6 g/dL (1.6-3.3); Glucose 93 mg/dL (70-110); Potassium 3.6 mmol/L (3.5-5.5); Sodium 144 mmol/L (135-145); Total Bilirubin 0.2 mg/dL (0.3-1.2); Total Protein 6.3 g/dL (6.2-8.2)
[2024-05-19 17:34] LABS: Glucose,Whole Blood 96 mg/dL (70-110)
[2024-05-19 19:41] LABS: Glucose,Whole Blood 125 mg/dL (70-110)
[2024-05-19] MEDS: FLUTICASONE NASAL 50MCG/SPRAY 16GM BTL EA NOSTRIL SCH (20:38)
[2024-05-19] MEDS: ATORVASTATIN 40 MG TAB PO SCH (20:39)
[2024-05-20 06:02] LABS: Glucose,Whole Blood 105 mg/dL (70-110)
[2024-05-20 08:26] LABS: Chol/HDL Ratio 2.88 Ratio
[2024-05-20 08:49] LABS: Basophils # (A) 0.08 X 10*3/uL (0.00-0.10); Basophils % (A) 0.6 %; Eosinophils # (A) 0.04 X 10*3/uL (0.04-0.35); Eosinophils % (A) 0.3 %; HCT 43.1 % (37.2-46.3); HGB 12.9 g/dL (12.0-15.0); Lymphocytes # (A) 4.27 X 10*3/uL (0.90-5.00); Lymphocytes % (A) 32.4 %; MCHC 29.9 g/dL (32.0-37.0); Mean Platelet Volume 11.4 FL (9.5-12.2); Monocytes # (A) 1.41 X 10*3/uL (0.20-1.00); Monocytes % (A) 10.7 %; NRBC Per 100 WBC 0.02 X 10*3/uL (0.00-0.01); Neutrophils # (A) 6.96 X 10*3/uL (1.80-7.70); Neutrophils % (A) 52.7 %; Platelet Count 340 X 10*3/uL (140-440); RDW 19.3 % (11.5-14.5); WBC 13.19 X 10*3/uL (4.50-10.00)
[2024-05-20] MEDS ORDERED: NON FORMULARY DRUG (Losartan/Hydrochlorothiazide [Hyzaar 100-12.5 Tablet] 1 EACH Tablet) PO SCH (09:00)
[2024-05-20] MEDS: LOSARTAN 50 MG TAB PO SCH (09:03)
[2024-05-20] MEDS: COLCHICINE 0.6 MG EACH PO SCH (09:04)
[2024-05-20] MEDS: MEMANTINE 5 MG TAB PO SCH (09:04)
[2024-05-20] MEDS: FUROSEMIDE 10 MG/ML 4 ML VIAL IV STA (09:18)
[2024-05-20] MEDS: DAPAGLIFLOZIN PROPANEDIOL 10 MG TABLET PO SCH (09:26)
[2024-05-20 09:58] LABS: ALT 171 U/L (8-44); AST 64 U/L (13-35); Albumin/Globulin Ratio 1.43 Ratio (1.60-3.17); Alkaline Phosphatase 68 U/L (41-126); Blood Urea Nitrogen 32.4 mg/dL (9.0-27.0); Calcium 8.8 mg/dL (8.7-10.3); Carbon Dioxide 28.2 mmol/L (21.6-31.8); Chloride 95 mmol/L (96-109); Globulin 2.8 g/dL (1.6-3.3); Glucose 174 mg/dL (70-110); Sodium 139 mmol/L (135-145); Total Bilirubin <0.2 mg/dL (0.3-1.2); Total Protein 6.8 g/dL (6.2-8.2)
--- NOTE | 2024-05-20 11:33 | P.PN ---
Subjective HISTORY OF PRESENT ILLNESS: This is a 83-year-old female with a past medical history significant for CHF, COPD with home oxygen use at night, hypertension, and hyperlipidemia. 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 We have been asked to see the patient in consultation for congestive heart failure. Patient examined at the bedside in the emergency room. Patient states that she went to urgent care on Thursday as she was coughing a lot and thought she had bronchitis. She states that she was told that she had pneumonia and was given antibiotics and steroids. She was told to come back in 3 days for a recheck. She was seen yesterday at the urgent care and was directed to come to the emergency room for further evaluation. The patient currently denies chest pain or pressure. She denies shortness of breath. The patient reports chronic lower extremity edema that is not worse than her normal. She reports home oxygen use at night only. She is a current cigarette smoker and smokes half a pack per day. DIAGNOSTICS: - EKG reveals sinus mechanism with no signs of acute ischemia - Chest xray cardiomegaly and pulmonary vascular changes. - Left lower extremity Doppler: Negative for DVT - Laboratory data: WBC 10.3. Hemoglobin 11.9. Platelet count 310. D-dimer 0.45. Sodium 135. Potassium 4.7. BUN 26. Creatinine 0.68. Lactic acid 3.3. Repeat 2.0. AST 139. ALT 157. Troponin negative x 1. proBNP 255. - Current home cardiac medications include Lipitor 40 mg at night, Lasix 40 mg daily, and losartanhydrochlorothiazide 100-12.5 mg daily -Echocardiogram obtained this admission reveals ejection fraction 50 to 55%, mil d pulm hypertension, no obvious regional wall motion abnormalities, mild TR - Cardiac catheterization history: Patient denies 05/20/2024 Patient examined this morning at the bedside. Patient currently denies chest pain or pressure. She denies shortness of breath. Vital signs are stable. She remains on IV Lasix. PHYSICAL EXAM: VITAL SIGNS: Reviewed. GENERAL: Well-developed in no acute distress. HEENT: Head is normocephalic. Pupils are equal, round. Sclerae anicteric. Mucous membranes of the mouth are moist. Neck supple. No JVD or thyromegaly LUNGS: Respirations even and unlabored. Lungs clear to auscultation. HEART: Regular rate and rhythm. S1 and S2 heard. ABDOMEN: Soft. Nondistended. Nontender. EXTREMITIES: Normal range of motion. No clubbing or cyanosis. Peripheral pulses intact. Bilateral lower extremity edema, left worse than right. NEUROLOGIC: Awake and alert. Oriented x 3. ASSESSMENT: Recent outpatient diagnosis of pneumonia Mild acute on chronic heart failure with preserved EF, 50 to 55% COPD Chronic hypoxic respiratory failure on home oxygen at night Chronic lower extremity edema Hypertension Hyperlipidemia Diabetes Elevated lactic acid, resolved Nicotine dependence, patient smokes half a pack per day Obesity: BMI 35.5 PLAN: 2D echo obtained and reviewed Discontinue IV Lasix. Begin oral Lasix 40 mg daily Add Farxiga 10 mg daily Smoking cessation recommended. Patient may be referred to [place] quit line upon discharge. Patient may be discharged home today from a cardiac standpoint No further inpatient recommendations We will sign off. Please reconsult if needed. Nurse practitioner note has been reviewed by physician. Signing provider agrees with the documented findings, assessment, and plan of care documented by TELEMETRY MONITOR as a scribe. Objective - Vital Signs Vital signs: Vital Signs Temp 97.4 F L 05/20/24 07:22 Pulse 59 L 05/20/24 10:25 Resp 14 05/20/24 10:25 BP 129/74 05/20/24 07:22 Pulse Ox 92 L 05/20/24 07:22 FiO2 Intake & Output 05/19/24 05/20/24 05/20/24 18:59 06:59 18:59 Weight 85.275 kg 81.7 kg Other: Voiding Method Toilet Toilet # Bowel Movements 0 - Labs CBC & Chem 7: 05/20/24 02:28 05/20/24 02:28 Labs: Abnormal Lab Results - Last 24 Hours (Table) 05/19/24 05/19/24 05/19/24 Range/Units 08:15 08:15 08:15 WBC (4.50-10.00) X 10*3/uL RBC (4.10-5.20) X 10*6/uL MCV (80.0-97.0) FL MCH (27.0-32.0) pg MCHC (32.0-37.0) g/dL RDW (11.5-14.5) % Immature Gran # 0.15 H (0.00-0.04) X 10*3/uL Monocytes # (0.20-1.00) X 10*3/uL Eosinophils # 0 L (0.04-0.35) X 10*3/uL NRBC/100 WBC Diff (0.00-0.01) X 10*3/uL Microcytosis (manual) 2+ A Chloride (96-109) mmol/L Anion Gap 12.90 H (4.00-12.00) mmol/L BUN (9.0-27.0) mg/dL Est GFR (CKD-EPI) (>=60) BUN/Creatinine Ratio 32.50 H (12.00-20.00) Ratio Glucose (70-110) mg/dL POC Glucose (mg/dL) (70-110) mg/dL Hemoglobin A1c 6.6 H (<=6.0) % Total Bilirubin 0.2 L (0.3-1.2) mg/dL AST 108 H (13-35) U/L ALT 177 H (8-44) U/L Albumin 3.7 L (3.8-4.9) g/dL Albumin/Globulin Ratio 1.42 L (1.60-3.17) Ratio Triglycerides (0.00-149.00) mg/dL Cholesterol (0.00-200.00) mg/dL HDL Cholesterol (40.00-60.00) mg/dL 05/19/24 05/19/24 05/20/24 Range/Units 08:15 19:39 02:28 WBC 13.19 H (4.50-10.00) X 10*3/uL RBC 5.60 H (4.10-5.20) X 10*6/uL MCV 77.0 L (80.0-97.0) FL MCH 23.0 L (27.0-32.0) pg MCHC 29.9 L (32.0-37.0) g/dL RDW 19.3 H (11.5-14.5) % Immature Gran # 0.43 H (0.00-0.04) X 10*3/uL Monocytes # 1.41 H (0.20-1.00) X 10*3/uL Eosinophils # (0.04-0.35) X 10*3/uL NRBC/100 WBC Diff 0.02 H (0.00-0.01) X 10*3/uL Microcytosis (manual) Chloride (96-109) mmol/L Anion Gap (4.00-12.00) mmol/L BUN (9.0-27.0) mg/dL Est GFR (CKD-EPI) (>=60) BUN/Creatinine Ratio (12.00-20.00) Ratio Glucose (70-110) mg/dL POC Glucose (mg/dL) 125 H (70-110) mg/dL Hemoglobin A1c (<=6.0) % Total Bilirubin (0.3-1.2) mg/dL AST (13-35) U/L ALT (8-44) U/L Albumin (3.8-4.9) g/dL Albumin/Globulin Ratio (1.60-3.17) Ratio Triglycerides 191.00 H (0.00-149.00) mg/dL Cholesterol 204.00 H (0.00-200.00) mg/dL HDL Cholesterol 70.80 H (40.00-60.00) mg/dL 05/20/24 Range/Units 02:28 WBC (4.50-10.00) X 10*3/uL RBC (4.10-5.20) X 10*6/uL MCV (80.0-97.0) FL MCH (27.0-32.0) pg MCHC (32.0-37.0) g/dL RDW (11.5-14.5) % Immature Gran # (0.00-0.04) X 10*3/uL Monocytes # (0.20-1.00) X 10*3/uL Eosinophils # (0.04-0.35) X 10*3/uL NRBC/100 WBC Diff (0.00-0.01) X 10*3/uL Microcytosis (manual) Chloride 95 L (96-109) mmol/L Anion Gap 15.80 H (4.00-12.00) mmol/L BUN 32.4 H (9.0-27.0) mg/dL Est GFR (CKD-EPI) 45 L (>=60) BUN/Creatinine Ratio 27.00 H (12.00-20.00) Ratio Glucose 174 H (70-110) mg/dL POC Glucose (mg/dL) (70-110) mg/dL Hemoglobin A1c (<=6.0) % Total Bilirubin <0.2 L (0.3-1.2) mg/dL AST 64 H (13-35) U/L ALT 171 H (8-44) U/L Albumin (3.8-4.9) g/dL Albumin/Globulin Ratio 1.43 L (1.60-3.17) Ratio Triglycerides (0.00-149.00) mg/dL Cholesterol (0.00-200.00) mg/dL HDL Cholesterol (40.00-60.00) mg/dL
[2024-05-20 12:10] LABS: Glucose,Whole Blood 132 mg/dL (70-110)
--- NOTE | 2024-05-20 13:43 | P.DS ---
Providers Date of admission: 05/18/24 22:30 Expected date of discharge: 05/20/24 Attending physician: Lili Hall MD Primary care physician: Remy Salazar Hospital Course: Final Diagnosis: # Diastolic CHF, stable #Transaminitis due to congestive hepatopathy, stable #Lactic acidosis, resolved #Diabetes mellitus #COPD on home oxygen #Dementia #Gout Hospital Course: 83-year-old female with PMH of COPD on home oxygen when going to bed (however patient is unsure of amount of oxygen), diabetes mellitus, osteoarthritis. Presents emergency department due to shortness of breath, cough and left lower extremity edema for the past 7 days. Patient states that her cough and shortness of breath been ongoing since Thursday, this started after she had first noticed her left lower extremity edema. Patient states that she had attempted to go to urgent care where she was given Augmentin, doxycycline and prednisone which did not resolve her symptoms. Patient denies the symptoms worsening when supine, denies hemoptysis, denies any chest pain. She denies fever, chills, dizziness, fatigue, abdominal pain, nausea/vomiting. She denies any history of blood clots. She states that she believes it is likely secondary to having recently been instructed by her PCP to cut her usual Lasix dose in half from 40 mg daily down to 20 mg daily. She states that she has previously had episodes in which the lower extremity edema was similar. When seen at bedside, the patient notes that the edema is already beginning to improve. She has no acute complaints at admission. In the ED WBCs 11.4, hemoglobin 12.2, hematocrit 39.8, platelet 308; D-dimer noncontributory at 0.45; sodium 135, potassium 4.7, BUN 26, creatinine 0.68, Lactic acid 3.3, AST 139, ALT 157. Chest x-ray done in the ER showed cardiomegaly and pulmonary vascular congestive changes. Venous Doppler ultrasound of the left lower extremity showed no evidence for deep venous thrombosis. EKG done in the ER showed heart rate of 70, sinus rhythm with biphasic P waves; QTc 396. Patient was evaluated for fluid overload with suspected new onset CHF. Cardiology was consulted and patient was placed on 40 mg IV Lasix twice daily. Echocardiogram ordered showed ejection fraction of 50 to 55% with no obvious regional wall motion abnormality. Patient's symptoms improved throughout hospital stay and no new or worsening symptoms occurred. Patient is cleared for discharge today and was prescribed losartan, Farxiga and Lasix was increased to 40 mg daily. Patient was advised to follow-up with linoleum layer and PCP to check on electrolyte levels on outpatient basis. Physical examination: Vital signs reviewed General: non toxic, no distress, appears at stated age, normal weight Derm: no unusual rashes/lesions, warm Head: atraumatic, normocephalic, symmetric Eyes: EOMI, no lid lag, anicteric sclera, pupils equal round reactive to light ENT: Nose and ears atraumatic Neck: No cervical lymphadenopathy, trachea midline, supple Mouth: no lip lesion, mucus membranes moist Cardiovascular: S1S2 reg, no murmur, Lungs: CTA bilateral, no rhonchi, no rales, no accessory muscle use Abdominal: soft, nondistended, nontender to palpation, no guarding Ext: muscle strength 5 out of 5 in all 4 extremities grossly, no gross muscle atrophy, no contractures, positive dorsalis pedis pulse bilateral, +1 bilateral pitting edema worse on the left than right lower extremity Neuro: CN II-XI grossly intact, no gross focal neuro deficits Psych: Alert, oriented, appropriate affect and mood A total of 36 minutes of time were spent preparing this complex discharge summary. Patient was discharged on 05/20/2024 at 1154. I have seen and evaluated the patient today. Discussed with the resident and agree with the residents finding and plan as documented in the resident's note. Changes highlighted in blue font. Patient Condition at Discharge: Stable Plan - Discharge Summary Discharge Rx Participant: No New Discharge Prescriptions: New Losartan [Cozaar] 100 mg PO DAILY #90 tab Dapagliflozin Propanediol [Farxiga] 10 mg PO DAILY #90 tab Lidocaine 4% Patch 1 patch TOPICAL DAILY #14 patch Continue Memantine HCl [Memantine HCl ER] 7 mg PO DAILY Albuterol Inhaler [Ventolin Hfa Inhaler] 2 puff INHALATION RT-QID PRN PRN Reason: Shortness Of Breath oxyCODONE-APAP 10-325MG [Percocet 10-325 mg] 1 tab PO 5XD PRN PRN Reason: Pain Furosemide [Lasix] 40 mg PO DAILY Fluticasone Nasal [place] [Flonase Nasal [place]] 1 spray EA NOSTRIL BID Atorvastatin [Lipitor] 40 mg PO HS Ferrous Sulfate [Feosol] 325 mg PO DAILY metFORMIN HCL 1,000 mg PO DAILY Potassium Chloride [Klor-Con 10 ER] 10 meq PO DAILY Colchicine [Colcrys] 0.6 mg PO DAILY Discontinued Doxycycline Hyclate 100 mg PO BID Losartan/Hydrochlorothiazide [Hyzaar 100-12.5 Tablet] 1 tab PO DAILY Amoxic-Pot Clav 875-125Mg [Augmentin 875-125] 1 tab PO Q12HR 7 Days #14 tab Discharge Medication List Memantine HCl [Memantine HCl ER] 7 mg PO DAILY 11/30/19 [History] Albuterol Inhaler [Ventolin Hfa Inhaler] 2 puff INHALATION RT-QID PRN 01/08/20 [History] Ferrous Sulfate [Feosol] 325 mg PO DAILY 01/26/22 [History] metFORMIN HCL 1,000 mg PO DAILY 09/13/22 [History] Atorvastatin [Lipitor] 40 mg PO HS 05/19/24 [History] Colchicine [Colcrys] 0.6 mg PO DAILY 05/19/24 [History] Fluticasone Nasal [place] [Flonase Nasal [place]] 1 spray EA NOSTRIL BID 05/19/24 [History] Furosemide [Lasix] 40 mg PO DAILY 05/19/24 [History] Potassium Chloride [Klor-Con 10 ER] 10 meq PO DAILY 05/19/24 [History] oxyCODONE-APAP 10-325MG [Percocet 10-325 mg] 1 tab PO 5XD PRN 05/19/24 [History] Dapagliflozin Propanediol [Farxiga] 10 mg PO DAILY #90 tab 05/20/24 [Rx] Lidocaine 4% Patch 1 patch TOPICAL DAILY #14 patch 05/20/24 [Rx] Losartan [Cozaar] 100 mg PO DAILY #90 tab 05/20/24 [Rx] Follow up Appointment(s)/Referral(s): Patricio Serrano DO [STAFF PHYSICIAN] - 05/30/24 3:45 pm Remy Salazar DO [Primary Care Provider] - 1-2 days Patient Instructions/Handouts: Heart Failure (ER) Activity/Diet/Wound Care/Special Instructions: Please follow up with your PCP and repeat electrolytes test in 3-4 days Discharge Disposition: HOME SELF-CARE
[2024-05-20 14:01] VITALS: BP 111/75; PULSE 73; RESP 16; TEMP 97.8
[2024-05-21] MEDS ORDERED: FUROSEMIDE 40 MG TAB PO SCH (09:00)
[2024-05-21] MEDS ORDERED: ENOXAPARIN 30 MG/0.3 ML SYRINGE SQ SCH (09:00)
== END 2024-05-20 16:14 | disposition home or self-care (01) ==
LOC: EC 19:11 → 6NMEDSUR 22:29 → INTOOBSV 22:30 → OBSVTOIN 22:30 → 6NMEDSUR 05-19 00:33
PROVIDERS: ADMIT Internal Medicine; ATTEND Internal Medicine
DX: I11.0 Hypertensive heart disease with heart failure (principal); I50.33 Acute on chronic diastolic (congestive) heart failure; J96.11 Chronic respiratory failure with hypoxia; J44.9 Chronic obstructive pulmonary disease, unspecified; K76.1 Chronic passive congestion of liver; E87.29 Other acidosis; R29.6 Repeated falls; E11.9 Type 2 diabetes mellitus without complications; M79.7 Fibromyalgia; M19.011 Primary osteoarthritis, right shoulder; M10.9 Gout, unspecified; E66.9 Obesity, unspecified; E78.5 Hyperlipidemia, unspecified; F03.90 Unspecified dementia, unspecified severity, without behavioral disturbance, psychotic disturbance, mood disturbance, and anxiety; F17.210 Nicotine dependence, cigarettes, uncomplicated; G89.29 Other chronic pain; Z99.81 Dependence on supplemental oxygen; Z79.899 Other long term (current) drug therapy; Z79.84 Long term (current) use of oral hypoglycemic drugs; Z68.35 Body mass index [BMI] 35.0-35.9, adult; Z87.01 Personal history of pneumonia (recurrent); Z88.8 Allergy status to other drugs, medicaments and biological substances; Z88.5 Allergy status to narcotic agent
CPT/HCPCS: 96376 ×3; 96372; 96374; 99285; 36415; 93005; 93306; 85379; 83880; 80061; 80053 ×3; 83605 ×2; 83735; 84484; 85025 ×3; 85610; 85730; 83036; 71045; 71046; 93971; G0378 ×3; J1940 ×3; J1650

== ENCOUNTER 2024-06-02 17:16 | Emergency (ER) | payer MEDICARE, OTHER ==
--- NOTE | 2024-06-02 19:16 | ED ---
Neck Injury/Pain HPI - General Chief Complaint: Neck Pain/Injury Stated Complaint: PAIN IN SHOULDER/NECK Time Seen by Provider: 06/02/24 18:38 Source: RN notes reviewed, old records reviewed Mode of arrival: ambulatory Limitations: no limitations - History of Present Illness Initial Comments: This is an 83 female to the ER for evaluation of neck pain history of neck pain and chronic neck pain with no new trauma no fevers no other complaints no sore throat no difficulty breathing. Patient states she is here for pain medication shot and she does come to the hospital occasionally for this MD Complaint: neck pain -: days(s) Place: home Radiation: right lateral, left lateral, occiput Severity: moderate Severity scale (1-10): 2 Consistency: intermittent Improves With: none Worsens With: movement of neck Associated Symptoms: none - Related Data Home Medications Medication Instructions Recorded Confirmed Memantine HCl [Memantine HCl ER] 7 mg PO DAILY 11/30/19 05/19/24 Albuterol Inhaler [Ventolin Hfa 2 puff INHALATION RT-QID PRN 01/08/20 05/19/24 Inhaler] Ferrous Sulfate [Feosol] 325 mg PO DAILY 01/26/22 05/19/24 metFORMIN HCL 1,000 mg PO DAILY 09/13/22 05/19/24 Atorvastatin [Lipitor] 40 mg PO HS 05/19/24 05/19/24 Colchicine [Colcrys] 0.6 mg PO DAILY 05/19/24 05/19/24 Fluticasone Nasal [place] [Flonase 1 spray EA NOSTRIL BID 05/19/24 05/19/24 Nasal [place]] Furosemide [Lasix] 40 mg PO DAILY 05/19/24 05/19/24 Potassium Chloride [Klor-Con 10 ER] 10 meq PO DAILY 05/19/24 05/19/24 oxyCODONE-APAP 10-325MG [Percocet 1 tab PO 5XD PRN 05/19/24 05/19/24 10-325 mg] Previous Rx's Medication Instructions Recorded Dapagliflozin Propanediol [Farxiga] 10 mg PO DAILY #90 tab 05/20/24 Lidocaine 4% Patch 1 patch TOPICAL DAILY #14 patch 05/20/24 Losartan [Cozaar] 100 mg PO DAILY #90 tab 05/20/24 Allergies Allergy/AdvReac Type Severity Reaction Status Date / Time Corticosteroids Allergy Itching Verified 06/02/24 17:24 (Glucocorticoids) propoxyphene napsylate Allergy Itching Verified 06/02/24 17:24 [From [facility]] Review of Systems ROS Statement: Those systems with pertinent positive or pertinent negative responses have been documented in the HPI. ROS Other: All systems not noted in ROS Statement are negative. Past Medical History Past Medical History: COPD, Diabetes Mellitus, Fibromyalgia Additional Past Medical History / Comment(s): chronic neck and back pain 1996 affected rt knee & rt ankle with ortho surgeries, multiple falls, HTN History of Any Multi-Drug Resistant Organisms: ESBL Date of last positivie culture/infection: 05/25/24 MDRO Source:: urine Past Surgical History: Appendectomy, Cholecystectomy, Orthopedic Surgery, Tonsillectomy Additional Past Surgical History / Comment(s): Total Bilateral Knee, Right Ankle. Lt Shoulder surgery. Egd/Colonoscopy 12/10/13. verticalflex in back, Past Anesthesia/Blood Transfusion Reactions: No Reported Reaction Additional Past Anesthesia/Blood Transfusion Reaction / Comment(s): pt states received 5-6 units blood prior Past Psychological History: No Psychological Hx Reported Smoking Status: Current every day smoker Past Alcohol Use History: None Reported Past Drug Use History: None Reported - Past Family History Mother History Unknown: Yes Family Medical History: Coronary Artery Disease (CAD) General Exam Limitations: no limitations General appearance: alert, in no apparent distress Head exam: Present: atraumatic, normocephalic, normal inspection Eye exam: Present: normal appearance, PERRL, EOMI. Absent: scleral icterus, conjunctival injection, periorbital swelling ENT exam: Present: normal exam, mucous membranes moist Neck exam: Present: normal inspection. Absent: tenderness, meningismus, lymphadenopathy Respiratory exam: Present: normal lung sounds bilaterally. Absent: respiratory distress, wheezes, rales, rhonchi, stridor Cardiovascular Exam: Present: regular rate, normal rhythm, normal heart sounds. Absent: systolic murmur, diastolic murmur, rubs, gallop, clicks GI/Abdominal exam: Present: soft, normal bowel sounds. Absent: distended, tenderness, guarding, rebound, rigid Extremities exam: Present: normal inspection, full ROM, normal capillary refill. Absent: tenderness, pedal edema, joint swelling, calf tenderness Back exam: Present: normal inspection Neurological exam: Present: alert, oriented X3, CN II-XII intact Psychiatric exam: Present: normal affect, normal mood Skin exam: Present: warm, dry, intact, normal color. Absent: rash Course Vital Signs 06/02/24 06/02/24 06/02/24 17:22 19:32 19:38 Temperature 98.0 F 97.7 F 97.7 F Pulse Rate 84 85 85 Respiratory 16 17 17 Rate Blood Pressure 108/66 123/81 123/81 O2 Sat by Pulse 96 96 96 Oximetry - Reevaluation(s) Reevaluation #1: 06/05/24 23:51 Medical records reviewed Reevaluation #2: 06/05/24 23:51 Patient symptoms unchanged Reevaluation #3: 06/05/24 23:52 Patient informed of results and questions answered Reevaluation #4: Was pt. sent in by a medical professional or institution (, PA, DOOR PERSON, urgent care, hospital, or correction...) When possible be specific @ -no Did you speak to anyone other than the patient for history (EMS, parent, family, police, friend...)? What history was obtained from this source @ -no Did you review nursing and triage notes (agree or disagree)? Why? @ -agree Are old charts reviewed (outside hosp., previous admission, EMS record, old EKG, old radiological studies, urgent care reports/EKG's, correction records)? Report findings @ -yes Differential Diagnosis (chest pain, altered mental status, abdominal pain women, abdominal pain men, vaginal bleeding, weakness, fever, dyspnea, syncope, headache, dizziness, GI bleed, back pain, seizure, CVA, palpatations, mental health, musculoskeletal)? @ -prior EKG interpreted by me (3pts min.). @ -no X-rays interpreted by me (1pt min.). @ -no CT interpreted by me (1pt min.). @ -no U/S interpreted by me (1pt. min.). @ -no What testing was considered but not performed or refused? (CT, X-rays, U/S, labs)? Why? @ -none What meds were considered but not given or refused? Why? @ -none Did you discuss the management of the patient with other professionals (professionals i.e. , PA, DOOR PERSON, lab, RT, psych nurse, social studies department chair, industrial technology education teacher, teacher, civil preparedness officer, shoe caser)? Give summary @ -no Was smoking cessation discussed for >3mins.? @ -no Was critical care preformed (if so, how long)? @ -no Were there social determinants of health that impacted care today? How? (Homelessness, low income, unemployed, alcoholism, drug addiction, transportation, low edu. Level, literacy, decrease access to med. care, longterm, rehab)? @ -none Was there de-escalation of care discussed even if they declined (Discuss DNR or withdrawal of care, Hospice)? DNR status @ -no What co-morbidities impacted this encounter? (DM, HTN, Smoking, COPD, CAD, Cancer, CVA, ARF, Chemo, Hep., AIDS, mental health diagnosis, sleep apnea, morbid obesity)? @ -none Was patient admitted / discharged? Hospital course, mention meds given and route, prescriptions, significant lab abnormalities, going to OR and other pertinent info. @ - 83 female to ER for chronic neck pain patient states she is here just here for a pain shot as her neck pain is out of control. Patient has no neurological complaints no recent trauma or injury Discharge Undiagnosed new problem with uncertain prognosis? @ -no Drug Therapy requiring intensive monitoring for toxicity (Heparin, Nitro, Insulin, Cardizem)? @ -no Were any procedures done? @ -no Diagnosis/symptom? @ -neck pain chronic pain Acute, or Chronic, or Acute on Chronic? @ -Acute Uncomplicated (without systemic symptoms) or Complicated (systemic symptoms)? @ -Complicated Side effects of treatment? @ -no Exacerbation, Progression, or Severe Exacerbation? @ -exacerbation Poses a threat to life or bodily function? How? (Chest pain, [place], [place], pneumonia, PE, COPD, DKA, ARF, appy, cholecystitis, CVA, Diverticulitis, Homicidal, Suicidal, threat to staff... and all critical care pts) @ -yes extremes of age Medical Decision Making - Medical Decision Making 83 female to ER for chronic neck pain patient states she is here just here for a pain shot as her neck pain is out of control. Patient has no neurological complaints no recent trauma or injury Disposition Clinical Impression: Strain of neck muscle, Cervical radiculopathy Disposition: HOME SELF-CARE Condition: Fair Instructions (If sedation given, give patient instructions): Cervical Strain (ED), Cervical Sprain (ED) Is patient prescribed a controlled substance at d/c from ED?: No Referrals: Remy Salazar DO [Primary Care Provider] - 1-2 days Time of Disposition: 19:20
[2024-06-02] MEDS: HYDROmorphone 1 MG/ML 1 ML SYRINGE IM STA (19:21)
[2024-06-02] MEDS: IBUPROFEN 800 MG TAB PO STA (19:24)
[2024-06-02] MEDS: ACETAMINOPHEN TAB 500 MG TAB PO STA (19:24)
[2024-06-02] MEDS: HYDROmorphone 0.5 MG/0.5 ML SYRINGE IVP STA (19:25)
[2024-06-02 19:38] VITALS: BP 123/81; PULSE 85; RESP 17; TEMP 97.7
== END 2024-06-02 19:46 | disposition home or self-care (01) ==
LOC: EC 17:16
DX: S16.1XXA Strain of muscle, fascia and tendon at neck level, initial encounter (principal); M54.12 Radiculopathy, cervical region; F17.200 Nicotine dependence, unspecified, uncomplicated; Z88.8 Allergy status to other drugs, medicaments and biological substances; Z88.5 Allergy status to narcotic agent; X58.XXXA Exposure to other specified factors, initial encounter
CPT/HCPCS: 99283; 96372; J1171

== ENCOUNTER 2024-07-13 16:52 | Inpatient (IN) | payer MEDICARE, OTHER ==
--- NOTE | 2024-07-13 17:28 | ED ---
General Adult HPI - General Chief complaint: Recheck/Abnormal Lab/Rx Stated complaint: abn labs R ear pain Time Seen by Provider: 07/13/24 17:05 Source: patient, RN notes reviewed Mode of arrival: ambulatory Limitations: no limitations - History of Present Illness Initial comments: This is an 83-year-old female with history of DM presenting with right ear pain (9/10) x 3 days. Patient also endorses recent return of urine culture from urgent care 2 weeks ago indicating possible ESBL bacterial infection. Patient states she has had increased urinary frequency for the past 2 weeks was advised by urgent care to go to ER due to antibiotic resistance of bacteria. Patient endorses bilateral mid back pain without fever. Also mentions cough for the pa st 2 weeks with concern for pneumonia. Patient brings urine culture results with it indicating bacteria susceptibility to Macrobid, Zosyn and imipenem. Endorses past antibiotic use for the same urinary symptoms for nearly the past year with frequent recurrence of symptoms. Denies fever/chills, chest pain, dyspnea, abdominal pain, N/V/D, dysuria, hematuria. Onset/Timin -: days(s) Severity scale (1-10): 9 Consistency: constant Associated Symptoms: cough - Related Data Home Medications Medication Instructions Recorded Confirmed Memantine HCl [Memantine HCl ER] 7 mg PO DAILY 11/30/19 07/13/24 Albuterol Inhaler [Ventolin Hfa 2 puff INHALATION RT-QID PRN 01/08/20 07/13/24 Inhaler] Ferrous Sulfate [Feosol] 325 mg PO DAILY 01/26/22 07/13/24 metFORMIN HCL 1,000 mg PO DAILY 09/13/22 07/13/24 Atorvastatin [Lipitor] 40 mg PO HS 05/19/24 07/13/24 Colchicine [Colcrys] 0.6 mg PO DAILY 05/19/24 07/13/24 Fluticasone Nasal [place] [Flonase 1 spray EA NOSTRIL BID 05/19/24 07/13/24 Nasal [place]] Furosemide [Lasix] 40 mg PO DAILY 05/19/24 07/13/24 Potassium Chloride [Klor-Con 10 ER] 10 meq PO BID 05/19/24 07/13/24 oxyCODONE-APAP 10-325MG [Percocet 1 tab PO 5XD PRN 05/19/24 07/13/24 10-325 mg] Doxycycline Hyclate 100 mg PO BID 07/13/24 07/13/24 Lidocaine 4% Patch 1 patch TOPICAL DAILY PRN 07/13/24 07/13/24 predniSONE [Deltasone] 40 mg PO DAILY 07/13/24 07/13/24 Previous Rx's Medication Instructions Recorded Dapagliflozin Propanediol [Farxiga] 10 mg PO DAILY #90 tab 05/20/24 Losartan [Cozaar] 100 mg PO DAILY #90 tab 05/20/24 Allergies Allergy/AdvReac Type Severity Reaction Status Date / Time Corticosteroids Allergy Itching Verified 07/13/24 19:35 (Glucocorticoids) propoxyphene napsylate Allergy Itching Verified 07/13/24 19:35 [From [facility]oc[facility]-N 100] Review of Systems ROS Statement: Those systems with pertinent positive or pertinent negative responses have been documented in the HPI. ROS Other: All systems not noted in ROS Statement are negative. Past Medical History Past Medical History: COPD, Diabetes Mellitus, Fibromyalgia Additional Past Medical History / Comment(s): chronic neck and back pain 1996 affected rt knee & rt ankle with ortho surgeries, multiple falls, HTN History of Any Multi-Drug Resistant Organisms: ESBL Date of last positivie culture/infection: 05/25/24 MDRO Source:: urine Past Surgical History: Appendectomy, Cholecystectomy, Orthopedic Surgery, Tonsillectomy Additional Past Surgical History / Comment(s): Total Bilateral Knee, Right Ankle. Lt Shoulder surgery. Egd/Colonoscopy 12/10/13. verticalflex in back, Past Anesthesia/Blood Transfusion Reactions: No Reported Reaction Additional Past Anesthesia/Blood Transfusion Reaction / Comment(s): pt states received 5-6 units blood prior Past Psychological History: No Psychological Hx Reported Smoking Status: Current every day smoker Past Alcohol Use History: None Reported Past Drug Use History: None Reported - Past Family History Mother History Unknown: Yes Family Medical History: Coronary Artery Disease (CAD) General Exam Limitations: no limitations General appearance: alert, in no apparent distress Head exam: Present: atraumatic, normocephalic, normal inspection Eye exam: Present: normal appearance, PERRL, EOMI. Absent: scleral icterus, conjunctival injection, periorbital swelling ENT exam: Present: normal exam, mucous membranes moist, other (Bilateral TMs are opaque with right side bulging) Neck exam: Present: normal inspection. Absent: tenderness, meningismus, lymphadenopathy Respiratory exam: Present: decreased breath sounds. Absent: respiratory distress, wheezes, rales, rhonchi, stridor Cardiovascular Exam: Present: regular rate, normal rhythm, normal heart sounds. Absent: systolic murmur, diastolic murmur, rubs, gallop, clicks GI/Abdominal exam: Present: soft, normal bowel sounds. Absent: distended, tenderness, guarding, rebound, rigid Extremities exam: Present: normal inspection, full ROM, normal capillary refill. Absent: tenderness, pedal edema, joint swelling, calf tenderness Back exam: Present: normal inspection, CVA tenderness (R), CVA tenderness (L) Neurological exam: Present: alert, oriented X3, CN II-XII intact Psychiatric exam: Present: normal affect, normal mood Skin exam: Present: warm, dry, intact, normal color. Absent: rash Course Vital Signs 07/13/24 07/13/24 07/14/24 17:02 22:09 00:12 Temperature 97.8 F 97.8 F 97.7 F Pulse Rate 106 H 104 H 91 Respiratory 18 19 19 Rate Blood Pressure 140/80 130/86 125/68 O2 Sat by Pulse 97 96 97 Oximetry 07/14/24 06:33 Temperature 97.5 F L Pulse Rate 77 Respiratory 14 Rate Blood Pressure 120/77 O2 Sat by Pulse 95 Oximetry Medical Decision Making - Medical Decision Making Was pt. sent in by a medical professional or institution (RADHA Caal, PRECIPITATOR, urgent care, hospital, or long-term...) When possible be specific @ -No Did you speak to anyone other than the patient for history (EMS, parent, family, police, friend...)? What history was obtained from this source @ -No Did you review nursing and triage notes (agree or disagree)? Why? @ -I reviewed and agree with nursing and triage notes Were old charts reviewed (outside hosp., previous admission, EMS record, old EKG, old radiological studies, urgent care reports/EKG's, long-term records)? Report findings @ -No old charts were reviewed Differential Diagnosis (chest pain, altered mental status, abdominal pain women, abdominal pain men, vaginal bleeding, weakness, fever, dyspnea, syncope, headache, dizziness, GI bleed, back pain, seizure, CVA, palpatations, mental health, musculoskeletal)? @ -Differential Fever: Pneumonia, viral URI, endocarditis, myocarditis, pericarditis, otitis, sinusitis, peritonsillar Abscess, retropharyngeal Abscess, epiglottitis, peritonitis, appendicitis, Corie cystitis, diverticulitis, hepatitis, colitis, UTI, PID, TOA, pyelonephritis, prostatitis, epididymitis, meningitis, encephalitis, pulmonary embolism, CVA, thyroid storm, pancreatitis, adrenal crisis, cavernous sinus thrombosis, this is not meant to be an all-inclusive list. EKG interpreted by me (3pts min.). @ -Not done X-rays interpreted by me (1pt min.). @ -CXR shows no acute cardiopulmonary process. CT interpreted by me (1pt min.). @ -None done U/S interpreted by me (1pt. min.). @ -None done What testing was considered but not performed or refused? (CT, X-rays, U/S, labs)? Why? @ -None What meds were considered but not given or refused? Why? @ -None Did you discuss the management of the patient with other professionals (professionals i.e. , PA, PRECIPITATOR, lab, RT, psych nurse, social media content manager, delinquent account clerk, teacher, production officer, correctional counselor/case manager)? Give summary @ -Spoke to Sound physician who agrees to patient admission Was smoking cessation discussed for >3mins.? @ -No Was critical care preformed (if so, how long)? @ -No Were there social determinants of health that impacted care today? How? (Homelessness, low income, unemployed, alcoholism, drug addiction, transportation, low edu. Level, literacy, decrease access to med. care, [facility], rehab)? @ -No Was there de-escalation of care discussed even if they declined (Discuss DNR or withdrawal of care, Hospice)? DNR status @ -No What co-morbidities impacted this encounter? (DM, HTN, Smoking, COPD, CAD, Cancer, CVA, ARF, Chemo, Hep., AIDS, mental health diagnosis, sleep apnea, morbid obesity)? @ -DM Was patient admitted / discharged? Hospital course, mention meds given and route, prescriptions, significant lab abnormalities, going to OR and other pertinent info. @ -Lab work shows leukocytosis (12.0) and iron deficient anemia. UA shows large number of leukocytes and white blood cells as well as bacteria. Negative Cepheid test. CXR shows no acute cardiopulmonary process. Patient started on meropenem and admitted through [facility] for ongoing IV antibiotic treatment. Discussed patient with Dr. Dejesus. Undiagnosed new problem with uncertain prognosis? @ -No Drug Therapy requiring intensive monitoring for toxicity (Heparin, Nitro, Insulin, Cardizem)? @ -No Were any procedures done? @ -No Diagnosis/symptom? @ -ESBL pyelonephritis, AOM Acute, or Chronic, or Acute on Chronic? @ -Acute Uncomplicated (without systemic symptoms) or Complicated (systemic symptoms)? @ -Complicated Side effects of treatment? @ -No Exacerbation, Progression, or Severe Exacerbation? @ -No Poses a threat to life or bodily function? How? (Chest pain, [place], [place], pneumonia, PE, COPD, DKA, ARF, appy, cholecystitis, CVA, Diverticulitis, Homicidal, Suicidal, threat to staff... and all critical care pts) @ -Pyelonephritis causing urosepsis - Lab Data Result diagrams: 07/13/24 22:09 Lab Results 07/13/24 07/13/24 Range/Units 17:30 17:31 Urine Color Colorless Urine Appearance Cloudy H (Clear) Urine pH 6.0 (5.0-8.0) Ur Specific [place] 1.007 (1.001-1.035) Urine Protein Negative (Negative) Urine Glucose (UA) 2+ H (Negative) Urine Ketones Negative (Negative) Urine Blood Negative (Negative) Urine Nitrite Negative (Negative) Urine Bilirubin Negative (Negative) Urine Urobilinogen <2.0 (<2.0) mg/dL Ur Leukocyte Esterase Large H (Negative) Urine RBC 1 (0-5) /hpf Urine WBC 89 H (0-5) /hpf Ur Squamous Epith Cells 2 (0-4) /hpf Urine Bacteria Moderate H (None) /hpf Urine Mucus Rare H (None) /hpf Influenza Type A (PCR) Not Detected (Not Detectd) Influenza Type B (PCR) Not Detected (Not Detectd) RSV (PCR) Not Detected (Not Detectd) SARS-CoV-2 (PCR) Not Detected (Not Detectd) Disposition Clinical Impression: UTI due to extended-spectrum beta lactamase (ESBL) producing Escherichia coli, AOM (acute otitis media) Disposition: ADMITTED IP TO THIS HOSP Condition: Good Is patient prescribed a controlled substance at d/c from ED?: No Time of Disposition: 18:57 Decision Date: 07/13/24 Decision Time: 18:57
[2024-07-13 17:46] LABS: Appearance,Urine Cloudy (Clear); Bacteria,Urine Moderate /hpf; Bilirubin,Urine Negative (Negative); Blood,Urine Negative (Negative); Color,Urine Colorless; Glucose,Urine (UA) 2+ (Negative); Ketones,Urine Negative (Negative); Leukocyte Esterase,Urine Large (Negative); Mucus,Urine Rare /hpf; Nitrite,Urine Negative (Negative); Protein,Urine Negative (Negative); RBC,Urine 1 /hpf (0-5); Specific Gravity,Urine 1.007 (1.001-1.035); Squamous Epithelial Cell,Urine 2 /hpf (0-4); Urobilinogen,Urine <2.0 mg/dL (<2.0); WBC,Urine 89 /hpf (0-5)
[2024-07-13 18:14] LABS: Influenza A Not Detected (Not Detectd); Influenza B Not Detected (Not Detectd); RSV Not Detected (Not Detectd)
--- NOTE | 2024-07-13 18:28 | XR ---
EXAMINATION TYPE: XR chest 2V DATE OF EXAM: 07/13/2024 6:08 PM COMPARISON: Chest radiographs from 05/19/2024 CLINICAL INDICATION: Female, 83 years old with history of Cough; TECHNIQUE: XR chest 2V Frontal and lateral views of the chest. FINDINGS: Lungs/Pleura: There is no evidence of pleural effusion, focal consolidation, or pneumothorax. Pulmonary vascularity: Unremarkable. Heart/mediastinum: Cardiomediastinal silhouette is unremarkable. Musculoskeletal: No acute osseous pathology. Surgical clips around the mid upper abdomen. IMPRESSION: No acute cardiopulmonary disease/process. [facility], , 07/13/2024 6:25 PM
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
[2024-07-13] MEDS ORDERED: ALBUTEROL NEBULIZED 2.5 MG/3 ML INHALATION PRN (21:24)
[2024-07-13] MEDS ORDERED: NALOXONE 0.4 MG/ML 1 ML VIAL IV PRN (22:03)
[2024-07-13 22:12] LABS: Glucose,Whole Blood 120 mg/dL (70-110)
[2024-07-13] MEDS: COLCHICINE 0.6 MG EACH PO SCH (22:15)
[2024-07-13] MEDS: DAPAGLIFLOZIN PROPANEDIOL 10 MG TABLET PO SCH (22:17)
[2024-07-13] MEDS: FERROUS SULFATE 325 MG TAB PO SCH (22:18)
[2024-07-13] MEDS: FUROSEMIDE 40 MG TAB PO SCH (22:18)
[2024-07-13] MEDS: MEMANTINE 5 MG TAB PO SCH (22:19)
[2024-07-13] MEDS: FLUTICASONE NASAL 50MCG/SPRAY 16GM BTL EA NOSTRIL SCH (22:19)
[2024-07-13] MEDS: ATORVASTATIN 40 MG TAB PO SCH (22:20)
[2024-07-13] MEDS: LOSARTAN 50 MG TAB PO SCH (22:21)
[2024-07-13] MEDS: MEROPENEM 2 GM in SODIUM CHLORIDE 0.9% 100 ML IVPB SCH (22:30)
[2024-07-13] MEDS: oxyCODONE-APAP 10-325MG 1 EACH TAB PO PRN (22:32)
[2024-07-13 22:38] LABS: Anisocytosis Slight; Basophils % (A) 0 %; Eosinophils # (A) 0.1 k/uL (0-0.7); Eosinophils % (A) 1 %; HCT 42.8 % (34.0-46.0); HGB 12.8 gm/dL (11.4-16.0); Hypochromasia Moderate; Lymphocytes # (A) 3.4 k/uL (1.0-4.8); Lymphocytes % (A) 28 %; MCH 22.9 pg (25.0-35.0); MCHC 29.9 g/dL (31.0-37.0); MCV 76.5 fL (80.0-100.0); Mean Platelet Volume 8.7; Microcytosis Slight; Monocytes # (A) 0.5 k/uL (0-1.0); Monocytes % (A) 5 %; Neutrophils # (A) 7.7 k/uL (1.3-7.7); Neutrophils % (A) 64 %; Platelet Count 331 k/uL (150-450); RBC 5.59 m/uL (3.80-5.40); RDW 16.9 % (11.5-15.5)
[2024-07-14 07:46] LABS: Glucose,Whole Blood 111 mg/dL (70-110)
[2024-07-14] MEDS: INSULIN ASPART (NovoLOG) 100 UNIT/ML VIAL SQ SCH (08:43)
[2024-07-14] MEDS: POTASSIUM CHLORIDE ER 10 MEQ TAB.ER.PRT PO SCH (08:46)
[2024-07-14] MEDS: ENOXAPARIN 40 MG/0.4 ML SYRINGE SQ SCH (08:47)
[2024-07-14 10:43] LABS: Basophils # (A) 0.04 X 10*3/uL (0.00-0.10); Basophils % (A) 0.4 %; Eosinophils # (A) 0.05 X 10*3/uL (0.04-0.35); Eosinophils % (A) 0.5 %; HCT 40.4 % (37.2-46.3); HGB 11.5 g/dL (12.0-15.0); Lymphocytes # (A) 2.66 X 10*3/uL (0.90-5.00); Lymphocytes % (A) 28.8 %; MCH 21.7 pg (27.0-32.0); MCHC 28.5 g/dL (32.0-37.0); MCV 76.2 FL (80.0-97.0); Mean Platelet Volume 11.1 FL (9.5-12.2); Monocytes # (A) 0.84 X 10*3/uL (0.20-1.00); Monocytes % (A) 9.1 %; NRBC Per 100 WBC 0 X 10*3/uL (0.00-0.01); Neutrophils # (A) 5.53 X 10*3/uL (1.80-7.70); Platelet Count 311 X 10*3/uL (140-440); RDW 17.7 % (11.5-14.5); WBC 9.23 X 10*3/uL (4.50-10.00)
[2024-07-14 11:01] LABS: BUN/Creat Ratio 36.22 Ratio (12.00-20.00); Blood Urea Nitrogen 32.6 mg/dL (9.0-27.0); Calcium 8.4 mg/dL (8.7-10.3); Carbon Dioxide 20.9 mmol/L (21.6-31.8); Chloride 109 mmol/L (96-109); Glucose 112 mg/dL (70-110); Potassium 4.4 mmol/L (3.5-5.5); Sodium 144 mmol/L (135-145)
[2024-07-14 11:51] LABS: ALT 91 U/L (4-34); AST 62 U/L (14-36); African American GFR (CKD) 85 (>60 ml/min/1.73 sqM); Albumin 3.4 g/dL (3.5-5.0); Albumin/Globulin Ratio 1.2; Alkaline Phosphatase 64 U/L (38-126); Anion Gap 8 mmol/L; Blood Urea Nitrogen 37 mg/dL (7-17); Calcium 8.8 mg/dL (8.4-10.2); Carbon Dioxide 25 mmol/L (22-30); Chloride 109 mmol/L (98-107); Globulin 2.8 g/dL; Glucose 99 mg/dL (74-99); Non-African American GFR(CKD) 74 (>60 ml/min/1.73 sqM); Potassium 3.9 mmol/L (3.5-5.1); Sodium 142 mmol/L (137-145); Total Bilirubin 0.2 mg/dL (0.2-1.3); Total Protein 6.2 g/dL (6.3-8.2)
--- NOTE | 2024-07-14 17:53 | P.PN ---
Subjective Progress Note Date: 07/14/24 Hospital course: Patient is a 83-year-old female with PMH of COPD on home oxygen when going to bed (however patient is unsure of amount of oxygen), diabetes mellitus, osteoarthritis and recurrent UTI presents to the ER with abnormal urine culture results (culture obtained 05/25). Patient states that she has been experiencing urinary urgency, frequency, lower abdominal pressure and right-sided flank pain since 1 week which prompted her to go to the urgent care where her urine sample was taken for urine culture and sensitivity. Urine culture and sensitivity report came positive for ESBL UTI and therefore patient was directed to come to the ER for IV abxs. The urinary culture and sensitivity report shows that ESBL infection is susceptible to imipenem, meropenem, nitrofurantoin, piperacillin/tazobactam and tobramycin. Patient reports multiple previous episodes of urinary tract infection. Currently, patient continues to feel abdominal pressure, urgency and frequency of urination. Patient denies fever, chills, nausea, vomiting and hematuria. Denies any history of renal colic. Additionally, patient is also complaining of pain in her right ear since 2 weeks. She describes the pain as constant, 8 out of 10, nagging type associated with right frontal headache. States that she has used pseudoephedrine but has not provided much relief. Denies any dizziness or loss of consciousness. Reports previous episodes of sinusitis. Patient also reports remote history of sinus surgery done about 10 years ago. Patient denies any hearing loss, ear discharge, nasal discharge, cough, shortness of breath. Laboratory data: WBC 12.0, hemoglobin 12.8, MCV 86.5, platelet count 331, AST 62, ALT 91 Urinalysis: Nitrate negative, hematuria negative, leukocyte esterase positive, urine WBC 89 Images: Chest x-ray interpreted independently showed no acute cardiopulmonary process. Vitals: Tmax 97.8 F, heart rate 106, respirate rate 18, blood pressure 140/80, oxygen saturation 97% on room air Subjective: 07/14/2024: Patient seen and evaluated bedside. She states that she no longer has dysuria. Patient also reports that her earache has gone away and has no tenderness on her forehead Pertinent positives and negatives as discussed above, a complete review of systems was performed and all other systems are negative. Vitals: Signs Reviewed Physical examination: Vital signs reviewed General: non toxic, no distress, appears at stated age, overweight Derm: no unusual rashes/lesions, warm Head: atraumatic, normocephalic, symmetric Eyes: EOMI, no lid lag, anicteric sclera, pupils equal round reactive to light ENT: Nose and ears atraumatic Neck: No cervical lymphadenopathy, trachea midline, supple Mouth: no lip lesion, mucus membranes moist Cardiovascular: S1S2 reg, no murmur, positive dorsalis pedis pulse bilateral, no edema Lungs: CTA bilateral, no rhonchi, no rales, no accessory muscle use Abdominal: soft, nontender to palpation, no guarding, positive right CVA tenderness Ext: muscle strength 5 out of 5 in all 4 extremities grossly, no gross muscle atrophy, no contractures, Neuro: CN II-XI grossly intact, no gross focal neuro deficits Psych: Alert, oriented, appropriate affect Data Received Today: Pertinent Labs: WBC 9.23, Hgb 11.5, MCV 76.2 Imaging: N/A Assessment and Plan: This is a 83-year-old female with PMH of COPD on home oxygen when going to bed (however patient is unsure of amount of oxygen), diabetes mellitus, osteoarthritis and recurrent UTI presents to the ER with abnormal urine culture results and right ear ache. Case was discussed with the Emergency Room provider and decision was made to admit the patient for ESBL positive UTI/pyelonephritis. Active: #ESBL positive UTI/pyelonephritis heart rate 106, WBC 12.0 Sepsis criteria: 2 Patient symptomatic with urgency frequency of urination and right flank pain UA positive for leukocyte esterase and urine WBC Urine culture and sensitivity report from outpatient urgent care positive for ESBL UTI Repeat urine culture pending Order meropenem 2 g IVP every 12 hour based on culture sensitivity report via Urgent care Consult infectious disease. See if PICC line needs to be in place tomorrow Repeat CBC tomorrow a.m. #Fka-lsfrviq-atrkoiket diabetes mellitus Glucose 120 Accu-Cheks Sliding scale insulin Last hemoglobin A1c was 6.6% on 05/19/2024 # Transaminitis Repeat BMP tomorrow morning #. Microcytic anemia Hgb 11.5, MCV 76.2 No active bleeding Repeat CBC in the morning Chronic conditions: HTN: resume Losartan 100mg po od CHF (not in exacerbation): Resume Lasix 40mg od, Farxiga 10mg od HLD: resume Lipitor 40mg od COPD (not in exacerbation): resume Ventolin inh, Hold Prednisone 40mg od Resolved: Acute sinusitis Leukocytosis F: N/A E: Replete as needed N: Consistent carbohydrate diet A: Patient ambulatory at baseline DVT ppx: Lovenox 40 mg SQ daily Code status: Code Anticipated discharge place: Pending clinical course Anticipated discharge time: Pending clinical course Zuleyka Ramirez MD PGY-1 IM Dictation was produced using [employer] dictation software. please excuse any grammatical, word or spelling errors. I saw and evaluated the patient during the lu and critical portions of this encounter, and discussed the case in detail with the resident author of this note, I agree with the Assessment and Plan, and my changes, if any, are highlighted in blue. Objective - Vital Signs Vital signs: Vital Signs Temp 97.5 F L 07/14/24 06:33 Pulse 77 07/14/24 06:33 Resp 14 07/14/24 06:33 BP 120/77 07/14/24 06:33 Pulse Ox 95 07/14/24 06:33 FiO2 Intake & Output 07/13/24 07/14/24 07/14/24 18:59 06:59 18:59 Weight 82.554 kg - Labs CBC & Chem 7: 07/14/24 07:23 07/14/24 11:15 Labs: Abnormal Lab Results - Last 24 Hours (Table) 07/13/24 07/13/24 07/13/24 Range/Units 17:31 22:09 22:11 WBC 12.0 H (3.8-10.6) k/uL RBC 5.59 H (3.80-5.40) m/uL MCV 76.5 L (80.0-100.0) fL MCH 22.9 L (25.0-35.0) pg MCHC 29.9 L (31.0-37.0) g/dL RDW 16.9 H (11.5-15.5) % POC Glucose (mg/dL) 120 H (70-110) mg/dL Urine Appearance Cloudy H (Clear) Urine Glucose (UA) 2+ H (Negative) Ur Leukocyte Esterase Large H (Negative) Urine WBC 89 H (0-5) /hpf Urine Bacteria Moderate H (None) /hpf Urine Mucus Rare H (None) /hpf 07/14/24 Range/Units 07:44 WBC (3.8-10.6) k/uL RBC (3.80-5.40) m/uL MCV (80.0-100.0) fL MCH (25.0-35.0) pg MCHC (31.0-37.0) g/dL RDW (11.5-15.5) % POC Glucose (mg/dL) 111 H (70-110) mg/dL Urine Appearance (Clear) Urine Glucose (UA) (Negative) Ur Leukocyte Esterase (Negative) Urine WBC (0-5) /hpf Urine Bacteria (None) /hpf Urine Mucus (None) /hpf
[2024-07-14 21:09] LABS: Glucose,Whole Blood 115 mg/dL (70-110)
[2024-07-15 06:17] LABS: Glucose,Whole Blood 116 mg/dL (70-110)
[2024-07-15] MEDS: MEROPENEM 1 GM in SODIUM CHLORIDE 0.9% 100 ML IVPB SCH (08:56)
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
[2024-07-15 09:27] LABS: Anisocytosis Slight; Basophils % (A) 0 %; Eosinophils # (A) 0.1 k/uL (0-0.7); Eosinophils % (A) 1 %; HCT 40.3 % (34.0-46.0); HGB 11.6 gm/dL (11.4-16.0); Hypochromasia Marked; Lymphocytes % (A) 24 %; MCH 23.1 pg (25.0-35.0); MCHC 28.7 g/dL (31.0-37.0); MCV 80.6 fL (80.0-100.0); Monocytes # (A) 0.5 k/uL (0-1.0); Monocytes % (A) 6 %; Neutrophils # (A) 5.7 k/uL (1.3-7.7); Neutrophils % (A) 67 %; Platelet Count 257 k/uL (150-450); RBC 5.01 m/uL (3.80-5.40); WBC 8.5 k/uL (3.8-10.6)
[2024-07-15 09:46] LABS: ALT 77 U/L (4-34); AST 39 U/L (14-36); African American GFR (CKD) >90 (>60 ml/min/1.73 sqM); Albumin 3.3 g/dL (3.5-5.0); Albumin/Globulin Ratio 1.2; Alkaline Phosphatase 61 U/L (38-126); Anion Gap 9 mmol/L; Blood Urea Nitrogen 32 mg/dL (7-17); Calcium 8.3 mg/dL (8.4-10.2); Carbon Dioxide 24 mmol/L (22-30); Chloride 106 mmol/L (98-107); Globulin 2.7 g/dL; Glucose 171 mg/dL (74-99); Non-African American GFR(CKD) 83 (>60 ml/min/1.73 sqM); Potassium 3.4 mmol/L (3.5-5.1); Sodium 139 mmol/L (137-145); Total Bilirubin 0.2 mg/dL (0.2-1.3)
--- NOTE | 2024-07-15 10:18 | US ---
EXAMINATION TYPE: US kidneys/renal and bladder DATE OF EXAM: 07/15/2024 COMPARISON: 04/26/24 CLINICAL INDICATION: Female, 83 years old with history of Recurrent uti and bacteremia; uti TECHNIQUE: Grayscale imaging of the bilateral kidneys and urinary bladder: FINDINGS: EXAM MEASUREMENTS: Right Kidney: 10.8 x 5.4 x 4.9 cm Left Kidney: 11.3 x 5.0 x 4.3 cm Right Kidney: No hydronephrosis or masses seen Left Kidney: cystic area seen inf pole measuring 1.8 x 1.8 x 1.7cm. Mid pole appears full possible dr omedamita lira Bladder: wnl Bilateral Jets seen: no IMPRESSION: 1. No acute renal ultrasound abnormality. 2. Inferior pole left renal cyst [facility], Workstation: [facility], 07/15/2024 10:15 AM
[2024-07-15 11:43] LABS: Glucose,Whole Blood 91 mg/dL (70-110)
[2024-07-15] MEDS: POTASSIUM CHLORIDE ER 20 MEQ TAB.ER PO STA (13:01)
--- NOTE | 2024-07-15 13:03 | P.PN ---
Subjective Progress Note Date: 07/15/24 Hospital course: Patient is a 83-year-old female with PMH of COPD on home oxygen when going to bed (however patient is unsure of amount of oxygen), diabetes mellitus, osteoarthritis and recurrent UTI presents to the ER with abnormal urine culture results (culture obtained 05/25). Patient states that she has been experiencing urinary urgency, frequency, lower abdominal pressure and right-sided flank pain since 1 week which prompted her to go to the urgent care where her urine sample was taken for urine culture and sensitivity. Urine culture and sensitivity report came positive for ESBL UTI and therefore patient was directed to come to the ER for IV abxs. The urinary culture and sensitivity report shows that ESBL infection is susceptible to imipenem, meropenem, nitrofurantoin, piperacillin/tazobactam and tobramycin. Patient reports multiple previous episodes of urinary tract infection. Currently, patient continues to feel abdominal pressure, urgency and frequency of urination. Patient denies fever, chills, nausea, vomiting and hematuria. Denies any history of renal colic. Additionally, patient is also complaining of pain in her right ear since 2 weeks. She describes the pain as constant, 8 out of 10, nagging type associated with right frontal headache. States that she has used pseudoephedrine but has not provided much relief. Denies any dizziness or loss of consciousness. Reports previous episodes of sinusitis. Patient also reports remote history of sinus surgery done about 10 years ago. Patient denies any hearing loss, ear discharge, nasal discharge, cough, shortness of breath. Laboratory data: WBC 12.0, hemoglobin 12.8, MCV 86.5, platelet count 331, AST 62, ALT 91 Urinalysis: Nitrate negative, hematuria negative, leukocyte esterase positive, urine WBC 89 Images: Chest x-ray interpreted independently showed no acute cardiopulmonary process. Vitals: Tmax 97.8 F, heart rate 106, respirate rate 18, blood pressure 140/80, oxygen saturation 97% on room air Subjective: 07/14/2024: Patient seen and evaluated bedside. She states that she no longer has dysuria. Patient also reports that her earache has gone away and has no tenderness on her forehead 07/15/2024: Patient seen evaluated bedside. Reports no signs of dysuria or urinary frequency. No acute complaints and no events overnight. Pertinent positives and negatives as discussed above, a complete review of systems was performed and all other systems are negative. Vitals: Signs Reviewed Physical examination: Vital signs reviewed General: non toxic, no distress, appears at stated age, overweight Derm: no unusual rashes/lesions, warm Head: atraumatic, normocephalic, symmetric Eyes: EOMI, no lid lag, anicteric sclera, pupils equal round reactive to light ENT: Nose and ears atraumatic Neck: No cervical lymphadenopathy, trachea midline, supple Mouth: no lip lesion, mucus membranes moist Cardiovascular: S1S2 reg, no murmur, positive dorsalis pedis pulse bilateral, no edema Lungs: CTA bilateral, no rhonchi, no rales, no accessory muscle use Abdominal: soft, nontender to palpation, no guarding Ext: muscle strength 5 out of 5 in all 4 extremities grossly, no gross muscle atrophy, no contractures, Neuro: CN II-XI grossly intact, no gross focal neuro deficits Psych: Alert, oriented, appropriate affect Data Received Today: Pertinent Labs: Potassium 3.4, BUN 32, creatinine 0.66, glucose 171, AST 39, ALT 77 Imaging: Abdominal/bladder ultrasound shows no acute renal abnormalities, inferior pole left renal cyst Assessment and Plan: This is a 83-year-old female with PMH of COPD on home oxygen when going to bed (however patient is unsure of amount of oxygen), diabetes mellitus, osteoarthritis and recurrent UTI presents to the ER with abnormal urine culture results and right ear ache. Case was discussed with the Emergency Room provider and decision was made to admit the patient for ESBL positive UTI/pyelonephritis. Active: #ESBL positive UTI/pyelonephritis # Sepsis present on admission, resolved heart rate 106, WBC 12.0 Sepsis criteria: 2 Patient symptomatic with urgency frequency of urination and right flank pain UA positive for leukocyte esterase and urine WBC Urine culture and sensitivity report from outpatient urgent care positive for ESBL UTI Urine culture showing gram-negative bacilli Continue with meropenem 2 g IVP every 12 hour based on culture sensitivity report via Urgent care Infectious disease following. Spoke with ID, no plans for PICC line once to keep on current regimen for couple more days Renal ultrasound ordered by ID showing no acute renal abnormality, inferior pole left renal cyst Per ID if ultrasound negative recommend 3-day course of antibiotic Repeat CBC tomorrow a.m. # Hypokalemia Potassium 3.4 Potassium chloride 40 mEq p.o. once #Por-fufbyod-wpaplhies diabetes mellitus Glucose 120 Accu-Cheks Sliding scale insulin, monitor for hypoglycemia Last hemoglobin A1c was 6.6% on 05/19/2024 # Transaminitis, improving AST 39, ALT 77 Repeat BMP tomorrow morning Chronic conditions: HTN: resume Losartan 100mg po od CHF (not in exacerbation): Resume Lasix 40mg od, Farxiga 10mg od HLD: resume Lipitor 40mg od COPD (not in exacerbation): resume Ventolin inh, Hold Prednisone 40mg od Resolved: Acute sinusitis Leukocytosis Microcytic anemia F: N/A E: Replete as needed N: Consistent carbohydrate diet A: Patient ambulatory at baseline DVT ppx: Lovenox 40 mg SQ daily Code status: Code Anticipated discharge place: Pending clinical course Anticipated discharge time: Pending clinical course Zuleyka Ramirez MD PGY-1 IM I have seen and evaluated the patient today. Discussed with the resident and agree with the residents finding and plan as documented in the resident's note. Changes highlighted in blue font. Objective - Vital Signs Vital signs: Vital Signs Temp 97.8 F 07/15/24 00:27 Pulse 92 07/15/24 00:27 Resp 16 07/15/24 00:27 BP 127/79 07/15/24 00:27 Pulse Ox 96 07/15/24 00:27 FiO2 Intake & Output 07/14/24 07/15/24 07/15/24 18:59 06:59 18:59 Weight 82.554 kg Other: Voiding Method Toilet # Voids 4 - Labs CBC & Chem 7: 07/15/24 09:00 07/15/24 09:00 Labs: Abnormal Lab Results - Last 24 Hours (Table) 07/14/24 07/14/24 07/14/24 Range/Units 07:23 07:23 07:44 RBC 5.30 H (4.10-5.20) X 10*6/uL Hgb 11.5 L (12.0-15.0) g/dL MCV 76.2 L (80.0-97.0) FL MCH 21.7 L (27.0-32.0) pg MCHC 28.5 L (32.0-37.0) g/dL RDW 17.7 H (11.5-14.5) % Immature Gran # 0.11 H (0.00-0.04) X 10*3/uL Chloride (98-107) mmol/L Carbon Dioxide 20.9 L (21.6-31.8) mmol/L Anion Gap 14.10 H (4.00-12.00) mmol/L BUN 32.6 H (9.0-27.0) mg/dL BUN/Creatinine Ratio 36.22 H (12.00-20.00) Ratio Glucose 112 H (70-110) mg/dL POC Glucose (mg/dL) 111 H (70-110) mg/dL Calcium 8.4 L (8.7-10.3) mg/dL AST (14-36) U/L ALT (4-34) U/L Total Protein (6.3-8.2) g/dL Albumin (3.5-5.0) g/dL 07/14/24 07/14/24 07/15/24 Range/Units 11:15 21:05 06:15 RBC (4.10-5.20) X 10*6/uL Hgb (12.0-15.0) g/dL MCV (80.0-97.0) FL MCH (27.0-32.0) pg MCHC (32.0-37.0) g/dL RDW (11.5-14.5) % Immature Gran # (0.00-0.04) X 10*3/uL Chloride 109 H (98-107) mmol/L Carbon Dioxide (21.6-31.8) mmol/L Anion Gap (4.00-12.00) mmol/L BUN 37 H (9.0-27.0) mg/dL BUN/Creatinine Ratio (12.00-20.00) Ratio Glucose (70-110) mg/dL POC Glucose (mg/dL) 115 H 116 H (70-110) mg/dL Calcium (8.7-10.3) mg/dL AST 62 H (14-36) U/L ALT 91 H (4-34) U/L Total Protein 6.2 L (6.3-8.2) g/dL Albumin 3.4 L (3.5-5.0) g/dL Microbiology - Last 24 Hours (Table) 07/13/24 17:31 Urine Culture - Preliminary Urine,Voided Gram Neg Bacilli
[2024-07-15] MEDS: ERTAPENEM 1 GM in SODIUM CHLORIDE 0.9% 50 ML IVPB SCH (15:37)
[2024-07-15 16:44] LABS: Glucose,Whole Blood 130 mg/dL (70-110)
[2024-07-15 21:03] LABS: Glucose,Whole Blood 170 mg/dL (70-110)
--- NOTE | 2024-07-15 22:52 | P.PN ---
Subjective Progress Note Date: 07/15/24 Principal diagnosis: Reason for follow-up is ESBL E. coli UTI Patient is a 83-year-old -[place] female with a past medical history significant for COPD diabetes mellitus fibromyalgia history of recurrent UTI the patient presented to the hospital for evaluation of increasing urinary frequency and burning with recent outpatient culture positive for ESBL E. coli On today's evaluation that is 07/15/2024, the patient continues to be afebrile, the patient is on room air and breathing comfortably, the Pt denies having any chest pain or cough, the patient denies having any abdominal pain no vomiting or any diarrhea has been complaining of some urinary frequency. Patient white count is 8.5, creatinine 0.66 urine is growing gram-negative ultrasound did not show any hydronephrosis or stone Objective - Vital Signs Vital signs: Vital Signs Temp 97.7 F 07/15/24 07:10 Pulse 71 07/15/24 07:10 Resp 15 07/15/24 07:10 BP 125/71 07/15/24 07:10 Pulse Ox 95 07/15/24 07:10 FiO2 Intake & Output 07/14/24 07/15/24 07/15/24 18:59 06:59 18:59 Weight 82.554 kg Other: Voiding Method Toilet Toilet # Voids 4 - Exam GENERAL DESCRIPTION: An elderly female lying in bed in no distress RESPIRATORY SYSTEM: Unlabored breathing , decreased breath sounds at bases HEART: S1 S2 regular rate and rhythm , ABDOMEN: Soft , no tenderness EXTREMITIES: No edema feet - Labs CBC & Chem 7: 07/15/24 09:00 07/15/24 09:00 Labs: Abnormal Lab Results - Last 24 Hours (Table) 07/14/24 07/15/24 07/15/24 Range/Units 21:05 06:15 09:00 MCH 23.1 L (25.0-35.0) pg MCHC 28.7 L (31.0-37.0) g/dL RDW 17.0 H (11.5-15.5) % Potassium (3.5-5.1) mmol/L BUN (7-17) mg/dL Glucose (74-99) mg/dL POC Glucose (mg/dL) 115 H 116 H (70-110) mg/dL Calcium (8.4-10.2) mg/dL AST (14-36) U/L ALT (4-34) U/L Total Protein (6.3-8.2) g/dL Albumin (3.5-5.0) g/dL 07/15/24 Range/Units 09:00 MCH (25.0-35.0) pg MCHC (31.0-37.0) g/dL RDW (11.5-15.5) % Potassium 3.4 L (3.5-5.1) mmol/L BUN 32 H (7-17) mg/dL Glucose 171 H (74-99) mg/dL POC Glucose (mg/dL) (70-110) mg/dL Calcium 8.3 L (8.4-10.2) mg/dL AST 39 H (14-36) U/L ALT 77 H (4-34) U/L Total Protein 6.0 L (6.3-8.2) g/dL Albumin 3.3 L (3.5-5.0) g/dL Microbiology - Last 24 Hours (Table) 07/13/24 17:31 Urine Culture - Preliminary Urine,Voided Gram Neg Bacilli Assessment and Plan (1) UTI due to extended-spectrum beta lactamase (ESBL) producing Escherichia coli Current Visit: Yes Status: Acute Code(s): N39.0 - URINARY TRACT INFECTION, SITE NOT SPECIFIED; B96.29 - OTH ESCHERICHIA COLI THE CAUSE OF DISEASES CLASSD ELSWHR; Z16.12 - EXTENDED SPECTRUM BETA LACTAMASE (ESBL) RESISTANCE SNOMED Code(s): 092609345 Plan: 1patient presented to hospital with urinary burning and frequency and this patient did have positive UA and recent outpatient urine culture have been positive for ESBL E. coli more likely same pathogen patient currently does not have any systemic system and not behaving as a cystitis rather than deep infection 2-patient did have ultrasound of the kidney bladder area with no evidence of any obstructive uropathy or structure abnormality responsible for recurrent UTI 3-we will discontinue meropenem start the patient on Invanz 1 g daily will need only 3 days of antibiotic total for cystitis and no need for PICC line discussed with the resident physician Dictation was produced using [employer] dictation software. please excuse any grammatical, word or spelling errors. Time with Patient: Less than 30
[2024-07-16 06:30] LABS: Glucose,Whole Blood 180 mg/dL (70-110)
[2024-07-16 06:30] LABS: Anisocytosis Slight; Basophils % (A) 0 %; Eosinophils # (A) 0.1 k/uL (0-0.7); Eosinophils % (A) 1 %; HCT 38.3 % (34.0-46.0); HGB 11.4 gm/dL (11.4-16.0); Hypochromasia Marked; Lymphocytes # (A) 2.3 k/uL (1.0-4.8); Lymphocytes % (A) 26 %; MCHC 29.7 g/dL (31.0-37.0); MCV 77.2 fL (80.0-100.0); Mean Platelet Volume 7.8; Microcytosis Slight; Monocytes # (A) 0.6 k/uL (0-1.0); Monocytes % (A) 7 %; Neutrophils # (A) 5.5 k/uL (1.3-7.7); Neutrophils % (A) 64 %; Platelet Count 281 k/uL (150-450); RBC 4.96 m/uL (3.80-5.40); RDW 16.7 % (11.5-15.5); WBC 8.6 k/uL (3.8-10.6)
[2024-07-16 07:05] LABS: ALT 80 U/L (4-34); AST 54 U/L (14-36); African American GFR (CKD) >90 (>60 ml/min/1.73 sqM); Albumin 3.4 g/dL (3.5-5.0); Albumin/Globulin Ratio 1.2; Alkaline Phosphatase 71 U/L (38-126); Anion Gap 6 mmol/L; Blood Urea Nitrogen 22 mg/dL (7-17); Calcium 8.4 mg/dL (8.4-10.2); Carbon Dioxide 27 mmol/L (22-30); Chloride 105 mmol/L (98-107); Globulin 2.8 g/dL; Glucose 134 mg/dL (74-99); Magnesium 2.3 mg/dL (1.6-2.3); Non-African American GFR(CKD) 87 (>60 ml/min/1.73 sqM); Potassium 4.3 mmol/L (3.5-5.1); Sodium 138 mmol/L (137-145); Total Bilirubin 0.3 mg/dL (0.2-1.3); Total Protein 6.2 g/dL (6.3-8.2)
[2024-07-16 11:35] LABS: Glucose,Whole Blood 111 mg/dL (70-110)
--- NOTE | 2024-07-16 12:05 | P.PN ---
Subjective Progress Note Date: 07/16/24 Hospital course: Patient is a 83-year-old female with PMH of COPD on home oxygen when going to bed (however patient is unsure of amount of oxygen), diabetes mellitus, osteoarthritis and recurrent UTI presents to the ER with abnormal urine culture results (culture obtained 05/25). Patient states that she has been experiencing urinary urgency, frequency, lower abdominal pressure and right-sided flank pain since 1 week which prompted her to go to the urgent care where her urine sample was taken for urine culture and sensitivity. Urine culture and sensitivity report came positive for ESBL UTI and therefore patient was directed to come to the ER for IV abxs. The urinary culture and sensitivity report shows that ESBL infection is susceptible to imipenem, meropenem, nitrofurantoin, piperacillin/tazobactam and tobramycin. Patient reports multiple previous episodes of urinary tract infection. Currently, patient continues to feel abdominal pressure, urgency and frequency of urination. Patient denies fever, chills, nausea, vomiting and hematuria. Denies any history of renal colic. Additionally, patient is also complaining of pain in her right ear since 2 weeks. She describes the pain as constant, 8 out of 10, nagging type associated with right frontal headache. States that she has used pseudoephedrine but has not provided much relief. Denies any dizziness or loss of consciousness. Reports previous episodes of sinusitis. Patient also reports remote history of sinus surgery done about 10 years ago. Patient denies any hearing loss, ear discharge, nasal discharge, cough, shortness of breath. Laboratory data: WBC 12.0, hemoglobin 12.8, MCV 86.5, platelet count 331, AST 62, ALT 91 Urinalysis: Nitrate negative, hematuria negative, leukocyte esterase positive, urine WBC 89 Images: Chest x-ray interpreted independently showed no acute cardiopulmonary process. Vitals: Tmax 97.8 F, heart rate 106, respirate rate 18, blood pressure 140/80, oxygen saturation 97% on room air Subjective: 07/14/2024: Patient seen and evaluated bedside. She states that she no longer has dysuria. Patient also reports that her earache has gone away and has no tenderness on her forehead 07/15/2024: Patient seen evaluated bedside. Reports no signs of dysuria or urinary frequency. No acute complaints and no events overnight. 07/16/2024: Patient seen and evaluated bedside. No acute events overnight, no acute complaints. Denies dysuria, urinary symptoms. Pertinent positives and negatives as discussed above, a complete review of systems was performed and all other systems are negative. Vitals: Signs Reviewed Physical examination: Vital signs reviewed General: non toxic, no distress, appears at stated age, overweight Derm: no unusual rashes/lesions, warm Head: atraumatic, normocephalic, symmetric Eyes: EOMI, no lid lag, anicteric sclera, pupils equal round reactive to light ENT: Nose and ears atraumatic Mouth: no lip lesion, mucus membranes moist Cardiovascular: S1S2 reg, no murmur, positive dorsalis pedis pulse bilateral, no edema Lungs: CTA bilateral, no rhonchi, no rales, no accessory muscle use Abdominal: soft, non-tender to palpation, no guarding Ext: muscle strength 5 out of 5 in all 4 extremities grossly, no gross muscle atrophy, no contractures, Neuro: CN II-XI grossly intact, no gross focal neuro deficits Psych: Alert, oriented, appropriate affect Data Received Today: Pertinent Labs: Potassium 4.3, AST 54, ALT 80 Imaging: N/A Assessment and Plan: This is a 83-year-old female with PMH of COPD (on home oxygen when going to bed, amount unsure), diabetes mellitus, osteoarthritis, and recurrent UTI presents to the ER with abnormal urine culture results and right ear ache. Case was discussed with the Emergency Room provider and decision was made to admit the patient for ESBL positive UTI/pyelonephritis. Active: #ESBL positive UTI/pyelonephritis # Sepsis present on admission, resolved heart rate 106, WBC 12.0 Sepsis criteria: 2 Patient symptomatic with urgency frequency of urination and right flank pain UA positive for leukocyte esterase and urine WBC Urine culture and sensitivity report from outpatient urgent care positive for ESBL UTI Urine culture showing gram-negative bacilli Meropenem discontinued by ID, placed on Invanz 1 g IVPB daily for 3 days (Day 2) Renal ultrasound ordered by ID showing no acute renal abnormality, inferior pole left renal cyst, no evidence of obstructive uropathy Per ID if ultrasound negative recommend 3-day course of antibiotic Repeat CBC tomorrow a.m. Infectious disease following. no plans for PICC, meropenem discontinued for 3- day course of Invanz #Mbr-[id number] diabetes mellitus Glucose 120 Accu-Cheks Sliding scale insulin, monitor for hypoglycemia Last hemoglobin A1c was 6.6% on 05/19/2024 # Transaminitis AST 54, ALT 80 Continue to monitor Repeat BMP tomorrow morning Chronic conditions: HTN: resume Losartan 100mg po od CHF (not in exacerbation): Resume Lasix 40mg od, Farxiga 10mg od HLD: resume Lipitor 40mg od COPD (not in exacerbation): resume Ventolin inh, Hold Prednisone 40mg od Resolved: Acute sinusitis Leukocytosis Microcytic anemia Hypokalemia F: N/A E: Replete as needed N: Consistent carbohydrate diet A: Patient ambulatory at baseline DVT ppx: Lovenox 40 mg SQ daily Code status: Code Anticipated discharge place: Home Anticipated discharge time: Likely tomorrow (07/17) Zuleyka Ramirez MD PGY-1 IM I have seen and evaluated the patient today. Discussed with the resident and agree with the residents finding and plan as documented in the resident's note. Changes highlighted in blue font. Objective - Vital Signs Vital signs: Vital Signs Temp 97.7 F 07/16/24 06:56 Pulse 71 07/16/24 06:56 Resp 18 07/16/24 06:56 BP 125/75 07/16/24 06:56 Pulse Ox 100 07/16/24 06:56 FiO2 Intake & Output 07/15/24 07/16/24 07/16/24 18:59 06:59 18:59 Other: Voiding Method Toilet # Voids 3 2 # Bowel Movements 1 - Labs CBC & Chem 7: 07/16/24 05:55 07/16/24 05:55 Labs: Abnormal Lab Results - Last 24 Hours (Table) 07/15/24 07/15/24 07/15/24 Range/Units 09:00 09:00 16:43 MCV (80.0-100.0) fL MCH 23.1 L (25.0-35.0) pg MCHC 28.7 L (31.0-37.0) g/dL RDW 17.0 H (11.5-15.5) % Potassium 3.4 L (3.5-5.1) mmol/L BUN 32 H (7-17) mg/dL Glucose 171 H (74-99) mg/dL POC Glucose (mg/dL) 130 H (70-110) mg/dL Calcium 8.3 L (8.4-10.2) mg/dL AST 39 H (14-36) U/L ALT 77 H (4-34) U/L Total Protein 6.0 L (6.3-8.2) g/dL Albumin 3.3 L (3.5-5.0) g/dL 07/15/24 07/16/24 07/16/24 Range/Units 21:01 05:55 05:55 MCV 77.2 L (80.0-100.0) fL MCH 23.0 L (25.0-35.0) pg MCHC 29.7 L (31.0-37.0) g/dL RDW 16.7 H (11.5-15.5) % Potassium (3.5-5.1) mmol/L BUN 22 H (7-17) mg/dL Glucose 134 H (74-99) mg/dL POC Glucose (mg/dL) 170 H (70-110) mg/dL Calcium (8.4-10.2) mg/dL AST 54 H (14-36) U/L ALT 80 H (4-34) U/L Total Protein 6.2 L (6.3-8.2) g/dL Albumin 3.4 L (3.5-5.0) g/dL 07/16/24 Range/Units 06:29 MCV (80.0-100.0) fL MCH (25.0-35.0) pg MCHC (31.0-37.0) g/dL RDW (11.5-15.5) % Potassium (3.5-5.1) mmol/L BUN (7-17) mg/dL Glucose (74-99) mg/dL POC Glucose (mg/dL) 180 H (70-110) mg/dL Calcium (8.4-10.2) mg/dL AST (14-36) U/L ALT (4-34) U/L Total Protein (6.3-8.2) g/dL Albumin (3.5-5.0) g/dL
--- NOTE | 2024-07-16 14:19 | P.PN ---
Subjective Progress Note Date: 07/16/24 Principal diagnosis: Reason for follow-up is ESBL E. coli UTI Patient is a 83-year-old -[place] female with a past medical history significant for COPD diabetes mellitus fibromyalgia history of recurrent UTI the patient presented to the hospital for evaluation of increasing urinary frequency and burning with recent outpatient culture positive for ESBL E. coli On today's evaluation that is 07/16/2024, patient continues to be febrile patient is breathing comfortable currently on 2 L current oxygen sleepy in no distress no vomiting diarrhea any changes reported by nursing staff. Patient white count is 8.6, creatinine 0.5 6 repeat culture currently growing gram-negative bacilli Objective - Vital Signs Vital signs: Vital Signs Temp 97.7 F 07/16/24 06:56 Pulse 71 07/16/24 06:56 Resp 18 07/16/24 06:56 BP 125/75 07/16/24 06:56 Pulse Ox 100 07/16/24 06:56 FiO2 Intake & Output 07/15/24 07/16/24 07/16/24 18:59 06:59 18:59 Other: Voiding Method Toilet # Voids 3 2 # Bowel Movements 1 - Exam GENERAL DESCRIPTION: An elderly female lying in bed in no distress RESPIRATORY SYSTEM: Unlabored breathing , decreased breath sounds at bases HEART: S1 S2 regular rate and rhythm , ABDOMEN: Soft , no tenderness EXTREMITIES: No edema feet - Labs CBC & Chem 7: 07/16/24 05:55 07/16/24 05:55 Labs: Abnormal Lab Results - Last 24 Hours (Table) 07/15/24 07/15/24 07/16/24 Range/Units 16:43 21:01 05:55 MCV 77.2 L (80.0-100.0) fL MCH 23.0 L (25.0-35.0) pg MCHC 29.7 L (31.0-37.0) g/dL RDW 16.7 H (11.5-15.5) % BUN (7-17) mg/dL Glucose (74-99) mg/dL POC Glucose (mg/dL) 130 H 170 H (70-110) mg/dL AST (14-36) U/L ALT (4-34) U/L Total Protein (6.3-8.2) g/dL Albumin (3.5-5.0) g/dL 07/16/24 07/16/24 07/16/24 Range/Units 05:55 06:29 11:34 MCV (80.0-100.0) fL MCH (25.0-35.0) pg MCHC (31.0-37.0) g/dL RDW (11.5-15.5) % BUN 22 H (7-17) mg/dL Glucose 134 H (74-99) mg/dL POC Glucose (mg/dL) 180 H 111 H (70-110) mg/dL AST 54 H (14-36) U/L ALT 80 H (4-34) U/L Total Protein 6.2 L (6.3-8.2) g/dL Albumin 3.4 L (3.5-5.0) g/dL Assessment and Plan (1) UTI due to extended-spectrum beta lactamase (ESBL) producing Escherichia coli Current Visit: Yes Status: Acute Code(s): N39.0 - URINARY TRACT INFECTION, SITE NOT SPECIFIED; B96.29 - OTH ESCHERICHIA COLI THE CAUSE OF DISEASES CLASSD ELSWHR; Z16.12 - EXTENDED SPECTRUM BETA LACTAMASE (ESBL) RESISTANCE SNOMED Code(s): 099483286 Plan: 1patient presented to hospital with urinary burning and frequency and this patient did have positive UA and recent outpatient urine culture have been positive for ESBL E. coli more likely same pathogen patient currently does not have any systemic system and not behaving as a cystitis rather than deep infection 2-patient did have ultrasound of the kidney bladder area with no evidence of any obstructive uropathy or structure abnormality responsible for recurrent UTI 3-patient is currently being treated with Invanz 1 g daily plan is only for a 3- day course for possible cystitis not behaving as a deep infection Dictation was produced using [employer] software. please excuse any grammatical, word or spelling errors. Time with Patient: Less than 30
[2024-07-16 16:25] LABS: Glucose,Whole Blood 224 mg/dL (70-110)
[2024-07-16 21:26] LABS: Glucose,Whole Blood 116 mg/dL (70-110)
[2024-07-17 06:15] LABS: Anisocytosis Slight; Basophils % (A) 1 %; Eosinophils # (A) 0.1 k/uL (0-0.7); Eosinophils % (A) 1 %; HCT 38.9 % (34.0-46.0); HGB 11.6 gm/dL (11.4-16.0); Hypochromasia Marked; Lymphocytes # (A) 2.1 k/uL (1.0-4.8); Lymphocytes % (A) 25 %; MCH 23.3 pg (25.0-35.0); MCHC 29.8 g/dL (31.0-37.0); MCV 78.3 fL (80.0-100.0); Mean Platelet Volume 7.1; Microcytosis Slight; Monocytes # (A) 0.6 k/uL (0-1.0); Monocytes % (A) 8 %; Neutrophils # (A) 5.3 k/uL (1.3-7.7); Neutrophils % (A) 64 %; Platelet Count 262 k/uL (150-450); RBC 4.97 m/uL (3.80-5.40); RDW 16.7 % (11.5-15.5); WBC 8.2 k/uL (3.8-10.6)
[2024-07-17 06:26] LABS: ALT 77 U/L (4-34); AST 57 U/L (14-36); African American GFR (CKD) >90 (>60 ml/min/1.73 sqM); Albumin 3.3 g/dL (3.5-5.0); Albumin/Globulin Ratio 1.2; Alkaline Phosphatase 65 U/L (38-126); Anion Gap 6 mmol/L; Blood Urea Nitrogen 18 mg/dL (7-17); Calcium 8.4 mg/dL (8.4-10.2); Carbon Dioxide 28 mmol/L (22-30); Chloride 103 mmol/L (98-107); Globulin 2.8 g/dL; Glucose 140 mg/dL (74-99); Magnesium 2.3 mg/dL (1.6-2.3); Non-African American GFR(CKD) 89 (>60 ml/min/1.73 sqM); Potassium 3.8 mmol/L (3.5-5.1); Sodium 137 mmol/L (137-145); Total Bilirubin 0.2 mg/dL (0.2-1.3); Total Protein 6.1 g/dL (6.3-8.2)
[2024-07-17 06:29] LABS: Glucose,Whole Blood 118 mg/dL (70-110)
[2024-07-17 07:33] VITALS: BP 117/75; PULSE 69; RESP 18; TEMP 97.2
--- NOTE | 2024-07-17 10:41 | P.DS ---
Providers Date of admission: 07/13/24 18:44 Expected date of discharge: 07/17/24 Attending physician: Sung Saenz Consults: 07/14/24 00:24 Consult Physician Routine Consulting Provider: Peter Mueller Consult Reason/Comments: ESBL UTI Do you want consulting provider notified?: Yes Primary care physician: Remy Salazar Hospital Course: Discharge Diagnosis: #ESBL positive UTI # Sepsis present on admission #Bex-eixmeay-qicvlbikn diabetes mellitus # Transaminitis #COPD not in exacerbation #Chronic hypoxic respiratory failure #Hypertension #Dyslipidemia Hospital Course: 83-year-old female with PMH of COPD on home oxygen when going to bed (however patient is unsure of amount of oxygen), diabetes mellitus, osteoarthritis and recurrent UTI presents to the ER with abnormal urine culture results (culture obtained 05/25). WBC 12.0, hemoglobin 12.8, MCV 86.5, platelet count 331, AST 62, ALT 91. Urinalysis: Nitrate negative, hematuria negative, leukocyte esterase positive, urine WBC 89. Patient was initially tachycardic. Chest x-ray did not show any acute process. Renal ultrasound did not show any obstructive uropathy, no other acute abnormalities, shows inferior pole left renal cyst. Patient was started on ertapenem, completed 3-day course. ID was also consulted. Being discharged home. Patient seen and examined at bedside. Vital signs reviewed and stable. General: Nontoxic, no distress, appears at stated age Derm: Warm, dry Head: Atraumatic, normocephalic, symmetric Eyes: EOMI, no lid lag, anicteric sclera Mouth: No lip lesion, mucus membranes moist Cardiovascular: S1S2 reg, no murmur Lungs: CTA bilateral, no rhonchi, no rales, no accessory muscle use, supplemental oxygen Abdominal: Soft, nontender to palpation, no guarding, no appreciable organomegaly Ext: No gross muscle atrophy, no edema, no contractures Neuro: CN II-XI grossly intact, no focal neuro deficits Psych: Alert, oriented, appropriate affect A total of 33 minutes of time were spent preparing this complex discharge summary. Patient was discharged on 07/17/2024 at 957. Patient Condition at Discharge: Stable Plan - Discharge Summary Discharge Rx Participant: Yes New Discharge Prescriptions: Continue Memantine HCl [Memantine HCl ER] 7 mg PO DAILY Albuterol Inhaler [Ventolin Hfa Inhaler] 2 puff INHALATION RT-QID PRN PRN Reason: Shortness Of Breath oxyCODONE-APAP 10-325MG [Percocet 10-325 mg] 1 tab PO 5XD PRN PRN Reason: Pain Furosemide [Lasix] 40 mg PO DAILY Fluticasone Nasal [place] [Flonase Nasal [place]] 1 spray EA NOSTRIL BID Atorvastatin [Lipitor] 40 mg PO HS Losartan [Cozaar] 100 mg PO DAILY #90 tab Dapagliflozin Propanediol [Farxiga] 10 mg PO DAILY #90 tab Lidocaine 4% Patch 1 patch TOPICAL DAILY PRN PRN Reason: Pain Ferrous Sulfate [Feosol] 325 mg PO DAILY metFORMIN HCL 1,000 mg PO DAILY Potassium Chloride [Klor-Con 10 ER] 10 meq PO BID Colchicine [Colcrys] 0.6 mg PO DAILY Discontinued predniSONE [Deltasone] 40 mg PO DAILY Doxycycline Hyclate 100 mg PO BID Discharge Medication List Memantine HCl [Memantine HCl ER] 7 mg PO DAILY 11/30/19 [History] Albuterol Inhaler [Ventolin Hfa Inhaler] 2 puff INHALATION RT-QID PRN 01/08/20 [History] Ferrous Sulfate [Feosol] 325 mg PO DAILY 01/26/22 [History] metFORMIN HCL 1,000 mg PO DAILY 09/13/22 [History] Atorvastatin [Lipitor] 40 mg PO HS 05/19/24 [History] Colchicine [Colcrys] 0.6 mg PO DAILY 05/19/24 [History] Fluticasone Nasal [place] [Flonase Nasal [place]] 1 spray EA NOSTRIL BID 05/19/24 [History] Furosemide [Lasix] 40 mg PO DAILY 05/19/24 [History] Potassium Chloride [Klor-Con 10 ER] 10 meq PO BID 05/19/24 [History] oxyCODONE-APAP 10-325MG [Percocet 10-325 mg] 1 tab PO 5XD PRN 05/19/24 [History] Dapagliflozin Propanediol [Farxiga] 10 mg PO DAILY #90 tab 05/20/24 [Rx] Losartan [Cozaar] 100 mg PO DAILY #90 tab 05/20/24 [Rx] Lidocaine 4% Patch 1 patch TOPICAL DAILY PRN 07/13/24 [History] Follow up Appointment(s)/Referral(s): Remy Salazar DO [Primary Care Provider] - 1-2 days (Office is closed at time of discharge. Please call for follow-up appointment.) Patient Instructions/Handouts: Urinary Tract Infection in Women (DC) Activity/Diet/Wound Care/Special Instructions: Please see your PCP. Discharge Disposition: HOME SELF-CARE
--- NOTE | 2024-07-17 14:35 | P.PN ---
Subjective Progress Note Date: 07/17/24 Principal diagnosis: Reason for follow-up is ESBL E. coli UTI Patient is a 83-year-old -[place] female with a past medical history significant for COPD diabetes mellitus fibromyalgia history of recurrent UTI the patient presented to the hospital for evaluation of increasing urinary frequency and burning with recent outpatient culture positive for ESBL E. coli On today's evaluation that is 07/17/2024, Patient is afebrile patient is currently on room air and denies having any shortness of breath, the patient denies any chest pain or cough, the patient denies any nausea vomiting did not have any abdominal pain and no diarrhea, feeling better wants to go home. Patient white count is 8.2, creatinine 0.53 urine with gram-negative that has never been finalized that has been 4 days Objective - Vital Signs Vital signs: Vital Signs Temp 97.2 F L 07/17/24 06:57 Pulse 69 07/17/24 06:57 Resp 18 07/17/24 06:57 BP 117/75 07/17/24 06:57 Pulse Ox 97 07/17/24 06:57 FiO2 Intake & Output 07/16/24 07/17/24 07/17/24 18:59 06:59 18:59 Other: # Voids 3 2 # Bowel Movements 1 - Exam GENERAL DESCRIPTION: An elderly female lying in bed in no distress RESPIRATORY SYSTEM: Unlabored breathing , decreased breath sounds at bases HEART: S1 S2 regular rate and rhythm , ABDOMEN: Soft , no tenderness EXTREMITIES: No edema feet - Labs CBC & Chem 7: 07/17/24 05:49 07/17/24 05:49 Labs: Abnormal Lab Results - Last 24 Hours (Table) 07/16/24 07/16/24 07/17/24 Range/Units 16:23 21:22 05:49 MCV 78.3 L (80.0-100.0) fL MCH 23.3 L (25.0-35.0) pg MCHC 29.8 L (31.0-37.0) g/dL RDW 16.7 H (11.5-15.5) % BUN (7-17) mg/dL Glucose (74-99) mg/dL POC Glucose (mg/dL) 224 H 116 H (70-110) mg/dL AST (14-36) U/L ALT (4-34) U/L Total Protein (6.3-8.2) g/dL Albumin (3.5-5.0) g/dL 07/17/24 07/17/24 Range/Units 05:49 06:27 MCV (80.0-100.0) fL MCH (25.0-35.0) pg MCHC (31.0-37.0) g/dL RDW (11.5-15.5) % BUN 18 H (7-17) mg/dL Glucose 140 H (74-99) mg/dL POC Glucose (mg/dL) 118 H (70-110) mg/dL AST 57 H (14-36) U/L ALT 77 H (4-34) U/L Total Protein 6.1 L (6.3-8.2) g/dL Albumin 3.3 L (3.5-5.0) g/dL Assessment and Plan (1) UTI due to extended-spectrum beta lactamase (ESBL) producing Escherichia coli Status: Acute Code(s): N39.0 - URINARY TRACT INFECTION, SITE NOT SPECIFIED; B96.29 - OTH ESCHERICHIA COLI THE CAUSE OF DISEASES CLASSD ELSWHR; Z16.12 - EXTENDED SPECTRUM BETA LACTAMASE (ESBL) RESISTANCE SNOMED Code(s): 221301748 Plan: 1patient presented to hospital with urinary burning and frequency and this patient did have positive UA and recent outpatient urine culture have been positive for ESBL E. coli more likely same pathogen patient currently does not have any systemic system and not behaving as a cystitis rather than deep infection 2-patient did have ultrasound of the kidney bladder area with no evidence of any obstructive uropathy or structure abnormality responsible for recurrent UTI 3-patient has received adequate by therapy for possible cystitis and no need for antibiotic therapy on discharge discussed with the nursing staff question answered Dictation was produced using [employer] dictation software. please excuse any grammatical, word or spelling errors. Time with Patient: Less than 30
== END 2024-07-17 12:12 | disposition home or self-care (01) | DRG 872 ==
LOC: EC 16:52 → 4SSUR 18:44
PROVIDERS: ADMIT Student in an Organized Health Care Education/Training Program; ATTEND Student in an Organized Health Care Education/Training Program
DX: A41.9 Sepsis, unspecified organism (principal); N12 Tubulo-interstitial nephritis, not specified as acute or chronic; Z16.12 Extended spectrum beta lactamase (ESBL) resistance; J96.11 Chronic respiratory failure with hypoxia; E11.9 Type 2 diabetes mellitus without complications; R74.01 Elevation of levels of liver transaminase levels; J44.9 Chronic obstructive pulmonary disease, unspecified; I50.9 Heart failure, unspecified; I11.0 Hypertensive heart disease with heart failure; E78.5 Hyperlipidemia, unspecified; M79.7 Fibromyalgia; F17.200 Nicotine dependence, unspecified, uncomplicated; H66.90 Otitis media, unspecified, unspecified ear; B96.20 Unspecified Escherichia coli [E. coli] as the cause of diseases classified elsewhere; D50.9 Iron deficiency anemia, unspecified; J01.90 Acute sinusitis, unspecified; E87.6 Hypokalemia; Z99.81 Dependence on supplemental oxygen; Z79.84 Long term (current) use of oral hypoglycemic drugs; Z79.899 Other long term (current) drug therapy; Z88.8 Allergy status to other drugs, medicaments and biological substances; Z87.440 Personal history of urinary (tract) infections
CPT/HCPCS: 71046; 76770; 80048; 80053; 81001; 83735; 85025; 87077; 87086; 87186; 87636; 96365; 96366; 99285

== ENCOUNTER → 2024-12-19 | Outpatient (CLI) | payer MEDICARE, OTHER ==
[2024-12-19 14:21] LABS: African American GFR (CKD) 83 (>60 ml/min/1.73 sqM); Blood Urea Nitrogen 20 mg/dL (7-17); Non-African American GFR(CKD) 72 (>60 ml/min/1.73 sqM)
--- NOTE | 2024-12-20 09:12 | CT ---
EXAMINATION TYPE: CT ChestAbdPelvis w con DATE OF EXAM: 12/19/2024 4:01 PM COMPARISON: Abdomen pelvis 11/23/2022. CLINICAL INDICATION: Female, 84 years old with history of R63.4 ABNORMAL WEIGHT LOSS; PHH, abnormal w eight loss Technique: CT of the chest, abdomen, and pelvis after IV contrast. Delayed images through the kidneys and coronal and sagittal reconstructions were obtained. Contrast used:100 mL of Isovue 300 with IV Contrast Oral contrast used: with Oral Contrast CT DLP: 1935 mGycm, Automated exposure control for dose reduction was used. Findings: CHEST: The heart is borderline enlarged without pericardial effusion. No significant coronary calcifications are seen. Ectatic ascending aorta 3.8 cm. Mild atherosclerotic arch calcifications. Conventional arch vessel br anching anatomy. Tortuous descending thoracic aorta. Normal variant duplicated SVC. No thoracic lymphadenopathy by CT size criteria. Mild to moderate diffuse bronchial wall thickening. Mild interstitial changes throughout and minimal emphysematous change. No monserrat consolidation or pleural effusion. ABDOMEN: Postsurgical change at the GE junction. No focal liver lesion. Gallbladder surgically absent. Bile duct borderline dilated 7 mm likely due to chronic postcholecystectomy status. Portal venous system is patent. Suspect a 2.2 cm lipoma along th e left lateral wall of the second portion of the duodenum, coronal image 48. Adrenal glands, right kidney, spleen, atrophic pancreas show no gross abnormality. 1.4 cm cortical cyst posterior left kidney at the lower pole is unchanged. Moderate atherosclerotic calcification and plaque within the infrarenal abdominal aorta and common il iac arteries with borderline fusiform ectasia of the infrarenal dominant aorta to 2.5 cm, not signifi cantly changed. No dilated small bowel, free fluid, or free air. No mesenteric or retroperitoneal lymphadenopathy. Normal appendix. Multiple moderate stool in the right side of the colon. No pericolonic inflammatory change. Pelvis: Bladder partially distended. Uterus anteverted. Small bilateral ovaries. Small pelvic phleboliths. Mi ld pelvic floor relaxation. No abnormal fluid collection in the pelvis or pelvic lymphadenopathy. Bones: Mild degenerative change at both hips. Patient status post intraspinous posterior fusion at L4-L5 wit h fixed grade 1 anterolisthesis here. There is also degenerative grade 1 retrolisthesis at L2-L3. End -stage genx-ar-sqeo degenerative change at both shoulders. IMPRESSION: 1. COPD with mild emphysema. Prominent bronchial wall thickening suggests a prominent component of ch ronic bronchitis versus superimposed acute bronchitis. 2. Similar mild 2.5 cm fusiform ectasia infrarenal abdominal aorta with moderate atherosclerotic vaz ge here. 3. Postsurgical change at the GE junction. Status post cholecystectomy. 4. End-stage, bone on bone degenerative change at both shoulders. [facility], Workstation: [facility], 12/20/2024 9:09 AM
== END | disposition home or self-care (01) ==
LOC: RADCTMAIN 13:37
PROVIDERS: ATTEND Internal Medicine
DX: J44.9 Chronic obstructive pulmonary disease, unspecified (principal); I77.811 Abdominal aortic ectasia; J43.9 Emphysema, unspecified; R63.4 Abnormal weight loss; M19.011 Primary osteoarthritis, right shoulder; M19.012 Primary osteoarthritis, left shoulder; Z90.49 Acquired absence of other specified parts of digestive tract
CPT/HCPCS: 82565; 84520; 71260; 74177; 36415; Q9967

== ENCOUNTER 2024-12-24 02:14 | Emergency (ER) | payer MEDICARE, OTHER ==
[2024-12-24 02:19] VITALS: RESP 18
--- NOTE | 2024-12-24 02:50 | ED ---
General Adult HPI - General Chief complaint: Extremity Problem,Nontraumatic Stated complaint: Rash Time Seen by Provider: 12/24/24 02:28 Source: patient, RN notes reviewed Mode of arrival: ambulatory Limitations: no limitations - History of Present Illness Initial comments: This is an 84-year-old female with history including CHF, DM and COPD presenting for bilateral lower extremity edema upon waking this morning. Patient states she started levofloxacin for a sinus infection yesterday, discovering that her legs were more swollen than usual upon waking, causing her concern enough to go to ER for further evaluation. Patient states she suspects the antibiotic has caused her bilateral lower extremity swelling. Patient states she takes f urosemide daily but is unsure why she takes it, stating she never has had swelling of her legs in the past. Patient states she also has compression stockings at home but is unsure of where they are at this time. Patient denies fever, chills, cough, rash, pruritus, oropharyngeal edema, chest pain, dyspnea, orthopnea, dizziness, abdominal pain, N/V/D. Patient denies history of blood clots or use of blood thinners. Denies recent long travel, traumatic injury or surgery. Onset/Timin -: hour(s) - Related Data Home Medications Medication Instructions Recorded Confirmed Memantine HCl [Memantine HCl ER] 7 mg PO DAILY 11/30/19 07/13/24 Albuterol Inhaler [Ventolin Hfa 2 puff INHALATION RT-QID PRN 01/08/20 07/13/24 Inhaler] Ferrous Sulfate [Feosol] 325 mg PO DAILY 01/26/22 07/13/24 metFORMIN HCL 1,000 mg PO DAILY 09/13/22 07/13/24 Atorvastatin [Lipitor] 40 mg PO HS 05/19/24 07/13/24 Colchicine [Colcrys] 0.6 mg PO DAILY 05/19/24 07/13/24 Fluticasone Nasal [place] [Flonase 1 spray EA NOSTRIL BID 05/19/24 07/13/24 Nasal [place]] Furosemide [Lasix] 40 mg PO DAILY 05/19/24 07/13/24 Potassium Chloride [Klor-Con 10 ER] 10 meq PO BID 05/19/24 07/13/24 oxyCODONE-APAP 10-325MG [Percocet 1 tab PO 5XD PRN 05/19/24 07/13/24 10-325 mg] Lidocaine 4% Patch 1 patch TOPICAL DAILY PRN 07/13/24 07/13/24 Previous Rx's Medication Instructions Recorded Dapagliflozin Propanediol [Farxiga] 10 mg PO DAILY #90 tab 05/20/24 Losartan [Cozaar] 100 mg PO DAILY #90 tab 05/20/24 Amoxic-Pot Clav 875-125Mg 1 tab PO Q12HR #14 tab 12/24/24 [Augmentin 875-125] Allergies Allergy/AdvReac Type Severity Reaction Status Date / Time Corticosteroids Allergy Itching Verified 12/24/24 02:19 (Glucocorticoids) propoxyphene napsylate Allergy Itching Verified 12/24/24 02:19 [From Darvocet-N 100] Review of Systems ROS Statement: Those systems with pertinent positive or pertinent negative responses have been documented in the HPI. ROS Other: All systems not noted in ROS Statement are negative. Past Medical History Past Medical History: COPD, Diabetes Mellitus, Fibromyalgia Additional Past Medical History / Comment(s): chronic neck and back pain 1996 affected rt knee & rt ankle with ortho surgeries, multiple falls, HTN History of Any Multi-Drug Resistant Organisms: ESBL Date of last positivie culture/infection: 05/25/24 MDRO Source:: urine Past Surgical History: Appendectomy, Cholecystectomy, Orthopedic Surgery, Tonsillectomy Additional Past Surgical History / Comment(s): Total Bilateral Knee, Right Ankle. Lt Shoulder surgery. Egd/Colonoscopy 12/10/13. verticalflex in back, Past Anesthesia/Blood Transfusion Reactions: No Reported Reaction Additional Past Anesthesia/Blood Transfusion Reaction / Comment(s): pt states received 5-6 units blood prior Past Psychological History: No Psychological Hx Reported Smoking Status: Current every day smoker Past Alcohol Use History: None Reported Past Drug Use History: None Reported - Past Family History Mother History Unknown: Yes Family Medical History: Coronary Artery Disease (CAD) General Exam Limitations: no limitations General appearance: alert, in no apparent distress Head exam: Present: atraumatic, normocephalic, normal inspection Eye exam: Present: normal appearance, PERRL, EOMI. Absent: scleral icterus, conjunctival injection, periorbital swelling ENT exam: Present: normal exam, mucous membranes moist Neck exam: Present: normal inspection. Absent: tenderness, meningismus, lympha denopathy Respiratory exam: Present: normal lung sounds bilaterally. Absent: respiratory distress, wheezes, rales, rhonchi, stridor, accessory muscle use, decreased breath sounds, prolonged expiratory Cardiovascular Exam: Present: regular rate, normal rhythm, normal heart sounds. Absent: systolic murmur, diastolic murmur, rubs, gallop, clicks GI/Abdominal exam: Present: soft, normal bowel sounds. Absent: distended, ten derness, guarding, rebound, rigid Extremities exam: Present: normal inspection, full ROM, normal capillary refill, pedal edema (BLE edema +2 extending to shins/calves without pitting, stasis dermatitis. Swelling worse around bilateral ankles), other (Bilateral distal neurovascular and motor function intact. Posterior tibialis pulse +2, capillary refill less than 2 seconds). Absent: tenderness, joint swelling, calf tenderness Back exam: Present: normal inspection Neurological exam: Present: alert, oriented X3, CN II-XII intact Psychiatric exam: Present: normal affect, normal mood Skin exam: Present: warm, dry, intact, normal color. Absent: rash Course Vital Signs 12/24/24 02:17 Temperature 98.1 F Pulse Rate 86 Respiratory 18 Rate Blood Pressure 118/89 O2 Sat by Pulse 94 L Oximetry Medical Decision Making - Medical Decision Making Was pt. sent in by a medical professional or institution (RADHA Caal, SHIP'S SURVEYOR, urgent care, hospital, or senior care...) When possible be specific @ -No Did you speak to anyone other than the patient for history (EMS, parent, family, police, friend...)? What history was obtained from this source @ -No Did you review nursing and triage notes (agree or disagree)? Why? @ -I reviewed and agree with nursing and triage notes Were old charts reviewed (outside hosp., previous admission, EMS record, old EKG, old radiological studies, urgent care reports/EKG's, senior care records)? Report findings @ -No old charts were reviewed Differential Diagnosis (chest pain, altered mental status, abdominal pain women, abdominal pain men, vaginal bleeding, weakness, fever, dyspnea, syncope, headache, dizziness, GI bleed, back pain, seizure, CVA, palpatations, mental health, musculoskeletal)? @ -Differential Musculoskeletal Muscular strain, contusion, ligament sprain, fracture, arthritis, septic arthritis, bursitis, cellulitis, muscle spasm, nerve compression, DVT, arterial occlusion, herpes zoster, electrolyte abnormality, tumor.... This is not meant to be in all inclusive list EKG interpreted by me (3pts min.). @ -Sinus rhythm without ST deviation or T wave inversion. Ventricular rate 76 bpm, DIMPLE 199 ms, QRS 89 ms, QTc 414 ms. X-rays interpreted by me (1pt min.). @ -CXR results pending CT interpreted by me (1pt min.). @ -None done U/S interpreted by me (1pt. min.). @ -None done What testing was considered but not performed or refused? (CT, X-rays, U/S, labs)? Why? @ -Extremity ultrasound considered but due to bilateral occurrence, use of Lasix, and patient meeting no criteria of Virchow's triad, this was deferred at this time. What meds were considered but not given or refused? Why? @ -None Did you discuss the management of the patient with other professionals (professionals i.e. , PA, SHIP'S SURVEYOR, lab, RT, psych nurse, psychiatric social worker supervisor, gis professor, teacher, information security officer, case supervisor)? Give summary @ -No Was smoking cessation discussed for >3mins.? @ -No Was critical care preformed (if so, how long)? @ -No Were there social determinants of health that impacted care today? How? (Homelessness, low income, unemployed, alcoholism, drug addiction, transportation, low edu. Level, literacy, decrease access to med. care, detention, rehab)? @ -No Was there de-escalation of care discussed even if they declined (Discuss DNR or withdrawal of care, Hospice)? DNR status @ -No What co-morbidities impacted this encounter? (DM, HTN, Smoking, COPD, CAD, Cancer, CVA, ARF, Chemo, Hep., AIDS, mental health diagnosis, sleep apnea, morbid obesity)? @ -CHF Was patient admitted / discharged? Hospital course, mention meds given and route, prescriptions, significant lab abnormalities, going to OR and other pertinent info. @ -Lab work generally unremarkable with slightly low hemoglobin 10.4. BMP 128 with normal kidney function and WBC 7.79. CXR results pending. Patient is convinced that edema is due to recently started levofloxacin use and is requesting a new antibiotic to treat her sinusitis. Augmentin sent to patient's pharmacy. Advised patient to continue Lasix use and utilize compression stockings with elevation of lower extremities. Advise follow-up with PCP regarding any ongoing lower extremity edema, including ultrasound. Discussed patient with Dr. Soto. Undiagnosed new problem with uncertain prognosis? @ -No Drug Therapy requiring intensive monitoring for toxicity (Heparin, Nitro, Insulin, Cardizem)? @ -No Were any procedures done? @ -No Diagnosis/symptom? @ -Lower extremity edema, sinusitis Acute, or Chronic, or Acute on Chronic? @ -Acute Uncomplicated (without systemic symptoms) or Complicated (systemic symptoms)? @ -Uncomplicated Side effects of treatment? @ -No Exacerbation, Progression, or Severe Exacerbation? @ -No Poses a threat to life or bodily function? How? (Chest pain, USA, IA, pneumonia, PE, COPD, DKA, ARF, appy, cholecystitis, CVA, Diverticulitis, Homicidal, Suicidal, threat to staff... and all critical care pts) @ -No - Lab Data Result diagrams: 12/24/24 02:55 12/24/24 02:55 Lab Results 12/24/24 12/24/24 Range/Units 02:55 02:55 WBC 7.79 (4.50-10.00) 10*3/uL RBC 4.64 (4.10-5.20) 10*6/uL Hgb 10.4 L (12.0-15.0) g/dL Hct 32.7 L (37.2-46.3) % MCV 70.5 L (80.0-97.0) fL MCH 22.4 L (27.0-32.0) pg MCHC 31.8 L (32.0-37.0) g/dL Plt Count 267 (140-440) 10*3/uL MPV 10.6 (9.5-12.2) fL Immature Gran % (Auto) 0.4 % Neutrophils % 42.3 % Lymphocytes % 40.1 % Monocytes % 11.3 % Eosinophils % 5.5 % Basophils % 0.4 % Immature Gran # 0.03 (0.00-0.04) 10*3/uL Neutrophils # 3.30 (1.80-7.70) 10*3/uL Lymphocytes # 3.12 (0.90-5.00) 10*3/uL Monocytes # 0.88 (0.20-1.00) 10*3/uL Eosinophils # 0.43 H (0.04-0.35) 10*3/uL Basophils # 0.03 (0.00-0.10) 10*3/uL Sodium 135 L (137-145) mmol/L Potassium 3.7 (3.5-5.1) mmol/L Chloride 102 (98-107) mmol/L Carbon Dioxide 24 (22-30) mmol/L Anion Gap 9 mmol/L BUN 17 (7-17) mg/dL Creatinine 0.67 (0.52-1.04) mg/dL Est GFR (CKD-EPI)AfAm >90 (>60 ml/min/1.73 sqM) Est GFR (CKD-EPI)NonAf 82 (>60 ml/min/1.73 sqM) Glucose 95 (74-99) mg/dL Calcium 8.6 (8.4-10.2) mg/dL NT-Pro-B Natriuret Pep 128 pg/mL Disposition Clinical Impression: Bilateral lower extremity edema, Sinusitis Disposition: HOME SELF-CARE Condition: Good Instructions (If sedation given, give patient instructions): Leg Edema (ED) Additional Instructions: Apply compression stockings and elevate legs during the day for lower extremity swelling. Continue furosemide use as previously prescribed. Follow-up with primary care for any ongoing swelling of legs. Prescriptions: Amoxic-Pot Clav 875-125Mg [Augmentin 875-125] 1 tab PO Q12HR #14 tab Is patient prescribed a controlled substance at d/c from ED?: No Referrals: Remy Salazar DO [Primary Care Provider] - 1-2 days Time of Disposition: 04:00
[2024-12-24 03:10] LABS: Basophils # (A) 0.03 10*3/uL (0.00-0.10); Basophils % (A) 0.4 %; Eosinophils # (A) 0.43 10*3/uL (0.04-0.35); Eosinophils % (A) 5.5 %; HCT 32.7 % (37.2-46.3); HGB 10.4 g/dL (12.0-15.0); Lymphocytes # (A) 3.12 10*3/uL (0.90-5.00); Lymphocytes % (A) 40.1 %; MCH 22.4 pg (27.0-32.0); MCHC 31.8 g/dL (32.0-37.0); MCV 70.5 fL (80.0-97.0); Mean Platelet Volume 10.6 fL (9.5-12.2); Monocytes # (A) 0.88 10*3/uL (0.20-1.00); Monocytes % (A) 11.3 %; Neutrophils % (A) 42.3 %; Platelet Count 267 10*3/uL (140-440); RBC 4.64 10*6/uL (4.10-5.20); RDW 19.4 % (11.5-14.5); WBC 7.79 10*3/uL (4.50-10.00)
[2024-12-24 03:23] LABS: African American GFR (CKD) >90 (>60 ml/min/1.73 sqM); Anion Gap 9 mmol/L; Blood Urea Nitrogen 17 mg/dL (7-17); Calcium 8.6 mg/dL (8.4-10.2); Carbon Dioxide 24 mmol/L (22-30); Chloride 102 mmol/L (98-107); Glucose 95 mg/dL (74-99); Non-African American GFR(CKD) 82 (>60 ml/min/1.73 sqM); Potassium 3.7 mmol/L (3.5-5.1); Sodium 135 mmol/L (137-145)
[2024-12-24 03:32] LABS: NT-Pro-B-Type Natriuretic Pept 128 pg/mL
[2024-12-24 04:12] VITALS: BP 122/78; PULSE 88; TEMP 97.9
--- NOTE | 2024-12-24 04:35 | XR ---
EXAM: XR Chest, 1 View CLINICAL HISTORY: Pedal edema TECHNIQUE: Frontal view of the chest. COMPARISON: 08/30/2024 FINDINGS: Lungs: Unremarkable. No consolidation. Pleural space: Unremarkable. Mediastinum: Unremarkable. Bones/joints: Osteopenia. Moderate degenerative changes. Deformed bilateral shoulders, likely related to prior trauma or advanced osteoarthritic changes. Soft tissues: Cluster of surgical clips in the region of GE junction is again noted. Vasculature: Calcified aorta. IMPRESSION: No acute findings in the chest.
== END 2024-12-24 04:12 | disposition home or self-care (01) ==
LOC: EC 02:14
DX: J32.9 Chronic sinusitis, unspecified (principal); R60.0 Localized edema; I11.0 Hypertensive heart disease with heart failure; E11.9 Type 2 diabetes mellitus without complications; J44.9 Chronic obstructive pulmonary disease, unspecified; F17.200 Nicotine dependence, unspecified, uncomplicated; Z88.8 Allergy status to other drugs, medicaments and biological substances
CPT/HCPCS: 36415; 71045; 80048; 83880; 85025; 99284

== ENCOUNTER 2024-12-28 18:28 | Emergency (ER) | payer MEDICARE, OTHER ==
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
[2024-12-28] MEDS: HYDROmorphone 0.5 MG/0.5 ML SYRINGE IM STA (19:23)
[2024-12-28] MEDS: LIDOCAINE 4% PATCH TOPICAL STA (19:24)
[2024-12-28 19:44] VITALS: BP 110/67; PULSE 79; RESP 18; TEMP 97.7
== END 2024-12-28 19:45 | disposition home or self-care (01) ==
LOC: EC 18:28
DX: S16.1XXA Strain of muscle, fascia and tendon at neck level, initial encounter (principal); F17.200 Nicotine dependence, unspecified, uncomplicated; Z88.8 Allergy status to other drugs, medicaments and biological substances; X58.XXXA Exposure to other specified factors, initial encounter
CPT/HCPCS: 99283; 96372; J1171